=== PATIENT | female | born 1935 | race Caucasian/White ===

== ENCOUNTER → 2018-08-01 15:24 | Outpatient (CLI) | payer MEDICARE, SELFPAY ==
--- NOTE | 2018-08-01 | DI.US.S_ITS ---
PROCEDURE: US ARTERIAL DUPLEX LE LT INDICATIONS: PAIN,REDNESS,SWELLING TECHNIQUE: Color and pulse Doppler interrogation was performed of the left lower extremity arterial system, with image documentation. COMPARISON: None. FINDINGS: Common femoral artery: 137 cm/sec, with triphasic flow. Deep femoral artery: 84 cm/sec, with triphasic flow. Proximal superficial femoral artery: 95 cm/sec, with triphasic flow. Mid superficial femoral artery: 112 cm/sec, with triphasic flow. Distal superficial femoral artery: 91 cm/sec, with triphasic flow. Popliteal artery: 95 cm/sec, with triphasic flow. Posterior tibial artery: 68 cm/sec, with biphasic flow. Anterior tibial artery/dorsalis pedis: 97 cm/sec, with biphasic flow. Melendez-scale imaging description: Minimal scattered plaque. IMPRESSION: No hemodynamically significant stenosis. Minimal scattered plaque. Dictated by: Nika Davila M.D. on 08/01/2018 at 17:21 Approved by: Nika Davila M.D. on 08/01/2018 at 17:22
== END ==
PROVIDERS: Family Provider Family Medicine; Visit Provider Podiatrist
DX: M25.572 Pain in left ankle and joints of left foot (principal); M25.472 Effusion, left ankle
CPT/HCPCS: 93926

== ENCOUNTER 2018-10-22 17:25 | Inpatient (IN) | payer MEDICARE, SELFPAY ==
--- NOTE | 2018-10-22 | DI.RAD.S_ITS ---
PROCEDURE: XR CHEST 1V INDICATIONS: Cough, wheezing, coarseness TECHNIQUE: One view of the chest was acquired. COMPARISON: None. FINDINGS: Surgical changes and devices: None. Lungs and pleura: No pleural effusions or pneumothorax. Increased bronchovascular markings in bilateral hilar region are seen with bronchial wall thickening. Prominent interstitial lung markings are noted bilaterally. No definite focal infiltrate. Mediastinum: Mediastinal contours appear normal. Heart size is normal. Bones and chest wall: No suspicious bony lesions. Overlying soft tissues appear unremarkable. IMPRESSION: Suggestion of reactive airway disease and possible underlying interstitial lung parenchymal disease. No definite focal infiltrate. No pleural effusion or pneumothorax. Dictated by: Dk Oliver M.D. on 10/22/2018 at 21:54 Approved by: Dk Oliver M.D. on 10/22/2018 at 21:56
[2018-10-22 17:26] VITALS: BP 149/81; PULSE 58; RESP 16; TEMP 36.9; O2SAT 92; BMI 21.9
--- NOTE | 2018-10-22 17:39 | PC.NURSE ---
required 3 er staff assist from wheelchair unto stretcher.
--- NOTE | 2018-10-22 17:42 | DI.RAD.S_ITS ---
PROCEDURE: XR HIP W PEL IF DONE LT 2V INDICATIONS: fell unto left hip last night, now non wt bearing TECHNIQUE: AP pelvis with lateral view(s) of the left hip(s). COMPARISON: None. FINDINGS: Bones: Patient is status post prior bilateral total hip arthroplasty. There is cortical irregularity involving lateral cortex of proximal left femoral shaft just below the level of greater trochanter concerning for a periprosthetic fracture. No gross hardware loosening or failure is noted in right hip. Pelvic ring appears intact. No suspicious bony lesions. Soft tissues: The visualized bowel gas pattern is normal. No suspicious soft tissue calcifications. IMPRESSION: Prior bilateral total hip arthroplasty with suggestion of nondisplaced periprosthetic fracture involving left proximal femur. Dictated by: Dk Oliver M.D. on 10/22/2018 at 18:18 Approved by: Dk Oliver M.D. on 10/22/2018 at 18:19
--- NOTE | 2018-10-22 17:45 | ED.FALL ---
HPI - Fall <ASHUTOSH Yuan - Last Filed: 10/22/18 22:04> General Chief Complaint: Fall Stated Complaint: Fall- hurt L hip Time Seen by Provider: 10/22/18 17:44 Source: patient Mode of arrival: wheelchair Limitations: no limitations History of Present Illness HPI Narrative: 83-year-old female with history of hypertension is a nonsmoker here for complaint of pain to her left hip. 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 She states that she was walking across a carpeted floor yesterday when she accidentally tripped on the carpet causing her to land on the left hip area. She has pain to the lateral aspect of the left hip. She reports increased pain with motion of the left hip and palpation to that area. She states she is has decreased ability to ambulate due to the pain. She denies any head injury. She denies any acute pain to her neck. No loss of consciousness. She denies any other concerns or complaints at this timeframe. Related Data Home Medications Medication Instructions Recorded Confirmed cabergoline 0.5 mg PO SEE INSTRUCTIONS #8 tab 11/01/16 10/22/18 [id number] [Creon] 1,200 units PO TID 10/22/18 10/22/18 olmesartan [Benicar] 20 mg PO Q DAY 10/22/18 10/22/18 pramipexole 0.125 mg PO BEDTIME 10/22/18 10/22/18 risperidone [Risperdal] 1.5 mg PO HS 10/22/18 10/22/18 Previous Rx's Medication Instructions Recorded famciclovir 125 mg PO QDAY #90 tab 11/03/16 donepezil [Aricept] 5 mg PO HS #90 tab 05/26/17 Allergies Allergy/AdvReac Type Severity Reaction Status Date / Time codeine [CODEINE] Allergy Unknown NAUSEA Verified 10/22/18 17:37 Penicillins [PENICILLINS] Allergy Unknown SWELLING Verified 10/22/18 17:37 TO SITE OF INJECTION Review of Systems <ASHUTOSH Yuan - Last Filed: 10/22/18 22:04> Constitutional Denies chills, Denies fever(s), Denies lethargy and Denies weakness Eyes Denies change in vision, Denies eye discharge, Denies irritation and Denies loss of vision ENT Ears, Nose, Mouth, and Throat: Denies change in voice, Denies neck pain and Denies sore throat Cardiovascular Denies chest pain, Denies irregular heart rhythm, Denies lightheadedness, Denies palpitations, Denies dyspnea, Denies dyspnea on exertion and Denies orthopnea Respiratory Denies cough, Denies dyspnea, Denies dyspnea on exertion and Denies wheezing Gastrointestinal Gastrointestinal: Denies abdominal pain, Denies change in bowel habits, Denies diarrhea, Denies nausea and Denies vomiting Genitourinary Denies hematuria, Denies flank pain, Denies urinary incontinence and Denies urinary urgency Musculoskeletal Denies neck pain Comments: Left hip pain status post ground level fall Integumentary/Breasts Denies pruritus, Denies erythema, Denies rash and Denies wounds Neurologic Denies confusion, Denies loss of vision and Denies weakness Psychiatric Denies anxiety, Denies confusion, Denies depression, Denies homicidal ideation and Denies suicidal ideation Endocrine Denies palpitations Hematologic/Lymphatic Denies easy bruising Allergic/Immunologic Denies wheezing Exam <ASHUTOSH uYan - Last Filed: 10/22/18 22:04> Initial Vital Signs Initial Vital Signs: Vital Signs Temperature 98.4 F 10/22/18 17:26 Pulse Rate 58 L 10/22/18 17:26 Respiratory Rate 16 10/22/18 17:26 Blood Pressure 149/81 H 10/22/18 17:26 Pulse Oximetry 92 10/22/18 17:26 Const General: cooperative and well developed Nutritional Appearance: well nourished Orientation: alert, awake, oriented x3 and not confused [facility] Mouth: oral mucosae normal and moist mucous membranes Eyes Conjunctivae: conjunctivae normal Sclera: sclerae normal Pupils: PERRL EOM: EOM intact bilaterally Resp Effort & Inspection: normal respiratory effort, able to speak in complete sentences, no respiratory distress and no use of accessory muscles Auscultation: clear to auscultation bilaterally, no rales, no rhonchi and no wheezes Cardio Rate: regular rate Rhythm: regular rhythm Heart Sounds: no click, no gallops, no murmurs and no rubs Pulses: normal peripheral pulses Skin General: no rashes or lesions noted, No jaundice and No petechiae Neuro General: alert, oriented x3, gait normal and no focal motor deficits Speech: speech normal Extrem Other: Left hip with no signs of trauma. No ecchymosis no swelling. No open lesions. Distal sensation is intact. Distal range of motion is intact. Distal pulses are intact. <Rafi Moore DO - Last Filed: 10/22/18 22:06> Initial Vital Signs Initial Vital Signs: Vital Signs Temperature 98.4 F 10/22/18 17:26 Pulse Rate 58 L 10/22/18 17:26 Respiratory Rate 16 10/22/18 17:26 Blood Pressure 149/81 H 10/22/18 17:26 Pulse Oximetry 92 10/22/18 17:26 Course <ASHUTOSH Yuan - Last Filed: 10/22/18 22:04> Orders Ordered: ED Orders 10/22/18 17:42 XR hip w pel if done LT 2V Stat 10/22/18 19:05 XR femur LT min 2V Stat 10/22/18 19:52 Consult to Physical Therapy Evaluate & Treat 10/22/18 19:58 Education, smoking cessation ONGOING 10/22/18 20:05 Consult to Occupational Therapy Evaluate & Treat Consult to Physical Therapy Evaluate & Treat 10/22/18 20:06 Consult to Physician Routine 10/22/18 20:07 Consult to Telephone Operator Chief Routine 10/22/18 20:08 Consult to Discharge Planning Routine 10/22/18 20:40 Consult to Dietitian, Adult Routine 10/22/18 21:01 Consult to Respiratory Therapy Evaluate & Treat 10/22/18 21:34 Complete Blood Count AUTO DIFF Urgent Comprehensive Metabolic Panel Urgent Magnesium Urgent Partial Thromboplastin Time Urgent Phosphorous Urgent Prothrombin Time INR Urgent 10/22/18 22:04 Urinalysis and Microscopic Routine Acetaminophen (Tylenol) 650 mg PO Q6HR PRN PRN Reason: As Needed for Fever/Mild Pain Al Hydrox/Mg Hydrox/Simethicone (Maalox Plus) 30 ml PO Q6HR PRN PRN Reason: Dyspepsia Albuterol (Ventolin) 2.5 mg INH Q4H PRN PRN Reason: Shortness Of Breath Or Wheezing Albuterol (Ventolin) 2.5 mg INH RTBID [facility] Bisacodyl (Dulcolax) 10 mg OR DAILY PRN PRN Reason: Constipation Calcium Carbonate (Tums) 1,000 mg PO Q4HR PRN PRN Reason: Dyspepsia Docusate Sodium (Colace) 100 mg PO BID PRN PRN Reason: Constipation Donepezil HCl (Aricept) 5 mg PO BEDTIME [facility] Naproxen (Naprosyn) 250 mg PO Q12H PRN PRN Reason: Pain, Mild (1-3) Naproxen (Naprosyn) 500 mg PO Q12H PRN PRN Reason: Pain, Moderate (4-6) Non-Formulary Medication (Fppkno-Yqkahdrh-Zgpcoxk [Kmpgrf-Ssfdhzno-Dgbmqxv]) 1,200 units PO TID [facility] Non-Formulary Medication (Cabergoline [Cabergoline]) 0.5 mg PO SEE INSTRUCTIONS [facility] Olmesartan (Benicar) 20 mg PO DAILY [facility] Pantoprazole Sodium (Protonix) 20 mg PO 0600 [facility] Pramipexole Dihydrochloride (Mirapex) 0.125 mg PO BEDTIME [facility] Promethazine HCl (Phenadoz) 12.5 mg OR Q6HR PRN PRN Reason: Nausea And Vomiting Risperidone (Risperdal) 1.5 mg PO BEDTIME [facility] Discontinued Medications Docusate Sodium (Colace) 100 mg PO BID [facility] Vital Signs - 8 hr 10/22/18 17:26 10/22/18 18:50 10/22/18 20:48 Temperature 98.4 F 97.4 F L Pulse Rate 58 L 56 L 53 L Respiratory Rate 16 15 20 Blood Pressure 149/81 H 162/74 H Blood Pressure [Right Arm] 165/86 H Pulse Oximetry 92 95 97 <Rafi Moore, DO - Last Filed: 10/22/18 22:06> Orders Ordered: ED Orders 10/22/18 17:42 XR hip w pel if done LT 2V Stat 10/22/18 19:05 XR femur LT min 2V Stat 10/22/18 19:52 Consult to Physical Therapy Evaluate & Treat 10/22/18 19:58 Education, smoking cessation ONGOING 10/22/18 20:05 Consult to Occupational Therapy Evaluate & Treat Consult to Physical Therapy Evaluate & Treat 10/22/18 20:06 Consult to Physician Routine 10/22/18 20:07 Consult to Telephone Operator Chief Routine 10/22/18 20:08 Consult to Discharge Planning Routine 10/22/18 20:40 Consult to Dietitian, Adult Routine 10/22/18 21:01 Consult to Respiratory Therapy Evaluate & Treat 10/22/18 21:34 Complete Blood Count AUTO DIFF Urgent Comprehensive Metabolic Panel Urgent Magnesium Urgent Partial Thromboplastin Time Urgent Phosphorous Urgent Prothrombin Time INR Urgent 10/22/18 22:04 Urinalysis and Microscopic Routine Acetaminophen (Tylenol) 650 mg PO Q6HR PRN PRN Reason: As Needed for Fever/Mild Pain Al Hydrox/Mg Hydrox/Simethicone (Maalox Plus) 30 ml PO Q6HR PRN PRN Reason: Dyspepsia Albuterol (Ventolin) 2.5 mg INH Q4H PRN PRN Reason: Shortness Of Breath Or Wheezing Albuterol (Ventolin) 2.5 mg INH RTBID [facility] Bisacodyl (Dulcolax) 10 mg OR DAILY PRN PRN Reason: Constipation Calcium Carbonate (Tums) 1,000 mg PO Q4HR PRN PRN Reason: Dyspepsia Docusate Sodium (Colace) 100 mg PO BID PRN PRN Reason: Constipation Donepezil HCl (Aricept) 5 mg PO BEDTIME [facility] Naproxen (Naprosyn) 250 mg PO Q12H PRN PRN Reason: Pain, Mild (1-3) Naproxen (Naprosyn) 500 mg PO Q12H PRN PRN Reason: Pain, Moderate (4-6) Non-Formulary Medication (Ymdcgx-Gnsirmny-Ibdbmwc [Ntwqmx-Xlwsfpfc-Eawiefr]) 1,200 units PO TID [facility] Non-Formulary Medication (Cabergoline [Cabergoline]) 0.5 mg PO SEE INSTRUCTIONS [facility] Olmesartan (Benicar) 20 mg PO DAILY [facility] Pantoprazole Sodium (Protonix) 20 mg PO 0600 [facility] Pramipexole Dihydrochloride (Mirapex) 0.125 mg PO BEDTIME [facility] Promethazine HCl (Phenadoz) 12.5 mg OR Q6HR PRN PRN Reason: Nausea And Vomiting Risperidone (Risperdal) 1.5 mg PO BEDTIME [facility] Discontinued Medications Docusate Sodium (Colace) 100 mg PO BID [facility] Vital Signs - 8 hr 10/22/18 17:26 10/22/18 18:50 10/22/18 20:48 Temperature 98.4 F 97.4 F L Pulse Rate 58 L 56 L 53 L Respiratory Rate 16 15 20 Blood Pressure 149/81 H 162/74 H Blood Pressure [Right Arm] 165/86 H Pulse Oximetry 92 95 97 MDM - Fall <Derek ASHUTOSH Stanley - Last Filed: 10/22/18 22:04> Lab Data Result diagrams: 10/22/18 21:34 10/22/18 21:34 Lab Results 10/22/18 10/22/18 10/22/18 Range/Units 21:34 21:34 21:34 WBC 7.3 (4.5-11.0) X10^3/uL RBC 3.55 L (4.0-5.2) X10^6/uL Hgb 11.2 L (12.0-16.0) g/dL Hct 33.0 L (36-46) % MCV 92.9 (80-100) fL MCH 31.4 (26-34) PG MCHC 33.8 (30-36) % RDW 13.6 (11.6-14.8) % Plt Count 168 (150-400) X10^3/uL Neut % (Auto) 72.8 (50-75) % Lymph % (Auto) 12.5 L (25-40) % [place] % (Auto) 12.4 (3-14) % Eos % (Auto) 2.0 (2-4) % Baso % (Auto) 0.3 (0-2) % Neut # (Auto) 5300 (2013-4668) /uL Lymph # (Auto) 900 L (2979-4904) /uL [place] # (Auto) 900 (0-900) /uL Eos # (Auto) 100 (0-450) /uL Baso # (Auto) 0 (0-100) /uL PT 14.1 H (10.1-12.7) SECONDS INR 1.2 (0.9-1.3) APTT 28 (26.4-36.2) SECONDS Sodium 124 L (137-145) mmol/L Potassium 4.5 (3.4-5.1) mmol/L Chloride 87 L (98-107) mmol/L Carbon Dioxide 31 (22-32) mmol/L BUN 24 H (7-17) mg/dL Creatinine 1.00 (0.52-1.04) mg/dL Estimated GFR 53.0 L (>60) mL/min BUN/Creatinine Ratio 24.0 H (6-22) Glucose 142 H (80-110) mg/dL Calcium 8.7 (8.4-10.2) mg/dL Phosphorus 2.9 (2.8-4.1) mg/dL Magnesium 2.1 (1.6-2.3) mg/dL Total Bilirubin 1.2 (0.2-1.3) mg/dL AST 32 (14-36) IU/L ALT 23 (9-52) IU/L Alkaline Phosphatase 86 (38-126) U/L Total Protein 6.1 L (6.3-8.2) g/dL Albumin 3.2 L (3.5-5.0) g/dL Globulin 2.9 (1.7-4.1) g/dL Albumin/Globulin Ratio 1.1 (1.0-2.8) Imaging Data L hip: Radiologist's impression: [address] [address] XRay Report Signed Patient: Artemio Rico MR#: [id number] : 1935 Acct:[id number] Age/Sex: 83 / F Date of Service: 10/22/18 Loc: ED Accession Number: [id number] Procedure: XR hip w pel if done LT 2V Ordering Provider: Rafi Moore D.O. PROCEDURE: XR HIP W PEL IF DONE LT 2V INDICATIONS: fell unto left hip last night, now non wt bearing TECHNIQUE: AP pelvis with lateral view(s) of the left hip(s). COMPARISON: None. FINDINGS: Bones: Patient is status post prior bilateral total hip arthroplasty. There is cortical irregularity involving lateral cortex of proximal left femoral shaft just below the level of greater trochanter concerning for a periprosthetic fracture. No gross hardware loosening or failure is noted in right hip. Pelvic ring appears intact. No suspicious bony lesions. Soft tissues: The visualized bowel gas pattern is normal. No suspicious soft tissue calcifications. IMPRESSION: Prior bilateral total hip arthroplasty with suggestion of nondisplaced periprosthetic fracture involving left proximal femur. Dictated by: Dk Oliver M.D. on 10/22/2018 at 18:18 Approved by: Dk Oliver M.D. on 10/22/2018 at 18:19 L femur : Radiologist's impression: [address] [address] XRay Report Signed Patient: Artemio Rico MR#: [id number] : 1935 Acct:[id number] Age/Sex: 83 / F Date of Service: 10/22/18 Loc: ED Accession Number: [id number] Procedure: XR femur LT min 2V Ordering Provider: Derek Stanley PROCEDURE: XR FEMUR LT MIN 2V INDICATIONS: Trochanter fracture seen on hip x-ray TECHNIQUE: 3 views of the femur were acquired. COMPARISON: None. FINDINGS: Bones: Left hip arthroplasty prosthesis is noted with no gross hardware loosening or failure. Nondisplaced fracture involving lateral cortex of proximal femoral shaft inferior to the level of greater trochanter is again seen. No fracture is seen in more distal portion of left femoral shaft. Soft tissues: No suspicious soft tissue calcifications or masses. IMPRESSION: Nondisplaced periprosthetic fracture of left proximal femoral shaft. No fracture or dislocation is seen in more distal portion of left femur. 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 Dictated by: Dk Oliver M.D. on 10/22/2018 at 19:37 Approved by: Dk Oliver M.D. on 10/22/2018 at 19:38 MDM Narrative Medical decision making narrative: X-ray of the left hip was obtained and shows fracture to the trochanter area. Discussed case with Dr. [facility] who feels that this can be handled nonsurgically. She states patient can go home if she is able to get around with a walker. Patient refused pain medications in the emergency room. Discussing with and her ability to ambulate is in question. Patient is admitted to inpatient services for monitoring and physical therapy to help with pain and to help with ambulation. Discussed case with Dr. Swartz hospitalist who accepted patient. <Rafi Moore, DO - Last Filed: 10/22/18 22:06> Lab Data Lab Results 10/22/18 10/22/18 10/22/18 Range/Units 21:34 21:34 21:34 WBC 7.3 (4.5-11.0) X10^3/uL RBC 3.55 L (4.0-5.2) X10^6/uL Hgb 11.2 L (12.0-16.0) g/dL Hct 33.0 L (36-46) % MCV 92.9 (80-100) fL MCH 31.4 (26-34) PG MCHC 33.8 (30-36) % RDW 13.6 (11.6-14.8) % Plt Count 168 (150-400) X10^3/uL Neut % (Auto) 72.8 (50-75) % Lymph % (Auto) 12.5 L (25-40) % [place] % (Auto) 12.4 (3-14) % Eos % (Auto) 2.0 (2-4) % Baso % (Auto) 0.3 (0-2) % Neut # (Auto) 5300 (4880-1457) /uL Lymph # (Auto) 900 L (1610-3525) /uL [place] # (Auto) 900 (0-900) /uL Eos # (Auto) 100 (0-450) /uL Baso # (Auto) 0 (0-100) /uL PT 14.1 H (10.1-12.7) SECONDS INR 1.2 (0.9-1.3) APTT 28 (26.4-36.2) SECONDS Sodium 124 L (137-145) mmol/L Potassium 4.5 (3.4-5.1) mmol/L Chloride 87 L (98-107) mmol/L Carbon Dioxide 31 (22-32) mmol/L BUN 24 H (7-17) mg/dL Creatinine 1.00 (0.52-1.04) mg/dL Estimated GFR 53.0 L (>60) mL/min BUN/Creatinine Ratio 24.0 H (6-22) Glucose 142 H (80-110) mg/dL Calcium 8.7 (8.4-10.2) mg/dL Phosphorus 2.9 (2.8-4.1) mg/dL Magnesium 2.1 (1.6-2.3) mg/dL Total Bilirubin 1.2 (0.2-1.3) mg/dL AST 32 (14-36) IU/L ALT 23 (9-52) IU/L Alkaline Phosphatase 86 (38-126) U/L Total Protein 6.1 L (6.3-8.2) g/dL Albumin 3.2 L (3.5-5.0) g/dL Globulin 2.9 (1.7-4.1) g/dL Albumin/Globulin Ratio 1.1 (1.0-2.8) Discharge Plan Departure Patient Disposition: Admitted As Inpatient Clinical Impression: Trochanteric fracture of left femur Discharge Date/Time: 10/22/18 20:12 Interventions: ED Discharge Assessment Last Done: 10/22/18 20:10 Admit Date/Time: 10/22/18 19:45 Admit Provider: Franco Swartz <Rafi Moore DO - Last Filed: 10/22/18 22:06> [facility] Attending Tarun Attestation: I was available for consultation during this patient's emergency department encounter
[2018-10-22 18:50] VITALS: BP 165/86; PULSE 56; RESP 15; O2SAT 95
--- NOTE | 2018-10-22 19:05 | DI.RAD.S_ITS ---
PROCEDURE: XR FEMUR LT MIN 2V INDICATIONS: Trochanter fracture seen on hip x-ray TECHNIQUE: 3 views of the femur were acquired. COMPARISON: None. FINDINGS: Bones: Left hip arthroplasty prosthesis is noted with no gross hardware loosening or failure. Nondisplaced fracture involving lateral cortex of proximal femoral shaft inferior to the level of greater trochanter is again seen. No fracture is seen in more distal portion of left femoral shaft. Soft tissues: No suspicious soft tissue calcifications or masses. IMPRESSION: Nondisplaced periprosthetic fracture of left proximal femoral shaft. No fracture or dislocation is seen in more distal portion of left femur. 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 Dictated by: Dk Oliver M.D. on 10/22/2018 at 19:37 Approved by: Dk Oliver M.D. on 10/22/2018 at 19:38
--- NOTE | 2018-10-22 19:12 | PC.NURSE ---
pt adamantly refused a boothe catheter so I assisted her on the bedpan. gave her the call light to let me know when she is finished. let her nurse Dinora know that I put her on the bedpan.
--- NOTE | 2018-10-22 19:43 | ED_ITS ---
HPI - Fall <ASHUTOSH Yuan - Last Filed: 10/22/18 22:04> General Chief Complaint: Fall Stated Complaint: Fall- hurt L hip Time Seen by Provider: 10/22/18 17:44 Source: patient Mode of arrival: wheelchair Limitations: no limitations History of Present Illness HPI Narrative: 83-year-old female with history of hypertension is a nonsmoker here for complaint of pain to her left hip. 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 She states that she was walking across a carpeted floor yesterday when she accidentally tripped on the carpet causing her to land on the left hip area. She has pain to the lateral aspect of the left hip. She reports increased pain with motion of the left hip and palpation to that area. She states she is has decreased ability to ambulate due to the pain. She denies any head injury. She denies any acute pain to her neck. No loss of consciousness. She denies any other concerns or complaints at this timeframe. Related Data Home Medications Medication Instructions Recorded Confirmed cabergoline 0.5 mg PO SEE INSTRUCTIONS #8 tab 11/01/16 10/22/18 aeqzuz-hdfapcrj-vzcewwr [Creon] 1,200 units PO TID 10/22/18 10/22/18 olmesartan [Benicar] 20 mg PO Q DAY 10/22/18 10/22/18 pramipexole 0.125 mg PO BEDTIME 10/22/18 10/22/18 risperidone [Risperdal] 1.5 mg PO HS 10/22/18 10/22/18 Previous Rx's Medication Instructions Recorded famciclovir 125 mg PO QDAY #90 tab 11/03/16 donepezil [Aricept] 5 mg PO HS #90 tab 05/26/17 Allergies Allergy/AdvReac Type Severity Reaction Status Date / Time codeine [CODEINE] Allergy Unknown NAUSEA Verified 10/22/18 17:37 Penicillins [PENICILLINS] Allergy Unknown SWELLING Verified 10/22/18 17:37 TO SITE OF INJECTION Review of Systems <ASHUTOSH Yuan - Last Filed: 10/22/18 22:04> Constitutional Denies chills, Denies fever(s), Denies lethargy and Denies weakness Eyes Denies change in vision, Denies eye discharge, Denies irritation and Denies loss of vision ENT Ears, Nose, Mouth, and Throat: Denies change in voice, Denies neck pain and Denies sore throat Cardiovascular Denies chest pain, Denies irregular heart rhythm, Denies lightheadedness, Denies palpitations, Denies dyspnea, Denies dyspnea on exertion and Denies orthopnea Respiratory Denies cough, Denies dyspnea, Denies dyspnea on exertion and Denies wheezing Gastrointestinal Gastrointestinal: Denies abdominal pain, Denies change in bowel habits, Denies diarrhea, Denies nausea and Denies vomiting Genitourinary Denies hematuria, Denies flank pain, Denies urinary incontinence and Denies urinary urgency Musculoskeletal Denies neck pain Comments: Left hip pain status post ground level fall Integumentary/Breasts Denies pruritus, Denies erythema, Denies rash and Denies wounds Neurologic Denies confusion, Denies loss of vision and Denies weakness Psychiatric Denies anxiety, Denies confusion, Denies depression, Denies homicidal ideation and Denies suicidal ideation Endocrine Denies palpitations Hematologic/Lymphatic Denies easy bruising Allergic/Immunologic Denies wheezing Exam <ASHUTOSH Yuan - Last Filed: 10/22/18 22:04> Initial Vital Signs Initial Vital Signs: Vital Signs Temperature 98.4 F 10/22/18 17:26 Pulse Rate 58 L 10/22/18 17:26 Respiratory Rate 16 10/22/18 17:26 Blood Pressure 149/81 H 10/22/18 17:26 Pulse Oximetry 92 10/22/18 17:26 Const General: cooperative and well developed Nutritional Appearance: well nourished Orientation: alert, awake, oriented x3 and not confused [facility] Mouth: oral mucosae normal and moist mucous membranes Eyes Conjunctivae: conjunctivae normal Sclera: sclerae normal Pupils: PERRL EOM: EOM intact bilaterally Resp Effort & Inspection: normal respiratory effort, able to speak in complete sentences, no respiratory distress and no use of accessory muscles Auscultation: clear to auscultation bilaterally, no rales, no rhonchi and no wheezes Cardio Rate: regular rate Rhythm: regular rhythm Heart Sounds: no click, no gallops, no murmurs and no rubs Pulses: normal peripheral pulses Skin General: no rashes or lesions noted, No jaundice and No petechiae Neuro General: alert, oriented x3, gait normal and no focal motor deficits Speech: speech normal Extrem Other: Left hip with no signs of trauma. No ecchymosis no swelling. No open lesions. Distal sensation is intact. Distal range of motion is intact. Distal pulses are intact. <Rafi Moore DO - Last Filed: 10/22/18 22:06> Initial Vital Signs Initial Vital Signs: Vital Signs Temperature 98.4 F 10/22/18 17:26 Pulse Rate 58 L 10/22/18 17:26 Respiratory Rate 16 10/22/18 17:26 Blood Pressure 149/81 H 10/22/18 17:26 Pulse Oximetry 92 10/22/18 17:26 Course <ASHUTOSH Yuan - Last Filed: 10/22/18 22:04> Orders Ordered: ED Orders 10/22/18 17:42 XR hip w pel if done LT 2V Stat 10/22/18 19:05 XR femur LT min 2V Stat 10/22/18 19:52 Consult to Physical Therapy Evaluate & Treat 10/22/18 19:58 Education, smoking cessation ONGOING 10/22/18 20:05 Consult to Occupational Therapy Evaluate & Treat Consult to Physical Therapy Evaluate & Treat 10/22/18 20:06 Consult to Physician Routine 10/22/18 20:07 Consult to Insulation And Flooring Assembler Routine 10/22/18 20:08 Consult to Discharge Planning Routine 10/22/18 20:40 Consult to Dietitian, Adult Routine 10/22/18 21:01 Consult to Respiratory Therapy Evaluate & Treat 10/22/18 21:34 Complete Blood Count AUTO DIFF Urgent Comprehensive Metabolic Panel Urgent Magnesium Urgent Partial Thromboplastin Time Urgent Phosphorous Urgent Prothrombin Time INR Urgent 10/22/18 22:04 Urinalysis and Microscopic Routine Acetaminophen (Tylenol) 650 mg PO Q6HR PRN PRN Reason: As Needed for Fever/Mild Pain Al Hydrox/Mg Hydrox/Simethicone (Maalox Plus) 30 ml PO Q6HR PRN PRN Reason: Dyspepsia Albuterol (Ventolin) 2.5 mg INH Q4H PRN PRN Reason: Shortness Of Breath Or Wheezing Albuterol (Ventolin) 2.5 mg INH RTBID [facility] Bisacodyl (Dulcolax) 10 mg DE DAILY PRN PRN Reason: Constipation Calcium Carbonate (Tums) 1,000 mg PO Q4HR PRN PRN Reason: Dyspepsia Docusate Sodium (Colace) 100 mg PO BID PRN PRN Reason: Constipation Donepezil HCl (Aricept) 5 mg PO BEDTIME [facility] Naproxen (Naprosyn) 250 mg PO Q12H PRN PRN Reason: Pain, Mild (1-3) Naproxen (Naprosyn) 500 mg PO Q12H PRN PRN Reason: Pain, Moderate (4-6) Non-Formulary Medication (Nacaus-Xrssvmmq-Dxhknst [Hanfwh-Lhuthgme-Neuzytk]) 1, 200 units PO TID [facility] Non-Formulary Medication (Cabergoline [Cabergoline]) 0.5 mg PO SEE INSTRUCTIONS [facility] Olmesartan (Benicar) 20 mg PO DAILY [facility] Pantoprazole Sodium (Protonix) 20 mg PO 0600 [facility] Pramipexole Dihydrochloride (Mirapex) 0.125 mg PO BEDTIME [facility] Promethazine HCl (Phenadoz) 12.5 mg DE Q6HR PRN PRN Reason: Nausea And Vomiting Risperidone (Risperdal) 1.5 mg PO BEDTIME [facility] Discontinued Medications Docusate Sodium (Colace) 100 mg PO BID [facility] Vital Signs - 8 hr 10/22/18 17:26 10/22/18 18:50 10/22/18 20:48 Temperature 98.4 F 97.4 F L Pulse Rate 58 L 56 L 53 L Respiratory Rate 16 15 20 Blood Pressure 149/81 H 162/74 H Blood Pressure [Right Arm] 165/86 H Pulse Oximetry 92 95 97 <Rafi Moore, DO - Last Filed: 10/22/18 22:06> Orders Ordered: ED Orders 10/22/18 17:42 XR hip w pel if done LT 2V Stat 10/22/18 19:05 XR femur LT min 2V Stat 10/22/18 19:52 Consult to Physical Therapy Evaluate & Treat 10/22/18 19:58 Education, smoking cessation ONGOING 10/22/18 20:05 Consult to Occupational Therapy Evaluate & Treat Consult to Physical Therapy Evaluate & Treat 10/22/18 20:06 Consult to Physician Routine 10/22/18 20:07 Consult to Insulation And Flooring Assembler Routine 10/22/18 20:08 Consult to Discharge Planning Routine 10/22/18 20:40 Consult to Dietitian, Adult Routine 10/22/18 21:01 Consult to Respiratory Therapy Evaluate & Treat 10/22/18 21:34 Complete Blood Count AUTO DIFF Urgent Comprehensive Metabolic Panel Urgent Magnesium Urgent Partial Thromboplastin Time Urgent Phosphorous Urgent Prothrombin Time INR Urgent 10/22/18 22:04 Urinalysis and Microscopic Routine Acetaminophen (Tylenol) 650 mg PO Q6HR PRN PRN Reason: As Needed for Fever/Mild Pain Al Hydrox/Mg Hydrox/Simethicone (Maalox Plus) 30 ml PO Q6HR PRN PRN Reason: Dyspepsia Albuterol (Ventolin) 2.5 mg INH Q4H PRN PRN Reason: Shortness Of Breath Or Wheezing Albuterol (Ventolin) 2.5 mg INH RTBID [facility] Bisacodyl (Dulcolax) 10 mg DE DAILY PRN PRN Reason: Constipation Calcium Carbonate (Tums) 1,000 mg PO Q4HR PRN PRN Reason: Dyspepsia Docusate Sodium (Colace) 100 mg PO BID PRN PRN Reason: Constipation Donepezil HCl (Aricept) 5 mg PO BEDTIME [facility] Naproxen (Naprosyn) 250 mg PO Q12H PRN PRN Reason: Pain, Mild (1-3) Naproxen (Naprosyn) 500 mg PO Q12H PRN PRN Reason: Pain, Moderate (4-6) Non-Formulary Medication (Nvbvzm-Hcqlwqhw-Hbokvyk [Ompmwf-Ymrsstpk-Eoztmex]) 1, 200 units PO TID [facility] Non-Formulary Medication (Cabergoline [Cabergoline]) 0.5 mg PO SEE INSTRUCTIONS [facility] Olmesartan (Benicar) 20 mg PO DAILY [facility] Pantoprazole Sodium (Protonix) 20 mg PO 0600 [facility] Pramipexole Dihydrochloride (Mirapex) 0.125 mg PO BEDTIME [facility] Promethazine HCl (Phenadoz) 12.5 mg DE Q6HR PRN PRN Reason: Nausea And Vomiting Risperidone (Risperdal) 1.5 mg PO BEDTIME [facility] Discontinued Medications Docusate Sodium (Colace) 100 mg PO BID [facility] Vital Signs - 8 hr 10/22/18 17:26 10/22/18 18:50 10/22/18 20:48 Temperature 98.4 F 97.4 F L Pulse Rate 58 L 56 L 53 L Respiratory Rate 16 15 20 Blood Pressure 149/81 H 162/74 H Blood Pressure [Right Arm] 165/86 H Pulse Oximetry 92 95 97 MDM - Fall <Derek ASHUTOSH Stanley - Last Filed: 10/22/18 22:04> Lab Data Result diagrams: 10/22/18 21:34 10/22/18 21:34 Lab Results 10/22/18 10/22/18 10/22/18 Range/Units 21:34 21:34 21:34 WBC 7.3 (4.5-11.0) X10^3/uL RBC 3.55 L (4.0-5.2) X10^6/uL Hgb 11.2 L (12.0-16.0) g/dL Hct 33.0 L (36-46) % MCV 92.9 (80-100) fL MCH 31.4 (26-34) PG MCHC 33.8 (30-36) % RDW 13.6 (11.6-14.8) % Plt Count 168 (150-400) X10^3/uL Neut % (Auto) 72.8 (50-75) % Lymph % (Auto) 12.5 L (25-40) % Stephenson % (Auto) 12.4 (3-14) % Eos % (Auto) 2.0 (2-4) % Baso % (Auto) 0.3 (0-2) % Neut # (Auto) 5300 (6352-5922) /uL Lymph # (Auto) 900 L (0170-4221) /uL Stephenson # (Auto) 900 (0-900) /uL Eos # (Auto) 100 (0-450) /uL Baso # (Auto) 0 (0-100) /uL PT 14.1 H (10.1-12.7) SECONDS INR 1.2 (0.9-1.3) APTT 28 (26.4-36.2) SECONDS Sodium 124 L (137-145) mmol/L Potassium 4.5 (3.4-5.1) mmol/L Chloride 87 L (98-107) mmol/L Carbon Dioxide 31 (22-32) mmol/L BUN 24 H (7-17) mg/dL Creatinine 1.00 (0.52-1.04) mg/dL Estimated GFR 53.0 L (>60) mL/min BUN/Creatinine Ratio 24.0 H (6-22) Glucose 142 H (80-110) mg/dL Calcium 8.7 (8.4-10.2) mg/dL Phosphorus 2.9 (2.8-4.1) mg/dL Magnesium 2.1 (1.6-2.3) mg/dL Total Bilirubin 1.2 (0.2-1.3) mg/dL AST 32 (14-36) IU/L ALT 23 (9-52) IU/L Alkaline Phosphatase 86 (38-126) U/L Total Protein 6.1 L (6.3-8.2) g/dL Albumin 3.2 L (3.5-5.0) g/dL Globulin 2.9 (1.7-4.1) g/dL Albumin/Globulin Ratio 1.1 (1.0-2.8) Imaging Data L hip: Radiologist's impression: [address] [address] XRay Report Signed Patient: Artemio Rico MR#: [id number] : 1935 Acct:[id number] Age/Sex: 83 / F Date of Service: 10/22/18 Loc: ED Accession Number: [id number] Procedure: XR hip w pel if done LT 2V Ordering Provider: Rafi Moore D.O. PROCEDURE: XR HIP W PEL IF DONE LT 2V INDICATIONS: fell unto left hip last night, now non wt bearing TECHNIQUE: AP pelvis with lateral view(s) of the left hip(s). COMPARISON: None. FINDINGS: Bones: Patient is status post prior bilateral total hip arthroplasty. There is cortical irregularity involving lateral cortex of proximal left femoral shaft just below the level of greater trochanter concerning for a periprosthetic fracture. No gross hardware loosening or failure is noted in right hip. Pelvic ring appears intact. No suspicious bony lesions. Soft tissues: The visualized bowel gas pattern is normal. No suspicious soft tissue calcifications. IMPRESSION: Prior bilateral total hip arthroplasty with suggestion of nondisplaced periprosthetic fracture involving left proximal femur. Dictated by: Dk Oliver M.D. on 10/22/2018 at 18:18 Approved by: Dk Oliver M.D. on 10/22/2018 at 18:19 L femur : Radiologist's impression: [address] [address] XRay Report Signed Patient: Artemio Rico MR#: [id number] : 1935 Acct:[id number] Age/Sex: 83 / F Date of Service: 10/22/18 Loc: ED Accession Number: [id number] Procedure: XR femur LT min 2V Ordering Provider: Derek Stanley PROCEDURE: XR FEMUR LT MIN 2V INDICATIONS: Trochanter fracture seen on hip x-ray TECHNIQUE: 3 views of the femur were acquired. COMPARISON: None. FINDINGS: Bones: Left hip arthroplasty prosthesis is noted with no gross hardware loosening or failure. Nondisplaced fracture involving lateral cortex of proximal femoral shaft inferior to the level of greater trochanter is again seen. No fracture is seen in more distal portion of left femoral shaft. Soft tissues: No suspicious soft tissue calcifications or masses. IMPRESSION: Nondisplaced periprosthetic fracture of left proximal femoral shaft. No fracture or dislocation is seen in more distal portion of left femur. 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 Dictated by: Dk Oliver M.D. on 10/22/2018 at 19:37 Approved by: Dk Oliver M.D. on 10/22/2018 at 19:38 MDM Narrative Medical decision making narrative: X-ray of the left hip was obtained and shows fracture to the trochanter area. Discussed case with Dr. [facility] who feels that this can be handled nonsurgically. She states patient can go home if she is able to get around with a walker. Patient refused pain medications in the emergency room. Discussing with and her ability to ambulate is in question. Patient is admitted to inpatient services for monitoring and physical therapy to help with pain and to help with ambulation. Discussed case with Dr. Swartz hospitalist who accepted patient. <Rafi Moore, DO - Last Filed: 10/22/18 22:06> Lab Data Lab Results 10/22/18 10/22/18 10/22/18 Range/Units 21:34 21:34 21:34 WBC 7.3 (4.5-11.0) X10^3/uL RBC 3.55 L (4.0-5.2) X10^6/uL Hgb 11.2 L (12.0-16.0) g/dL Hct 33.0 L (36-46) % MCV 92.9 (80-100) fL MCH 31.4 (26-34) PG MCHC 33.8 (30-36) % RDW 13.6 (11.6-14.8) % Plt Count 168 (150-400) X10^3/uL Neut % (Auto) 72.8 (50-75) % Lymph % (Auto) 12.5 L (25-40) % Stephenson % (Auto) 12.4 (3-14) % Eos % (Auto) 2.0 (2-4) % Baso % (Auto) 0.3 (0-2) % Neut # (Auto) 5300 (0445-0257) /uL Lymph # (Auto) 900 L (4862-8007) /uL Stephenson # (Auto) 900 (0-900) /uL Eos # (Auto) 100 (0-450) /uL Baso # (Auto) 0 (0-100) /uL PT 14.1 H (10.1-12.7) SECONDS INR 1.2 (0.9-1.3) APTT 28 (26.4-36.2) SECONDS Sodium 124 L (137-145) mmol/L Potassium 4.5 (3.4-5.1) mmol/L Chloride 87 L (98-107) mmol/L Carbon Dioxide 31 (22-32) mmol/L BUN 24 H (7-17) mg/dL Creatinine 1.00 (0.52-1.04) mg/dL Estimated GFR 53.0 L (>60) mL/min BUN/Creatinine Ratio 24.0 H (6-22) Glucose 142 H (80-110) mg/dL Calcium 8.7 (8.4-10.2) mg/dL Phosphorus 2.9 (2.8-4.1) mg/dL Magnesium 2.1 (1.6-2.3) mg/dL Total Bilirubin 1.2 (0.2-1.3) mg/dL AST 32 (14-36) IU/L ALT 23 (9-52) IU/L Alkaline Phosphatase 86 (38-126) U/L Total Protein 6.1 L (6.3-8.2) g/dL Albumin 3.2 L (3.5-5.0) g/dL Globulin 2.9 (1.7-4.1) g/dL Albumin/Globulin Ratio 1.1 (1.0-2.8) Discharge Plan Departure Patient Disposition: Admitted As Inpatient Clinical Impression: Trochanteric fracture of left femur Discharge Date/Time: 10/22/18 20:12 Interventions: ED Discharge Assessment Last Done: 10/22/18 20:10 Admit Date/Time: 10/22/18 19:45 Admit Provider: Franco Swartz <Rafi Moore DO - Last Filed: 10/22/18 22:06> [facility] ED Attending aTrun Attestation: I was available for consultation during this patient's emergency department encounter
--- NOTE | 2018-10-22 19:45 | PM.HP.1 ---
History of Present Illness Date Patient Seen: 10/22/18 Time Patient Seen: 19:45 Chief complaint: Fall- hurt L hip Narrative: This is an 83-year-old female who lives with her supportive who has a history of bilateral total hip arthroplasties which were done about 25 years ago in [place] at [facility]. She had a fall at home yesterday and noted the acute onset of left hip pain. She has had difficulty weight-bearing on the left leg since then. Her was attempting to assist her but he has a history of a stroke and he was having difficulty getting her on and off of the toilet and she has basically been bed ridden and unable to care for self. She is brought the emergency room for evaluation. Patient History Surgical History History of hip replacement History of hip replacement Family & Social History Family History: Reviewed 10/22/18 by Yanet Robles MD Meds Home Medications Medication Instructions Recorded Confirmed Type olmesartan [Benicar] 20 mg OR Q DAY #90 tab 07/26/16 Rx risperidone [Risperdal] 0 PO HS #135 tab 09/21/16 Rx cabergoline 0 OR SEE INSTRUCTIONS #8 tab 11/01/16 History famciclovir 125 mg PO QDAY #90 tab 11/03/16 Rx awhxkj-vdkwcnog-hqeipdx [Creon] 1 cap PO SEE INSTRUCTIONS #360 cap 01/21/17 Rx donepezil [Aricept] 5 mg PO HS #90 tab 05/26/17 Rx Allergies Allergy/AdvReac Type Severity Reaction Status Date / Time codeine [CODEINE] Allergy Unknown NAUSEA Verified 10/22/18 17:37 Penicillins [PENICILLINS] Allergy Unknown SWELLING Verified 10/22/18 17:37 TO SITE OF INJECTION Review of Systems Review of Systems The fall was caused by a trip, she denies a history of dizziness chest pain lightheadedness or other problems prior to the fall, she has not had recent problems with nausea urination or her bowels. Exam Vital Signs (past 8 hours): - 10/22/18 17:26 10/22/18 18:50 Temperature 98.4 F Pulse Rate 58 L 56 L Respiratory Rate 16 15 Blood Pressure 149/81 H Blood Pressure [Right Arm] 165/86 H Pulse Oximetry 92 95 Oxygen Delivery Method Room Air Narrative Exam Narrative: HEENT is benign, her pupils are fairly small, she is appropriate but does have a few questions regarding her history and uses her for support, her heart shows a regular rate and rhythm, her lungs are clear except for an occasional rhonchi and upper respiratory sounds, abdomen is soft and benign with some mild tenderness with deep palpation, her left leg shows a well-healed lateral hip scar she is tender to palpation over the left greater trochanter, there is minimal pain with gentle range of motion into the left hip, her pelvis is stable, right lower extremity is benign with no pain, she is able to fire toe flexors and extensors on the left leg has some mild lower extremity edema bilaterally Objective Labs Labs: Her x-rays show a left greater trochanteric fracture with a left total hip arthroplasty without evidence of obvious loosening or displacement acetabulum and femoral a pole component appeared to be stable she has severe left knee osteoarthritis, she also has the right total hip arthroplasty with no evidence of loosening Assessment & Plan Plan: Assessment/Plan Narrative: Impression is a left greater trochanter hip fracture with some extension into the subtrochanteric region with a history of bilateral total hip arthroplasty without evidence of obvious loosening. I have recommended conservative treatment. We are going to get her up with physical therapy she can be weight-bearing as tolerated on the left lower extremity although anticipate she will need a walker and will need about 2 on hospital night stay in order to stabilize her orthopedic condition as well as her medical conditions. I anticipate she will need to be an inpatient. At this point I am not planning operative intervention unless there is additional displacement of the fracture. She is probably a candidate for discharge to home when we have her adequately stabilized.
--- NOTE | 2018-10-22 19:52 | P.HP_ITS ---
History of Present Illness Date Patient Seen: 10/22/18 Time Patient Seen: 19:45 Chief complaint: Fall- hurt L hip Narrative: This is an 83-year-old female who lives with her supportive who has a history of bilateral total hip arthroplasties which were done about 25 years ago in [place] at [facility]. She had a fall at home yesterday and noted the acute onset of left hip pain. She has had difficulty weight- bearing on the left leg since then. Her was attempting to assist her but he has a history of a stroke and he was having difficulty getting her on and off of the toilet and she has basically been bed ridden and unable to care for self. She is brought the emergency room for evaluation. Patient History Surgical History History of hip replacement History of hip replacement Family & Social History Family History: Reviewed 10/22/18 by Yanet Robles MD Meds Home Medications Medication Instructions Recorded Confirmed Type olmesartan [Benicar] 20 mg OR Q DAY #90 tab 07/26/16 Rx risperidone [Risperdal] 0 PO HS #135 tab 09/21/16 Rx cabergoline 0 OR SEE INSTRUCTIONS #8 tab 11/01/16 History famciclovir 125 mg PO QDAY #90 tab 11/03/16 Rx nakccm-xxvurthj-flpdrcy [Creon] 1 cap PO SEE INSTRUCTIONS #360 cap 01/21/17 Rx donepezil [Aricept] 5 mg PO HS #90 tab 05/26/17 Rx Allergies Allergy/AdvReac Type Severity Reaction Status Date / Time codeine [CODEINE] Allergy Unknown NAUSEA Verified 10/22/18 17:37 Penicillins [PENICILLINS] Allergy Unknown SWELLING Verified 10/22/18 17:37 TO SITE OF INJECTION Review of Systems Review of Systems The fall was caused by a trip, she denies a history of dizziness chest pain lightheadedness or other problems prior to the fall, she has not had recent problems with nausea urination or her bowels. Exam Vital Signs (past 8 hours): - 10/22/18 17:26 10/22/18 18:50 Temperature 98.4 F Pulse Rate 58 L 56 L Respiratory Rate 16 15 Blood Pressure 149/81 H Blood Pressure [Right Arm] 165/86 H Pulse Oximetry 92 95 Oxygen Delivery Method Room Air Narrative Exam Narrative: HEENT is benign, her pupils are fairly small, she is appropriate but does have a few questions regarding her history and uses her for support, her heart shows a regular rate and rhythm, her lungs are clear except for an occasional rhonchi and upper respiratory sounds, abdomen is soft and benign with some mild tenderness with deep palpation, her left leg shows a well-healed lateral hip scar she is tender to palpation over the left greater trochanter, there is minimal pain with gentle range of motion into the left hip, her pelvis is stable, right lower extremity is benign with no pain, she is able to fire toe flexors and extensors on the left leg has some mild lower extremity edema bilaterally Objective Labs Labs: Her x-rays show a left greater trochanteric fracture with a left total hip arthroplasty without evidence of obvious loosening or displacement acetabulum and femoral a pole component appeared to be stable she has severe left knee osteoarthritis, she also has the right total hip arthroplasty with no evidence of loosening Assessment & Plan Plan: Assessment/Plan Narrative: Impression is a left greater trochanter hip fracture with some extension into the subtrochanteric region with a history of bilateral total hip arthroplasty without evidence of obvious loosening. I have recommended conservative treatment. We are going to get her up with physical therapy she can be weight- bearing as tolerated on the left lower extremity although anticipate she will need a walker and will need about 2 on hospital night stay in order to stabilize her orthopedic condition as well as her medical conditions. I anticipate she will need to be an inpatient. At this point I am not planning operative intervention unless there is additional displacement of the fracture. She is probably a candidate for discharge to home when we have her adequately stabilized.
[2018-10-22 20:19] VITALS: BMI 21.7
[2018-10-22 20:48] VITALS: BP 162/74; PULSE 53; RESP 20; TEMP 36.3; O2SAT 97
--- NOTE | 2018-10-22 21:16 | P.HP_ITS ---
History of Present Illness Date Patient Seen: 10/22/18 Time Patient Seen: 19:55 Chief complaint: Fall- hurt L hip Narrative: This is an 83-year-old female with a history dementia, hypertension, osteoarthritis status post bilateral total hip arthroplasty who is experienced multiple falls the last several days. The patient fell last night was brought into the ER today for inability to bear on her leg. Patient states she tripped on her slipper getting ready for bed last night and sustained a ground level fall onto a carpeted floor landing on left. She has neck pain that is chronic related to cervical fusion denies new pain and did not strike or sustain loss consciousness. She denies feeling dizzy or lightheaded prior to the fall. Her who is at bedside states he came out of the bathroom to find her floor and helped her to bed. The patient had increased debility today with increased pain on movement and was not able to bear weight. She is taking Aleve at home for discomfort with adequate control, she took 2 prior to presenting to presenting for care. Her baseline functional status is ambulating with a walker. Additionally, she had a cortisone injection of the right knee 1 week ago or according to her . She did not use been treated for cellulitis of the right lower leg with antibiotic. The patient appears to be a valid historian however reports that she is unable to provide a valid history due to her dementia. The additionally reports a chronic intermittently productive cough that has been present for 3-4 weeks without complaints upper respiratory symptoms, chest pain or fevers. The patient has remote history of a Whipple procedure which the states was for a lesion that was not cancer. The patient denies other complaints headache or visual changes, nasal congestion or sore throat. She has no chest and denies shortness of breath though she is not aerobically challenged. She has no complaints of abdominal pain or nausea, heartburn or reflux and has regular bowel movements with her last being yesterday that was normal in consistency. Patient History Medical History Bipolar 1 disorder (Acute) Cellulitis of leg without foot, right (Acute) Hypertension (Acute) Knee pain, right (Acute) Pituitary adenoma (Acute) Surgical History History of pancreatic surgery (Acute) History of hip replacement History of hip replacement Family & Social History Family History: Reviewed 10/22/18 by ASHUTOSH Salinas Social History: household members spouse Prior Living Arrangements House Safety & Behavioral: Feels Safe in Current Yes Environment Suicidal Ideation Description None Tobacco & Substance use: Smoking Status Former smoker alcohol intake current alcohol intake frequency a few times a month Comment: The patient is and lives with her in a single family dwelling on [address]. Her primary care physician is Charli will send at the [facility]. Her parents are both and she has 2 younger siblings who live in [facility], both are described as in good health. Advanced directives: The patient's Charli holes durable power of attorney at law and his surrogate decision maker. He indicates the patient is do not intubate and do not resuscitate. Meds Home Medications Medication Instructions Recorded Confirmed Type cabergoline 0.5 mg PO SEE INSTRUCTIONS #8 tab 11/01/16 10/22/18 History famciclovir 125 mg PO QDAY #90 tab 11/03/16 10/22/18 Rx donepezil [Aricept] 5 mg PO HS #90 tab 05/26/17 10/22/18 Rx fbxdfy-fdfemivn-goyonxw [Creon] 1,200 units PO TID 10/22/18 10/22/18 History olmesartan [Benicar] 20 mg PO Q DAY 10/22/18 10/22/18 History pramipexole 0.125 mg PO BEDTIME 10/22/18 10/22/18 History risperidone [Risperdal] 1.5 mg PO HS 10/22/18 10/22/18 History Allergies Allergy/AdvReac Type Severity Reaction Status Date / Time codeine [CODEINE] Allergy Unknown NAUSEA Verified 10/22/18 17:37 Penicillins [PENICILLINS] Allergy Unknown SWELLING Verified 10/22/18 17:37 TO SITE OF INJECTION Review of Systems Review of Systems Constitutional: Denies fevers, chills, sweats, fatigue, good appetite with stable weight Eyes: Denies visual changes, denies floaters, diplopia ENT: Positive for chronic neck pain, cervical fusion at C2-3, Denies headaches , hearing changes, ear pain, no nasal congestion, rhinorrhea, no dysphagia, no coughing on thick liquids, no sore throat or dentalgia Respiratory: Positive for cough for 3-4 weeks, reports intermittent wheezing, Denies SOB, exertional dyspnea Cardiovascular: Positive for hypertension, bilateral ankle swelling by the end of the day, Denies chest pain, palpitations, orthostatic dizziness, syncope Gastrointestinal: Positive for history of Whipple procedure, pancreatic insufficiency, taking Creon, Denies abdominal pain, nausea or vomiting, no reflux or bloating, constipation or diarrhea, denies blood in stool. Genitourinary: denies vaginal discharge, urinary incontinence, no complains of frequency, burning or urgency, hematuria on voiding Musculoskeletal: Positive for history of recurrent falls, 4 falls in last week , left leg weakness post fall last night with limited movement, denies cramps, edema, myalgia or joint swelling. Integumentary: denies skin lesions, masses, rashes, hives, itching or hair loss Neurological: Positive for history of dementia, denies dizziness, numbness or tingling, speech difficulties or seizures Psychiatric: Positive for history of bipolar, denies disturbances in thought, attentions or mood, denies substance abuse Endocrine: Positive for pituitary tumor, denies excessive thirst or frequent urination, goiter, lethargy, abnormal sweating, and heat/cold intolerance. Heme/lymph: Denies lymphadenopathy, abnormal bleeding or bruising Exam Vital Signs (past 8 hours): - 10/22/18 17:26 10/22/18 18:50 10/22/18 20:48 Temperature 98.4 F 97.4 F L Pulse Rate 58 L 56 L 53 L Respiratory Rate 16 15 20 Blood Pressure 149/81 H 162/74 H Blood Pressure [Right Arm] 165/86 H Pulse Oximetry 92 95 97 Oxygen Delivery Method Room Air Oxygen Flow Rate 0 Narrative Exam Narrative: General: Well developed, well nourished, BMI of 21.8, in no acute distress lying supine in bed Skin: Warm, dry, pink, no wounds, rashes, no visible lesions HEENT: Normocephalic, atraumatic, PERRLA, EOMs intact without nystagmus, conjunctiva moist, sclera is anicteric, no ear pain, hearing grossly normal, no sinus tenderness to percussion, no rhinorrhea, oropharynx is moist and pink without lesions or exudate, uvula midline, posterior pharynx without inflammation, no cervical lymphadenopathy Neck: Supple, midline cervical pain on palpation C2-3-4, no step-offs, no muscle spasms, no masses, thyroid non tender without thyromegaly or nodules, trachea midline, no carotid bruits, no supraclavicular lymphadenopathy Cardiac: Bradycardic rate with regular rhythm, S1-S2, no murmur, no gallops or rubs, 2+ radial pulse, 1+ dorsalis pedis pulse, capillary refill is brisk, trace bilateral pedal edema Chest: Symmetrical movement, breathing non labored, note pain on AP and lateral compression, dry nonproductive cough present, BS with scattered wheezing and bilateral coarseness Abdomen: Soft, no epigastric or abdominal tenderness or guarding, no masses or organomegaly, prominent aortic pulsation palpable but not appreciated as enlarged, no flank or suprapubic pain, BS normal. Back: no tenderness to palpation, no CVA tenderness on percussion Extremities: Pain on palpation lateral left hip, no ecchymosis, no synovial effusions or deformities, Sulma palpation medial right calf without swelling, redness or ecchymosis, strength 5/5 on right and 3+/5 on left, gait not assessed , reflexes 1+ Neuro: AAOx4, cranial nerves II-XII grossly intact, distal sensation intact to light touch, no paresthesias Psych: Patient is cooperative and pleasant, thought coherent, stable mood and congruent affect Objective Labs Result Diagrams: 10/22/18 21:34 10/22/18 21:34 Labs: PATIENT NAME: SAM KITCHEN : 1935 EXAM DATE: 10/22/2018 17:[address] ALVAREZ SINGLETON M.D. CC: RONALDO BOYKIN MODALITY: CR PATIENT TYPE: ER CONTRAST MEDIA: STATION ID: [id number] FLUORO TIME: PROCEDURE: XR HIP W PEL IF DONE LT 2V INDICATIONS: fell unto left hip last night, now non wt bearing TECHNIQUE: AP pelvis with lateral view(s) of the left hip(s). COMPARISON: None. FINDINGS: Bones: Patient is status post prior bilateral total hip arthroplasty. There is cortical irregularity involving lateral cortex of proximal left femoral shaft just below the level of greater trochanter concerning for a periprosthetic fracture. No gross hardware loosening or failure is noted in right hip. Pelvic ring appears intact. No suspicious bony lesions. Soft tissues: The visualized bowel gas pattern is normal. No suspicious soft tissue calcifications. IMPRESSION: Prior bilateral total hip arthroplasty with suggestion of nondisplaced periprosthetic fracture involving left proximal femur. Dictated by: Dk Oliver M.D. on 10/22/2018 at 18:18 Approved by: Dk Oliver M.D. on 10/22/2018 at 18:19 PATIENT NAME: SAM KITCHEN : 1935 EXAM DATE: 10/22/2018 19:20 ORD. .: RONALDO BOYKIN CC: MODALITY: CR PATIENT TYPE: ER CONTRAST MEDIA: STATION ID: [id number] FLUORO TIME: PROCEDURE: XR FEMUR LT MIN 2V INDICATIONS: Trochanter fracture seen on hip x-ray TECHNIQUE: 3 views of the femur were acquired. COMPARISON: None. FINDINGS: Bones: Left hip arthroplasty prosthesis is noted with no gross hardware loosening or failure. Nondisplaced fracture involving lateral cortex of proximal femoral shaft inferior to the level of greater trochanter is again seen. No fracture is seen in more distal portion of left femoral shaft. Soft tissues: No suspicious soft tissue calcifications or masses. IMPRESSION: Nondisplaced periprosthetic fracture of left proximal femoral shaft. No fracture or dislocation is seen in more distal portion of left femur. 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 Dictated by: Dk Oliver M.D. on 10/22/2018 at 19:37 Approved by: Dk Oliver M.D. on 10/22/2018 at 19:38 Assessment & Plan Plan: Assessment/Plan Narrative: 1. Left hip fracture, acute -patient with unwitnessed ground level fall landing on left hip without concomitant injury -imaging demonstrates periprosthetic trochanteric fracture that is nondisplaced -patient with inability to weightbear and cannot be cared for by the patient's at home -baseline level functioning is been ambulatory with walker -Dr. [facility] will consult -PT and OT to evaluate treat 2. Falls, acute increase -escalation in frequency of falls, multiple falls in the last week -unclear etiology for falls -patient denies dizziness, palpitations, orthostasis however for lid ED of the patient to provide adequate history is brought in to question by her and history of dementia -patient denies chest pain or palpitation but will be monitored for arrhythmia -patient denies weakness or orthostasis, will obtain screening labs including CBC, CMP, magnesium and phosphorus, PT and PTT 3. Cough, acute, present on admission, active -oxygen saturation 93-94% on room, remote smoking history -nonproductive cough, coarseness not clearing with cough, wheezing on auscultation, afebrile -will obtain chest x-ray, review labs -respiratory therapy to evaluate and treat -albuterol nebulizer twice daily and every 4 hr as needed -oxygen is needed keep saturation greater than 92% 4. Hypertension, present on admission, active -elevated blood pressure in the 140s to 160s over 80s since admission -patient's reports well-controlled blood pressures at home in the 130s over 60s -will continue patient's Benicar 20 mg daily and monitor pressures 5. Dementia, present on admission, chronic -patient is pleasant and cooperative -no reports of behavioral disturbances -will continue Risperdal 1.5 mg daily at bedtime as well as Aricept 5 mg -will continue pramipexole 0.125 mg at bedtime 6. Pituitary tumor, present on admission, active -history of pituitary cancer with elevated prolactin levels -currently being treated with Cabergoline. 0.5 mg. -we will check calcium and phosphate levels 7. Herpetic infection, not present on admission -patient has been on famciclovir 125 mg routinely -patient has no active lesions at this time will hold medication Quality VTE Deep Vein Thrombosis/Pulmonary Embolism Present on Admission: No
[2018-10-22 21:51] LABS: Add Manual Diff / Slide Review NO; Basophils Absolute Auto 0 /uL (0-100); Basophils Percent Auto 0.3 % (0-2); Eosinophils Absolute Auto 100 /uL (0-450); Hemoglobin 11.2 g/dL (12.0-16.0); Lymphocytes Absolute Auto 900 /uL (1100-4500); Lymphocytes Percent Auto 12.5 % (25-40); Mean Corpuscular HGB Conc 33.8 % (30-36); Mean Corpuscular Hemoglobin 31.4 PG (26-34); Mean Corpuscular Volume 92.9 fL (80-100); Monocytes Absolute Auto 900 /uL (0-900); Monocytes Percent Auto 12.4 % (3-14); Neutrophils Absolute Auto 5300 /uL (1500-7000); Neutrophils Percent Auto 72.8 % (50-75); Platelet Count 168 X10^3/uL (150-400); Red Blood Cell Count 3.55 X10^6/uL (4.0-5.2); Red Cell Distribution Width 13.6 % (11.6-14.8); White Blood Cell Count 7.3 X10^3/uL (4.5-11.0)
[2018-10-22 21:52] LABS: INR 1.2 (0.9-1.3); Prothrombin Time 14.1 SECONDS (10.1-12.7)
[2018-10-22 21:55] LABS: PTT Partial Thromboplastin Tim 28 SECONDS (26.4-36.2)
[2018-10-22 21:57] LABS: Alanine Aminotransferase 23 IU/L (9-52); Albumin 3.2 g/dL (3.5-5.0); Albumin Globulin Ratio 1.1 (1.0-2.8); Alkaline Phosphatase 86 U/L (38-126); Aspartate Aminotransferase 32 IU/L (14-36); Bilirubin Total 1.2 mg/dL (0.2-1.3); Blood Urea Nitrogen 24 mg/dL (7-17); Calcium 8.7 mg/dL (8.4-10.2); Carbon Dioxide 31 mmol/L (22-32); Chloride 87 mmol/L (98-107); Globulin 2.9 g/dL (1.7-4.1); Glucose 142 mg/dL (80-110); HEMOLYSIS < 15 (0-50); Magnesium 2.1 mg/dL (1.6-2.3); Phosphorous 2.9 mg/dL (2.8-4.1); Potassium 4.5 mmol/L (3.4-5.1); Sodium 124 mmol/L (137-145); Total Protein 6.1 g/dL (6.3-8.2)
[2018-10-22] MEDS: PRAMIPEXOLE 0.125 MG TABLET PO (22:10)
[2018-10-22] MEDS: risperiDONE 1 MG TABLET 1.5 MG PO (22:11)
[2018-10-22 22:14] LABS: Bacteria Urine None Seen; RBC Urine None Seen (0-5/HPF)
[2018-10-22 22:18] LABS: Appearance Urine UA CLEAR; Bilirubin Urine UA NEGATIVE (NEGATIVE); Color Urine UA YELLOW; Glucose Urine UA NEGATIVE (Negative); Ketones Urine UA NEGATIVE (NEGATIVE); Leukocyte Esterase Urine UA NEGATIVE (NEGATIVE); Nitrite Urine UA NEGATIVE (Negative); Occult Blood Urine UA TRACE-INTACT (Negative); Protein Urine UA NEGATIVE (Negative); Specific Gravity Urine UA <=1.005 (1.000-1.035); Urobilinogen Urine UA 0.2 E.U./dL (0.2); pH Urine UA 6.5 (4.5-8.0)
[2018-10-22 22:44] LABS: Culture Indicated Urine Cult Not Indicated; Renal Epithelial Cells Urine 1-5/HPF; Transitional Epi Cells Urine 0-1/HPF (0-5/HPF); WBC Urine 0-1/HPF (0-5/HPF)
--- NOTE | 2018-10-22 22:44 | PC.NURSE ---
2005 - Pt to room from ER. Transferred via slider board. Pt c/o pain 2 of 10. HTN and bradycardic. AGNP, at bedside. Pt S.O. present. calvin Augustin, Pt with hx of dementia. Poor historian. Oriented to room and routine, safety and call light use. Bed alarm on. IV start and labs drawn, U.A. obtained. Room air sats 93% with intermittent cough. Chest x-ray ordered.
[2018-10-22 23:10] LABS: Prolactin 327.9 ng/mL (3.0-18.6)
[2018-10-23] VITALS (10 sets, daily range): BP systolic 139–166; BP diastolic 56–78; PULSE 52–87; RESP 11–22; TEMP 36.6–37.1; O2SAT 92–97; BMI 22.1
[2018-10-23 07:34] LABS: Add Manual Diff / Slide Review NO; Basophils Absolute Auto 0 /uL (0-100); Basophils Percent Auto 0.3 % (0-2); Eosinophils Absolute Auto 200 /uL (0-450); Eosinophils Percent Auto 2.5 % (2-4); Hematocrit 32.9 % (36-46); Hemoglobin 11.3 g/dL (12.0-16.0); Lymphocytes Absolute Auto 600 /uL (1100-4500); Lymphocytes Percent Auto 9.1 % (25-40); Mean Corpuscular HGB Conc 34.3 % (30-36); Mean Corpuscular Hemoglobin 31.6 PG (26-34); Mean Corpuscular Volume 92.1 fL (80-100); Monocytes Absolute Auto 800 /uL (0-900); Monocytes Percent Auto 12.2 % (3-14); Neutrophils Absolute Auto 5000 /uL (1500-7000); Neutrophils Percent Auto 75.9 % (50-75); Platelet Count 171 X10^3/uL (150-400); Red Blood Cell Count 3.57 X10^6/uL (4.0-5.2); Red Cell Distribution Width 13.5 % (11.6-14.8); White Blood Cell Count 6.6 X10^3/uL (4.5-11.0)
[2018-10-23 08:00] LABS: BUN Creatinine Ratio 23.3 (6-22); Blood Urea Nitrogen 21 mg/dL (7-17); Calcium 8.4 mg/dL (8.4-10.2); Carbon Dioxide 31 mmol/L (22-32); Chloride 87 mmol/L (98-107); Estimated Glomerular Filt Rate 59.8 mL/min (>60); Glucose 90 mg/dL (80-110); HEMOLYSIS < 15 (0-50); Potassium 3.9 mmol/L (3.4-5.1); Sodium 125 mmol/L (137-145)
[2018-10-23] MEDS: OLMESARTAN 20 MG TABLET PO (08:21)
[2018-10-23] MEDS: CREON 12000 UNIT PO ×3 (08:21→17:25)
[2018-10-23] MEDS: CABERGOLINE PO (08:21)
[2018-10-23] MEDS: NAPROXEN 250 MG TABLET 500 MG PO (08:22)
[2018-10-23] MEDS: SODIUM CHLORIDE 0.9% FLUSH 10 ML IV ×2 (08:24→20:50)
[2018-10-23] MEDS: PANTOPRAZOLE 20 MG TABLET PO (08:25)
[2018-10-23] MEDS: ACETAMINOPHEN 325 MG TABLET 650 MG PO (08:27)
--- NOTE | 2018-10-23 10:09 | P.PN_ITS ---
Subjective Date Patient Seen: 10/23/18 Interval history: Patient seen bedside for left meir-prosthetic hip fracture. She is currently being treated non-operatively, and is DNR/DNI. She states that the pain is a dull ache and that she would like to go home. She lives on [address] with her . She is currently working with PT. She denies CP , SOB, calf pain. Exam Vital Signs (past 8 hours): - 10/23/18 04:00 10/23/18 07:45 10/23/18 08:30 Temperature 97.9 F Pulse Rate 56 L 52 L Respiratory Rate 14 15 Blood Pressure 166/77 H 144/56 H Pulse Oximetry 92 92 93 Oxygen Delivery Method Room Air Oxygen Flow Rate 0 Narrative Exam Narrative: WDWN NAD A&Ox3. NVI in BL extremities. Calves are soft and compressible. ROM of ankles intact. Objective Labs Result Diagrams: 10/23/18 07:20 10/23/18 07:20 Labs: Laboratory Results - last 24 hr 10/22/18 10/22/18 10/22/18 20:30 21:34 21:34 WBC 7.3 RBC 3.55 L Hgb 11.2 L Hct 33.0 L MCV 92.9 MCH 31.4 MCHC 33.8 RDW 13.6 Plt Count 168 Neut % (Auto) 72.8 Lymph % (Auto) 12.5 L Jones % (Auto) 12.4 Eos % (Auto) 2.0 Baso % (Auto) 0.3 Neut # (Auto) 5300 Lymph # (Auto) 900 L Jones # (Auto) 900 Eos # (Auto) 100 Baso # (Auto) 0 PT 14.1 H INR 1.2 APTT 28 Sodium Potassium Chloride Carbon Dioxide BUN Creatinine Estimated GFR BUN/Creatinine Ratio Glucose Calcium Phosphorus Magnesium Total Bilirubin AST ALT Alkaline Phosphatase Total Protein Albumin Globulin Albumin/Globulin Ratio Prolactin Urine Color Urine Appearance Urine pH Ur Specific [place] Urine Protein Urine Glucose (UA) Urine Ketones Urine Occult Blood Urine Nitrate Urine Bilirubin Urine Urobilinogen Ur Leukocyte Esterase Urine RBC Urine WBC Ur Transition Epith Cell Ur Renal Epithelial Cell Urine Bacteria Ur Culture Indicated? Nasal Screen MRSA (PCR) Negative for mrsa 10/22/18 10/22/18 10/22/18 21:34 21:39 22:00 WBC RBC Hgb Hct MCV MCH MCHC RDW Plt Count Neut % (Auto) Lymph % (Auto) Jones % (Auto) Eos % (Auto) Baso % (Auto) Neut # (Auto) Lymph # (Auto) Jones # (Auto) Eos # (Auto) Baso # (Auto) PT INR APTT Sodium 124 L Potassium 4.5 Chloride 87 L Carbon Dioxide 31 BUN 24 H Creatinine 1.00 Estimated GFR 53.0 L BUN/Creatinine Ratio 24.0 H Glucose 142 H Calcium 8.7 Phosphorus 2.9 Magnesium 2.1 Total Bilirubin 1.2 AST 32 ALT 23 Alkaline Phosphatase 86 Total Protein 6.1 L Albumin 3.2 L Globulin 2.9 Albumin/Globulin Ratio 1.1 Prolactin 327.9 H Urine Color Yellow Urine Appearance Clear Urine pH 6.5 Ur Specific [place] <=1.005 Urine Protein Negative Urine Glucose (UA) Negative Urine Ketones Negative Urine Occult Blood Trace-intact Urine Nitrate Negative Urine Bilirubin Negative Urine Urobilinogen 0.2 Ur Leukocyte Esterase Negative Urine RBC None seen Urine WBC 0-1/hpf Ur Transition Epith Cell 0-1/hpf Ur Renal Epithelial Cell 1-5/hpf Urine Bacteria None seen Ur Culture Indicated? Cult not indicated Nasal Screen MRSA (PCR) 10/23/18 10/23/18 07:20 07:20 WBC 6.6 RBC 3.57 L Hgb 11.3 L Hct 32.9 L MCV 92.1 MCH 31.6 MCHC 34.3 RDW 13.5 Plt Count 171 Neut % (Auto) 75.9 H Lymph % (Auto) 9.1 L Jones % (Auto) 12.2 Eos % (Auto) 2.5 Baso % (Auto) 0.3 Neut # (Auto) 5000 Lymph # (Auto) 600 L Jones # (Auto) 800 Eos # (Auto) 200 Baso # (Auto) 0 PT INR APTT Sodium 125 L Potassium 3.9 Chloride 87 L Carbon Dioxide 31 BUN 21 H Creatinine 0.90 Estimated GFR 59.8 L BUN/Creatinine Ratio 23.3 H Glucose 90 Calcium 8.4 Phosphorus Magnesium Total Bilirubin AST ALT Alkaline Phosphatase Total Protein Albumin Globulin Albumin/Globulin Ratio Prolactin Urine Color Urine Appearance Urine pH Ur Specific [place] Urine Protein Urine Glucose (UA) Urine Ketones Urine Occult Blood Urine Nitrate Urine Bilirubin Urine Urobilinogen Ur Leukocyte Esterase Urine RBC Urine WBC Ur Transition Epith Cell Ur Renal Epithelial Cell Urine Bacteria Ur Culture Indicated? Nasal Screen MRSA (PCR) Assessment & Plan Plan: Assessment/Plan Narrative: 1. Left meir-prosthetic hip fracture-up with PT, WBAT with no active abduction. Follow up with ortho in the office in 4 weeks. Patient is determined to go home, so dispo is pending medical clearance as well as clearance from PT. Quality VTE Deep Vein Thrombosis/Pulmonary Embolism Present on Admission: No
--- NOTE | 2018-10-23 10:14 | CM.DANOTE ---
DCP: Case received, EMR reviewed and met with patient. Introduced self and role. DCP template completed with information currently available. Patient is an 83 year old female who admitted yesterday evening to the care of the hospitalist team. PCP: Dr. Dale. Payer: confirmed: [facility]. Patient came to hospital due to ground level fall. Patient had tripped over her carpet. Patient had diagnosis of trochanteric fracture, but is not having surgery. She lives on [address] with her , who she stated is supportive. Patient is wanting to go home. She stated that she is independent at home, and does have a walker. She also drives. Discussed home health option at team rounds, but they may not take her insurance. The only agency at this time is [employer]. P: DCP to continue to follow. May be able to return home, but will be working with physical therapy, as she has not been up yet. If unable to obtain home health, other option may be outpatient physical therapy if she is able. Mikaela Cooper RN/Pension Consultant
--- NOTE | 2018-10-23 11:03 | PT.IIE ---
Current Diagnoses Nondisplaced fracture of greater trochanter of left femur, initial encounter for closed fracture (10/22/18) Surgical History (Last Reviewed 10/22/18 @ 21:35 by ASHUTOSH Salinas) History of pancreatic surgery (Acute) History of hip replacement History of hip replacement Medical History (Last Reviewed 10/22/18 @ 21:35 by ASHUTOSH Salinas) Bipolar 1 disorder (Acute) Cellulitis of leg without foot, right (Acute) Hypertension (Acute) Knee pain, right (Acute) Pituitary adenoma (Acute) Physical Therapy Inpatient Evaluation/Re-Eval M1 PT/OT-IP Prior Functional Status Start: 10/23/18 08:19 Freq: NEEDED Status: Active Protocol: Document 10/23/18 11:03 RS (Rec: 10/23/18 11:52 RS [id number]) Medical Review Prior Functional Status Medical History Reviewed Yes Communication no known deficits Mobility and Gait amb w/ FWW in and around the home but doesn't use any AD when walking in the community, pt admits she shuffles when not using the FWW Activities of Daily Living and IADL's ind, denies needing help with anything Prior Functional Level (Other details) drives. has had 4 falls in the past month, 3 of them were falling into furniture/llanes but did not result in getting all the way to the floor. The most recent fall was a true GLF. Pt feels she has tripped with her house slippers each time she has fallen. Social History Household Members spouse Living Arrangements House Number of Floors (Floors) One Floor Number of Stairs To Enter/Railing? 0 Home Environment High Toilet Walk in Shower Built-In Shower Seat Home Equipment Front Wheel Walker Additional Social History Comment have a [facility] but don't have it installed. Pt/SO live in an independent snf community on [address]. M2 PT-IP Current Condition Start: 10/23/18 08:19 Freq: NEEDED Status: Active Protocol: Document 10/23/18 11:03 RS (Rec: 10/23/18 11:52 RS [id number]) Physical Therapy Current Condition Current Condition Evaluation Date 10/23/18 Treatment Diagnosis L trochanteric fracture - impaired mobility Onset Date 10/21/18 Precautions Other Precautions No L hip active abduction Weight Bearing Status Weight Bearing Status Weight Bear as Tolerated M3 PT-IP Subjective Start: 10/23/18 08:19 Freq: NEEDED Status: Active Protocol: Document 10/23/18 11:03 RS (Rec: 10/23/18 11:52 RS [id number]) Subjective Physical Therapy Visit Type Type Initial Evaluation Visit Start Time 10:00 Visit Stop Time 11:03 Total Visit Minutes 63 Notes Pt's spouse, Charli, present the entire session Physical Therapy Visit Comments Patient Comments Pt looking forward to trying to get up and move, is more concerned about her cough/cold , requesting a mask so she doesn't get anyone sick. Patient Goals go home Therapy Pain Assessment Pain When Pain Assessed At Rest Pain Present Pain Present Pain Reported Location Left Hip Intensity 2 Scale Used Numeric (1 - 10) Description Aching Cramping Pain Management Techniques Modification of Treatment Timing of Activity with Medications M4 PT-IP Mobility and Gait Start: 10/23/18 08:19 Freq: NEEDED Status: Active Protocol: Document 10/23/18 11:03 RS (Rec: 10/23/18 11:52 RS [id number]) PT-Bed Mobility Assessment Supine to Sit Supine to Sit Minimal Assistance 1 Person Assistance Head of Bed Elevated Bedrails Sit to Supine Sit to Supine Moderate Assistance 2 Person Assistance Scooting Scooting to Edge of Bed Standby Assistance Scooting Up and Down in Bed Dependent PT-Transfer Assessment Sit to and From Stand Sit to and from Stand Minimal Assistance Equipment Transfer Assistive Device Gait Belt Front Wheeled Walker Transfers Transfer Destination Bed Transfer Technique Stand Step Pivot Transfer Ability Level of Assist Contact Guard Assistance Comments Mobility Comments Pt able to move legs off edge of bed to the right without physical assist but needed a little boost to sit up. She was then able to slowly scoot to edge of bed without physical assist. Pt able to stand (from slightly elevated EOB height to match bed height at home) w/ FWW and min A. Pt very shaky with initial standing and could only tolerate for about 5 seconds. After sitting back down (with min A to facilitate safe descent velocity) for several minutes pt was able to stand again with CGA (still shaky during transition), but once fully upright pt was able to stand statically much more steadily. Gait Assessment Gait Gait Assistance Required: Contact Guard Assist Distance (Feet) 15 Assistive Devices Assistive Device Gait Belt Front Wheeled Walker Gait Deviations General Gait Pattern Antalgic Decreased Stride Length Decreased Feet Clearance Flexed Trunk Step-to Gait Factors Limiting Gait Function Factors Limiting Gait Function Decreased Activity Tolerance Decreased Strength Comments Gait Comments Pt able to slowly (~5minutes) walk a total of 15ft. Pt initially sliding both feet but with cues able to get a little foot clearance. As pt progressed pt able to better but short step with the left foot when walking forward, and then taking a quick half step with R foot, sometimes still dragging the R foot instead. For side stepping x 2 feet to the R, pt able to move the right foot just fine but dragging the left foot instead . Pt fairly steady throughout gait activities but definitely needing CGA. Stair Climbing Assessment Comments Stair Climbing Comments not tested, pt doesn't have stairs PT-Balance Assessment Sitting Balance and Reactions Static Sitting Balance Ability Normal Dynamic Sitting Balance Ability Good Standing Balance and Reactions Static Standing Balance Ability Fair Dynamic Standing Balance Ability Fair Device Used FWW M5 PT-IP Objective Assessments Start: 10/23/18 08:19 Freq: NEEDED Status: Active Protocol: Document 10/23/18 11:03 (Rec: 10/23/18 11:52 [id number]) Orientation Orientation/Cognition Level of Alertness Alert Orientation Name Age Birthday Month Date Year Day of Week Place Situation Language Function Ability No Deficits Noted Safety Awareness Understands Safety Issues Comments did need to defer to to answer a few background questions Gross Range of Motion Upper Extremity ROM Assessment Within Functional Limits Lower Extremity ROM Assessment Within Functional Limits Strength Upper Extremity Strength Assessment Within Functional Limits Lower Extremity Strength Assessment Left Impaired Comments Strength Comments L hip abduction unable to be tested at all, the rest of the leg wasn't formally tested, but from functional mobility pt's LLE has grossly 3+/5 strength M6 PT-IP Treatment Start: 10/23/18 08:19 Freq: NEEDED Status: Active Protocol: Document 10/23/18 11:03 RS (Rec: 10/23/18 11:52 RS [id number]) Physical Therapy Treatment Education Education Provided Precautions Weight Bearing Status Safety M7 PT-IP Assessment and Plan Start: 10/23/18 08:19 Freq: NEEDED Status: Active Protocol: Document 10/23/18 11:03 RS (Rec: 10/23/18 11:52 RS [id number]) PT Summary Assessment and Plan Potential Rehabilitation Potential Excellent Status of Condition at Evaluation Stable Summary Impairments Pain Strength Bed Mobility Transfers Gait Activity Tolerance Assessment Summary Pt is 2 days s/p GLF at home resulting in L greater trochanteric fracture. Pt currently has increased pain with all LLE movement and consequential weakness resulting in the need of up to max A fro mobility. Pt's cannot provide this level of assist at home. Pt does have potential for functional improvement and will greatly benefit from ongoing acute and the subacute daily therapies at [facility] rehab. Pt and in agreement with this plan at this time. If for any reason pt goes directly home instead, pt would need 24/7 assist and possibly a manual wheelchair in addition to HHPT. Goals Bed Mobility Goal Standby Assistance Transfer Goal Standby Assistance Front Wheeled Walker Gait Goal Standby Assistance Front Wheel Walker Gait Distance 50 Other Goals Pt's will participate in caregiver training and be able to safely assist the patient as needed. Days to Meet Goals 3 Frequency of Treatment Frequency Of Treatment Twice a Day Treatment Plan Physical Therapy Treatment Plan Bed Mobility Training Transfer Training Gait Training Therapeutic Exercise Discharge Planning Other Recommendations and Next Treatment in/out of flat bed on the left Focus ? sit<>stand from chair/lower surfaces Recommendations To Nursing Amount of Assist Needed 1 Person Assist 2 Person Assist Discharge Recommendations PT Discharge Recommendations [facility] Rehab
[2018-10-23] MEDS: BENZONATATE 100 MG CAPSULE PO ×2 (12:17→22:24)
--- NOTE | 2018-10-23 12:40 | CM.DPC ---
DCP Cont: Spoke with Jessica, physical therapist. She worked with patient today. She stated that she felt that patient would benefit from long-term. Patient at this time is still under observation status, this will depend upon status change. Attempted to meet with patient's , Charli, but he had already left. Left a Medicare choice list with , but notes some confusion. Will see if patient's status can be changed to inpatient. Patient has [employer], so facility of choice would have to contact them. Called Cinthya at [facility], she stated that they are contracted with [employer]. Went ahead and faxed face sheet. Confirmed that patient would not need 3 day stay. Contacted [facility] as well, spoke to Luz. Confirmed with her that they also do take [employer], [facility], should patient want to return home. P: DCP to continue to assess. Patient may be able to go to long-term for rehab. This would depend upon her insurance. Other option would be home health. Mikaela Cooper RN/Rf Microwave [employer]
--- NOTE | 2018-10-23 12:40 | PC.NURSE ---
Day Shift Note Alert and oriented with some periods of forgetfulness. Up to chair 1 person assist with FWW. Taking Tylenol (1 tab) and naproxen for pain control. CMS intact to BLEs. Pt has frequent dry cough from a cold a couple weeks ago. Placed on precautionary droplet isolation per Dr. Chavez while results of respiratory panel are pending. Call light within reach.
[2018-10-23 12:50] LABS: Adenovirus Not Detected (Not Detect); Bordetella pertussis Not Detected (Not Detect); Chlamydophila pneumoniae Not Detected (Not Detect); Coronavirus 229E Not Detected (Not Detect); Coronavirus HKU1 Not Detected (Not Detect); Coronavirus NL 63 Not Detected (Not Detect); Coronavirus OC43 Not Detected (Not Detect); Human Metapneumovirus Not Detected (Not Detect); Human Rhinovirus/Enterovirus Not Detected (Not Detect); Influenza A Not Detected (Not Detect); Influenza B Not Detected (Not Detect); Mycoplasma pneumoniae Not Detected (Not Detect); Parainfluenza Virus 1 Not Detected (Not Detect); Parainfluenza Virus 2 Not Detected (Not Detect); Parainfluenza Virus 3 Not Detected (Not Detect); Parainfluenza Virus 4 Not Detected (Not Detect); Respiratory Syncytial Virus Not Detected (Not Detect)
--- NOTE | 2018-10-23 16:00 | PT.IPTN ---
Current Diagnoses Nondisplaced fracture of greater trochanter of left femur, initial encounter for closed fracture (10/22/18) Physical Therapy Treatment Note Notes Pt reports being too tired after working with OT to participate in PT session. Will attempt again tomorrow.
--- NOTE | 2018-10-23 16:58 | OT.IP.EVAL ---
Current Diagnoses Nondisplaced fracture of greater trochanter of left femur, initial encounter for closed fracture (10/22/18) Past Medical History (Last Reviewed 10/22/18 @ 21:35 by ASHUTOSH Salinas) Bipolar 1 disorder (Acute) Cellulitis of leg without foot, right (Acute) Hypertension (Acute) Knee pain, right (Acute) Pituitary adenoma (Acute) Surgical History (Last Reviewed 10/22/18 @ 21:35 by ASHUTOSH Salinas) History of pancreatic surgery (Acute) History of hip replacement History of hip replacement Occupational Therapy Inpatient Evaluation/Re-Eval M1 PT/OT-IP Prior Functional Status Start: 10/23/18 08:19 Freq: NEEDED Status: Active Protocol: Document 10/23/18 11:03 RS (Rec: 10/23/18 11:52 RS [id number]) Medical Review Prior Functional Status Medical History Reviewed Yes Communication no known deficits Mobility and Gait amb w/ FWW in and around the home but doesn't use any AD when walking in the community, pt admits she shuffles when not using the FWW Activities of Daily Living and IADL's ind, denies needing help with anything Prior Functional Level (Other details) drives. has had 4 falls in the past month, 3 of them were falling into furniture/llanes but did not result in getting all the way to the floor. The most recent fall was a true GLF. Pt feels she has tripped with her house slippers each time she has fallen. Social History Household Members spouse Living Arrangements House Number of Floors (Floors) One Floor Number of Stairs To Enter/Railing? 0 Home Environment High Toilet Walk in Shower Built-In Shower Seat Home Equipment Front Wheel Walker Additional Social History Comment have a [facility] but don't have it installed. Pt/SO live in an independent [facility] community on [place]. M1 PT/OT-IP Prior Functional Status Start: 10/23/18 16:35 Freq: NEEDED Status: Active Protocol: Document 10/23/18 16:36 [facility] (Rec: 10/23/18 16:58 [facility] [id number]) Medical Review Prior Functional Status Medical History Reviewed Yes Communication no known deficits Mobility and Gait amb w/ FWW in and around the home but doesn't use any AD when walking in the community, pt admits she shuffles when not using the FWW Activities of Daily Living and IADL's ind, denies needing help with anything Prior Functional Level (Other details) drives. has had 4 falls in the past month, 3 of them were falling into furniture/llanes but did not result in getting all the way to the floor. The most recent fall was a true GLF. Pt feels she has tripped with her house slippers each time she has fallen. Social History Household Members spouse Living Arrangements House Number of Floors (Floors) One Floor Number of Stairs To Enter/Railing? 0 Home Environment High Toilet Walk in Shower Built-In Shower Seat Home Equipment Front Wheel Walker Additional Social History Comment have a [facility] but don't have it installed. Pt/SO live in an independent [facility] community on [place]. M2 OT-IP Current Condition Start: 10/23/18 16:35 Freq: Status: Active Protocol: Document 10/23/18 16:36 [facility] (Rec: 10/23/18 16:58 [facility] [id number]) Occupational Therapy Current Condition Current Condition Evaluation Date 10/23/18 Treatment Diagnosis Non-displaced periprothetic fracture involving L proximal femur Diagnosis Onset Date 10/22/18 Post Operative Precautions Other Precautions NO ACTIVE ABDUCTION to Left Hip Weight Bearing Status Weight Bearing Status Weight Bear as Tolerated M3 OT- IP Subjective and Pain Start: 10/23/18 16:35 Freq: Status: Active Protocol: Document 10/23/18 16:36 [facility] (Rec: 10/23/18 16:58 [facility] [id number]) OT- Subjective Occupational Therapy Visit Type Type Initial Evaluation Visit Start Time 14:54 Visit Stop Time 15:24 Total Visit Minutes 30 Occupational Therapy Visit Comments Patient Comments Pt wanting to use the bathroom and then get back to bed. OT Pain Assessment Pain When Pain Assessed During Mobility Pain Present Pain Present Pain Reported Location Left Hip Intensity 3 Scale Used Numeric (1 - 10) M4 OT- IP ADL's Start: 10/23/18 16:35 Freq: Status: Active Protocol: Document 10/23/18 16:36 [facility] (Rec: 10/23/18 16:58 [facility] [id number]) OT ADL-Dressing General Eval Lower Body Dressing Ability Maximum Assistance Comments OT Dressing Comments Pt MAX A for LB dressing needs due to inability to raise LLE up. OT ADL-Toileting General Evaluation Toileting Ability Standby Assistance Comments OT Toileting Comments Assist for set-up of BSC over toilet. Pt will need more assist for hygiene needs after bowel movement. M5 OT- IP IADL's Start: 10/23/18 16:35 Freq: Status: Active Protocol: Document 10/23/18 16:36 [facility] (Rec: 10/23/18 16:58 [facility] [id number]) OT-Instrumental Activities of Daily Living Home Safety Awareness Home Safety Comments Prior pt able to do all IADl needs. M6 OT- IP Functional Cognition Start: 10/23/18 16:35 Freq: Status: Active Protocol: Document 10/23/18 16:36 [facility] (Rec: 10/23/18 16:58 [facility] [id number]) Cognitive Factors Limiting Selfcare Function Cognitive Ability Level of Alertness Alert Patient Orientation Name Place Situation Attention Span Ability Capable of Focused Attention Capable of Sustained Attention Ability to Follow Commands Able to Follow One Step Commands Memory Description Short Term Impaired Safety Awareness Decreased Ability to Apply Precautions Underestimates Need for Assistance Cognitive Comments Cognitive Assessment Comments Pt able to follow commands but needing encouragement for reassurance and reminders to be sure to not abduct left leg . OT- Vision and Hearing OT- Hearing Assessment OT- Hearing Assessment WFL M7 OT- IP Mobility and Balance Start: 10/23/18 16:35 Freq: Status: Active Protocol: Document 10/23/18 16:36 [facility] (Rec: 10/23/18 16:58 [facility] [id number]) OT- Bed Mobility Assessment Sit to Supine Sit to Supine Assist Moderate Assistance 1 Person Assistance OT-Transfer Assessment Sit to and From Stand Sit to and from Stand Minimal Assistance Moderate Assistance Transfers Transfer Ability Contact Guard Assistance Minimal Assistance Technique Transfer Destination Bed Bedside Commode Chair Transfer Technique Stand Step Pivot Devices Transfer Assistive Devices Gait Belt Front Wheeled Walker Comments Mobility Comments Pt needing increased assist MODA from lower surfaces to stand and vc to keep right leg underneath her more than left to stand. Pt tends to have her legs too far forwards and therefore having difficulty to get her weight over her legs. Beginning to educate pt's how to assist pt for bed mobility. Pt states only option at home is to get in and out on the right side of the bed. Therefore will have to assist her LLE into abduction/into the bed, as pt not able to use RLE to assist. Spoke of use of cane, leg railroad watchman or belt to assist. To continue to try best option for pt and her to help get her LLE into the bed without active abduction from the pt. OT- Balance Assessment Sitting Balance and Reactions Static Sitting Balance Ability Normal Dynamic Sitting Balance Ability Good Standing Balance and Reactions Static Standing Balance Ability Fair Dynamic Standing Balance Ability Poor M8 OT- IP Objective Assessments Start: 10/23/18 16:35 Freq: Status: Active Protocol: Document 10/23/18 16:36 [facility] (Rec: 10/23/18 16:58 [facility] [id number]) OT Gross Range of Motion Upper Extremity Range of Motion Assessment Within Functional Limits OT Strength Comments Strength Comments BUE 4/5 M9 OT- IP Assessment and Plan Start: 10/23/18 16:35 Freq: Status: Active Protocol: Document 10/23/18 16:36 [facility] (Rec: 10/23/18 16:58 [facility] [id number]) OT Summary Assessment and Plan Potential Rehabilitation Potential Good Analytic Complexity at Evaluation Low Summary OT Impairments Pain Strength Balance Functional Cognition Functional Mobility Grooming Dressing Toileting Bathing Toilet Transfers Shower Transfers Progress Towards Goals Slow Progress due to Pain Slow Progress due to Activity Tolerance Assessment Summary Pt low complexity and main barrier is decreased balance, and precaution of NO active abduction to LLE , therefore having to rethink how to get into and out of bed, get on and off the toilet and what to do for dressing and toileting needs. Pt would highly benefit from skilled rehab to help pt incorporate precautions and continue to educate pt's . Pt's has had history of CVA therefore, pt needs to be mostly independent with needs. In addition pt has had multiple falls recently and skilled rehab to help improve overall balance, safety awareness, and activity tolerance. Goals Grooming Goal Standby Assistance Dressing Goal Minimal Assistance Toileting Goal Standby Assistance Bathing Goal Moderate Assistance Toilet Transfer Goal Minimal Assistance Shower Transfer Goal Minimal Assistance Patient/Caregiver Education Goal Caregiver Independent Assisting Patient Days to Meet Goals 7 Frequency of Treatment Frequency Of Treatment Once a Day Treatment Plan OT Treatment Plan ADL Training Functional Cognition Training Functional Mobility Patient/Family Education Discharge Planning Other Treatment Recommendations and Next Standing at sink for grooming Treatment Focus needs, use of AED for dressing , and caregiver training. Discharge Recommendations OT Discharge Recommendations SNF Rehab Other Discharge Recommendations Pending progress home with and home health. Home Equipment Needs BSC, WC
[2018-10-23] MEDS: POLYETHYLENE GLYCOL 3350 17 GM POWD.PACK PO (17:20)
[2018-10-23] MEDS: ALBUTEROL 2.5 MG/3 ML NEB (ADULT) INH (18:15)
--- NOTE | 2018-10-23 20:19 | PM.PN.1 ---
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 Overnight: The patient was stable and there were no acute events. Patient is lying in bed comfortably and in no acute distress. She denies headache, chest pain, shortness of breath, abdominal pain, nausea, vomiting, fever, chills, dysuria, diarrhea constipation. She does and endorse mild pain/discomfort at left hip. She is voiding and eliminating without difficulty. Plan to work with PT and OT today to increase mobilization. Exam Vital Signs (past 8 hours): - 10/23/18 15:00 10/23/18 15:49 10/23/18 18:19 Temperature 98.2 F Pulse Rate 53 L 87 Respiratory Rate 22 14 Blood Pressure 139/74 Pulse Oximetry 93 97 10/23/18 20:11 Temperature 97.9 F Pulse Rate 70 Respiratory Rate 16 Blood Pressure 139/57 L Pulse Oximetry Oxygen Delivery Method Room Air Oxygen Flow Rate 94 Narrative Exam Narrative: General: Elderly female lying in bed and in no acute distress, well-developed, well-nourished, appropriately interactive. HEENT: Normocephalic, atraumatic. External ears without defect. Pupils equal, round, and reactive to light and accommodation. Anicteric sclerae, moist conjunctivae, and no lid lag. Neck: Supple with full range of motion. No jugular venous distension. No bruits. No lymphadenopathy or thyromegaly. Cardiovascular: Regular rate and rhythm without murmurs, rubs, or gallops appreciated Pulmonary: Clear to auscultation bilaterally without crackles, wheezes, or rhonchi. Normal respiratory effort with no use of accessory muscles. Abdomen: Soft, bowel sounds present, nontender, nondistended. No hepatosplenomegaly or masses appreciated. Extremities: No clubbing, cyanosis, or edema. Mild pain with palpation at left hip. Skin: Normal temperature, turgor, and texture; no rash, ulcers, or subcutaneous nodules appreciated. Neurological: Cranial nerves grossly intact. Psychiatric: Normal mood and affect. Alert and oriented to person, place, and time. Objective Labs Result Diagrams: 10/25/18 04:31 10/25/18 04:31 Labs: Laboratory Results - last 24 hr 10/22/18 10/22/18 10/22/18 20:30 21:34 21:34 WBC 7.3 RBC 3.55 L Hgb 11.2 L Hct 33.0 L MCV 92.9 MCH 31.4 MCHC 33.8 RDW 13.6 Plt Count 168 Neut % (Auto) 72.8 Lymph % (Auto) 12.5 L [place] % (Auto) 12.4 Eos % (Auto) 2.0 Baso % (Auto) 0.3 Neut # (Auto) 5300 Lymph # (Auto) 900 L [place] # (Auto) 900 Eos # (Auto) 100 Baso # (Auto) 0 PT 14.1 H INR 1.2 APTT 28 Sodium Potassium Chloride Carbon Dioxide BUN Creatinine Estimated GFR BUN/Creatinine Ratio Glucose Calcium Phosphorus Magnesium Total Bilirubin AST ALT Alkaline Phosphatase Total Protein Albumin Globulin Albumin/Globulin Ratio Prolactin Urine Color Urine Appearance Urine pH Ur Specific [place] Urine Protein Urine Glucose (UA) Urine Ketones Urine Occult Blood Urine Nitrate Urine Bilirubin Urine Urobilinogen Ur Leukocyte Esterase Urine RBC Urine WBC Ur Transition Epith Cell Ur Renal Epithelial Cell Urine Bacteria Ur Culture Indicated? Nasal Screen MRSA (PCR) Negative for mrsa Chlamy pneumoniae PCR Adenovirus (PCR) B.parapertussis DNA PCR Coronavirus OC43 (PCR) Coronavirus HKU1 (PCR) Coronavirus 229E (PCR) Coronavirus NL63 (PCR) Human Metapneumovir PCR Influenza Type A (PCR) Influenza Type B (PCR) M. pneumoniae (PCR) Parainfluenza 1 (PCR) Parainfluenza 2 (PCR) Parainfluenza 3 (PCR) Parainfluenza 4 (PCR) RSV (PCR) Entero/Rhino (PCR) 10/22/18 10/22/18 10/22/18 21:34 21:39 22:00 WBC RBC Hgb Hct MCV MCH MCHC RDW Plt Count Neut % (Auto) Lymph % (Auto) [place] % (Auto) Eos % (Auto) Baso % (Auto) Neut # (Auto) Lymph # (Auto) [place] # (Auto) Eos # (Auto) Baso # (Auto) PT INR APTT Sodium 124 L Potassium 4.5 Chloride 87 L Carbon Dioxide 31 BUN 24 H Creatinine 1.00 Estimated GFR 53.0 L BUN/Creatinine Ratio 24.0 H Glucose 142 H Calcium 8.7 Phosphorus 2.9 Magnesium 2.1 Total Bilirubin 1.2 AST 32 ALT 23 Alkaline Phosphatase 86 Total Protein 6.1 L Albumin 3.2 L Globulin 2.9 Albumin/Globulin Ratio 1.1 Prolactin 327.9 H Urine Color Yellow Urine Appearance Clear Urine pH 6.5 Ur Specific [place] <=1.005 Urine Protein Negative Urine Glucose (UA) Negative Urine Ketones Negative Urine Occult Blood Trace-intact Urine Nitrate Negative Urine Bilirubin Negative Urine Urobilinogen 0.2 Ur Leukocyte Esterase Negative Urine RBC None seen Urine WBC 0-1/hpf Ur Transition Epith Cell 0-1/hpf Ur Renal Epithelial Cell 1-5/hpf Urine Bacteria None seen Ur Culture Indicated? Cult not indicated Nasal Screen MRSA (PCR) Chlamy pneumoniae PCR Adenovirus (PCR) B.parapertussis DNA PCR Coronavirus OC43 (PCR) Coronavirus HKU1 (PCR) Coronavirus 229E (PCR) Coronavirus NL63 (PCR) Human Metapneumovir PCR Influenza Type A (PCR) Influenza Type B (PCR) M. pneumoniae (PCR) Parainfluenza 1 (PCR) Parainfluenza 2 (PCR) Parainfluenza 3 (PCR) Parainfluenza 4 (PCR) RSV (PCR) Entero/Rhino (PCR) 10/23/18 10/23/18 10/23/18 07:20 07:20 09:40 WBC 6.6 RBC 3.57 L Hgb 11.3 L Hct 32.9 L MCV 92.1 MCH 31.6 MCHC 34.3 RDW 13.5 Plt Count 171 Neut % (Auto) 75.9 H Lymph % (Auto) 9.1 L [place] % (Auto) 12.2 Eos % (Auto) 2.5 Baso % (Auto) 0.3 Neut # (Auto) 5000 Lymph # (Auto) 600 L [place] # (Auto) 800 Eos # (Auto) 200 Baso # (Auto) 0 PT INR APTT Sodium 125 L Potassium 3.9 Chloride 87 L Carbon Dioxide 31 BUN 21 H Creatinine 0.90 Estimated GFR 59.8 L BUN/Creatinine Ratio 23.3 H Glucose 90 Calcium 8.4 Phosphorus Magnesium Total Bilirubin AST ALT Alkaline Phosphatase Total Protein Albumin Globulin Albumin/Globulin Ratio Prolactin Urine Color Urine Appearance Urine pH Ur Specific [place] Urine Protein Urine Glucose (UA) Urine Ketones Urine Occult Blood Urine Nitrate Urine Bilirubin Urine Urobilinogen Ur Leukocyte Esterase Urine RBC Urine WBC Ur Transition Epith Cell Ur Renal Epithelial Cell Urine Bacteria Ur Culture Indicated? Nasal Screen MRSA (PCR) Chlamy pneumoniae PCR Not detected Adenovirus (PCR) Not detected B.parapertussis DNA PCR Not detected Coronavirus OC43 (PCR) Not detected Coronavirus HKU1 (PCR) Not detected Coronavirus 229E (PCR) Not detected Coronavirus NL63 (PCR) Not detected Human Metapneumovir PCR Not detected Influenza Type A (PCR) Not detected Influenza Type B (PCR) Not detected M. 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 1. Acute periprosthetic left hip fracture, present on admission. Stable. -Secondary to trauma from ground level fall. -Left hip and femur x-ray demonstrated stable nondisplaced left periprosthetic hip fracture. -Orthopedic surgery has evaluated patient and recommends mobilization with PT with weight-bearing as tolerated as periprosthetic hip fracture is stable. Follow up with Orthopedics in 4 weeks. -Continue physical therapy and occupational therapy. 2. Acute on chronic hyponatremia, present on admission. Active. -Etiology unclear and acute worsening may be secondary to psychogenic polydipsia vs. URI vs. central diabetes insipidus. Will order urine sodium and osmolality. -Baseline sodium level 134. Initial sodium level on admission 124. -Ordered 1.5 L fluid restriction. Patient readily admits to significant water intake daily as she is afraid of constipation. 3. Acute URI, present on admission. Active. -Patient presented with nonproductive dry cough and ?a bug for a few weeks.? -Chest x-ray demonstrated evidence of possible reactive airway disease otherwise no focal infiltrate. -Respiratory viral PCR negative. -Ordered albuterol nebulizer every 4 hr as needed. -May use supplemental oxygen as needed keep saturation greater than 92% 4. Hypertension, chronic, present on admission. Stable. -Continue Benicar 20 mg daily and monitor pressures. 5. Dementia, chronic, present on admission. Stable. -Patient is pleasant and cooperative with no reports of behavioral disturbances. -Continue Risperdal 1.5 mg and Aricept 5 mg daily at bedtime. 6. Restless leg syndrome, chronic, present on admission. Stable. -Continue pramipexole 0.125 mg at bedtime. 7. Pituitary adenoma, present on admission. Active. -History of pituitary adenoma with elevated prolactin levels. -Currently being treated with Cabergoline 0.5 mg. 8. Secondary to pancreatic insufficiency, chronic, present on admission. Stable. -Continue home dose of Creon 3 times daily with meals. 9. Recent herpetic infection, not present on admission. Resolved. Disposition: Likely to discharge once hypernatremia has improved either home with home health versus [facility] facility depending on improvement in mobility. Quality VTE Deep Vein Thrombosis/Pulmonary Embolism Present on Admission: No
[2018-10-23] MEDS: risperiDONE 1 MG TABLET 1.5 MG PO (20:52)
[2018-10-23] MEDS: DONEPEZIL 5 MG TABLET PO (20:55)
[2018-10-23] MEDS: PRAMIPEXOLE 0.125 MG TABLET PO (20:55)
[2018-10-24] VITALS (10 sets, daily range): BP systolic 118–164; BP diastolic 49–79; PULSE 55–76; RESP 16–22; TEMP 36.3–37.4; O2SAT 90–97
--- NOTE | 2018-10-24 | DI.RAD.S_ITS ---
PROCEDURE: XR CHEST 1V INDICATIONS: Cough, Pneumonia TECHNIQUE: One view of the chest was acquired. COMPARISON: [facility], CR, XR CHEST 1V, 10/22/2018, 22:05. FINDINGS: Surgical changes and devices: None. Lungs and pleura: No pleural effusions or pneumothorax. Lungs are abnormal with a mild chronic interstitial prominence stable over time. Mediastinum: Mediastinal contours appear normal. Heart size is normal. Bones and chest wall: No suspicious bony lesions. Overlying soft tissues appear unremarkable. IMPRESSION: Mild interstitial prominence, no pneumonia found. The Dictated by: Maxime Watt M.D. on 10/24/2018 at 8:28 Approved by: Maxime Watt M.D. on 10/24/2018 at 8:29
--- NOTE | 2018-10-24 | DI.ECHO.S_ITS ---
[facility]---------+ [facility] +---------+ : : [address] : : : : [id number] : : : : Phone: [phone]+ Echocardiogram Report + + :Name: SAM KITCHEN Study Date: 10/24/2018 Height: 66 in : :[facility] Exam Location: [facility] Weight: 138 lb : : Gender: Female BSA: 1.7 m2 : :: 1935 Age: 83 yrs BP: 123/55 mmHg: :Reason For Study: COUGH, PULM EDEMA : :Ordering Physician: Whitley : :Hospitalist Performed By: Amrita Marlow : :Referring: [facility] : + + Interpretation Summary Technically difficult study due to limited endocardial visualization (particularly of apical views). Normal sinus rhythm. Normal LV size, wall thickness, wall motion and LV systolic function. EF is 55-60%. Stage I diastolic diastolic dysfunction. Mild LA enlargement; otherwise normal chamber sizes. No significant valvular abnormalities. There is small loculated anterior pericardial effusion without tamponade. It measures 0.5 cm in end-diastole. No prior study available for comparison. Procedure: A two-dimensional transthoracic echocardiogram with color flow and Doppler was performed. The study quality was technically difficult. There is no prior echocardiogram noted for this patient. The patient was in normal sinus rhythm during the exam. The patient had frequent PVCs during the exam. Left Ventricle: The left ventricle is normal in size, wall thickness, and systolic function without any focal wall motion abnormalities. The ejection fraction is estimated to be 55-60%. Diastolic parameters suggest a relaxation abnormality of the left ventricle, consistent with probable normal filling pressures. Right Ventricle: The right ventricle grossly appears normal in size with probable normal systolic function. Atria: The left atrium is mildly dilated. The right atrium grossly appears normal in size. There is no Doppler evidence for an interatrial shunt. Mitral Valve: The mitral valve is grossly normal. There is mild mitral regurgitation. Aortic Valve: The aortic valve is trileaflet. There is mild aortic valve sclerosis. The aortic valve opens well. No aortic regurgitation is present. Tricuspid Valve: The tricuspid valve is not well visualized, but is grossly normal. There is a trace or physiologic amount of tricuspid regurgitation. Pulmonary artery pressures cannot be estimated because of the lack of a measurable TR jet velocity. Pulmonic Valve: The pulmonic valve is not well visualized. Great Vessels: The aortic root is normal size. The ascending aorta is normal in size. The aortic arch is normal in size. The pulmonary is not well visualized. The IVC is dilated (diameter is greater than 2.1 cm) and it collapses less than 50% with a sniff. This suggests a high right atrial pressure of 15 mm Hg. Pericardium/ Pleura There is a small loculated pericardial effusion. Mainly located anterior. There are no echocardiographic or Doppler indications for cardiac tamponade. There is no pleural effusion. MMode/2D Measurements & Calculations LVIDd: 4.3 cm LVOT diam: 2.1 cm LVIDs: 2.4 cm Ao root diam: 3.3 cm FS: 43.7 % asc Aorta Diam: 3.3 cm EPSS: 0.23 cm Ao Arch Diam (Prox Trans): 2.7 cm IVSd: 0.73 cm LVPWd: 0.84 cm LV mendoza. diameter/BSA (cm/m^2): 2.5 LV sys. diameter/BSA (cm/m^2): 1.4 LA A2 area: 20.2 cm2 RA long axis: 5.4 cm LA A4 area: 21.5 cm2 RA area: 16.5 cm2 LA length (vol): 5.4 cm RA vol: 43.1 ml LA vol: 68.3 ml RA : 25.2 ml/m2 LA vol index: 40.0 ml/m2 IVC diam: 2.4 cm TAPSE: 2.0 cm Doppler Measurements & Calculations Ao V2 max: 96.9 cm/sec LVOT Max Richar: 89.1 cm/sec Ao V2 mean: 71.8 cm/sec LV V1 max P.2 mmHg Ao max P.8 mmHg LV V1 VTI: 16.4 cm Ao mean P.3 mmHg ASHLEY(I,D): 2.8 cm2 Ao V2 VTI: 19.5 cm ASHLEY(V,D): 3.1 cm2 sev ratio: 0.84 ASHLEY indexed to BSA (cm^2/m^2): 1.7 MV E max richar: 76.3 cm/sec PA V2 max: 70.5 cm/sec MV A max richar: 91.7 cm/sec PA V2 mean: 46.8 cm/sec MV E/A: 0.83 PA mean P.99 mmHg Med Peak E' Richar: 4.7 cm/sec PA pr(Accel): 36.6 mmHg E/E' med: 16.1 Lat Peak E' Richar: 8.8 cm/sec E/E' lat: 8.6 E/e' average: 12.4 MV dec time: 0.33 sec SVLVOT): 55.3 ml Reading Physician:06:43 PM
[2018-10-24] MEDS: NAPROXEN 250 MG TABLET PO ×2 (00:22→23:43)
[2018-10-24 03:10] LABS: Sodium Urine Random 14 mmol/L (30-90)
[2018-10-24 05:24] LABS: Add Manual Diff / Slide Review NO; Basophils Absolute Auto 0 /uL (0-100); Basophils Percent Auto 0.3 % (0-2); Eosinophils Absolute Auto 200 /uL (0-450); Eosinophils Percent Auto 3.2 % (2-4); Hematocrit 31.9 % (36-46); Hemoglobin 10.8 g/dL (12.0-16.0); Lymphocytes Absolute Auto 1000 /uL (1100-4500); Lymphocytes Percent Auto 14.4 % (25-40); Mean Corpuscular HGB Conc 33.8 % (30-36); Mean Corpuscular Hemoglobin 31.3 PG (26-34); Mean Corpuscular Volume 92.8 fL (80-100); Monocytes Absolute Auto 1100 /uL (0-900); Monocytes Percent Auto 14.9 % (3-14); Neutrophils Absolute Auto 4800 /uL (1500-7000); Neutrophils Percent Auto 67.2 % (50-75); Platelet Count 161 X10^3/uL (150-400); Red Blood Cell Count 3.44 X10^6/uL (4.0-5.2); Red Cell Distribution Width 13.3 % (11.6-14.8); White Blood Cell Count 7.2 X10^3/uL (4.5-11.0)
[2018-10-24 05:27] LABS: BUN Creatinine Ratio 27.5 (6-22); Blood Urea Nitrogen 22 mg/dL (7-17); Calcium 8.2 mg/dL (8.4-10.2); Carbon Dioxide 28 mmol/L (22-32); Chloride 88 mmol/L (98-107); Estimated Glomerular Filt Rate > 60.0 mL/min (>60); Glucose 91 mg/dL (80-110); HEMOLYSIS < 15 (0-50); Potassium 4.7 mmol/L (3.4-5.1); Sodium 124 mmol/L (137-145)
[2018-10-24] MEDS: ALBUTEROL 2.5 MG/3 ML NEB (ADULT) INH ×2 (05:28→19:57)
[2018-10-24] MEDS: PANTOPRAZOLE 20 MG TABLET PO (06:04)
--- NOTE | 2018-10-24 06:55 | PM.PN.1 ---
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 Overnight: The patient was stable and there were no acute events. Patient is lying in bed comfortably and in no acute distress. She denies headache, chest pain, shortness of breath, abdominal pain, nausea, vomiting, fever, chills, dysuria, diarrhea constipation. She does endorse mild pain/discomfort at left hip and more productive cough from a cold she has had for several weeks. She is voiding and eliminating without difficulty. Continuing to work with PT and OT to increase mobilization. Exam Vital Signs (past 8 hours): - 10/24/18 00:05 10/24/18 04:43 10/24/18 05:28 Temperature 98.7 F 98.7 F Pulse Rate 61 72 55 L Respiratory Rate 22 16 20 Blood Pressure 162/79 H 164/74 H Pulse Oximetry 97 92 96 Oxygen Delivery Method Nasal Cannula Oxygen Flow Rate 2 Narrative Exam Narrative: General: Elderly female lying in bed and in no acute distress, well-developed, well-nourished, appropriately interactive. HEENT: Normocephalic, atraumatic. External ears without defect. Pupils equal, round, and reactive to light and accommodation. Anicteric sclerae, moist conjunctivae, and no lid lag. Neck: Supple with full range of motion. No jugular venous distension. No bruits. No lymphadenopathy or thyromegaly. Cardiovascular: Regular rate and rhythm without murmurs, rubs, or gallops appreciated Pulmonary: Scattered rhonchi throughout all lung hall. Normal respiratory effort with no use of accessory muscles. Abdomen: Soft, bowel sounds present, nontender, nondistended. No hepatosplenomegaly or masses appreciated. Extremities: No clubbing, cyanosis, or edema. Mild pain with palpation at left hip. Skin: Normal temperature, turgor, and texture; no rash, ulcers, or subcutaneous nodules appreciated. Neurological: Cranial nerves grossly intact. Psychiatric: Normal mood and affect. Alert and oriented to person, place, and time. Objective Labs Result Diagrams: 10/25/18 04:31 10/25/18 04:31 Labs: Laboratory Results - last 24 hr 10/23/18 10/23/18 10/23/18 07:20 07:20 09:40 WBC 6.6 RBC 3.57 L Hgb 11.3 L Hct 32.9 L MCV 92.1 MCH 31.6 MCHC 34.3 RDW 13.5 Plt Count 171 Neut % (Auto) 75.9 H Lymph % (Auto) 9.1 L [place] % (Auto) 12.2 Eos % (Auto) 2.5 Baso % (Auto) 0.3 Neut # (Auto) 5000 Lymph # (Auto) 600 L [place] # (Auto) 800 Eos # (Auto) 200 Baso # (Auto) 0 Sodium 125 L Potassium 3.9 Chloride 87 L Carbon Dioxide 31 BUN 21 H Creatinine 0.90 Estimated GFR 59.8 L BUN/Creatinine Ratio 23.3 H Glucose 90 Calcium 8.4 Ur Random Sodium Chlamy pneumoniae PCR Not detected Adenovirus (PCR) Not detected B.parapertussis DNA PCR Not detected Coronavirus OC43 (PCR) Not detected Coronavirus HKU1 (PCR) Not detected Coronavirus 229E (PCR) Not detected Coronavirus NL63 (PCR) Not detected Human Metapneumovir PCR Not detected Influenza Type A (PCR) Not detected Influenza Type B (PCR) Not detected M. pneumoniae (PCR) Not detected Parainfluenza 1 (PCR) Not detected Parainfluenza 2 (PCR) Not detected Parainfluenza 3 (PCR) Not detected Parainfluenza 4 (PCR) Not detected RSV (PCR) Not detected Entero/Rhino (PCR) Not detected 10/24/18 10/24/18 10/24/18 01:20 04:38 04:38 WBC 7.2 RBC 3.44 L Hgb 10.8 L Hct 31.9 L MCV 92.8 MCH 31.3 MCHC 33.8 RDW 13.3 Plt Count 161 Neut % (Auto) 67.2 Lymph % (Auto) 14.4 L [place] % (Auto) 14.9 H Eos % (Auto) 3.2 Baso % (Auto) 0.3 Neut # (Auto) 4800 Lymph # (Auto) 1000 L [place] # (Auto) 1100 H Eos # (Auto) 200 Baso # (Auto) 0 Sodium 124 L Potassium 4.7 Chloride 88 L Carbon Dioxide 28 BUN 22 H Creatinine 0.80 Estimated GFR > 60.0 BUN/Creatinine Ratio 27.5 H Glucose 91 Calcium 8.2 L Ur Random Sodium 14 L Chlamy pneumoniae PCR Adenovirus (PCR) B.parapertussis DNA PCR Coronavirus OC43 (PCR) Coronavirus HKU1 (PCR) Coronavirus 229E (PCR) Coronavirus NL63 (PCR) Human Metapneumovir PCR Influenza Type A (PCR) Influenza Type B (PCR) M. 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 1. Acute periprosthetic left hip fracture, present on admission. Stable. -Secondary to trauma from ground level fall. -Left hip and femur x-ray demonstrated stable nondisplaced left periprosthetic hip fracture. -Orthopedic surgery has evaluated patient and recommends mobilization with PT with weight-bearing as tolerated as periprosthetic hip fracture is stable. Follow up with Orthopedics in 4 weeks. -Continue physical therapy and occupational therapy. 2. Acute on chronic hyponatremia, present on admission. Active. -Etiology unclear but likely multifactorial and related to: psychogenic polydipsia, probable pneumonia, hypopituitarism, medications (Aricept, risperidone, and pramipexole), and possible CHF. Ordered urine sodium which is low at 14 and urine osmolality pending. -Baseline sodium level 134. Initial sodium level on admission 124. -Continue 1.5 L fluid restriction. Patient readily admits to significant water intake daily as she is afraid of constipation. -Ordered echocardiogram to assure there is not low effective arterial blood volume contributing to hyponatremia. 3. Acute URI, present on admission. Active. -Patient presented with nonproductive dry cough and ?a bug for a few weeks.? Cough has now become productive possibly PNA vs bronchitis. -Chest x-ray demonstrated evidence of possible reactive airway disease otherwise no focal infiltrate. Ordered repeat chest xray today. -Ordered complete pneumonia workup including: Respiratory viral PCR negative. Strep pneumonia and Legionella urine antigens, pending. Sputum culture, pending. -Ordered albuterol nebulizer every 4 hr as needed. -Ordered guaifenesin 1200 mg twice daily. -May use supplemental oxygen as needed keep saturation greater than 92%. 4. Hypertension, chronic, present on admission. Stable. -Continue Benicar 20 mg daily and monitor pressures. 5. Dementia, chronic, present on admission. Stable. -Patient is pleasant and cooperative with no reports of behavioral disturbances. -Holding Risperdal 1.5 mg and Aricept 5 mg daily at bedtime due to hyponatremia. 6. Restless leg syndrome, chronic, present on admission. Stable. -Continue pramipexole 0.125 mg at bedtime. 7. Pituitary adenoma, present on admission. Active. -History of pituitary adenoma with elevated prolactin levels. -Currently being treated with Cabergoline 0.5 mg. 8. Secondary pancreatic insufficiency, chronic, present on admission. Stable. -Status post Whipple procedure. -Continue home dose of Creon 3 times daily with meals. 9. Recent herpetic infection, not present on admission. Resolved. Disposition: Likely to discharge once hypernatremia has improved either home with home health versus [facility] facility depending on improvement in mobility. Quality VTE Deep Vein Thrombosis/Pulmonary Embolism Present on Admission: No
[2018-10-24] MEDS: CABERGOLINE PO (08:35)
[2018-10-24] MEDS: CREON 12000 UNIT PO ×3 (08:36→17:11)
[2018-10-24] MEDS: OLMESARTAN 20 MG TABLET PO (08:37)
[2018-10-24] MEDS: DOCUSATE 100 MG CAPSULE PO (08:37)
[2018-10-24] MEDS: NAPROXEN 250 MG TABLET 500 MG PO (08:37)
[2018-10-24] MEDS: guaiFENesin ER 600 MG TAB 1200 MG PO ×2 (08:37→20:29)
[2018-10-24] MEDS: ACETAMINOPHEN 325 MG TABLET 650 MG PO ×2 (08:37→23:46)
[2018-10-24] MEDS: SODIUM CHLORIDE 0.9% FLUSH 10 ML IV ×2 (08:38→20:29)
--- NOTE | 2018-10-24 08:45 | P.PN_ITS ---
Subjective Date Patient Seen: 10/24/18 Time Patient Seen: 08:43 Interval history: Hospital day 3 following ground level fall with left hip greater trochanteric fractures or rounding total hip arthroplasty. She did have orthopedic consult done by Dr. Robles on 10/22/18. She did not think patient needed surgery and will be treating her fracture with conservative treatment with PT and weight-bearing as tolerated. I am patient states her pain is noticeably improved today. Exam Vital Signs (past 8 hours): - 10/24/18 04:43 10/24/18 05:28 Temperature 98.7 F Pulse Rate 72 55 L Respiratory Rate 16 20 Blood Pressure 164/74 H Pulse Oximetry 92 96 Oxygen Delivery Method Nasal Cannula Oxygen Flow Rate 2 Narrative Exam Narrative: Alert, oriented no acute distress sitting in chair having breakfast. Left leg. Decreased tenderness on palpation of left hip. Patient able to do full leg extension from sitting position. No calf pain or swelling. Pulses symmetrical. Objective Labs Result Diagrams: 10/24/18 04:38 10/24/18 04:38 Labs: Laboratory Results - last 24 hr 10/23/18 10/24/18 10/24/18 09:40 01:20 04:38 WBC 7.2 RBC 3.44 L Hgb 10.8 L Hct 31.9 L MCV 92.8 MCH 31.3 MCHC 33.8 RDW 13.3 Plt Count 161 Neut % (Auto) 67.2 Lymph % (Auto) 14.4 L [place] % (Auto) 14.9 H Eos % (Auto) 3.2 Baso % (Auto) 0.3 Neut # (Auto) 4800 Lymph # (Auto) 1000 L [place] # (Auto) 1100 H Eos # (Auto) 200 Baso # (Auto) 0 Sodium Potassium Chloride Carbon Dioxide BUN Creatinine Estimated GFR BUN/Creatinine Ratio Glucose Calcium Ur Random Sodium 14 L Chlamy pneumoniae PCR Not detected Adenovirus (PCR) Not detected B.parapertussis DNA PCR Not detected Coronavirus OC43 (PCR) Not detected Coronavirus HKU1 (PCR) Not detected Coronavirus 229E (PCR) Not detected Coronavirus NL63 (PCR) Not detected Human Metapneumovir PCR Not detected Influenza Type A (PCR) Not detected Influenza Type B (PCR) Not detected M. pneumoniae (PCR) Not detected Parainfluenza 1 (PCR) Not detected Parainfluenza 2 (PCR) Not detected Parainfluenza 3 (PCR) Not detected Parainfluenza 4 (PCR) Not detected RSV (PCR) Not detected Entero/Rhino (PCR) Not detected 10/24/18 04:38 WBC RBC Hgb Hct MCV MCH MCHC RDW Plt Count Neut % (Auto) Lymph % (Auto) [place] % (Auto) Eos % (Auto) Baso % (Auto) Neut # (Auto) Lymph # (Auto) [place] # (Auto) Eos # (Auto) Baso # (Auto) Sodium 124 L Potassium 4.7 Chloride 88 L Carbon Dioxide 28 BUN 22 H Creatinine 0.80 Estimated GFR > 60.0 BUN/Creatinine Ratio 27.5 H Glucose 91 Calcium 8.2 L Ur Random Sodium Chlamy pneumoniae PCR Adenovirus (PCR) B.parapertussis DNA PCR Coronavirus OC43 (PCR) Coronavirus HKU1 (PCR) Coronavirus 229E (PCR) Coronavirus NL63 (PCR) Human Metapneumovir PCR Influenza Type A (PCR) Influenza Type B (PCR) M. pneumoniae (PCR) Parainfluenza 1 (PCR) Parainfluenza 2 (PCR) Parainfluenza 3 (PCR) Parainfluenza 4 (PCR) RSV (PCR) Entero/Rhino (PCR) Assessment & Plan Plan: Assessment/Plan Narrative: Plan: Patient will continue working with PT. Anticipate discharge either to SNF or home with home health depending on how the patient progresses and hospitalists recommendation. Patient will need follow-up at [facility] office in [place] in 2 weeks to recheck fracture. Quality VTE Deep Vein Thrombosis/Pulmonary Embolism Present on Admission: No
--- NOTE | 2018-10-24 11:50 | PT.IPTN ---
Current Diagnoses Nondisplaced fracture of greater trochanter of left femur, initial encounter for closed fracture (10/22/18) Physical Therapy Treatment Note M2 PT-IP Current Condition Start: 10/23/18 08:19 Freq: NEEDED Status: Active Protocol: Document 10/23/18 11:03 RS (Rec: 10/23/18 11:52 RS [id number]) Physical Therapy Current Condition Current Condition Evaluation Date 10/23/18 Treatment Diagnosis L trochanteric fracture - impaired mobility Onset Date 10/21/18 Precautions Other Precautions No L hip active abduction Weight Bearing Status Weight Bearing Status Weight Bear as Tolerated M3 PT-IP Subjective Start: 10/23/18 08:19 Freq: NEEDED Status: Active Protocol: Document 10/24/18 11:50 AB (Rec: 10/24/18 12:26 AB [id number]) Subjective Physical Therapy Visit Type Type Treatment Note Visit Start Time 11:50 Visit Stop Time 12:06 Total Visit Minutes 16 Number of [employer]ER[employer] SPECIALIST Visits 0 Physical Therapy Visit Comments Patient Comments pt agreed to ambulate to her room after her shower Therapy Pain Assessment Pain When Pain Assessed At Rest Pain Present Pain Present Pain Reported Location Left Hip Intensity 2 Scale Used Numeric (1 - 10) Description Dull M4 PT-IP Mobility and Gait Start: 10/23/18 08:19 Freq: NEEDED Status: Active Protocol: Document 10/24/18 11:50 AB (Rec: 10/24/18 12:26 AB [id number]) PT-Transfer Assessment Sit to and From Stand Sit to and from Stand Contact Guard Assistance Use of Upper Extremities Equipment Transfer Assistive Device Gait Belt Front Wheeled Walker Orthotic/Prosthetic Devices or Brace: No Gait Assessment Gait Gait Assistance Required: Contact Guard Assist Distance (Feet) 20 Able to Maintain Weight Bearing Status Yes During Gait Assistive Devices Assistive Device Gait Belt Front Wheeled Walker Orthotic/Prosthetic Devices or Brace: No Gait Deviations General Gait Pattern Antalgic Decreased Stride Length Decreased Feet Clearance Factors Limiting Gait Function Factors Limiting Gait Function Decreased Activity Tolerance Decreased Strength Limited Range of Motion Pain Poor Balance Poor Safety Awareness Comments Gait Comments pt completed 20 ft ambulation using FWW CGA. requires cues for hip precaution of no active hip abduction. M5 PT-IP Objective Assessments Start: 10/23/18 08:19 Freq: NEEDED Status: Active Protocol: Document 10/23/18 11:03 RS (Rec: 10/23/18 11:52 RS [id number]) Orientation Orientation/Cognition Level of Alertness Alert Orientation Name Age Birthday Month Date Year Day of Week Place Situation Language Function Ability No Deficits Noted Safety Awareness Understands Safety Issues Comments did need to defer to to answer a few background questions Gross Range of Motion Upper Extremity ROM Assessment Within Functional Limits Lower Extremity ROM Assessment Within Functional Limits Strength Upper Extremity Strength Assessment Within Functional Limits Lower Extremity Strength Assessment Left Impaired Comments Strength Comments L hip abduction unable to be tested at all, the rest of the leg wasn't formally tested, but from functional mobility pt's LLE has grossly 3+/5 strength M6 PT-IP Treatment Start: 10/23/18 08:19 Freq: NEEDED Status: Active Protocol: Document 10/24/18 11:50 AB (Rec: 10/24/18 12:26 AB [id number]) Physical Therapy Treatment Education Education Provided Precautions Safety M7 PT-IP Assessment and Plan Start: 10/23/18 08:19 Freq: NEEDED Status: Active Protocol: Document 10/24/18 11:50 AB (Rec: 10/24/18 12:26 AB [id number]) PT Summary Assessment and Plan Potential Rehabilitation Potential Good Summary Impairments Pain ROM Strength Balance Coordination Sensation Tone Cognition Bed Mobility Transfers Gait Activity Tolerance Progress Towards Goals Slow Progress due to Pain Slow Progress due to Activity Tolerance Assessment Summary pt requiring one person assist with mobility and unable to tolerate much ambulation. pt has limited assistance at home and will need to be more independent than current level to be able to safely d/c home . pt will need SNF rehab to improve strength and mobility prio to d/c home. Goals Bed Mobility Goal Standby Assistance Transfer Goal Standby Assistance Front Wheeled Walker Gait Goal Standby Assistance Front Wheel Walker Gait Distance 50 Days to Meet Goals 5 Frequency of Treatment Frequency Of Treatment Twice a Day Treatment Plan Physical Therapy Treatment Plan Bed Mobility Training Transfer Training Gait Training Therapeutic Exercise Discharge Planning Other Recommendations and Next Treatment bed mobility with focus on no Focus active L hip abduction sit<>stand from chair/lower surfaces Recommendations To Nursing Amount of Assist Needed 1 Person Assist Discharge Recommendations PT Discharge Recommendations SNF Rehab
--- NOTE | 2018-10-24 12:28 | OT.IP.TRT ---
Current Diagnoses Nondisplaced fracture of greater trochanter of left femur, initial encounter for closed fracture (10/22/18) Occupational Therapy Treatment Note M2 OT-IP Current Condition Start: 10/23/18 16:35 Freq: Status: Active Protocol: Document 10/23/18 16:36 [facility] (Rec: 10/23/18 16:58 [facility] [id number]) Occupational Therapy Current Condition Current Condition Evaluation Date 10/23/18 Treatment Diagnosis Non-displaced periprothetic fracture involving L proximal femur Diagnosis Onset Date 10/22/18 Post Operative Precautions Other Precautions NO ACTIVE ABDUCTION to Left Hip Weight Bearing Status Weight Bearing Status Weight Bear as Tolerated M3 OT- IP Subjective and Pain Start: 10/23/18 16:35 Freq: Status: Active Protocol: Document 10/24/18 12:17 [facility] (Rec: 10/24/18 12:28 [facility] [id number]) OT- Subjective Occupational Therapy Visit Type Type Treatment Note Visit Start Time 11:20 Visit Stop Time 12:00 Total Visit Minutes 40 Occupational Therapy Visit Comments Patient Comments Pt wanting to shower. OT Pain Assessment Pain When Pain Assessed At Rest Pain Present Pain Present Pain Reported Location Left Hip Intensity 2 Scale Used Numeric (1 - 10) M4 OT- IP ADL's Start: 10/23/18 16:35 Freq: Status: Active Protocol: Document 10/24/18 12:17 [facility] (Rec: 10/24/18 12:28 [facility] [id number]) OT ADL-Dressing General Eval Upper Body Dressing Ability Standby Assistance Lower Body Dressing Ability Maximum Assistance Areas Needing Assistance Socks Comments OT Dressing Comments Pt able to don/doff right foot for socks however dependent for left foot due to unable to lift up left foot. OT ADL-Bathing Bathing Type Bathing Type Shower General Evaluation Bathing Ability Maximal Assistance Areas Needing Assistance Retrieving/Setting Up Items Wash/Dry Back Wash/Dry Perineal Area Wash/Dry Lower Extremities Devices Bathing Equipment Hand Held Shower Sprayer Shower Chair without Arms Grab Bars Comments OT Bathing Comments Pt needing assist to wash/dry back, perineal area, and legs. Pt having trouble to come to stand form the shower chair. M5 OT- IP IADL's Start: 10/23/18 16:35 Freq: Status: Active Protocol: Document 10/23/18 16:36 [facility] (Rec: 10/23/18 16:58 [facility] [id number]) OT-Instrumental Activities of Daily Living Home Safety Awareness Home Safety Comments Prior pt able to do all IADl needs. M6 OT- IP Functional Cognition Start: 10/23/18 16:35 Freq: Status: Active Protocol: Document 10/24/18 12:17 [facility] (Rec: 10/24/18 12:28 [facility] [id number]) Cognitive Factors Limiting Selfcare Function Cognitive Ability Level of Alertness Alert Patient Orientation Name Place Situation Attention Span Ability Capable of Focused Attention Capable of Sustained Attention Ability to Follow Commands Able to Follow One Step Commands Memory Description Short Term Impaired Safety Awareness Decreased Ability to Apply Precautions Underestimates Need for Assistance Cognitive Comments Cognitive Assessment Comments Pt needing reminders for LLE precautions. M7 OT- IP Mobility and Balance Start: 10/23/18 16:35 Freq: Status: Active Protocol: Document 10/24/18 12:17 [facility] (Rec: 10/24/18 12:28 [facility] [id number]) OT- Bed Mobility Assessment Sit to Supine Sit to Supine Assist Moderate Assistance 1 Person Assistance OT-Transfer Assessment Sit to and From Stand Sit to and from Stand Minimal Assistance Moderate Assistance Maximum Assistance Transfers Transfer Ability Contact Guard Assistance 1 Person Assistance Technique Transfer Destination Bed Chair Shower Stall Transfer Technique Stand Step Pivot Devices Transfer Assistive Devices Gait Belt Front Wheeled Walker Comments Mobility Comments Pt needing assist to LLE to help get out of bed. Pt still needing MODA to MAX A to stand from lower surfaces. Once on her feet for level surfaces CGA with FWW. OT- Balance Assessment Sitting Balance and Reactions Static Sitting Balance Ability Normal Dynamic Sitting Balance Ability Good Standing Balance and Reactions Static Standing Balance Ability Fair Dynamic Standing Balance Ability Poor M8 OT- IP Objective Assessments Start: 10/23/18 16:35 Freq: Status: Active Protocol: Document 10/23/18 16:36 [facility] (Rec: 10/23/18 16:58 [facility] [id number]) OT Gross Range of Motion Upper Extremity Range of Motion Assessment Within Functional Limits OT Strength Comments Strength Comments BUE 4/5 M9 OT- IP Assessment and Plan Start: 10/23/18 16:35 Freq: Status: Active Protocol: Document 10/24/18 12:17 [facility] (Rec: 10/24/18 12:28 [facility] [id number]) OT Summary Assessment and Plan Potential Rehabilitation Potential Good Analytic Complexity at Evaluation Low Summary OT Impairments Pain Strength Balance Functional Cognition Functional Mobility Grooming Dressing Toileting Bathing Toilet Transfers Shower Transfers Progress Towards Goals Slow Progress due to Pain Slow Progress due to Activity Tolerance Assessment Summary Pt able to tolerance shower today, however still needing assist to move LLE for bed mobility needs, needing MAXA assist for showering and dressing needs, which at this time to great of care for to be able to assist at this time. Therefore recommend skilled rehab. Goals Grooming Goal Standby Assistance Dressing Goal Minimal Assistance Toileting Goal Standby Assistance Bathing Goal Moderate Assistance Toilet Transfer Goal Minimal Assistance Shower Transfer Goal Minimal Assistance Patient/Caregiver Education Goal Caregiver Independent Assisting Patient Days to Meet Goals 7 Frequency of Treatment Frequency Of Treatment Once a Day Treatment Plan OT Treatment Plan ADL Training Functional Cognition Training Functional Mobility Patient/Family Education Discharge Planning Other Treatment Recommendations and Next Standing at sink for grooming Treatment Focus needs, use of AED for dressing , and caregiver training. Discharge Recommendations OT Discharge Recommendations SNF Rehab Home Equipment Needs [facility], WC
--- NOTE | 2018-10-24 13:30 | PT.IPTN ---
Current Diagnoses Nondisplaced fracture of greater trochanter of left femur, initial encounter for closed fracture (10/22/18) Physical Therapy Treatment Note M2 PT-IP Current Condition Start: 10/23/18 08:19 Freq: NEEDED Status: Active Protocol: Document 10/23/18 11:03 RS (Rec: 10/23/18 11:52 RS [id number]) Physical Therapy Current Condition Current Condition Evaluation Date 10/23/18 Treatment Diagnosis L trochanteric fracture - impaired mobility Onset Date 10/21/18 Precautions Other Precautions No L hip active abduction Weight Bearing Status Weight Bearing Status Weight Bear as Tolerated M3 PT-IP Subjective Start: 10/23/18 08:19 Freq: NEEDED Status: Active Protocol: Document 10/24/18 13:30 AB (Rec: 10/24/18 14:55 AB [id number]) Subjective Physical Therapy Visit Type Type Treatment Note Visit Start Time 13:30 Visit Stop Time 13:54 Total Visit Minutes 34 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 of 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 Physical Therapy Visit Comments Patient Comments pt requesting to use the toilet M4 PT-IP Mobility and Gait Start: 10/23/18 08:19 Freq: NEEDED Status: Active Protocol: Document 10/24/18 13:30 AB (Rec: 10/24/18 14:55 AB [id number]) PT-Bed Mobility Assessment Sit to Supine Sit to Supine Maximum Assistance 1 Person Assistance PT-Transfer Assessment Sit to and From Stand Sit to and from Stand Minimal Assistance Equipment Transfer Assistive Device Gait Belt Front Wheeled Walker Transfers Transfer Destination Bed Bedside Commode Transfer Technique pt ambulated to the bedside commode using FWW Transfer Ability Level of Assist Contact Guard Assistance 1 Person Assistance Use of Upper Extremities Comments Mobility Comments pt completed sit to stand from low chair min A and cues. ambulated using FWW ~ 3 ft towards the toilet but stated that she better use bedside commode because she does not think she will be able to make it to the toilet. positioned bedside commode close to pt. pt completed sit to stand from bedside commode CGA to min A and cues and was able to maintain standing balance using FWW for support CGA while assisted with hygiene care. pt refused further ambulation afterwards and wants to go back to bed. pt ambulated from bedside commode to the bed ~ 3 ft using FWW CGA. pt attempted to use of UE and safety belt to assist with moving LLE due to no active hip abduction precaution but pt unable to complete and required max A for PT to elevated LE up in bed and for positioning. Call light and table placed within reach. M5 PT-IP Objective Assessments Start: 10/23/18 08:19 Freq: NEEDED Status: Active Protocol: Document 10/23/18 11:03 RS (Rec: 10/23/18 11:52 RS [id number]) Orientation Orientation/Cognition Level of Alertness Alert Orientation Name Age Birthday Month Date Year Day of Week Place Situation Language Function Ability No Deficits Noted Safety Awareness Understands Safety Issues Comments did need to defer to to answer a few background questions Gross Range of Motion Upper Extremity ROM Assessment Within Functional Limits Lower Extremity ROM Assessment Within Functional Limits Strength Upper Extremity Strength Assessment Within Functional Limits Lower Extremity Strength Assessment Left Impaired Comments Strength Comments L hip abduction unable to be tested at all, the rest of the leg wasn't formally tested, but from functional mobility pt's LLE has grossly 3+/5 strength M6 PT-IP Treatment Start: 10/23/18 08:19 Freq: NEEDED Status: Active Protocol: Document 10/24/18 13:30 AB (Rec: 10/24/18 14:55 AB [id number]) Physical Therapy Treatment Education Education Provided Precautions Safety M7 PT-IP Assessment and Plan Start: 10/23/18 08:19 Freq: NEEDED Status: Active Protocol: Document 10/24/18 13:30 AB (Rec: 10/24/18 14:55 AB [id number]) PT Summary Assessment and Plan Potential Rehabilitation Potential Good Summary Progress Towards Goals Slow Progress due to Activity Tolerance Assessment Summary pt requires one person assist with mobility and have more difficulty with sit to stand from a low surface, requires max A for bed mobility. pt will need SNF rehab to improve strength and mobilities pior to d/c home. Goals Bed Mobility Goal Standby Assistance Transfer Goal Standby Assistance Front Wheeled Walker Gait Goal Standby Assistance Front Wheel Walker Gait Distance 50 Days to Meet Goals 5 Frequency of Treatment Frequency Of Treatment Twice a Day Treatment Plan Physical Therapy Treatment Plan Bed Mobility Training Transfer Training Gait Training Therapeutic Exercise Discharge Planning Other Recommendations and Next Treatment bed mobility with focus on no Focus active L hip abduction sit<>stand from chair/lower surfaces Recommendations To Nursing Amount of Assist Needed 1 Person Assist Discharge Recommendations PT Discharge Recommendations SNF Rehab
--- NOTE | 2018-10-24 18:10 | PC.NURSE ---
nemesio note pt using excellent technique with FWW. Pt c/o pain at IV site to Left forearm. Site leaking when flushed. IV removed.
[2018-10-24] MEDS: DONEPEZIL 5 MG TABLET PO (20:29)
[2018-10-24] MEDS: PRAMIPEXOLE 0.125 MG TABLET PO (20:29)
[2018-10-25] VITALS (9 sets, daily range): BP systolic 122–171; BP diastolic 58–87; PULSE 59–70; RESP 16–20; TEMP 36.4–37.1; O2SAT 90–97
[2018-10-25 05:09] LABS: Add Manual Diff / Slide Review NO; Basophils Absolute Auto 0 /uL (0-100); Basophils Percent Auto 0.4 % (0-2); Eosinophils Absolute Auto 200 /uL (0-450); Eosinophils Percent Auto 2.5 % (2-4); Hemoglobin 10.1 g/dL (12.0-16.0); Lymphocytes Absolute Auto 1000 /uL (1100-4500); Lymphocytes Percent Auto 14.4 % (25-40); Mean Corpuscular HGB Conc 33.7 % (30-36); Mean Corpuscular Hemoglobin 31.2 PG (26-34); Mean Corpuscular Volume 92.5 fL (80-100); Monocytes Absolute Auto 1000 /uL (0-900); Monocytes Percent Auto 15.6 % (3-14); Neutrophils Absolute Auto 4500 /uL (1500-7000); Neutrophils Percent Auto 67.1 % (50-75); Platelet Count 163 X10^3/uL (150-400); Red Blood Cell Count 3.24 X10^6/uL (4.0-5.2); Red Cell Distribution Width 13.6 % (11.6-14.8); White Blood Cell Count 6.7 X10^3/uL (4.5-11.0)
[2018-10-25 05:16] LABS: BUN Creatinine Ratio 28.8 (6-22); Blood Urea Nitrogen 23 mg/dL (7-17); Carbon Dioxide 27 mmol/L (22-32); Chloride 91 mmol/L (98-107); Estimated Glomerular Filt Rate > 60.0 mL/min (>60); Glucose 95 mg/dL (80-110); HEMOLYSIS < 15 (0-50); Magnesium 2.1 mg/dL (1.6-2.3); Potassium 4.6 mmol/L (3.4-5.1); Sodium 125 mmol/L (137-145)
[2018-10-25] MEDS: PANTOPRAZOLE 20 MG TABLET PO (05:20)
[2018-10-25 05:37] LABS: Procalcitonin < 0.05 ng/mL (<0.5)
--- NOTE | 2018-10-25 05:55 | PC.NURSE ---
Patient is up frequently to BSC with walker and 1 person assist, transfers fairly well, gaining strength and denies pain to Lt hip. C/O cough, agitated about not being able to take her own OTC syrup. Tessalon Pearls and guaifenesin ordered, also using honey to sooth throat. Breath sounds rhonchi/wheeze throughout except clear Lt upper anterior. Continue with fluid restriction, am Na+ 125.
--- NOTE | 2018-10-25 08:29 | P.PN_ITS ---
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 Overnight: The patient was stable and there were no acute events. The patient is resting in bedside chair comfortably. She is somewhat emotionally labile and teary-eyed as she is not going home today. She reports she feels fine. She is up ambulating with PT and weight-bearing as tolerated on left side slowly gaining strength. She denies headache, chest pain, shortness of breath, nausea, vomiting, fever, chills, dysuria, diarrhea constipation. Her cough has improved. She is voiding and eliminating without difficulty. Exam Vital Signs (past 8 hours): - 10/25/18 04:00 10/25/18 07:36 Temperature 98.7 F 98.7 F Pulse Rate 67 61 Respiratory Rate 16 20 Blood Pressure 153/82 H 143/87 H Pulse Oximetry 90 L 97 Oxygen Delivery Method Room Air Oxygen Flow Rate 0 Narrative Exam Narrative: General: Elderly female lying in bed and in no acute distress, well-developed, well-nourished, appropriately interactive. HEENT: Normocephalic, atraumatic. External ears without defect. Pupils equal, round, and reactive to light and accommodation. Anicteric sclerae, moist conjunctivae, and no lid lag. Neck: Supple with full range of motion. No lymphadenopathy or thyromegaly. Cardiovascular: Regular rate and rhythm without murmurs, rubs, or gallops appreciated. Pulmonary: Scattered rhonchi throughout all lung hall improved today. Normal respiratory effort with no use of accessory muscles. Abdomen: Soft, bowel sounds present, nontender, nondistended. No hepatosplenomegaly or masses appreciated. Extremities: No clubbing, cyanosis, or edema. No pain with palpitation of left hip. Skin: Normal temperature, turgor, and texture; no rash, ulcers, or subcutaneous nodules appreciated. Neurological: Cranial nerves grossly intact. Psychiatric: Depressed mood and emotionally labile. Alert and oriented to person, place, and time. Objective Labs Result Diagrams: 10/25/18 04:31 10/25/18 04:31 Labs: Laboratory Results - last 24 hr 10/25/18 10/25/18 10/25/18 04:31 04:31 04:31 WBC 6.7 RBC 3.24 L Hgb 10.1 L Hct 30.0 L MCV 92.5 MCH 31.2 MCHC 33.7 RDW 13.6 Plt Count 163 Neut % (Auto) 67.1 Lymph % (Auto) 14.4 L [place] % (Auto) 15.6 H Eos % (Auto) 2.5 Baso % (Auto) 0.4 Neut # (Auto) 4500 Lymph # (Auto) 1000 L [place] # (Auto) 1000 H Eos # (Auto) 200 Baso # (Auto) 0 Sodium 125 L Potassium 4.6 Chloride 91 L Carbon Dioxide 27 BUN 23 H Creatinine 0.80 Estimated GFR > 60.0 BUN/Creatinine Ratio 28.8 H Glucose 95 Calcium 8.0 L Magnesium 2.1 Procalcitonin < 0.05 Assessment & Plan Plan: Assessment/Plan Narrative: Artemio Rico is an 83-year-old female with a past medical history significant for hypertension, pituitary adenoma on cabergoline, 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 1. Acute periprosthetic left hip fracture, present on admission. Active. -Secondary to trauma from ground level fall. -Left hip and femur x-ray demonstrated stable nondisplaced left periprosthetic hip fracture. -Orthopedic surgery has evaluated patient and recommends mobilization with PT with weight-bearing as tolerated as periprosthetic hip fracture is stable. Follow up with Orthopedics in 2 weeks. -Continue physical therapy and occupational therapy. 2. Acute on chronic hyponatremia, present on admission. Active. -Etiology unclear but likely multifactorial and related to: psychogenic polydipsia, recent URI with bronchitis, diastolic CHF, hypopituitarism, and possibly medications (risperidone has increased incidence whereas aricept and pramipexole are very low/rare). Ordered urine sodium which is low at 14 and urine osmolality pending. -Baseline sodium level 134. Initial sodium level on admission 124. -Continue 1.5 L fluid restriction. Patient readily admits to significant water intake daily as she is afraid of constipation. -Echocardiogram demonstrated diastolic heart failure stage I which may be contributing to hyponatremia with low effective arterial blood volume. Order Lasix 20 mg IV x1. -Started sodium chloride tabs 1 g twice daily. 3. Acute bronchitis, present on admission. Improving. -Patient presented with nonproductive dry cough and ?a bug for a few weeks.? Cough has now become productive. -Chest x-ray demonstrated evidence of possible reactive airway disease otherwise no focal infiltrate. Repeat chest x-ray demonstrated stable interstitial prominence. -Ordered complete pneumonia workup including: Respiratory viral PCR negative. Strep pneumonia and Legionella urine antigens, pending. -Ordered albuterol nebulizer every 4 hr as needed. -Continue guaifenesin 1200 mg twice daily for up to 7 days for increased sputum production. -May use supplemental oxygen as needed keep saturation greater than 92%. -Never started antibiotics as the patient has no infectious signs and cough is telesales representative of bronchitis with mild pulmonary edema from diastolic CHF. 4. Newly diagnosed diastolic stage I congestive heart failure, present on admission. Stable. -Echocardiogram demonstrated preserved ejection fraction with stage I diastolic dysfunction which may be contributing slightly to hyponatremia as above. -Ordered furosemide 20 mg IV x1 as mild pulmonary edema demonstrated on chest x- ray interpreted by me. 5. Hypertension, chronic, present on admission. Stable. -Continue Benicar 20 mg daily and monitor pressures. 6. Dementia with history of bipolar disorder, chronic, present on admission. Stable. -Patient is pleasant and cooperative. -Restarted Risperdal 1.5 mg as the patient reports she is bipolar and has been on this medication for years and Aricept 5 mg daily at bedtime as the incidence of hyponatremia related to use is low. 7. Restless leg syndrome, chronic, present on admission. Stable. -Continue pramipexole 0.125 mg at bedtime. 8. Pituitary adenoma, present on admission. Active. -History of pituitary adenoma with elevated prolactin levels. -Currently being treated with Cabergoline 0.5 mg. 9. Secondary pancreatic insufficiency, chronic, present on admission. Stable. -Status post Whipple procedure. -Continue home dose of Creon 3 times daily with meals. 10. Recent herpetic infection, not present on admission. Resolved. Disposition: Likely to discharge once hypernatremia has improved either home with home health versus intermediate facility depending on improvement in mobility. Quality VTE Deep Vein Thrombosis/Pulmonary Embolism Present on Admission: No
[2018-10-25] MEDS: SODIUM CHLORIDE 1,000 MG TABLET 1000 MG PO ×2 (08:55→22:26)
[2018-10-25] MEDS: guaiFENesin ER 600 MG TAB 1200 MG PO ×2 (08:55→21:55)
[2018-10-25] MEDS: FUROSEMIDE 20 MG/2 ML VIAL IV (08:55)
[2018-10-25] MEDS: CREON 12000 UNIT PO ×3 (08:56→17:47)
[2018-10-25] MEDS: OLMESARTAN 20 MG TABLET PO (08:56)
[2018-10-25] MEDS: SODIUM CHLORIDE 0.9% FLUSH 10 ML IV ×2 (08:56→21:55)
[2018-10-25] MEDS: ALBUTEROL 2.5 MG/3 ML NEB (ADULT) INH (09:03)
--- NOTE | 2018-10-25 10:46 | CM.DPC ---
Addendum entered by JENIFER Dye 10/25/18 15:50: SW met bedside with pt and spouse and provided update on insurance SNF auth and FCC acceptance. Spouse and pt are still agreeable to SNF at d/c but now spouse states his preference would be a [facility] so that he can stay at his sons's house in [place] to more easily visit daily with his and not have [place] ferry [place]. SW discussed that [facility] would not provide w/c transport for the pt and spouse is agreeable with transporting pt himself if she is safe for private vehicle. Pt states she has been sitting in bedside chair and ambulating with PT/OT. SW provided spouse with the [facility] SN[facility] list but informed him that likely only a few are contracted with pt's insurance and currently based on location to son's house he chose: 1) [facility]- not contracted with [facility] 2) [facility] ([phone])- left [facility] for admissions and faxed clinicals 3) [facility]- not contracted with [facility]. Plan: SW to follow closely for return call from [facility] to determine if they are contracted with [facility] and if they can accept otherwise spouse was agreeable with any [facility] at this time. SW may need to call [facility], [facility] , [place], or [facility] to determine if any are contracted with pt's insurance. JENIFER Dye Original Note: DCP SNF Planning Per MD and RN, pt still having sodium level issues and therefore not stable for d/c yet today. Per RN, pt still hopeful for d/c home with HH (F2F already completed and signed by ) but current recommendation for SNF still in place. VOLODYMYR received a call from [facility] admissions stating that they just received SNF auth from pt's insurance [facility] M[facility] and pt has 100% coverage for first 20 days and likely may meet her deductible and not have to pay copay after 20 days if more time required in SNF. VOLODYMYR updated [facility] admissions Cinthya that pt not stable for d/c yet today. Plan: SW to follow closely for likely pt d/c to [facility] with already approved SNF auth from insurance and [facility] completed vs possible d/c home with HH if pt improves. JENIFER Dye
--- NOTE | 2018-10-25 12:21 | PT.IPTN ---
Current Diagnoses Nondisplaced fracture of greater trochanter of left femur, initial encounter for closed fracture (10/22/18) Physical Therapy Treatment Note M2 PT-IP Current Condition Start: 10/23/18 08:19 Freq: NEEDED Status: Active Protocol: Document 10/23/18 11:03 RS (Rec: 10/23/18 11:52 RS [id number]) Physical Therapy Current Condition Current Condition Evaluation Date 10/23/18 Treatment Diagnosis L trochanteric fracture - impaired mobility Onset Date 10/21/18 Precautions Other Precautions No L hip active abduction Weight Bearing Status Weight Bearing Status Weight Bear as Tolerated M3 PT-IP Subjective Start: 10/23/18 08:19 Freq: NEEDED Status: Active Protocol: Document 10/25/18 11:40 HH (Rec: 10/25/18 12:21 HH [email or web address]) Subjective Physical Therapy Visit Type Type Treatment Note Visit Start Time 11:40 Visit Stop Time 12:00 Total Visit Minutes 20 Notes Pt reports her pain is around 2/10 and RN states she has been getting OOB with nursing staff CGA 1pa Physical Therapy Visit Comments Patient Comments Pt agreed to mobilize with PT Therapy Pain Assessment Pain When Pain Assessed At Rest Pain Present Pain Present Pain Reported Location Left Hip Intensity 2 Scale Used Numeric (1 - 10) Description Dull M4 PT-IP Mobility and Gait Start: 10/23/18 08:19 Freq: NEEDED Status: Active Protocol: Document 10/25/18 11:40 HH (Rec: 10/25/18 12:21 HH [email or web address]) PT-Transfer Assessment Sit to and From Stand Sit to and from Stand Minimal Assistance Equipment Transfer Assistive Device Gait Belt Front Wheeled Walker Transfers Transfer Destination Bed Transfer Ability Level of Assist Contact Guard Assistance 1 Person Assistance Use of Upper Extremities Comments Mobility Comments pt performed sit to stand from low chair min A and cues. Pt amb from chair to ICU hallway and returned to chair with stand step pivot transfer. Pt demonstrates safe transfer techniques with proper hand placements and turning. Call light and table placed within reach. Gait Assessment Gait Gait Assistance Required: Contact Guard Assist Distance (Feet) 30 Able to Maintain Weight Bearing Status Yes During Gait Assistive Devices Assistive Device Gait Belt Front Wheeled Walker Gait Deviations General Gait Pattern Antalgic Decreased Stride Length Decreased Feet Clearance Factors Limiting Gait Function Factors Limiting Gait Function Decreased Activity Tolerance Decreased Strength Limited Range of Motion Pain Poor Balance Poor Safety Awareness Comments Gait Comments Pt demonstrated step to gait pattern for amb 30 feet CGA 1pa. Pt is able to recall her precaution of active hip abduction restriction M5 PT-IP Objective Assessments Start: 10/23/18 08:19 Freq: NEEDED Status: Active Protocol: Document 10/23/18 11:03 RS (Rec: 10/23/18 11:52 RS [id number]) Orientation Orientation/Cognition Level of Alertness Alert Orientation Name Age Birthday Month Date Year Day of Week Place Situation Language Function Ability No Deficits Noted Safety Awareness Understands Safety Issues Comments did need to defer to to answer a few background questions Gross Range of Motion Upper Extremity ROM Assessment Within Functional Limits Lower Extremity ROM Assessment Within Functional Limits Strength Upper Extremity Strength Assessment Within Functional Limits Lower Extremity Strength Assessment Left Impaired Comments Strength Comments L hip abduction unable to be tested at all, the rest of the leg wasn't formally tested, but from functional mobility pt's LLE has grossly 3+/5 strength M6 PT-IP Treatment Start: 10/23/18 08:19 Freq: NEEDED Status: Active Protocol: Document 10/25/18 11:40 (Rec: 10/25/18 12:21 [email or web address]) Physical Therapy Treatment Education Education Provided Precautions Safety Other Treatments Other Treatment Performed Use of hip hinge momentum pattern for sit to stand M7 PT-IP Assessment and Plan Start: 10/23/18 08:19 Freq: NEEDED Status: Active Protocol: Document 10/25/18 11:40 HH (Rec: 10/25/18 12:21 [email or web address]) PT Summary Assessment and Plan Potential Rehabilitation Potential Good Summary Impairments Pain ROM Strength Balance Coordination Sensation Tone Cognition Bed Mobility Transfers Gait Activity Tolerance Progress Towards Goals Slow Progress due to Pain Slow Progress due to Activity Tolerance Assessment Summary Pt cont requires one person assist for overall mobility especially sit<> stand from a low chair. Pt education on rocking hip hinge pattern to decrease assistance needed for STS. Pt is able to recall her precautions of no active hip abduction. Cont recommend d/c to SNF due to focus on overall strengthening, gait training prior to d/c home. Goals Bed Mobility Goal Standby Assistance Transfer Goal Standby Assistance Front Wheeled Walker Gait Goal Standby Assistance Front Wheel Walker Gait Distance 50 Days to Meet Goals 5 Frequency of Treatment Frequency Of Treatment Twice a Day Treatment Plan Physical Therapy Treatment Plan Bed Mobility Training Transfer Training Gait Training Therapeutic Exercise Discharge Planning Other Recommendations and Next Treatment bed mobility with focus on no Focus active L hip abduction sit<>stand with rocking motion from chair/lower surfaces Recommendations To Nursing Amount of Assist Needed 1 Person Assist Discharge Recommendations PT Discharge Recommendations SNF Rehab
--- NOTE | 2018-10-25 15:15 | PT.IPTN ---
Current Diagnoses Nondisplaced fracture of greater trochanter of left femur, initial encounter for closed fracture (10/22/18) Physical Therapy Treatment Note M2 PT-IP Current Condition Start: 10/23/18 08:19 Freq: NEEDED Status: Active Protocol: Document 10/23/18 11:03 RS (Rec: 10/23/18 11:52 RS [id number]) Physical Therapy Current Condition Current Condition Evaluation Date 10/23/18 Treatment Diagnosis L trochanteric fracture - impaired mobility Onset Date 10/21/18 Precautions Other Precautions No L hip active abduction Weight Bearing Status Weight Bearing Status Weight Bear as Tolerated M3 PT-IP Subjective Start: 10/23/18 08:19 Freq: NEEDED Status: Active Protocol: Document 10/25/18 15:15 GGD (Rec: 10/25/18 15:51 GGD [email or web address]) Subjective Physical Therapy Visit Type Type Treatment Note Visit Start Time 14:45 Visit Stop Time 15:15 Total Visit Minutes 30 Number of FILTER TANK TENDER HELPER HEAD Visits 1 Physical Therapy Visit Comments Patient Comments PT up to EOB with RN. M4 PT-IP Mobility and Gait Start: 10/23/18 08:19 Freq: NEEDED Status: Active Protocol: Document 10/25/18 15:15 GGD (Rec: 10/25/18 15:51 GGD [email or web address]) PT-Bed Mobility Assessment Rolling Type of Rolling Roll to Right Level of Assist Minimal Assistance Supine to Sit Supine to Sit Contact Guard Assistance Sit to Supine Sit to Supine Moderate Assistance 1 Person Assistance Scooting Scooting to Edge of Bed Standby Assistance PT-Transfer Assessment Sit to and From Stand Sit to and from Stand Contact Guard Assistance Use of Upper Extremities Equipment Transfer Assistive Device Gait Belt Front Wheeled Walker Transfers Transfer Destination Bed Transfer Ability Level of Assist Contact Guard Assistance 1 Person Assistance Use of Upper Extremities Comments Mobility Comments Pt need mod cues for all mobility. Gait Assessment Gait Gait Assistance Required: Contact Guard Assist Distance (Feet) 20 Able to Maintain Weight Bearing Status Yes During Gait Assistive Devices Assistive Device Gait Belt Front Wheeled Walker Gait Deviations General Gait Pattern Antalgic Decreased Stride Length Decreased Feet Clearance Factors Limiting Gait Function Factors Limiting Gait Function Decreased Activity Tolerance Decreased Strength Limited Range of Motion Pain Poor Balance Poor Safety Awareness M5 PT-IP Objective Assessments Start: 10/23/18 08:19 Freq: NEEDED Status: Active Protocol: Document 10/23/18 11:03 RS (Rec: 10/23/18 11:52 RS [id number]) Orientation Orientation/Cognition Level of Alertness Alert Orientation Name Age Birthday Month Date Year Day of Week Place Situation Language Function Ability No Deficits Noted Safety Awareness Understands Safety Issues Comments did need to defer to to answer a few background questions Gross Range of Motion Upper Extremity ROM Assessment Within Functional Limits Lower Extremity ROM Assessment Within Functional Limits Strength Upper Extremity Strength Assessment Within Functional Limits Lower Extremity Strength Assessment Left Impaired Comments Strength Comments L hip abduction unable to be tested at all, the rest of the leg wasn't formally tested, but from functional mobility pt's LLE has grossly 3+/5 strength M6 PT-IP Treatment Start: 10/23/18 08:19 Freq: NEEDED Status: Active Protocol: Document 10/25/18 15:15 GGD (Rec: 10/25/18 15:51 GGD [email or web address]) Physical Therapy Treatment Education Education Provided Precautions Safety M7 PT-IP Assessment and Plan Start: 10/23/18 08:19 Freq: NEEDED Status: Active Protocol: Document 10/25/18 15:15 GGD (Rec: 10/25/18 15:51 GGD [email or web address]) PT Summary Assessment and Plan Summary Assessment Summary Pt improving slowly. She needed less assist with bed mobililty with a log roll. She did need cues for all mobility. She would benefit from SNF for improvement in functional mobility. Frequency of Treatment Frequency Of Treatment Twice a Day Treatment Plan Physical Therapy Treatment Plan Bed Mobility Training Transfer Training Gait Training Therapeutic Exercise Discharge Planning Recommendations To Nursing Amount of Assist Needed 1 Person Assist Discharge Recommendations PT Discharge Recommendations SNF Rehab
--- NOTE | 2018-10-25 15:17 | PC.NURSE ---
Transfer Note Patient transferred to rm [id number] via wheelchair. All belongings with patient including mouth guard, clothing, and medications. updated and transferred up with patient. Report given to Melinda OCONNOR.
--- NOTE | 2018-10-25 15:49 | OT.IP.TRT ---
Current Diagnoses Nondisplaced fracture of greater trochanter of left femur, initial encounter for closed fracture (10/22/18) Occupational Therapy Treatment Note M2 OT-IP Current Condition Start: 10/23/18 16:35 Freq: Status: Active Protocol: Document 10/23/18 16:36 [facility] (Rec: 10/23/18 16:58 [facility] [id number]) Occupational Therapy Current Condition Current Condition Evaluation Date 10/23/18 Treatment Diagnosis Non-displaced periprothetic fracture involving L proximal femur Diagnosis Onset Date 10/22/18 Post Operative Precautions Other Precautions NO ACTIVE ABDUCTION to Left Hip Weight Bearing Status Weight Bearing Status Weight Bear as Tolerated M3 OT- IP Subjective and Pain Start: 10/23/18 16:35 Freq: Status: Active Protocol: Document 10/25/18 15:30 [facility] (Rec: 10/25/18 15:49 [facility] [id number]) OT- Subjective Occupational Therapy Visit Type Type Treatment Note Visit Start Time 15:00 Visit Stop Time 15:15 Total Visit Minutes 15 Occupational Therapy Visit Comments Patient Comments Pt agreeable to work with therapy. M4 OT- IP ADL's Start: 10/23/18 16:35 Freq: Status: Active Protocol: Document 10/25/18 15:30 [facility] (Rec: 10/25/18 15:49 [facility] [id number]) OT ADL-Grooming General Evaluation Grooming Ability Standby Assistance Areas Needing Assistance Retrieving/Set-up of Grooming Items Comments OT Grooming Comments Pt able to do all grooming needs with SBA while standing at the sink with SBA. OT ADL-Oral Care General Eval Oral Care Ability Independent M5 OT- IP IADL's Start: 10/23/18 16:35 Freq: Status: Active Protocol: Document 10/23/18 16:36 [facility] (Rec: 10/23/18 16:58 [facility] [id number]) OT-Instrumental Activities of Daily Living Home Safety Awareness Home Safety Comments Prior pt able to do all IADl needs. M6 OT- IP Functional Cognition Start: 10/23/18 16:35 Freq: Status: Active Protocol: Document 10/25/18 15:30 [facility] (Rec: 10/25/18 15:49 [facility] [id number]) Cognitive Factors Limiting Selfcare Function Cognitive Ability Level of Alertness Alert Confusional State Patient Orientation Name Attention Span Ability Capable of Focused Attention Capable of Sustained Attention Ability to Follow Commands Able to Follow One Step Commands with Increased Time Able to Follow One Step Commands with Repetition Memory Description Short Term Impaired Problem Solving Ability Needs Assist to Identify Solutions Executive Function Ability Unable to Remember Details Cognitive Comments Cognitive Assessment Comments Pt continues to need assist for safety awareness, sequencing through safety of FWW use, from sit to stand, and bed mobility needs. M7 OT- IP Mobility and Balance Start: 10/23/18 16:35 Freq: Status: Active Protocol: Document 10/25/18 15:30 [facility] (Rec: 10/25/18 15:49 [facility] [id number]) OT- Bed Mobility Assessment Rolling Type of Rolling Roll to Right Level of Assistance Minimal Assistance 1 Person Assistance Supine to Sit Supine to Sit Assist Moderate Assistance 1 Person Assistance Sit to Supine Sit to Supine Assist Moderate Assistance 1 Person Assistance OT-Transfer Assessment Sit to and From Stand Sit to and from Stand Contact Guard Assistance 1 Person Assistance Transfers Transfer Ability Contact Guard Assistance Minimal Assistance 1 Person Assistance Technique Transfer Destination Bed Transfer Technique Stand Step Pivot Devices Transfer Assistive Devices Gait Belt Front Wheeled Walker Comments Mobility Comments Pt needing MAX A vc for bed mobility, worked with LUMP ROLLER and best for pt to get in on the right side and do log rolling, therefore to go down on right elbow and bring legs up with knees bend, pt needing MODA to help get legs up into the bed. OT- Balance Assessment Sitting Balance and Reactions Static Sitting Balance Ability Normal Dynamic Sitting Balance Ability Good Standing Balance and Reactions Static Standing Balance Ability Fair Dynamic Standing Balance Ability Poor M8 OT- IP Objective Assessments Start: 10/23/18 16:35 Freq: Status: Active Protocol: Document 10/23/18 16:36 [facility] (Rec: 10/23/18 16:58 [facility] [id number]) OT Gross Range of Motion Upper Extremity Range of Motion Assessment Within Functional Limits OT Strength Comments Strength Comments BUE 4/5 M9 OT- IP Assessment and Plan Start: 10/23/18 16:35 Freq: Status: Active Protocol: Document 10/25/18 15:30 [facility] (Rec: 10/25/18 15:49 [facility] [id number]) OT Summary Assessment and Plan Potential Rehabilitation Potential Good Analytic Complexity at Evaluation Low Summary OT Impairments Pain Strength Balance Functional Cognition Functional Mobility Grooming Dressing Toileting Bathing Toilet Transfers Shower Transfers Progress Towards Goals Slow Progress due to Pain Slow Progress due to Activity Tolerance Assessment Summary Pt still needing lots of VC for getting into and out of the bed and to be able to follow no active hip abduction. Pt and agreeable that it would be best for pt to go to skilled rehab prior to going home. Pt is still far from baseline and needing to great of assist for to assist at this time. Goals Grooming Goal Independent Dressing Goal Minimal Assistance Toileting Goal Standby Assistance Bathing Goal Moderate Assistance Toilet Transfer Goal Standby Assistance Shower Transfer Goal Minimal Assistance Patient/Caregiver Education Goal Caregiver Independent Assisting Patient Days to Meet Goals 7 Frequency of Treatment Frequency Of Treatment Once a Day Treatment Plan OT Treatment Plan ADL Training Functional Cognition Training Functional Mobility Patient/Family Education Discharge Planning Other Treatment Recommendations and Next AED and LB dressing. Treatment Focus Discharge Recommendations OT Discharge Recommendations SNF Rehab Home Equipment Needs BSC, WC
[2018-10-25 16:44] LABS: Osmolality Urine 195 mOsm/kg (50-1200)
[2018-10-25] MEDS: BENZONATATE 100 MG CAPSULE PO (17:47)
[2018-10-25] MEDS: SODIUM CHLORIDE 0.9% 1,000 ML 100 ML IV (21:54)
[2018-10-25] MEDS: PRAMIPEXOLE 0.125 MG TABLET PO (21:55)
[2018-10-25] MEDS: risperiDONE 1 MG TABLET 1.5 MG PO (21:55)
[2018-10-25] MEDS: DONEPEZIL 5 MG TABLET PO (21:56)
[2018-10-26] VITALS (12 sets, daily range): BP systolic 125–163; BP diastolic 63–87; PULSE 56–70; RESP 16–20; TEMP 36.1–36.8; O2SAT 93–97
[2018-10-26] MEDS: PANTOPRAZOLE 20 MG TABLET PO (05:42)
[2018-10-26] MEDS: ACETAMINOPHEN 325 MG TABLET 650 MG PO (05:42)
[2018-10-26 06:02] LABS: BUN Creatinine Ratio 26.3 (6-22); Blood Urea Nitrogen 21 mg/dL (7-17); Calcium 8.2 mg/dL (8.4-10.2); Carbon Dioxide 29 mmol/L (22-32); Chloride 95 mmol/L (98-107); Estimated Glomerular Filt Rate > 60.0 mL/min (>60); Glucose 81 mg/dL (80-110); HEMOLYSIS < 15 (0-50); Potassium 4.4 mmol/L (3.4-5.1); Sodium 129 mmol/L (137-145)
[2018-10-26 06:08] LABS: Add Manual Diff / Slide Review NO; Basophils Absolute Auto 100 /uL (0-100); Basophils Percent Auto 0.8 % (0-2); Eosinophils Absolute Auto 200 /uL (0-450); Eosinophils Percent Auto 3.8 % (2-4); Hemoglobin 9.9 g/dL (12.0-16.0); Lymphocytes Absolute Auto 1100 /uL (1100-4500); Lymphocytes Percent Auto 17.6 % (25-40); Mean Corpuscular Hemoglobin 31.3 PG (26-34); Mean Corpuscular Volume 92.1 fL (80-100); Monocytes Absolute Auto 1000 /uL (0-900); Monocytes Percent Auto 16.7 % (3-14); Neutrophils Absolute Auto 3800 /uL (1500-7000); Neutrophils Percent Auto 61.1 % (50-75); Platelet Count 158 X10^3/uL (150-400); Red Blood Cell Count 3.15 X10^6/uL (4.0-5.2); Red Cell Distribution Width 13.3 % (11.6-14.8); White Blood Cell Count 6.2 X10^3/uL (4.5-11.0)
--- NOTE | 2018-10-26 06:58 | PM.PN.1 ---
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 Overnight: The patient was stable and there were no acute events. The patient is resting in bedside chair comfortably. She is up ambulating with PT and weight-bearing as tolerated on left side slowly gaining strength. She denies headache, chest pain, shortness of breath, nausea, vomiting, fever, chills, dysuria, diarrhea constipation. Her cough has improved. She is voiding and eliminating without difficulty. Exam Vital Signs (past 8 hours): - 10/26/18 00:15 10/26/18 00:40 10/26/18 04:00 Temperature 97.4 F L 97.9 F Pulse Rate 60 60 Respiratory Rate 18 18 Blood Pressure 163/77 H 154/87 H Pulse Oximetry 96 96 94 Fraction of Inspired Oxygen 21 Oxygen Delivery Method Room Air Oxygen Flow Rate 0 Narrative Exam Narrative: General: Elderly female lying in bed and in no acute distress, well-developed, well-nourished, appropriately interactive. HEENT: Normocephalic, atraumatic. External ears without defect. Pupils equal, round, and reactive to light and accommodation. Anicteric sclerae, moist conjunctivae, and no lid lag. Neck: Supple with full range of motion. No lymphadenopathy or thyromegaly. Cardiovascular: Regular rate and rhythm without murmurs, rubs, or gallops appreciated. Pulmonary: Clear to auscultation bilaterally with occasional scattered rhonchi. Normal respiratory effort with no use of accessory muscles. Abdomen: Soft, bowel sounds present, nontender, nondistended. No hepatosplenomegaly or masses appreciated. Extremities: No clubbing, cyanosis, or edema. No pain with palpitation of left hip. Skin: Normal temperature, turgor, and texture; no rash, ulcers, or subcutaneous nodules appreciated. Neurological: Cranial nerves grossly intact. Psychiatric: Normal mood and affect. Alert and oriented to person, place, and time. Objective Labs Result Diagrams: 10/26/18 05:32 10/26/18 05:32 Labs: Laboratory Results - last 24 hr 10/24/18 10/26/1810/26/19 01:20 05:32 05:32 WBC 6.2 RBC 3.15 L Hgb 9.9 L Hct 29.0 L MCV 92.1 MCH 31.3 MCHC 34.0 RDW 13.3 Plt Count 158 Neut % (Auto) 61.1 Lymph % (Auto) 17.6 L [place] % (Auto) 16.7 H Eos % (Auto) 3.8 Baso % (Auto) 0.8 Neut # (Auto) 3800 Lymph # (Auto) 1100 [place] # (Auto) 1000 H Eos # (Auto) 200 Baso # (Auto) 100 Sodium 129 L Potassium 4.4 Chloride 95 L Carbon Dioxide 29 BUN 21 H Creatinine 0.80 Estimated GFR > 60.0 BUN/Creatinine Ratio 26.3 H Glucose 81 Calcium 8.2 L Urine Osmolality 195 Assessment & Plan Plan: Assessment/Plan Narrative: Artemio Rico is an 83-year-old female with a past medical history significant for hypertension, pituitary adenoma on cabergoline, 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 1. Acute periprosthetic left hip fracture, present on admission. Active. -Secondary to trauma from ground level fall. -Left hip and femur x-ray demonstrated stable nondisplaced left periprosthetic hip fracture. -Orthopedic surgery has evaluated patient and recommends mobilization with PT with weight-bearing as tolerated as periprosthetic hip fracture is stable. Follow up with Orthopedics in 2 weeks. -Continue physical therapy and occupational therapy. 2. Acute on chronic hyponatremia, present on admission. Resolving. -Etiology unclear but likely multifactorial and related to: Hypovolemia, psychogenic polydipsia, and recent URI with bronchitis. Less likely hypopituitarism and medications (risperidone has increased incidence whereas aricept and pramipexole are very low/rare). Ordered urine sodium which is low at 14 and urine osmolality normal at 195. -Baseline sodium level 134. Initial sodium level on admission 124. -Continue 1.5 L fluid restriction. Patient readily admits to significant water intake daily as she is afraid of constipation. -Echocardiogram demonstrated diastolic heart failure stage I which is less likely contributing to hyponatremia. -Discontinue sodium chloride tabs and started normal saline at 100 mL/hr x 2 bags. 3. Acute bronchitis, present on admission. Resolving. -Patient presented with nonproductive dry cough and ?a bug for a few weeks.? Cough has now become productive. -Chest x-ray demonstrated evidence of possible reactive airway disease otherwise no focal infiltrate. Repeat chest x-ray demonstrated stable interstitial prominence. -Ordered complete pneumonia workup including: Respiratory viral PCR negative. Strep pneumonia and Legionella urine antigens, pending. -Ordered albuterol nebulizer every 4 hr as needed. -Continue guaifenesin 1200 mg twice daily for up to 7 days for increased sputum production. -May use supplemental oxygen as needed keep saturation greater than 92%. -Never started antibiotics as the patient has no infectious signs and cough is customer engagement representative of bronchitis with mild pulmonary edema from diastolic CHF. 4. Newly diagnosed diastolic stage I congestive heart failure, chronic and asymptomatic, present on admission. Stable. -Echocardiogram demonstrated preserved ejection fraction with stage I diastolic dysfunction which may be contributing slightly to hyponatremia as above. -Chest x-ray interpreted by me demonstrates mild pulmonary congestion. -Received furosemide 20 mg IV x. 5. Hypertension, chronic, present on admission. Stable. -Continue Benicar 20 mg daily and monitor pressures. 6. Dementia with history of bipolar disorder, chronic, present on admission. Stable. -Patient is pleasant and cooperative. -Continue Risperdal 1.5 mg and Aricept 5 mg daily at bedtime. Less likely contributing to hyponatremia as patient has been on these medications for several years. 7. Restless leg syndrome, chronic, present on admission. Stable. -Continue pramipexole 0.125 mg at bedtime. 8. Pituitary adenoma, present on admission. Active. -History of pituitary adenoma with elevated prolactin levels. -Currently being treated with Cabergoline 0.5 mg. 9. Secondary pancreatic insufficiency, chronic, present on admission. Stable. -Status post Whipple procedure. -Continue home dose of Creon 3 times daily with meals. 10. Recent herpetic infection, not present on admission. Resolved. Disposition: Likely to discharge tomorrow once hyponatremia is improved with IVF to either home with home health versus [facility] facility. Quality VTE Deep Vein Thrombosis/Pulmonary Embolism Present on Admission: No
[2018-10-26] MEDS: SODIUM CHLORIDE 0.9% FLUSH 10 ML IV (08:46)
[2018-10-26] MEDS: OLMESARTAN 20 MG TABLET PO (08:49)
[2018-10-26] MEDS: CREON 12000 UNIT PO ×3 (08:49→17:34)
[2018-10-26] MEDS: guaiFENesin ER 600 MG TAB 1200 MG PO ×2 (08:49→21:46)
[2018-10-26] MEDS: SODIUM CHLORIDE 1,000 MG TABLET 1000 MG PO (08:50)
--- NOTE | 2018-10-26 08:53 | PM.PN.1 ---
Subjective Date Patient Seen: 10/26/18 Time Patient Seen: 08:53 Interval history: Hospital day 5 following ground level fall with left greater trochanter hip fracture with some extension into the subtrochanteric region with a history of bilateral total hip arthroplasty without evidence of obvious loosening. She did have orthopedic consult done by Dr. Robles on 10/22/18, and determined this will be treated non-operatively with conservative treatment with PT and weight-bearing as tolerated. Patient not having pain today. She is mobilizing well with PT. Exam Vital Signs (past 8 hours): - 10/26/18 04:00 Temperature 97.9 F Pulse Rate 60 Respiratory Rate 18 Blood Pressure 154/87 H Pulse Oximetry 94 Fraction of Inspired Oxygen 21 Oxygen Delivery Method Room Air Oxygen Flow Rate 0 Narrative Exam Narrative: Patient sitting in bedside chair in NAD. She is alert and oriented X3. Objective Labs Result Diagrams: 10/26/18 05:32 10/26/18 05:32 Labs: Laboratory Results - last 24 hr 10/24/18 10/26/18 10/26/18 01:20 05:32 05:32 WBC 6.2 RBC 3.15 L Hgb 9.9 L Hct 29.0 L MCV 92.1 MCH 31.3 MCHC 34.0 RDW 13.3 Plt Count 158 Neut % (Auto) 61.1 Lymph % (Auto) 17.6 L [place] % (Auto) 16.7 H Eos % (Auto) 3.8 Baso % (Auto) 0.8 Neut # (Auto) 3800 Lymph # (Auto) 1100 [place] # (Auto) 1000 H Eos # (Auto) 200 Baso # (Auto) 100 Sodium 129 L Potassium 4.4 Chloride 95 L Carbon Dioxide 29 BUN 21 H Creatinine 0.80 Estimated GFR > 60.0 BUN/Creatinine Ratio 26.3 H Glucose 81 Calcium 8.2 L Urine Osmolality 195 Assessment & Plan (1) Trochanteric fracture of left femur: Qualifiers: Encounter type: initial encounter Fracture healing: Fracture type: closed Open fracture type: Qualified Code(s): S72.102A - Unspecified trochanteric fracture of left femur, initial encounter for closed fracture Current visit: Yes Status: Acute Plan: Assessment/Plan Narrative: Patient will continue to be WBAT and mobilize with PT. She will need to follow up with our office in 10-14 days for repeat x-rays. Discharge per hospitalist once medically stable. Quality VTE Deep Vein Thrombosis/Pulmonary Embolism Present on Admission: No
[2018-10-26 09:26] LABS: Sodium Urine Random 11 mmol/L (30-90)
[2018-10-26] MEDS: NAPROXEN 250 MG TABLET PO (09:42)
--- NOTE | 2018-10-26 11:18 | PC.NURSE ---
Pt A/O x 4, c/o mild pain (1 on pain scale). States feeling much better, ready for shower and to go home.
--- NOTE | 2018-10-26 11:26 | PT.IPTN ---
Current Diagnoses Unspecified trochanteric fracture of left femur, initial encounter for closed fracture (10/22/18) Nondisplaced fracture of greater trochanter of left femur, initial encounter for closed fracture (10/22/18) Physical Therapy Treatment Note M2 PT-IP Current Condition Start: 10/23/18 08:19 Freq: NEEDED Status: Active Protocol: Document 10/23/18 11:03 RS (Rec: 10/23/18 11:52 RS [id number]) Physical Therapy Current Condition Current Condition Evaluation Date 10/23/18 Treatment Diagnosis L trochanteric fracture - impaired mobility Onset Date 10/21/18 Precautions Other Precautions No L hip active abduction Weight Bearing Status Weight Bearing Status Weight Bear as Tolerated M3 PT-IP Subjective Start: 10/23/18 08:19 Freq: NEEDED Status: Active Protocol: Document 10/26/18 11:19 SA (Rec: 10/26/18 11:26 [facility] [id number]) Subjective Physical Therapy Visit Type Type Treatment Note Visit Start Time 10:40 Visit Stop Time 11:12 Total Visit Minutes 32 Number of INFO PRINT PRESS OPERATOR Visits 2 Physical Therapy Visit Comments Patient Comments Pt up in chair having just had a shower, agreeable to PT. Therapy Pain Assessment Pain When Pain Assessed During Mobility Pain Present Pain Present Pain Reported Location Left Hip Intensity 2 Scale Used Numeric (1 - 10) Description Dull M4 PT-IP Mobility and Gait Start: 10/23/18 08:19 Freq: NEEDED Status: Active Protocol: Document 10/26/18 11:19 [facility] (Rec: 10/26/18 11:26 [facility] [id number]) PT-Bed Mobility Assessment Sit to Supine Sit to Supine Minimal Assistance 1 Person Assistance Scooting Scooting to Edge of Bed Standby Assistance Scooting Up and Down in Bed Minimal Assistance PT-Transfer Assessment Sit to and From Stand Sit to and from Stand Contact Guard Assistance Use of Upper Extremities Equipment Transfer Assistive Device Gait Belt Front Wheeled Walker Transfers Transfer Destination Bed Transfer Technique Stand Step Pivot Transfer Ability Level of Assist Contact Guard Assistance 1 Person Assistance Use of Upper Extremities Comments Mobility Comments Pt CGA with transfers and most bed mobility. Cues for upright posture when standing as pt presents with forward flexed posture. Min A for LEs for sit to supine with log roll technique. Gait Assessment Gait Gait Assistance Required: Contact Guard Assist Distance (Feet) 80 Able to Maintain Weight Bearing Status Yes During Gait Assistive Devices Assistive Device Gait Belt Front Wheeled Walker Gait Deviations General Gait Pattern Antalgic Decreased Stride Length Decreased Feet Clearance Factors Limiting Gait Function Factors Limiting Gait Function Decreased Activity Tolerance Decreased Strength Limited Range of Motion Poor Balance Poor Safety Awareness Comments Gait Comments Pt with forward flexed and step to gait pattern, able to correct to even step lengths and upright posture with Mod verbal/tactile cues. Stair Climbing Assessment Comments Stair Climbing Comments No stairs in home PT-Balance Assessment Comments Other Balance Tests/Deviations/Treatment Pt stood at counter x 4 min to : bruch teeth and wash hands with SBA and no LOB. M5 PT-IP Objective Assessments Start: 10/23/18 08:19 Freq: NEEDED Status: Active Protocol: Document 10/23/18 11:03 RS (Rec: 10/23/18 11:52 RS [id number]) Orientation Orientation/Cognition Level of Alertness Alert Orientation Name Age Birthday Month Date Year Day of Week Place Situation Language Function Ability No Deficits Noted Safety Awareness Understands Safety Issues Comments did need to defer to to answer a few background questions Gross Range of Motion Upper Extremity ROM Assessment Within Functional Limits Lower Extremity ROM Assessment Within Functional Limits Strength Upper Extremity Strength Assessment Within Functional Limits Lower Extremity Strength Assessment Left Impaired Comments Strength Comments L hip abduction unable to be tested at all, the rest of the leg wasn't formally tested, but from functional mobility pt's LLE has grossly 3+/5 strength M6 PT-IP Treatment Start: 10/23/18 08:19 Freq: NEEDED Status: Active Protocol: Document 10/26/18 11:19 SA (Rec: 10/26/18 11:26 SA [id number]) Physical Therapy Treatment Exercises Exercises Ankle Pumps Gluteal Sets Education Education Provided Precautions Safety M7 PT-IP Assessment and Plan Start: 10/23/18 08:19 Freq: NEEDED Status: Active Protocol: Document 10/26/18 11:19 SA (Rec: 10/26/18 11:26 SA [id number]) PT Summary Assessment and Plan Potential Rehabilitation Potential Good Summary Assessment Summary Pt with decreased levels of assist during mobility and increased ambulation tolerance and quality of gait. Frequency of Treatment Frequency Of Treatment Twice a Day Treatment Plan Physical Therapy Treatment Plan Bed Mobility Training Transfer Training Gait Training Therapeutic Exercise Discharge Planning Recommendations To Nursing Amount of Assist Needed 1 Person Assist Discharge Recommendations PT Discharge Recommendations Home with 24/ Assist SNF Rehab
--- NOTE | 2018-10-26 12:37 | CM.DPC ---
Addendum entered by JENIFER Hobson 10/26/18 16:29: Spoke with Dr. Chavez: patient may be appropriate for discharge home with . Called [facility] include 234 beds at the [facility] as they are the only HH that serves [place]. They are newly contracted with [facility] but will not be able to see patient until Monday 11/06 should she need services. Called [facility] following up on referral sent earlier and admissions had left for the day. Plan: Home vs SNF. [facility] has accepted patient and received auth. Should patient go home she will have no HH services for roughly 10 days. Original Note: DCP/SNF planning Called [facility] ([phone]) and was told they do have contract with patient's insurance and have a female bed available. NIGHAT Mondragon faxed referral to [phone]. Report from [facility] also shows possible contracted SNFs in [phone] [facility] [phone] [facility] in [place] [phone] [facility] was able to secure auth from [facility] and would need to cancel auth should patient select different facility. Per [facility]: patient is mobilizing well and ready for discharge when determined medically stable per hospitalist. Per Hospitalist/ patient likely to discharge tomorrow once hyponatremia is improved. SW to follow up with [facility] in [place] to determine acceptance and auth process. Plan: Patient to discharge to SNF when medically stable. [facility] has accepted and received auth, but family is now considering [facility] SNFs so would be able to stay at son's house in [place] and visit patient daily.
[2018-10-26 14:12] LABS: Anti-Streptolysin O Antibody 105 IU/mL (< 200)
--- NOTE | 2018-10-26 14:53 | OT.IP.TRT ---
Current Diagnoses Unspecified trochanteric fracture of left femur, initial encounter for closed fracture (10/22/18) Nondisplaced fracture of greater trochanter of left femur, initial encounter for closed fracture (10/22/18) Occupational Therapy Treatment Note M2 OT-IP Current Condition Start: 10/23/18 16:35 Freq: Status: Active Protocol: Document 10/23/18 16:36 [facility] (Rec: 10/23/18 16:58 [facility] [id number]) Occupational Therapy Current Condition Current Condition Evaluation Date 10/23/18 Treatment Diagnosis Non-displaced periprothetic fracture involving L proximal femur Diagnosis Onset Date 10/22/18 Post Operative Precautions Other Precautions NO ACTIVE ABDUCTION to Left Hip Weight Bearing Status Weight Bearing Status Weight Bear as Tolerated M3 OT- IP Subjective and Pain Start: 10/23/18 16:35 Freq: Status: Active Protocol: Document 10/26/18 14:30 [facility] (Rec: 10/26/18 14:53 [facility] [id number]) OT- Subjective Occupational Therapy Visit Type Type Treatment Note Visit Start Time 13:57 Visit Stop Time 14:17 Total Visit Minutes 20 Occupational Therapy Visit Comments Patient Comments Pt thought she was going home, but after discussion realized that she is going to rehab prior to going home. OT Pain Assessment Pain When Pain Assessed At Rest Pain Present Pain Present Denied Pain M4 OT- IP ADL's Start: 10/23/18 16:35 Freq: Status: Active Protocol: Document 10/25/18 15:30 [facility] (Rec: 10/25/18 15:49 [facility] [id number]) OT ADL-Grooming General Evaluation Grooming Ability Standby Assistance Areas Needing Assistance Retrieving/Set-up of Grooming Items Comments OT Grooming Comments Pt able to do all groming needs with SBA while standing at the sink with SBA. OT ADL-Oral Care General Eval Oral Care Ability Independent M5 OT- IP IADL's Start: 10/23/18 16:35 Freq: Status: Active Protocol: Document 10/23/18 16:36 [facility] (Rec: 10/23/18 16:58 [facility] [id number]) OT-Instrumental Activities of Daily Living Home Safety Awareness Home Safety Comments Prior pt able to do all IADl needs. M6 OT- IP Functional Cognition Start: 10/23/18 16:35 Freq: Status: Active Protocol: Document 10/26/18 14:30 [facility] (Rec: 10/26/18 14:53 [facility] [id number]) Cognitive Factors Limiting Selfcare Function Cognitive Ability Level of Alertness Alert Patient Orientation Name Attention Span Ability Capable of Focused Attention Unable to Sustain Attention Ability to Follow Commands Able to Follow One Step Commands with Increased Time Able to Follow One Step Commands with Repetition Memory Description Immediate Impaired Short Term Impaired Safety Awareness Underestimates Need for Assistance Problem Solving Ability Unable to Identify Errors Needs Assist to Identify Solutions Cognitive Comments Cognitive Assessment Comments Pt continues to need MAX vc for safety awareness for sit to stand , FWW use and bed mobility. Pt remembers to scoot forwards in the recliner 100% of the time, only able to recall use of hands on armrests to help to push to stand -50% and only 25% able to recall to place feet back to increase ease to stand. M7 OT- IP Mobility and Balance Start: 10/23/18 16:35 Freq: Status: Active Protocol: Document 10/26/18 14:30 [facility] (Rec: 10/26/18 14:53 [facility] [id number]) OT- Bed Mobility Assessment Sit to Supine Sit to Supine Assist Moderate Assistance 1 Person Assistance OT-Transfer Assessment Sit to and From Stand Sit to and from Stand Standby Assistance Contact Guard Assistance Minimal Assistance Transfers Transfer Ability Contact Guard Assistance 1 Person Assistance Technique Transfer Destination Bed Chair Transfer Technique Stand Step Pivot Devices Transfer Assistive Devices Gait Belt Front Wheeled Walker Comments Mobility Comments Pt still needing MAX vc for safety needs. Pt as gets tired needing more assist to stand. OT- Balance Assessment Sitting Balance and Reactions Static Sitting Balance Ability Normal Dynamic Sitting Balance Ability Good Standing Balance and Reactions Static Standing Balance Ability Fair Dynamic Standing Balance Ability Poor M8 OT- IP Objective Assessments Start: 10/23/18 16:35 Freq: Status: Active Protocol: Document 10/23/18 16:36 [facility] (Rec: 10/23/18 16:58 [facility] [id number]) OT Gross Range of Motion Upper Extremity Range of Motion Assessment Within Functional Limits OT Strength Comments Strength Comments BUE 4/5 M9 OT- IP Assessment and Plan Start: 10/23/18 16:35 Freq: Status: Active Protocol: Document 10/26/18 14:30 [facility] (Rec: 10/26/18 14:53 [facility] [id number]) OT Summary Assessment and Plan Potential Rehabilitation Potential Good Analytic Complexity at Evaluation Low Summary OT Impairments Pain Strength Balance Functional Cognition Functional Mobility Grooming Dressing Toileting Bathing Toilet Transfers Shower Transfers Progress Towards Goals Slow Progress due to Medical Issues Slow Progress due to Activity Tolerance Slow Progress due to Cognition Assessment Summary Pt will still benefit from skilled rehab to work on safety with FWW, functional mobility and help increase independence for ADl needs. Goals Grooming Goal Independent Dressing Goal Minimal Assistance Toileting Goal Standby Assistance Bathing Goal Moderate Assistance Toilet Transfer Goal Standby Assistance Shower Transfer Goal Minimal Assistance Patient/Caregiver Education Goal Caregiver Independent Assisting Patient Days to Meet Goals 7 Frequency of Treatment Frequency Of Treatment Once a Day Treatment Plan OT Treatment Plan ADL Training Functional Cognition Training Functional Mobility Patient/Family Education Discharge Planning Other Treatment Recommendations and Next AED and LB dressing. Treatment Focus Discharge Recommendations OT Discharge Recommendations SNF Rehab Home Equipment Needs BSC, WC
--- NOTE | 2018-10-26 14:55 | PT.IPTN ---
Current Diagnoses Unspecified trochanteric fracture of left femur, initial encounter for closed fracture (10/22/18) Nondisplaced fracture of greater trochanter of left femur, initial encounter for closed fracture (10/22/18) Physical Therapy Treatment Note M2 PT-IP Current Condition Start: 10/23/18 08:19 Freq: NEEDED Status: Active Protocol: Document 10/23/18 11:03 RS (Rec: 10/23/18 11:52 RS [id number]) Physical Therapy Current Condition Current Condition Evaluation Date 10/23/18 Treatment Diagnosis L trochanteric fracture - impaired mobility Onset Date 10/21/18 Precautions Other Precautions No L hip active abduction Weight Bearing Status Weight Bearing Status Weight Bear as Tolerated M3 PT-IP Subjective Start: 10/23/18 08:19 Freq: NEEDED Status: Active Protocol: Document 10/26/18 14:55 [facility] (Rec: 10/26/18 15:16 [facility] [id number]) Subjective Physical Therapy Visit Type Type Treatment Note Visit Start Time 14:30 Visit Stop Time 14:55 Total Visit Minutes 25 Number of INSTRUMENT ASSEMBLY SUPERVISOR Visits 3 Physical Therapy Visit Comments Patient Comments Pt willing to work with therapy. Therapy Pain Assessment Pain When Pain Assessed During Mobility Pain Present Pain Present Pain Reported M4 PT-IP Mobility and Gait Start: 10/23/18 08:19 Freq: NEEDED Status: Active Protocol: Document 10/26/18 14:55 [facility] (Rec: 10/26/18 15:16 [facility] [id number]) PT-Bed Mobility Assessment Rolling Type of Rolling Roll to Right Level of Assist Minimal Assistance Supine to Sit Supine to Sit Contact Guard Assistance Sit to Supine Sit to Supine Minimal Assistance 1 Person Assistance Scooting Scooting to Edge of Bed Standby Assistance PT-Transfer Assessment Sit to and From Stand Sit to and from Stand Contact Guard Assistance Use of Upper Extremities Equipment Transfer Assistive Device Gait Belt Front Wheeled Walker Transfers Transfer Destination Bed Transfer Ability Level of Assist Contact Guard Assistance 1 Person Assistance Use of Upper Extremities Comments Mobility Comments PT need mod cues for log roll and min cues for sit to stand. Gait Assessment Gait Gait Assistance Required: Contact Guard Assist Distance (Feet) 100 Able to Maintain Weight Bearing Status Yes During Gait Assistive Devices Assistive Device Gait Belt Front Wheeled Walker Gait Deviations General Gait Pattern Antalgic Decreased Stride Length Decreased Feet Clearance Factors Limiting Gait Function Factors Limiting Gait Function Decreased Activity Tolerance Decreased Strength Limited Range of Motion Poor Balance Poor Safety Awareness M5 PT-IP Objective Assessments Start: 10/23/18 08:19 Freq: NEEDED Status: Active Protocol: Document 10/23/18 11:03 RS (Rec: 10/23/18 11:52 RS [id number]) Orientation Orientation/Cognition Level of Alertness Alert Orientation Name Age Birthday Month Date Year Day of Week Place Situation Language Function Ability No Deficits Noted Safety Awareness Understands Safety Issues Comments did need to defer to to answer a few background questions Gross Range of Motion Upper Extremity ROM Assessment Within Functional Limits Lower Extremity ROM Assessment Within Functional Limits Strength Upper Extremity Strength Assessment Within Functional Limits Lower Extremity Strength Assessment Left Impaired Comments Strength Comments L hip abduction unable to be tested at all, the rest of the leg wasn't formally tested, but from functional mobility pt's LLE has grossly 3+/5 strength M6 PT-IP Treatment Start: 10/23/18 08:19 Freq: NEEDED Status: Active Protocol: Document 10/26/18 14:55 [facility] (Rec: 10/26/18 15:16 [facility] [id number]) Physical Therapy Treatment Education Education Provided Precautions Safety M7 PT-IP Assessment and Plan Start: 10/23/18 08:19 Freq: NEEDED Status: Active Protocol: Document 10/26/18 14:55 [facility] (Rec: 10/26/18 15:16 [facility] [id number]) PT Summary Assessment and Plan Summary Assessment Summary Pt needs assist for bed mobility and cues for safety. She was able to progress gait distance. She has heavy use of UE on FWW and fatigued quickly with gait. She would benefit from SNF rehab for improved functional mobility and strengthening. Frequency of Treatment Frequency Of Treatment Twice a Day Treatment Plan Physical Therapy Treatment Plan Bed Mobility Training Transfer Training Gait Training Therapeutic Exercise Discharge Planning Recommendations To Nursing Amount of Assist Needed 1 Person Assist Discharge Recommendations PT Discharge Recommendations SNF Rehab
[2018-10-26] MEDS: SODIUM CHLORIDE 0.9% 1,000 ML 100 ML IV (15:05)
[2018-10-26] MEDS: PRAMIPEXOLE 0.125 MG TABLET PO (21:46)
[2018-10-26] MEDS: risperiDONE 1 MG TABLET 1.5 MG PO (21:46)
[2018-10-26] MEDS: DONEPEZIL 5 MG TABLET PO (21:46)
[2018-10-26] MEDS: ALBUTEROL 2.5 MG/3 ML NEB (ADULT) INH (22:01)
[2018-10-27] VITALS (7 sets, daily range): BP systolic 128–145; BP diastolic 66–72; PULSE 57–65; RESP 18–20; TEMP 36.6–36.8; O2SAT 93–97
[2018-10-27] MEDS: ALBUTEROL 2.5 MG/3 ML NEB (ADULT) INH ×2 (01:09→05:57)
[2018-10-27] MEDS: PANTOPRAZOLE 20 MG TABLET PO (05:17)
[2018-10-27 07:44] LABS: BUN Creatinine Ratio 26.3 (6-22); Blood Urea Nitrogen 21 mg/dL (7-17); Calcium 8.5 mg/dL (8.4-10.2); Carbon Dioxide 26 mmol/L (22-32); Chloride 97 mmol/L (98-107); Estimated Glomerular Filt Rate > 60.0 mL/min (>60); Glucose 120 mg/dL (80-110); HEMOLYSIS < 15 (0-50); Potassium 4.3 mmol/L (3.4-5.1); Sodium 130 mmol/L (137-145)
[2018-10-27] MEDS: CREON 12000 UNIT PO ×2 (08:06→12:38)
[2018-10-27] MEDS: ACETAMINOPHEN 325 MG TABLET 650 MG PO (08:54)
[2018-10-27] MEDS: SODIUM CHLORIDE 0.9% FLUSH 10 ML IV (08:54)
[2018-10-27] MEDS: OLMESARTAN 20 MG TABLET PO (08:55)
[2018-10-27] MEDS: guaiFENesin ER 600 MG TAB 1200 MG PO (09:01)
--- NOTE | 2018-10-27 10:08 | OT.IP.TRT ---
Current Diagnoses Unspecified trochanteric fracture of left femur, initial encounter for closed fracture (10/22/18) Nondisplaced fracture of greater trochanter of left femur, initial encounter for closed fracture (10/22/18) Occupational Therapy Treatment Note M2 OT-IP Current Condition Start: 10/23/18 16:35 Freq: Status: Active Protocol: Document 10/23/18 16:36 [facility] (Rec: 10/23/18 16:58 [facility] [id number]) Occupational Therapy Current Condition Current Condition Evaluation Date 10/23/18 Treatment Diagnosis Non-displaced periprothetic fracture involving L proximal femur Diagnosis Onset Date 10/22/18 Post Operative Precautions Other Precautions NO ACTIVE ABDUCTION to Left Hip Weight Bearing Status Weight Bearing Status Weight Bear as Tolerated M3 OT- IP Subjective and Pain Start: 10/23/18 16:35 Freq: Status: Active Protocol: Document 10/27/18 09:58 [facility] (Rec: 10/27/18 10:08 [facility] [id number]) OT- Subjective Occupational Therapy Visit Type Type Treatment Note Visit Start Time 08:54 Visit Stop Time 09:39 Total Visit Minutes 45 Occupational Therapy Visit Comments Patient/Caregiver Goals Pt wanting to go to rehab to get stronger prior to going home. OT Pain Assessment Pain When Pain Assessed At Rest Pain Present Pain Present Denied Pain M4 OT- IP ADL's Start: 10/23/18 16:35 Freq: Status: Active Protocol: Document 10/27/18 09:58 [facility] (Rec: 10/27/18 10:08 [facility] [id number]) OT ADL-Grooming General Evaluation Grooming Ability Standby Assistance Areas Needing Assistance Retrieving/Set-up of Grooming Items Comments OT Grooming Comments Pt able to stand by sink after getting items with SBA with FWW. OT ADL-Oral Care General Eval Oral Care Ability Independent OT ADL-Dressing General Eval Lower Body Dressing Ability Maximum Assistance Areas Needing Assistance Socks Comments OT Dressing Comments Pt still needing assist for socks, as has difficulty to reach and lift LE, in addition would require assist to pull up clothing up over her hips as pt needs to have at least one hand on FWW ore surface for balance while standing. OT ADL-Toileting General Evaluation Toileting Ability Standby Assistance Maximum Assistance Comments OT Toileting Comments Pt able to wipe while sitting , however for completeness of bowel movement needing MAX A for completeness as unable to stand and wipe at the same time due to decreased balance. M5 OT- IP IADL's Start: 10/23/18 16:35 Freq: Status: Active Protocol: Document 10/23/18 16:36 [facility] (Rec: 10/23/18 16:58 [facility] [id number]) OT-Instrumental Activities of Daily Living Home Safety Awareness Home Safety Comments Prior pt able to do all IADl needs. M6 OT- IP Functional Cognition Start: 10/23/18 16:35 Freq: Status: Active Protocol: Document 10/27/18 09:58 [facility] (Rec: 10/27/18 10:08 [facility] [id number]) Cognitive Factors Limiting Selfcare Function Cognitive Ability Level of Alertness Alert Patient Orientation Name Attention Span Ability Capable of Focused Attention Capable of Sustained Attention Unable to Sustain Attention Ability to Follow Commands Able to Follow One Step Commands with Increased Time Able to Follow One Step Commands with Repetition Memory Description Immediate Impaired Short Term Impaired Safety Awareness Underestimates Need for Assistance Problem Solving Ability Unable to Identify Errors Needs Assist to Identify Solutions Cognitive Comments Cognitive Assessment Comments Pt needs MAX vc for new learning. Pt able to recall to scoot forward fo rrecliner and push up with BUE on armrests, however still needing cues to get feet underneath her to stand. However pt not able to appoly the same techniques for getting up from the toilet. M7 OT- IP Mobility and Balance Start: 10/23/18 16:35 Freq: Status: Active Protocol: Document 10/27/18 09:58 [facility] (Rec: 10/27/18 10:08 [facility] [id number]) OT- Bed Mobility Assessment Sit to Supine Sit to Supine Assist Moderate Assistance 1 Person Assistance OT-Transfer Assessment Sit to and From Stand Sit to and from Stand Standby Assistance Moderate Assistance Transfers Transfer Ability Contact Guard Assistance 1 Person Assistance Technique Transfer Destination Bed Chair Toilet Devices Transfer Assistive Devices Gait Belt Front Wheeled Walker Comments Mobility Comments Pt needing MODA to help lower to toilet and raise up to stand and heavy use of grab bars as well. Pt from higher surfaces able to stand with SBA. OT- Balance Assessment Sitting Balance and Reactions Static Sitting Balance Ability Normal Dynamic Sitting Balance Ability Good Standing Balance and Reactions Static Standing Balance Ability Fair Dynamic Standing Balance Ability Poor M8 OT- IP Objective Assessments Start: 10/23/18 16:35 Freq: Status: Active Protocol: Document 10/23/18 16:36 [facility] (Rec: 10/23/18 16:58 [facility] [id number]) OT Gross Range of Motion Upper Extremity Range of Motion Assessment Within Functional Limits OT Strength Comments Strength Comments BUE 4/5 M9 OT- IP Assessment and Plan Start: 10/23/18 16:35 Freq: Status: Active Protocol: Document 10/27/18 09:58 [facility] (Rec: 10/27/18 10:08 [facility] [id number]) OT Summary Assessment and Plan Potential Rehabilitation Potential Good Analytic Complexity at Evaluation Low Summary OT Impairments Strength Balance Functional Cognition Functional Mobility Dressing Toileting Bathing Progress Towards Goals Progressing Toward Goals Slow Progress due to Activity Tolerance Slow Progress due to Cognition Assessment Summary Pt doing better with activity tolerance and getting up from higher surface. Pt would benefit from rehab to continue to go over safety awareness / techniques to improve safety and independence for ADl's and getting up from lower surfaces. In addition pt has had multiple falls in the recent past and rehab would be benficial to work on overall increased balance, strengthening to hopefully help prevent future falls. Currently pt is a high fall risk. Goals Dressing Goal Minimal Assistance Toileting Goal Standby Assistance Bathing Goal Moderate Assistance Toilet Transfer Goal Standby Assistance Shower Transfer Goal Minimal Assistance Patient/Caregiver Education Goal Caregiver Independent Assisting Patient Days to Meet Goals 5 Frequency of Treatment Frequency Of Treatment Once a Day Treatment Plan OT Treatment Plan ADL Training Functional Cognition Training Functional Mobility Patient/Family Education Discharge Planning Other Treatment Recommendations and Next AED and LB dressing. Treatment Focus Discharge Recommendations OT Discharge Recommendations SNF Rehab Home Equipment Needs BSC, WC
--- NOTE | 2018-10-27 11:08 | CM.DPC ---
DCP Cont: Called [facility] in [place]. Spoke to Damien in admissions to follow up with acceptance and clinicals that were faxed. Stated that he had not received clinicals. Went ahead and confirmed fax number, and let him know that he would be faxed information. Confirmed that they do have a bed available, and would call her insurance for authorization. Have attempted to reach out to , no answer on phone, and no phone number for son. Called Cinthya at [facility]. She stated that she can accept patient. Asked her to keep referral, for she has already gotten authorization. At this point, can't get in touch with family. According to notes, they are requesting that patient be in [place], but have not been able to confirm information, and how she will be transported there. Patient is being monitored for hyponatremia as well. P: Will reach out to Damien at [facility] to follow up with information. Will continue to attempt to reach family as well. Mikaela Cooper RN/Pediatric Clinical Nurse Specialist
--- NOTE | 2018-10-27 11:15 | PT.IPTN ---
Current Diagnoses Unspecified trochanteric fracture of left femur, initial encounter for closed fracture (10/22/18) Nondisplaced fracture of greater trochanter of left femur, initial encounter for closed fracture (10/22/18) Physical Therapy Treatment Note M2 PT-IP Current Condition Start: 10/23/18 08:19 Freq: NEEDED Status: Active Protocol: Document 10/23/18 11:03 RS (Rec: 10/23/18 11:52 RS [id number]) Physical Therapy Current Condition Current Condition Evaluation Date 10/23/18 Treatment Diagnosis L trochanteric fracture - impaired mobility Onset Date 10/21/18 Precautions Other Precautions No L hip active abduction Weight Bearing Status Weight Bearing Status Weight Bear as Tolerated M3 PT-IP Subjective Start: 10/23/18 08:19 Freq: NEEDED Status: Active Protocol: Document 10/27/18 11:15 [facility] (Rec: 10/27/18 12:35 [facility] [email or web address]) Subjective Physical Therapy Visit Type Type Treatment Note Visit Start Time 10:45 Visit Stop Time 11:15 Total Visit Minutes 30 Number of SUPERVISOR PAINTING SHIPYARD Visits 4 Physical Therapy Visit Comments Patient Comments Pt states she a little tired after her shower. Therapy Pain Assessment Pain When Pain Assessed During Mobility Pain Present Pain Present Pain Reported M4 PT-IP Mobility and Gait Start: 10/23/18 08:19 Freq: NEEDED Status: Active Protocol: Document 10/27/18 11:15 [facility] (Rec: 10/27/18 12:35 [facility] [id number]) PT-Bed Mobility Assessment Sit to Supine Sit to Supine Minimal Assistance 1 Person Assistance Scooting Scooting to Edge of Bed Standby Assistance PT-Transfer Assessment Sit to and From Stand Sit to and from Stand Contact Guard Assistance Use of Upper Extremities Equipment Transfer Assistive Device Gait Belt Front Wheeled Walker Transfers Transfer Destination Bed Transfer Ability Level of Assist Contact Guard Assistance 1 Person Assistance Use of Upper Extremities Gait Assessment Gait Gait Assistance Required: Contact Guard Assist Distance (Feet) 70 Able to Maintain Weight Bearing Status Yes During Gait Assistive Devices Assistive Device Gait Belt Front Wheeled Walker Gait Deviations General Gait Pattern Antalgic Decreased Stride Length Decreased Feet Clearance Factors Limiting Gait Function Factors Limiting Gait Function Decreased Activity Tolerance Decreased Strength Limited Range of Motion Poor Balance Poor Safety Awareness M5 PT-IP Objective Assessments Start: 10/23/18 08:19 Freq: NEEDED Status: Active Protocol: Document 10/23/18 11:03 RS (Rec: 10/23/18 11:52 RS [id number]) Orientation Orientation/Cognition Level of Alertness Alert Orientation Name Age Birthday Month Date Year Day of Week Place Situation Language Function Ability No Deficits Noted Safety Awareness Understands Safety Issues Comments did need to defer to to answer a few background questions Gross Range of Motion Upper Extremity ROM Assessment Within Functional Limits Lower Extremity ROM Assessment Within Functional Limits Strength Upper Extremity Strength Assessment Within Functional Limits Lower Extremity Strength Assessment Left Impaired Comments Strength Comments L hip abduction unable to be tested at all, the rest of the leg wasn't formally tested, but from functional mobility pt's LLE has grossly 3+/5 strength M6 PT-IP Treatment Start: 10/23/18 08:19 Freq: NEEDED Status: Active Protocol: Document 10/27/18 11:15 [facility] (Rec: 10/27/18 12:35 [facility] [id number]) Physical Therapy Treatment Exercises Exercises Ankle Pumps Gluteal Sets Quad Sets Education Education Provided Precautions Safety M7 PT-IP Assessment and Plan Start: 10/23/18 08:19 Freq: NEEDED Status: Active Protocol: Document 10/27/18 11:15 [facility] (Rec: 10/27/18 12:35 [facility] [id number]) PT Summary Assessment and Plan Summary Assessment Summary PT had increase in fatigue and decrease tolerance to gait. She needs assistance for bed mobility and cues for safe ambulations. She would benefit from SNF rehab for improvement in functional mobility. Frequency of Treatment Frequency Of Treatment Twice a Day Treatment Plan Physical Therapy Treatment Plan Bed Mobility Training Transfer Training Gait Training Therapeutic Exercise Discharge Planning Recommendations To Nursing Amount of Assist Needed 1 Person Assist Discharge Recommendations PT Discharge Recommendations SNF Rehab
--- NOTE | 2018-10-27 12:07 | PC.NURSE ---
Addendum entered by Soraya Dominguez R.N. 10/27/18 14:10: meds - Pt own meds stored in pharmacy were returned to pt/spouse. Original Note: Addendum entered by Soraya Dominguez R.N. 10/27/18 13:51: SODIUM - per discussion with , pt started bolus 500ml NS over 2 hours prior to her tsf to located within [facility]. Original Note: AM NOTE - Alert, up to chair for meals, slowly oob x 1 person, ambul hallway this am with phys therapy, discussed pain, did accept x1 325mg po tylenol this am, I'm doing pretty good, ra 96%, hr 78, fluid restriction.
[2018-10-27] MEDS: SODIUM CHLORIDE 0.9% 1,000 ML 500 ML IV (13:46)
--- NOTE | 2018-10-27 13:54 | P.DS_ITS ---
History of Present Illness Date Patient Seen: 10/22/18 Chief complaint: Fall- hurt L hip Narrative: Written by Franco Swartz: This is an 83-year-old female with a history dementia, hypertension, osteoarthritis status post bilateral total hip arthroplasty who is experienced multiple falls the last several days. The patient fell last night was brought into the ER today for inability to bear on her leg. Patient states she tripped on her slipper getting ready for bed last night and sustained a ground level fall onto a carpeted floor landing on left. She has neck pain that is chronic related to cervical fusion denies new pain and did not strike or sustain loss consciousness. She denies feeling dizzy or lightheaded prior to the fall. Her who is at bedside states he came out of the bathroom to find her floor and helped her to bed. The patient had increased debility today with increased pain on movement and was not able to bear weight. She is taking Aleve at home for discomfort with adequate control, she took 2 prior to presenting to presenting for care. Her baseline functional status is ambulating with a walker. Additionally, she had a cortisone injection of the right knee 1 week ago or according to her . She did not use been treated for cellulitis of the right lower leg with antibiotic. The patient appears to be a valid historian however reports that she is unable to provide a valid history due to her dementia. The additionally reports a chronic intermittently productive cough that has been present for 3-4 weeks without complaints upper respiratory symptoms, chest pain or fevers. The patient has remote history of a Whipple procedure which the states was for a lesion that was not cancer. The patient denies other complaints headache or visual changes, nasal congestion or sore throat. She has no chest and denies shortness of breath though she is not aerobically challenged. She has no complaints of abdominal pain or nausea, heartburn or reflux and has regular bowel movements with her last being yesterday that was normal in consistency. Discharge Providers Date of admission: 10/22/18 19:45 Consults: 10/22/18 19:52 Consult to Physical Therapy Evaluate & Treat Comment: No active abduction left hip, wbat bilat Physician Instructions: Evaluate and Treat 10/22/18 20:05 Consult to Occupational Therapy Evaluate & Treat Comment: Fall, hip fracture, S/P BTHA, dementia Physician Instructions: Evaluate and treat Consult to Physical Therapy Evaluate & Treat Comment: Fall, hip fracture, S/P BTHA, dementia Physician Instructions: Evaluate and Treat 10/22/18 20:06 Consult to Physician Routine Comment: Consulting Provider: Yanet Robles Reason for consultation: Left periprosthetic hip fracture Has provider been notified: Yes 10/22/18 20:07 Consult to Director Of Corporate Strategy Routine Comment: Limited support services, S/P CVA has DPOA 10/22/18 20:08 Consult to Discharge Planning Routine Comment: Will likely need placement 10/22/18 20:40 Consult to Dietitian, Adult Routine Comment: multiple falls, hx OA, BTHA, left hip fracture Reason For Exam: assessed at high risk 10/22/18 21:01 Consult to Respiratory Therapy Evaluate & Treat Comment: Cough and congestion for 3-4 weeks, wheezing Physician Instructions: Evaluate and treat Discharge provider: Whit Chavez DO Discharge Date: 10/27/18 Summary Discharge Diagnosis: 1. Acute periprosthetic left hip fracture, present on admission. Active. 2. Acute on chronic hyponatremia, present on admission. Resolving. 3. Acute bronchitis, present on admission. Resolved. 4. Newly diagnosed diastolic stage I congestive heart failure, chronic and asymptomatic, present on admission. Stable. 5. Hypertension, chronic, present on admission. Stable. 6. Dementia with history of bipolar disorder, chronic, present on admission. Stable. 7. Restless leg syndrome, chronic, present on admission. Stable. 8. Pituitary adenoma, present on admission. Active. 9. Secondary pancreatic insufficiency, chronic, present on admission. Stable. 10. Recent herpetic infection, not present on admission. Resolved. 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 1. Acute periprosthetic left hip fracture, present on admission. Active. -Secondary to trauma from ground level fall. -Left hip and femur x-ray demonstrated stable nondisplaced left periprosthetic hip fracture. -Orthopedic surgery has evaluated patient and recommends mobilization with PT with weight-bearing as tolerated as periprosthetic hip fracture is stable. Follow up with Orthopedics in 2 weeks. -Continued physical therapy and occupational therapy. 2. Acute on chronic hyponatremia, present on admission. Resolving. -Multifactorial and related to: Hypovolemia, psychogenic polydipsia, and recent URI with bronchitis. Less likely hypopituitarism and medications ( risperidone has increased incidence whereas aricept and pramipexole are very low /rare). Ordered urine sodium which is low at 14 and urine osmolality normal at 195 indicative of hypovolemia. -Baseline sodium level 134. Initial sodium level on admission 124. Improved to 130. Repeat BMP in 1 week at [facility]. -Continue 1.5 L fluid restriction. Patient readily admits to significant water intake daily as she is afraid of constipation and may be some component of psychogenic polydipsia due to Risperdal. -Echocardiogram demonstrated diastolic heart failure stage I which is less likely contributing to hyponatremia. -Patient was given 2.5 L of normal saline and improved hyponatremia. 3. Acute bronchitis, present on admission. Resolved. -Patient presented with nonproductive dry cough and ?a bug for a few weeks.? Cough became productive. -Chest x-ray demonstrated evidence of possible reactive airway disease otherwise no focal infiltrate. Repeat chest x-ray interpreted by me demonstrated mild pulmonary vascular congestion and stable interstitial prominence. -Pneumonia workup included: Respiratory viral PCR negative. Strep pneumonia and Legionella urine antigens, pending. -Ordered albuterol nebulizer every 4 hr as needed. -Continued guaifenesin 1200 mg twice daily for increased sputum production until improved then discontinued. -Never started antibiotics as the patient has no infectious signs and cough is ocean import representative of bronchitis with mild pulmonary edema from diastolic CHF. 4. Newly diagnosed diastolic stage I congestive heart failure, chronic and asymptomatic, present on admission. Stable. -Does not represent CHF exacerbation. -Echocardiogram demonstrated preserved ejection fraction with stage I diastolic dysfunction which may be contributing slightly to hyponatremia as above. -Chest x-ray interpreted by me demonstrated mild pulmonary vascular congestion. Received furosemide 20 mg IV x1 to help effective arterial circulating volume and possibly improve sodium without avail but did improve coarsness in lungs. 5. Hypertension, chronic, present on admission. Stable. -Continued Benicar 20 mg daily and monitor pressures. 6. Dementia with history of bipolar disorder, chronic, present on admission. Stable. -Patient is pleasant and cooperative. -Continued Risperdal 1.5 mg and Aricept 5 mg daily at bedtime. Risperidone all and Aricept are less likely contributing to hyponatremia as patient has been on these medications for several years. 7. Restless leg syndrome, chronic, present on admission. Stable. -Continued pramipexole 0.125 mg at bedtime. 8. Pituitary adenoma, present on admission. Active. -History of pituitary adenoma with elevated prolactin levels. -Continued Cabergoline 0.5 mg. 9. Secondary pancreatic insufficiency, chronic, present on admission. Stable. -Status post Whipple procedure. -Continue home dose of Creon 3 times daily with meals. 10. Recent herpetic infection, not present on admission. Resolved. Status at Discharge Functional status at discharge: uses cane/walker Overall status at discharge: patient is not back to baseline Exam Vital Signs (past 8 hours): - 10/27/18 05:58 10/27/18 07:00 10/27/18 08:00 Temperature 98.0 F Pulse Rate 57 L 65 Respiratory Rate 18 20 Blood Pressure 143/66 H Pulse Oximetry 95 96 97 Fraction of Inspired Oxygen 21 Oxygen Delivery Method Room Air Oxygen Flow Rate 0 Narrative Exam Narrative: General: Elderly female lying in bed and in no acute distress, well-developed, well-nourished, appropriately interactive. HEENT: Normocephalic, atraumatic. External ears without defect. Pupils equal, round, and reactive to light and accommodation. Anicteric sclerae, moist conjunctivae, and no lid lag. Neck: Supple with full range of motion. No lymphadenopathy or thyromegaly. Cardiovascular: Regular rate and rhythm without murmurs, rubs, or gallops appreciated. Pulmonary: Clear to auscultation bilaterally with occasional scattered rhonchi. Normal respiratory effort with no use of accessory muscles. Abdomen: Soft, bowel sounds present, nontender, nondistended. No hepatosplenomegaly or masses appreciated. Extremities: No clubbing, cyanosis, or edema. No pain with palpitation of left hip. Skin: Normal temperature, turgor, and texture; no rash, ulcers, or subcutaneous nodules appreciated. Neurological: Cranial nerves grossly intact. Psychiatric: Normal mood and affect. Alert and oriented to person, place, and time. Objective Labs Result Diagrams: 10/26/18 05:32 10/27/18 06:52 Labs: Laboratory Results - last 24 hr 10/24/18 10/27/18 Unknown 06:52 Sodium 130 L Potassium 4.3 Chloride 97 L Carbon Dioxide 26 BUN 21 H Creatinine 0.80 Estimated GFR > 60.0 BUN/Creatinine Ratio 26.3 H Glucose 120 H Calcium 8.5 Anti-Streptolysin O Ab 105 Discharge Plan Discharge Plan Patient Disposition: SNF Transfer to: [facility] Under care of provider: Transportation: Facility vehicle Labs: BMP in 1 week to check sodium Discharge comment: Follow-up with [facility] in 2 weeks. I certify the postop hospital senior living care is medically necessary on a continuing basis for any conditions for which he/ she received care during this hospitalization.: Yes The receiving facility has agreed to accept transfer and provide medical treatment.: Yes Discharge Med Rec/Prescriptions Prescriptions: New polyethylene glycol 3350 17 gram/dose powder 17 g PO DAILY PRN (Reason: Congestion) Qty: 17 RF: 0 Continue cabergoline 0.5 MG tablet 0.5 mg PO SEE INSTRUCTIONS Qty: 8 RF: 0 donepezil [Aricept] 5 MG tablet 5 mg PO HS Qty: 90 RF: 0 pramipexole 0.125 mg Tablet 0.125 mg PO BEDTIME RF: 0 [id number] 12,000-38,000 -60,000 unit capsule,delayed release(DR/ EC) 1,200 units PO TID RF: 0 risperidone [Risperdal] 1 MG tablet 1.5 mg PO HS RF: 0 olmesartan [Benicar] 20 MG tablet 20 mg PO Q DAY RF: 0 Discontinued famciclovir 125 MG tablet 125 mg PO QDAY Qty: 90 RF: 3 Follow up/Referrals: Yanet Robles MD [Physician] - (Follow up in 2 weeks for X-rays ) Discharge Health Status Brief summary of current health status: The patient endured a periprosthetic hip fracture. She has dementia at baseline. She continues to slowly progress in regards to strength with ambulation. Due to dementia, she has poor awareness of her precautions and unable to safely mobilize independently. Continue physical therapy and occupational therapy. 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 She is on a 1.5 L fluid restriction. Multidrug resistant organism: No MDRO Precautions: [place] Provider Discharge Instructions Diet: Low-sodium and Low-cholesterol Liquid consistency: Normal/Thin Food texture: Regular Diet comment: Fluid restriction 1.5 L [facility] Rehab type: Physical therapy and Occupational therapy Discharge Data Attending Provider: Franco Swartz Admit Date/Time: 10/22/18 19:45 Discharges patient from system. Discharge Date/Time: 10/27/18 15:15 Quality VTE Deep Vein Thrombosis/Pulmonary Embolism Present on Admission: No
--- NOTE | 2018-10-27 14:05 | CM.DPC ---
DCP Cont: Was able to speak to patient's , Charli Martinez. He was in patient's room. He stated, I think that [facility] would be better for her, for she may be there a while, and her doctor is there. He stated that it would be ok for her to go there today if possible. Was able to get in touch with Dr. Chavez, hospitalist. She stated that she would do orders as long as labs are stable. Did contact Cinthya in admissions at [facility]. Stated that they could pick her up about 1500 or a little bit after. Updated Soraya, floor nurse. She is aware. Also updated board and community organization worker, as well as charge nurse, Mark. Have discharge orders, summary, awaiting med list. PASSR is complete. When all documents are complete, will fax [facility]. P: Patient should be discharged today to [facility]. Mikaela Cooper RN/[employer] Developer
[2018-10-27 16:15] LABS: Osmolality Urine 348 mOsm/kg (50-1200)
== END 2018-10-27 15:15 | DRG 536 ==
LOC: ED 19:33 → ICU 19:46 → AC 10-26 09:38
PROVIDERS: Internal Medicine; Admitting Provider Nurse Practitioner Adult Health; Emergency Provider Nurse Practitioner Family; Family Provider Family Medicine; Visit Provider Nurse Practitioner Adult Health
DX: S72.115A Nondisplaced fracture of greater trochanter of left femur, initial encounter for closed fracture (principal); M97.02XA Periprosthetic fracture around internal prosthetic left hip joint, initial encounter; E87.1 Hypo-osmolality and hyponatremia; I50.32 Chronic diastolic (congestive) heart failure; K86.89 Other specified diseases of pancreas; Z96.643 Presence of artificial hip joint, bilateral; W01.0XXA Fall on same level from slipping, tripping and stumbling without subsequent striking against object, initial encounter; Y92.003 Bedroom of unspecified non-institutional (private) residence as the place of occurrence of the external cause; Z87.891 Personal history of nicotine dependence; Z91.81 History of falling; F03.90 Unspecified dementia, unspecified severity, without behavioral disturbance, psychotic disturbance, mood disturbance, and anxiety; D35.2 Benign neoplasm of pituitary gland; G25.81 Restless legs syndrome; I11.0 Hypertensive heart disease with heart failure; J20.9 Acute bronchitis, unspecified
CPT/HCPCS: 36415; 71045; 73502; 73552; 80048; 80053; 81001; 83735; 83935; 84100; 84145; 84146; 84300; 85025; 85610; 85730; 86060; 87449; 87633; 87797; 93306; 94640; 94667; 94760; 97116; 97162; 97165; 97530; 97535; 99283; 99284; J1940; J7613

== ENCOUNTER 2019-05-11 16:49 | Inpatient (IN) | payer MEDICARE, SELFPAY ==
[2019-05-11 16:35] VITALS: BP 150/69; PULSE 58; RESP 18; TEMP 36.8; O2SAT 98; BMI 21.4
--- NOTE | 2019-05-11 16:44 | DI.RAD.S_ITS ---
PROCEDURE: XR PELVIS 1-2V INDICATIONS: fall pain TECHNIQUE: 2 view(s) of the pelvis acquired. COMPARISON: None. FINDINGS: Bones: Status post bilateral total hip arthroplasty. Femoral head component well seated in the acetabular cups bilaterally. Chronic appearing osseous changes on the left. Possible acute cortical irregularity over the lateral aspect of the proximal right humeral diaphysis near the greater trochanter. Moderate degenerative changes of the lumbar spine. Overall, the pelvic ring appears intact. No acute hardware failure. No suspicious bony lesions. Soft tissues: Visualized bowel gas pattern is normal. No suspicious soft tissue calcifications. IMPRESSION: Status post bilateral total hip arthroplasty in normal alignment. Possible acute fracture involving the lateral, proximal right femoral diaphysis at the level of the greater trochanter. Dictated by: Chico Blum M.D. on 05/11/2019 at 18:45 Approved by: [place] Blum M.D. on 05/11/2019 at 18:47
--- NOTE | 2019-05-11 16:53 | ED.FALL ---
HPI - Fall <Ethel Grimm DO - Last Filed: 05/12/19 07:27> General Chief Complaint: Extremity Injury, Lower Stated Complaint: GLF, Hip Pain Time Seen by Provider: 05/11/19 16:53 Source: EMS Mode of arrival: EMS Limitations: altered mental status (dementia) History of Present Illness HPI Narrative: Patient is an 84-year-old female with history of dementia. She actually fell about 3 days ago she was initially ambulatory [place] However as she has progressively not been ambulatory having increased pain. She is an extremely poor historian at baseline her is on his way. She is complaining of quite severe right hip pain. Onset (ago): day(s) (3) Related Data Home Medications Medication Instructions Recorded Confirmed cabergoline 0.5 mg PO SEE INSTRUCTIONS #8 tab 11/01/16 05/11/19 [id number] 1,200 units PO TID 10/22/18 05/11/19 olmesartan [Benicar] 20 mg PO Q DAY 10/22/18 05/11/19 pramipexole 0.125 mg PO BEDTIME 10/22/18 05/11/19 risperidone [Risperdal] 1.5 mg PO HS 10/22/18 05/11/19 famciclovir 05/11/19 Allergies Allergy/AdvReac Type Severity Reaction Status Date / Time codeine [CODEINE] Allergy Unknown NAUSEA Verified 10/22/18 17:37 Penicillins [PENICILLINS] Allergy Unknown SWELLING Verified 10/22/18 17:37 TO SITE OF INJECTION Review of Systems <DO Tylor Jacques Last Filed: 05/12/19 07:27> Review of Systems ROS Unobtainable: Unobtainable due to medical condition Exam <Ethel Grimm DO - Last Filed: 05/12/19 07:27> Initial Vital Signs Initial Vital Signs: Vital Signs Temperature 98.2 F 05/11/19 16:35 Pulse Rate 58 L 05/11/19 16:35 Respiratory Rate 18 05/11/19 16:35 Blood Pressure 150/69 H 05/11/19 16:35 Pulse Oximetry 98 05/11/19 16:35 Gen.: Alert elderly female no acute distress HEENT: Atraumatic no sign of injury no abrasions no contusions, EOMI, SILVANO Neck: Supple no meningeal signs Lungs: Clear bilaterally no wheezes rales or rhonchi speaks in full sentences Cardiac: Regular rate and rhythm no murmur Abdomen: Soft mild is suprapubic lower abdominal discomfort. 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 equal bilaterally <Mikey Doss DO - Last Filed: 05/12/19 04:06> Initial Vital Signs Initial Vital Signs: Vital Signs Temperature 98.2 F 05/11/19 16:35 Pulse Rate 58 L 05/11/19 16:35 Respiratory Rate 18 05/11/19 16:35 Blood Pressure 150/69 H 05/11/19 16:35 Pulse Oximetry 98 05/11/19 16:35 PFSH <Ethel Grimm DO - Last Filed: 05/12/19 07:27> Medical History (Updated 05/11/19 @ 23:40 by ASHUTOSH Salinas) Diastolic heart failure (Acute) Bipolar 1 disorder (Acute) Cellulitis of leg without foot, right (Acute) Hypertension (Acute) Knee pain, right (Acute) Pituitary adenoma (Acute) Surgical History History of pancreatic surgery (Acute) History of hip replacement History of hip replacement Family History Mother Dementia Father Suicide Social History household members: spouse Smoking Status: Former smoker alcohol intake: current Family History Mother Dementia Father Suicide Social History household members: spouse Smoking Status: Former smoker alcohol intake: current Course <DO Tylor Jacques Last Filed: 05/12/19 07:27> Orders Ordered: ED Orders 05/11/19 22:32 Consult to Dietitian, Adult Routine 05/11/19 22:33 Consult to Discharge Planning Routine Consult to Occupational Therapy Evaluate & Treat Consult to Physical Therapy Evaluate & Treat 05/11/19 22:34 Consult to Physician Routine 05/11/19 22:49 Consult to Dietitian, Adult Routine 05/11/19 23:45 Magnesium Stat Phosphorous Stat Prolactin Stat TSH [Thyroid Stimulating Hormone] Stat 05/12/19 00:05 Free T4 Free Thyroxine Routine 05/12/19 05:10 Complete Blood Count AUTO DIFF Routine 05/12/19 05:15 Basic Metabolic Panel Routine Acetaminophen (Tylenol) 650 mg PO Q6HR PRN PRN Reason: As Needed for Fever/Mild Pain Last Admin: 05/12/19 04:37 Dose: 650 mg Al Hydrox/Mg Hydrox/Simethicone (Maalox Plus) 30 ml PO Q6HR PRN PRN Reason: Dyspepsia Calcium Carbonate (Tums) 1,000 mg PO Q4HR PRN PRN Reason: Dyspepsia Docusate Sodium (Colace) 100 mg PO BID PRN PRN Reason: Constipation Heparin Sodium (Porcine) (Heparin) 5,000 unit SUBCUT BID [facility] Last Admin: 05/12/19 00:26 Dose: 5,000 unit Morphine Sulfate (Morphine) 1 mg IV Q4HR PRN PRN Reason: Pain, Moderate (4-6) Morphine Sulfate (Morphine) 2 mg IV Q4H PRN PRN Reason: Pain, Severe (7-10) Naloxone HCl (Narcan) 0.2 mg IV Q2MIN PRN PRN Reason: Opiate Reversal Promethazine HCl (Phenadoz) 12.5 mg [place] Q6HR PRN PRN Reason: Nausea And Vomiting Discontinued Medications Sodium Chloride (Normal Saline 0.9%) 1,000 mls @ 125 mls/hr IV CONT [facility] Stop: 05/12/19 06:29 Last Admin: 05/12/19 00:29 Dose: 125 mls/hr Vital Signs - 8 hr 05/12/19 00:21 05/12/19 00:36 05/12/19 04:15 Temperature 97.7 F 97.6 F Pulse Rate 47 L 52 L Respiratory Rate 18 18 Blood Pressure 131/64 127/60 Pulse Oximetry 95 96 98 <Mikey Doss, DO - Last Filed: 05/12/19 04:06> Course Narrative: Sign-out received from daytime provider, Dr. Grimm. I performed an independent history and physical and have no significant additions to the above. Upon receipt of CT scan I consulted with our local orthopedist and elected to pushed images to Minnie to be sugar this is not a surgical candidate. Minnie has reviewed the images in state is just a greater trochanter and not a surgical candidate. She can stay here and have physical therapy and discharge planning. Orders Ordered: ED Orders 05/11/19 22:32 Consult to Dietitian, Adult Routine 05/11/19 22:33 Consult to Discharge Planning Routine Consult to Occupational Therapy Evaluate & Treat Consult to Physical Therapy Evaluate & Treat 05/11/19 22:34 Consult to Physician Routine 05/11/19 22:49 Consult to Dietitian, Adult Routine 05/11/19 23:45 Magnesium Stat Phosphorous Stat Prolactin Stat TSH [Thyroid Stimulating Hormone] Stat 05/12/19 00:05 Free T4 Free Thyroxine Routine 05/12/19 05:10 Complete Blood Count AUTO DIFF Routine 05/12/19 05:15 Basic Metabolic Panel Routine Acetaminophen (Tylenol) 650 mg PO Q6HR PRN PRN Reason: As Needed for Fever/Mild Pain Last Admin: 05/12/19 04:37 Dose: 650 mg Al Hydrox/Mg Hydrox/Simethicone (Maalox Plus) 30 ml PO Q6HR PRN PRN Reason: Dyspepsia Calcium Carbonate (Tums) 1,000 mg PO Q4HR PRN PRN Reason: Dyspepsia Docusate Sodium (Colace) 100 mg PO BID PRN PRN Reason: Constipation Heparin Sodium (Porcine) (Heparin) 5,000 unit SUBCUT BID [facility] Last Admin: 05/12/19 00:26 Dose: 5,000 unit Morphine Sulfate (Morphine) 1 mg IV Q4HR PRN PRN Reason: Pain, Moderate (4-6) Morphine Sulfate (Morphine) 2 mg IV Q4H PRN PRN Reason: Pain, Severe (7-10) Naloxone HCl (Narcan) 0.2 mg IV Q2MIN PRN PRN Reason: Opiate Reversal Promethazine HCl (Phenadoz) 12.5 mg [place] Q6HR PRN PRN Reason: Nausea And Vomiting Discontinued Medications Sodium Chloride (Normal Saline 0.9%) 1,000 mls @ 125 mls/hr IV CONT NIMISHA Stop: 05/12/19 06:29 Last Admin: 05/12/19 00:29 Dose: 125 mls/hr Consultations Consultation #1: consult with Dr. Vaz, not likely surgical. consult with Dr. Olson ([facility] [place]) he has viewed images, not surgical Vital Signs - 8 hr 05/12/19 00:21 05/12/19 00:36 05/12/19 04:15 Temperature 97.7 F 97.6 F Pulse Rate 47 L 52 L Respiratory Rate 18 18 Blood Pressure 131/64 127/60 Pulse Oximetry 95 96 98 MDM - Fall <Ethel Alfa, DO - Last Filed: 05/12/19 07:27> Lab Data Attestation: I reviewed the patient's lab results. Result diagrams: 05/12/19 05:10 05/12/19 05:15 Lab Results 05/11/19 05/11/19 05/11/19 Range/Units 17:00 17:20 17:20 WBC 5.6 (4.5-11.0) X10^3/uL RBC 3.07 L (4.0-5.2) X10^6/uL Hgb 9.8 L (12.0-16.0) g/dL Hct 29.0 L (36-46) % MCV 94.6 (80-100) fL MCH 32.0 (26-34) PG MCHC 33.8 (30-36) % RDW 14.8 (11.6-14.8) % Plt Count 137 L (150-400) X10^3/uL Neut % (Auto) 75.8 H (50-75) % Lymph % (Auto) 12.5 L (25-40) % [place] % (Auto) 10.8 (3-14) % Eos % (Auto) 0.7 L (2-4) % Baso % (Auto) 0.2 (0-2) % Neut # (Auto) 4300 (7548-7006) /uL Lymph # (Auto) 700 L (3359-0918) /uL [place] # (Auto) 600 (0-900) /uL Eos # (Auto) 0 (0-450) /uL Baso # (Auto) 0 (0-100) /uL Sodium 122 L (137-145) mmol/L Potassium 4.6 (3.4-5.1) mmol/L Chloride 87 L (98-107) mmol/L Carbon Dioxide 29 (22-32) mmol/L BUN 32 H (7-17) mg/dL Creatinine 1.10 H (0.52-1.04) mg/dL Estimated GFR 47.3 L (>60) mL/min BUN/Creatinine Ratio 29.1 H (6-22) Glucose 83 (80-110) mg/dL Calcium 8.5 (8.4-10.2) mg/dL Phosphorus (2.8-4.1) mg/dL Magnesium (1.6-2.3) mg/dL Total Bilirubin 1.4 H (0.2-1.3) mg/dL AST 44 H (14-36) IU/L ALT 19 (9-52) IU/L Alkaline Phosphatase 80 (38-126) U/L Total Protein 5.8 L (6.3-8.2) g/dL Albumin 3.2 L (3.5-5.0) g/dL Globulin 2.6 (1.7-4.1) g/dL Albumin/Globulin Ratio 1.2 (1.0-2.8) TSH (0.47-4.68) uIU/mL Free T4 (0.78-2.19) ng/dL Prolactin (3.0-18.6) ng/mL Urine Color Yellow Urine Appearance Clear Urine pH 7.5 (4.5-8.0) Ur Specific [place] 1.010 (1.000-1.035) Urine Protein Negative (Negative) Urine Glucose (UA) Negative (Negative) g/dL Urine Ketones Negative (NEGATIVE) Urine Occult Blood Negative (Negative) Urine Nitrate Negative (Negative) Urine Bilirubin Negative (NEGATIVE) Urine Urobilinogen 0.2 (0.2) E.U./dL Ur Leukocyte Esterase Negative (NEGATIVE) Urine RBC None seen (0-5/HPF) Urine WBC 0-1/hpf (0-5/HPF) Ur Squamous Epith Cells 0-1 /hpf (0-5/HPF) Urine Bacteria None seen (None) Ur Culture Indicated? Cult not indicated 05/11/19 05/11/19 05/12/19 Range/Units 23:45 23:45 00:05 WBC (4.5-11.0) X10^3/uL RBC (4.0-5.2) X10^6/uL Hgb (12.0-16.0) g/dL Hct (36-46) % MCV (80-100) fL MCH (26-34) PG MCHC (30-36) % RDW (11.6-14.8) % Plt Count (150-400) X10^3/uL Neut % (Auto) (50-75) % Lymph % (Auto) (25-40) % [place] % (Auto) (3-14) % Eos % (Auto) (2-4) % Baso % (Auto) (0-2) % Neut # (Auto) (0338-3624) /uL Lymph # (Auto) (3782-1088) /uL [place] # (Auto) (0-900) /uL Eos # (Auto) (0-450) /uL Baso # (Auto) (0-100) /uL Sodium (137-145) mmol/L Potassium (3.4-5.1) mmol/L Chloride (98-107) mmol/L Carbon Dioxide (22-32) mmol/L BUN (7-17) mg/dL Creatinine (0.52-1.04) mg/dL Estimated GFR (>60) mL/min BUN/Creatinine Ratio (6-22) Glucose (80-110) mg/dL Calcium (8.4-10.2) mg/dL Phosphorus 3.4 (2.8-4.1) mg/dL Magnesium 2.1 (1.6-2.3) mg/dL Total Bilirubin (0.2-1.3) mg/dL AST (14-36) IU/L ALT (9-52) IU/L Alkaline Phosphatase (38-126) U/L Total Protein (6.3-8.2) g/dL Albumin (3.5-5.0) g/dL Globulin (1.7-4.1) g/dL Albumin/Globulin Ratio (1.0-2.8) TSH 7.29 H (0.47-4.68) uIU/mL Free T4 1.94 (0.78-2.19) ng/dL Prolactin 324.9 H (3.0-18.6) ng/mL Urine Color Urine Appearance Urine pH (4.5-8.0) Ur Specific [place] (1.000-1.035) Urine Protein (Negative) Urine Glucose (UA) (Negative) g/dL Urine Ketones (NEGATIVE) Urine Occult Blood (Negative) Urine Nitrate (Negative) Urine Bilirubin (NEGATIVE) Urine Urobilinogen (0.2) E.U./dL Ur Leukocyte Esterase (NEGATIVE) Urine RBC (0-5/HPF) Urine WBC (0-5/HPF) Ur Squamous Epith Cells (0-5/HPF) Urine Bacteria (None) Ur Culture Indicated? 05/12/19 05/12/19 Range/Units 05:10 05:15 WBC 4.8 (4.5-11.0) X10^3/uL RBC 2.90 L (4.0-5.2) X10^6/uL Hgb 9.3 L (12.0-16.0) g/dL Hct 27.2 L (36-46) % MCV 93.7 (80-100) fL MCH 32.0 (26-34) PG MCHC 34.1 (30-36) % RDW 14.7 (11.6-14.8) % Plt Count 135 L (150-400) X10^3/uL Neut % (Auto) 67.8 (50-75) % Lymph % (Auto) 15.1 L (25-40) % [place] % (Auto) 14.6 H (3-14) % Eos % (Auto) 2.0 (2-4) % Baso % (Auto) 0.5 (0-2) % Neut # (Auto) 3200 (9093-4722) /uL Lymph # (Auto) 700 L (2531-3382) /uL [place] # (Auto) 700 (0-900) /uL Eos # (Auto) 100 (0-450) /uL Baso # (Auto) 0 (0-100) /uL Sodium 123 L (137-145) mmol/L Potassium 4.4 (3.4-5.1) mmol/L Chloride 89 L (98-107) mmol/L Carbon Dioxide 30 (22-32) mmol/L BUN 25 H (7-17) mg/dL Creatinine 0.90 (0.52-1.04) mg/dL Estimated GFR 59.7 L (>60) mL/min BUN/Creatinine Ratio 27.8 H (6-22) Glucose 88 (80-110) mg/dL Calcium 8.1 L (8.4-10.2) mg/dL Phosphorus (2.8-4.1) mg/dL Magnesium (1.6-2.3) mg/dL Total Bilirubin (0.2-1.3) mg/dL AST (14-36) IU/L ALT (9-52) IU/L Alkaline Phosphatase (38-126) U/L Total Protein (6.3-8.2) g/dL Albumin (3.5-5.0) g/dL Globulin (1.7-4.1) g/dL Albumin/Globulin Ratio (1.0-2.8) TSH (0.47-4.68) uIU/mL Free T4 (0.78-2.19) ng/dL Prolactin (3.0-18.6) ng/mL Urine Color Urine Appearance Urine pH (4.5-8.0) Ur Specific [place] (1.000-1.035) Urine Protein (Negative) Urine Glucose (UA) (Negative) g/dL Urine Ketones (NEGATIVE) Urine Occult Blood (Negative) Urine Nitrate (Negative) Urine Bilirubin (NEGATIVE) Urine Urobilinogen (0.2) E.U./dL Ur Leukocyte Esterase (NEGATIVE) Urine RBC (0-5/HPF) Urine WBC (0-5/HPF) Ur Squamous Epith Cells (0-5/HPF) Urine Bacteria (None) Ur Culture Indicated? ECG Data Attestation: I personally reviewed and interpreted this ECG as follows: Prior ECG tracings: not available for review Interpretation: Normal sinus rhythm rate [address] changes year interval 3 0 to QTC 432 no priors to compare MDM Narrative Medical decision making narrative: Awaiting a CT and x-ray results. Patient signed out to Dr. Doss. <Mikey Doss, - Last Filed: 05/12/19 04:06> Lab Data Lab Results 05/11/19 05/11/19 05/11/19 Range/Units 17:00 17:20 17:20 WBC 5.6 (4.5-11.0) X10^3/uL RBC 3.07 L (4.0-5.2) X10^6/uL Hgb 9.8 L (12.0-16.0) g/dL Hct 29.0 L (36-46) % MCV 94.6 (80-100) fL MCH 32.0 (26-34) PG MCHC 33.8 (30-36) % RDW 14.8 (11.6-14.8) % Plt Count 137 L (150-400) X10^3/uL Neut % (Auto) 75.8 H (50-75) % Lymph % (Auto) 12.5 L (25-40) % [place] % (Auto) 10.8 (3-14) % Eos % (Auto) 0.7 L (2-4) % Baso % (Auto) 0.2 (0-2) % Neut # (Auto) 4300 (5095-5489) /uL Lymph # (Auto) 700 L (9515-4251) /uL [place] # (Auto) 600 (0-900) /uL Eos # (Auto) 0 (0-450) /uL Baso # (Auto) 0 (0-100) /uL Sodium 122 L (137-145) mmol/L Potassium 4.6 (3.4-5.1) mmol/L Chloride 87 L (98-107) mmol/L Carbon Dioxide 29 (22-32) mmol/L BUN 32 H (7-17) mg/dL Creatinine 1.10 H (0.52-1.04) mg/dL Estimated GFR 47.3 L (>60) mL/min BUN/Creatinine Ratio 29.1 H (6-22) Glucose 83 (80-110) mg/dL Calcium 8.5 (8.4-10.2) mg/dL Phosphorus (2.8-4.1) mg/dL Magnesium (1.6-2.3) mg/dL Total Bilirubin 1.4 H (0.2-1.3) mg/dL AST 44 H (14-36) IU/L ALT 19 (9-52) IU/L Alkaline Phosphatase 80 (38-126) U/L Total Protein 5.8 L (6.3-8.2) g/dL Albumin 3.2 L (3.5-5.0) g/dL Globulin 2.6 (1.7-4.1) g/dL Albumin/Globulin Ratio 1.2 (1.0-2.8) TSH (0.47-4.68) uIU/mL Free T4 (0.78-2.19) ng/dL Prolactin (3.0-18.6) ng/mL Urine Color Yellow Urine Appearance Clear Urine pH 7.5 (4.5-8.0) Ur Specific [place] 1.010 (1.000-1.035) Urine Protein Negative (Negative) Urine Glucose (UA) Negative (Negative) g/dL Urine Ketones Negative (NEGATIVE) Urine Occult Blood Negative (Negative) Urine Nitrate Negative (Negative) Urine Bilirubin Negative (NEGATIVE) Urine Urobilinogen 0.2 (0.2) E.U./dL Ur Leukocyte Esterase Negative (NEGATIVE) Urine RBC None seen (0-5/HPF) Urine WBC 0-1/hpf (0-5/HPF) Ur Squamous Epith Cells 0-1 /hpf (0-5/HPF) Urine Bacteria None seen (None) Ur Culture Indicated? Cult not indicated 05/11/19 05/11/19 05/12/19 Range/Units 23:45 23:45 00:05 WBC (4.5-11.0) X10^3/uL RBC (4.0-5.2) X10^6/uL Hgb (12.0-16.0) g/dL Hct (36-46) % MCV (80-100) fL MCH (26-34) PG MCHC (30-36) % RDW (11.6-14.8) % Plt Count (150-400) X10^3/uL Neut % (Auto) (50-75) % Lymph % (Auto) (25-40) % [place] % (Auto) (3-14) % Eos % (Auto) (2-4) % Baso % (Auto) (0-2) % Neut # (Auto) (6793-5592) /uL Lymph # (Auto) (9293-1117) /uL [place] # (Auto) (0-900) /uL Eos # (Auto) (0-450) /uL Baso # (Auto) (0-100) /uL Sodium (137-145) mmol/L Potassium (3.4-5.1) mmol/L Chloride (98-107) mmol/L Carbon Dioxide (22-32) mmol/L BUN (7-17) mg/dL Creatinine (0.52-1.04) mg/dL Estimated GFR (>60) mL/min BUN/Creatinine Ratio (6-22) Glucose (80-110) mg/dL Calcium (8.4-10.2) mg/dL Phosphorus 3.4 (2.8-4.1) mg/dL Magnesium 2.1 (1.6-2.3) mg/dL Total Bilirubin (0.2-1.3) mg/dL AST (14-36) IU/L ALT (9-52) IU/L Alkaline Phosphatase (38-126) U/L Total Protein (6.3-8.2) g/dL Albumin (3.5-5.0) g/dL Globulin (1.7-4.1) g/dL Albumin/Globulin Ratio (1.0-2.8) TSH 7.29 H (0.47-4.68) uIU/mL Free T4 1.94 (0.78-2.19) ng/dL Prolactin 324.9 H (3.0-18.6) ng/mL Urine Color Urine Appearance Urine pH (4.5-8.0) Ur Specific [place] (1.000-1.035) Urine Protein (Negative) Urine Glucose (UA) (Negative) g/dL Urine Ketones (NEGATIVE) Urine Occult Blood (Negative) Urine Nitrate (Negative) Urine Bilirubin (NEGATIVE) Urine Urobilinogen (0.2) E.U./dL Ur Leukocyte Esterase (NEGATIVE) Urine RBC (0-5/HPF) Urine WBC (0-5/HPF) Ur Squamous Epith Cells (0-5/HPF) Urine Bacteria (None) Ur Culture Indicated? 05/12/19 05/12/19 Range/Units 05:10 05:15 WBC 4.8 (4.5-11.0) X10^3/uL RBC 2.90 L (4.0-5.2) X10^6/uL Hgb 9.3 L (12.0-16.0) g/dL Hct 27.2 L (36-46) % MCV 93.7 (80-100) fL MCH 32.0 (26-34) PG MCHC 34.1 (30-36) % RDW 14.7 (11.6-14.8) % Plt Count 135 L (150-400) X10^3/uL Neut % (Auto) 67.8 (50-75) % Lymph % (Auto) 15.1 L (25-40) % [place] % (Auto) 14.6 H (3-14) % Eos % (Auto) 2.0 (2-4) % Baso % (Auto) 0.5 (0-2) % Neut # (Auto) 3200 (1663-8806) /uL Lymph # (Auto) 700 L (6633-5454) /uL [place] # (Auto) 700 (0-900) /uL Eos # (Auto) 100 (0-450) /uL Baso # (Auto) 0 (0-100) /uL Sodium 123 L (137-145) mmol/L Potassium 4.4 (3.4-5.1) mmol/L Chloride 89 L (98-107) mmol/L Carbon Dioxide 30 (22-32) mmol/L BUN 25 H (7-17) mg/dL Creatinine 0.90 (0.52-1.04) mg/dL Estimated GFR 59.7 L (>60) mL/min BUN/Creatinine Ratio 27.8 H (6-22) Glucose 88 (80-110) mg/dL Calcium 8.1 L (8.4-10.2) mg/dL Phosphorus (2.8-4.1) mg/dL Magnesium (1.6-2.3) mg/dL Total Bilirubin (0.2-1.3) mg/dL AST (14-36) IU/L ALT (9-52) IU/L Alkaline Phosphatase (38-126) U/L Total Protein (6.3-8.2) g/dL Albumin (3.5-5.0) g/dL Globulin (1.7-4.1) g/dL Albumin/Globulin Ratio (1.0-2.8) TSH (0.47-4.68) uIU/mL Free T4 (0.78-2.19) ng/dL Prolactin (3.0-18.6) ng/mL Urine Color Urine Appearance Urine pH (4.5-8.0) Ur Specific [place] (1.000-1.035) Urine Protein (Negative) Urine Glucose (UA) (Negative) g/dL Urine Ketones (NEGATIVE) Urine Occult Blood (Negative) Urine Nitrate (Negative) Urine Bilirubin (NEGATIVE) Urine Urobilinogen (0.2) E.U./dL Ur Leukocyte Esterase (NEGATIVE) Urine RBC (0-5/HPF) Urine WBC (0-5/HPF) Ur Squamous Epith Cells (0-5/HPF) Urine Bacteria (None) Ur Culture Indicated? Imaging Data Pelvis CT: Radiologist's impression: [address] [address] [address] Scan Report Signed Patient: Artemio Rico LMR#: [id number] : 5Acct:[id number] Age/Sex: 84 / FDate of Service: 05/11/19 Loc: ED Accession Number: [id number] Procedure: CT pelvis wo con Ordering Provider: Ethel Grimm D.O. PROCEDURE: CT PEL WO CON COMPARISON: [facility], CR, XR PELVIS 1-2V, 05/11/2019, 17:11. INDICATIONS: right hip pain not walking hx of bilteral replacement FINDINGS: Postoperative changes from bilateral total hip arthroplasties. The femoral head component appear to be well-seated within the acetabular components bilaterally. No evidence for hardware fracture or loosening. Moderate beam hardening and streak artifact from metallic hardware of the adjacent structures. Chronic appearing osseous changes overlying the proximal aspect of the left proximal femur. There is age-indeterminate but acute to subacute fractures along the cortex of the proximal right femoral diaphysis in close proximity to the proximal femoral component. No significant surrounding soft tissue edema. Remainder of the osseous structures appear intact. There is grade 1 anterolisthesis of L4 and L5 with significant degenerative spondylitic changes at this level. Limited visualization of the pelvic structures demonstrate likely partially exophytic right hyperdense renal cysts. Right lower pole cyst. A moderate fecal burden. Incompletely visualized fluid filled, to her structures posteriorly in the lower pelvis favored to represent a fluid loop of bowel. IMPRESSION: 1. Status post bilateral total hip arthroplasty with acute to subacute fracture of the right proximal femoral diaphysis laterally and posteriorly near the proximal margin of the femoral component of the surgical hardware. 2. Bilateral hip arthroplasty appear intact with normal alignment of the surgical components. Other chronic findings as above. Dictated by: Chico Blum M.D. on 05/11/2019 at 18:30 Approved by: Chico Blum M.D. on 05/11/2019 at 18:39 Pelvis Xray: Radiologist's impression: Artemio Rico 84 F [address] [address] XRay Report Signed Patient: Artemio Rico LMR#: [id number] : 5Acct:[id number] Age/Sex: 84 / FDate of Service: 05/11/19 Loc: ED Accession Number: [id number] Procedure: XR pelvis 1-2V Ordering Provider: Ethel Grimm D.O. PROCEDURE: XR PELVIS 1-2V INDICATIONS: fall pain TECHNIQUE: 2 view(s) of the pelvis acquired. COMPARISON: None. FINDINGS: Bones: Status post bilateral total hip arthroplasty. Femoral head component well seated in the acetabular cups bilaterally. Chronic appearing osseous changes on the left. Possible acute cortical irregularity over the lateral aspect of the proximal right humeral diaphysis near the greater trochanter. Moderate degenerative changes of the lumbar spine. Overall, the pelvic ring appears intact. No acute hardware failure. No suspicious bony lesions. Soft tissues: Visualized bowel gas pattern is normal. No suspicious soft tissue calcifications. IMPRESSION: Status post bilateral total hip arthroplasty in normal alignment. Possible acute fracture involving the lateral, proximal right femoral diaphysis at the level of the greater trochanter. Dictated by: Chico Blum M.D. on 05/11/2019 at 18:45 Approved by: [place] Blum M.D. on 05/11/2019 at 18:47 Discharge Plan Departure Patient Disposition: Admitted As Inpatient Clinical Impression: Closed trochanteric fracture of femur Qualifiers: Encounter type: initial encounter Laterality: right Qualified Code(s): S72.101A - Unspecified trochanteric fracture of right femur, initial encounter for closed fracture Discharge Date/Time: 05/11/19 22:23 Interventions: ED Discharge Assessment Last Done: 05/11/19 22:22 Admit Date/Time: 05/11/19 21:20 Admit Provider: Franco Swartz
--- NOTE | 2019-05-11 16:58 | ED_ITS ---
HPI - Fall <Ethel Grimm DO - Last Filed: 05/12/19 07:27> General Chief Complaint: Extremity Injury, Lower Stated Complaint: GLF, Hip Pain Time Seen by Provider: 05/11/19 16:53 Source: EMS Mode of arrival: EMS Limitations: altered mental status (dementia) History of Present Illness HPI Narrative: Patient is an 84-year-old female with history of dementia. She actually fell about 3 days ago she was initially ambulatory [place] However as she has progressively not been ambulatory having increased pain. She is an extremely poor historian at baseline her is on his way. She is complaining of quite severe right hip pain. Onset (ago): day(s) (3) Related Data Home Medications Medication Instructions Recorded Confirmed cabergoline 0.5 mg PO SEE INSTRUCTIONS #8 tab 11/01/16 05/11/19 hiopiq-vljovgee-xawoefp 1,200 units PO TID 10/22/18 05/11/19 olmesartan [Benicar] 20 mg PO Q DAY 10/22/18 05/11/19 pramipexole 0.125 mg PO BEDTIME 10/22/18 05/11/19 risperidone [Risperdal] 1.5 mg PO HS 10/22/18 05/11/19 famciclovir 05/11/19 Allergies Allergy/AdvReac Type Severity Reaction Status Date / Time codeine [CODEINE] Allergy Unknown NAUSEA Verified 10/22/18 17:37 Penicillins [PENICILLINS] Allergy Unknown SWELLING Verified 10/22/18 17:37 TO SITE OF INJECTION Review of Systems <DO Tylor Jacques Last Filed: 05/12/19 07:27> Review of Systems ROS Unobtainable: Unobtainable due to medical condition Exam <Ethel Grimm DO - Last Filed: 05/12/19 07:27> Initial Vital Signs Initial Vital Signs: Vital Signs Temperature 98.2 F 05/11/19 16:35 Pulse Rate 58 L 05/11/19 16:35 Respiratory Rate 18 05/11/19 16:35 Blood Pressure 150/69 H 05/11/19 16:35 Pulse Oximetry 98 05/11/19 16:35 Gen.: Alert elderly female no acute distress HEENT: Atraumatic no sign of injury no abrasions no contusions, EOMI, SILVANO Neck: Supple no meningeal signs Lungs: Clear bilaterally no wheezes rales or rhonchi speaks in full sentences Cardiac: Regular rate and rhythm no murmur Abdomen: Soft mild is suprapubic lower abdominal discomfort. Extremities: Internally rotated shortened peripheral pulse intact extreme tende rness to palpation Neurologic: Alert embossing machine tender strength equal bilaterally <Mikey Doss DO - Last Filed: 05/12/19 04:06> Initial Vital Signs Initial Vital Signs: Vital Signs Temperature 98.2 F 05/11/19 16:35 Pulse Rate 58 L 05/11/19 16:35 Respiratory Rate 18 05/11/19 16:35 Blood Pressure 150/69 H 05/11/19 16:35 Pulse Oximetry 98 05/11/19 16:35 PFSH <Ethel Grimm DO - Last Filed: 05/12/19 07:27> Medical History (Updated 05/11/19 @ 23:40 by ASHUTOSH Salinas) Diastolic heart failure (Acute) Bipolar 1 disorder (Acute) Cellulitis of leg without foot, right (Acute) Hypertension (Acute) Knee pain, right (Acute) Pituitary adenoma (Acute) Surgical History History of pancreatic surgery (Acute) History of hip replacement History of hip replacement Family History Mother Dementia Father Suicide Social History household members: spouse Smoking Status: Former smoker alcohol intake: current Family History Mother Dementia Father Suicide Social History household members: spouse Smoking Status: Former smoker alcohol intake: current Course <DO Tylor Jacqeus Last Filed: 05/12/19 07:27> Orders Ordered: ED Orders 05/11/19 22:32 Consult to Dietitian, Adult Routine 05/11/19 22:33 Consult to Discharge Planning Routine Consult to Occupational Therapy Evaluate & Treat Consult to Physical Therapy Evaluate & Treat 05/11/19 22:34 Consult to Physician Routine 05/11/19 22:49 Consult to Dietitian, Adult Routine 05/11/19 23:45 Magnesium Stat Phosphorous Stat Prolactin Stat TSH [Thyroid Stimulating Hormone] Stat 05/12/19 00:05 Free T4 Free Thyroxine Routine 05/12/19 05:10 Complete Blood Count AUTO DIFF Routine 05/12/19 05:15 Basic Metabolic Panel Routine Acetaminophen (Tylenol) 650 mg PO Q6HR PRN PRN Reason: As Needed for Fever/Mild Pain Last Admin: 05/12/19 04:37 Dose: 650 mg Al Hydrox/Mg Hydrox/Simethicone (Maalox Plus) 30 ml PO Q6HR PRN PRN Reason: Dyspepsia Calcium Carbonate (Tums) 1,000 mg PO Q4HR PRN PRN Reason: Dyspepsia Docusate Sodium (Colace) 100 mg PO BID PRN PRN Reason: Constipation Heparin Sodium (Porcine) (Heparin) 5,000 unit SUBCUT BID [facility] Last Admin: 05/12/19 00:26 Dose: 5,000 unit Morphine Sulfate (Morphine) 1 mg IV Q4HR PRN PRN Reason: Pain, Moderate (4-6) Morphine Sulfate (Morphine) 2 mg IV Q4H PRN PRN Reason: Pain, Severe (7-10) Naloxone HCl (Narcan) 0.2 mg IV Q2MIN PRN PRN Reason: Opiate Reversal Promethazine HCl (Phenadoz) 12.5 mg OK Q6HR PRN PRN Reason: Nausea And Vomiting Discontinued Medications Sodium Chloride (Normal Saline 0.9%) 1,000 mls @ 125 mls/hr IV CONT [facility] Stop: 05/12/19 06:29 Last Admin: 05/12/19 00:29 Dose: 125 mls/hr Vital Signs - 8 hr 05/12/19 00:21 05/12/19 00:36 05/12/19 04:15 Temperature 97.7 F 97.6 F Pulse Rate 47 L 52 L Respiratory Rate 18 18 Blood Pressure 131/64 127/60 Pulse Oximetry 95 96 98 <Mikey Doss, DO - Last Filed: 05/12/19 04:06> Course Narrative: Sign-out received from daytime provider, Dr. Grimm. I performed an independent history and physical and have no significant additions to the above. Upon receipt of CT scan I consulted with our local orthopedist and elected to pushed images to [facility] to be sugar this is not a surgical candidate. Minnie has reviewed the images in state is just a greater tro chanter and not a surgical candidate. She can stay here and have physical therapy and discharge planning. Orders Ordered: ED Orders 05/11/19 22:32 Consult to Dietitian, Adult Routine 05/11/19 22:33 Consult to Discharge Planning Routine Consult to Occupational Therapy Evaluate & Treat Consult to Physical Therapy Evaluate & Treat 05/11/19 22:34 Consult to Physician Routine 05/11/19 22:49 Consult to Dietitian, Adult Routine 05/11/19 23:45 Magnesium Stat Phosphorous Stat Prolactin Stat TSH [Thyroid Stimulating Hormone] Stat 05/12/19 00:05 Free T4 Free Thyroxine Routine 05/12/19 05:10 Complete Blood Count AUTO DIFF Routine 05/12/19 05:15 Basic Metabolic Panel Routine Acetaminophen (Tylenol) 650 mg PO Q6HR PRN PRN Reason: As Needed for Fever/Mild Pain Last Admin: 05/12/19 04:37 Dose: 650 mg Al Hydrox/Mg Hydrox/Simethicone (Maalox Plus) 30 ml PO Q6HR PRN PRN Reason: Dyspepsia Calcium Carbonate (Tums) 1,000 mg PO Q4HR PRN PRN Reason: Dyspepsia Docusate Sodium (Colace) 100 mg PO BID PRN PRN Reason: Constipation Heparin Sodium (Porcine) (Heparin) 5,000 unit SUBCUT BID [facility] Last Admin: 05/12/19 00:26 Dose: 5,000 unit Morphine Sulfate (Morphine) 1 mg IV Q4HR PRN PRN Reason: Pain, Moderate (4-6) Morphine Sulfate (Morphine) 2 mg IV Q4H PRN PRN Reason: Pain, Severe (7-10) Naloxone HCl (Narcan) 0.2 mg IV Q2MIN PRN PRN Reason: Opiate Reversal Promethazine HCl (Phenadoz) 12.5 mg OK Q6HR PRN PRN Reason: Nausea And Vomiting Discontinued Medications Sodium Chloride (Normal Saline 0.9%) 1,000 mls @ 125 mls/hr IV CONT NIMISHA Stop: 05/12/19 06:29 Last Admin: 05/12/19 00:29 Dose: 125 mls/hr Consultations Consultation #1: consult with Dr. Vaz, not likely surgical. consult with [place]. Olson [place] [place] he has viewed images, not surgical Vital Signs - 8 hr 05/12/19 00:21 05/12/19 00:36 05/12/19 04:15 Temperature 97.7 F 97.6 F Pulse Rate 47 L 52 L Respiratory Rate 18 18 Blood Pressure 131/64 127/60 Pulse Oximetry 95 96 98 MDM - Fall <Ethel Alfa, - Last Filed: 05/12/19 07:27> Lab Data Attestation: I reviewed the patient's lab results. Result diagrams: 05/12/19 05:10 05/12/19 05:15 Lab Results 05/11/19 05/11/19 05/11/19 Range/Units 17:00 17:20 17:20 WBC 5.6 (4.5-11.0) X10^3/uL RBC 3.07 L (4.0-5.2) X10^6/uL Hgb 9.8 L (12.0-16.0) g/dL Hct 29.0 L (36-46) % MCV 94.6 (80-100) fL MCH 32.0 (26-34) PG MCHC 33.8 (30-36) % RDW 14.8 (11.6-14.8) % Plt Count 137 L (150-400) X10^3/uL Neut % (Auto) 75.8 H (50-75) % Lymph % (Auto) 12.5 L (25-40) % [place] % (Auto) 10.8 (3-14) % Eos % (Auto) 0.7 L (2-4) % Baso % (Auto) 0.2 (0-2) % Neut # (Auto) 4300 (1136-4279) /uL Lymph # (Auto) 700 L (6696-0677) /uL [place] # (Auto) 600 (0-900) /uL Eos # (Auto) 0 (0-450) /uL Baso # (Auto) 0 (0-100) /uL Sodium 122 L (137-145) mmol/L Potassium 4.6 (3.4-5.1) mmol/L Chloride 87 L (98-107) mmol/L Carbon Dioxide 29 (22-32) mmol/L BUN 32 H (7-17) mg/dL Creatinine 1.10 H (0.52-1.04) mg/dL Estimated GFR 47.3 L (>60) mL/min BUN/Creatinine Ratio 29.1 H (6-22) Glucose 83 (80-110) mg/dL Calcium 8.5 (8.4-10.2) mg/dL Phosphorus (2.8-4.1) mg/dL Magnesium (1.6-2.3) mg/dL Total Bilirubin 1.4 H (0.2-1.3) mg/dL AST 44 H (14-36) IU/L ALT 19 (9-52) IU/L Alkaline Phosphatase 80 (38-126) U/L Total Protein 5.8 L (6.3-8.2) g/dL Albumin 3.2 L (3.5-5.0) g/dL Globulin 2.6 (1.7-4.1) g/dL Albumin/Globulin Ratio 1.2 (1.0-2.8) TSH (0.47-4.68) uIU/mL Free T4 (0.78-2.19) ng/dL Prolactin (3.0-18.6) ng/mL Urine Color Yellow Urine Appearance Clear Urine pH 7.5 (4.5-8.0) Ur Specific [place] 1.010 (1.000-1.035) Urine Protein Negative (Negative) Urine Glucose (UA) Negative (Negative) g/dL Urine Ketones Negative (NEGATIVE) Urine Occult Blood Negative (Negative) Urine Nitrate Negative (Negative) Urine Bilirubin Negative (NEGATIVE) Urine Urobilinogen 0.2 (0.2) E.U./dL Ur Leukocyte Esterase Negative (NEGATIVE) Urine RBC None seen (0-5/HPF) Urine WBC 0-1/hpf (0-5/HPF) Ur Squamous Epith Cells 0-1 /hpf (0-5/HPF) Urine Bacteria None seen (None) Ur Culture Indicated? Cult not indicated 05/11/19 05/11/19 05/12/19 Range/Units 23:45 23:45 00:05 WBC (4.5-11.0) X10^3/uL RBC (4.0-5.2) X10^6/uL Hgb (12.0-16.0) g/dL Hct (36-46) % MCV (80-100) fL MCH (26-34) PG MCHC (30-36) % RDW (11.6-14.8) % Plt Count (150-400) X10^3/uL Neut % (Auto) (50-75) % Lymph % (Auto) (25-40) % [place] % (Auto) (3-14) % Eos % (Auto) (2-4) % Baso % (Auto) (0-2) % Neut # (Auto) (4698-8868) /uL Lymph # (Auto) (7755-3961) /uL [place] # (Auto) (0-900) /uL Eos # (Auto) (0-450) /uL Baso # (Auto) (0-100) /uL Sodium (137-145) mmol/L Potassium (3.4-5.1) mmol/L Chloride (98-107) mmol/L Carbon Dioxide (22-32) mmol/L BUN (7-17) mg/dL Creatinine (0.52-1.04) mg/dL Estimated GFR (>60) mL/min BUN/Creatinine Ratio (6-22) Glucose (80-110) mg/dL Calcium (8.4-10.2) mg/dL Phosphorus 3.4 (2.8-4.1) mg/dL Magnesium 2.1 (1.6-2.3) mg/dL Total Bilirubin (0.2-1.3) mg/dL AST (14-36) IU/L ALT (9-52) IU/L Alkaline Phosphatase (38-126) U/L Total Protein (6.3-8.2) g/dL Albumin (3.5-5.0) g/dL Globulin (1.7-4.1) g/dL Albumin/Globulin Ratio (1.0-2.8) TSH 7.29 H (0.47-4.68) uIU/mL Free T4 1.94 (0.78-2.19) ng/dL Prolactin 324.9 H (3.0-18.6) ng/mL Urine Color Urine Appearance Urine pH (4.5-8.0) Ur Specific [place] (1.000-1.035) Urine Protein (Negative) Urine Glucose (UA) (Negative) g/dL Urine Ketones (NEGATIVE) Urine Occult Blood (Negative) Urine Nitrate (Negative) Urine Bilirubin (NEGATIVE) Urine Urobilinogen (0.2) E.U./dL Ur Leukocyte Esterase (NEGATIVE) Urine RBC (0-5/HPF) Urine WBC (0-5/HPF) Ur Squamous Epith Cells (0-5/HPF) Urine Bacteria (None) Ur Culture Indicated? 05/12/19 05/12/19 Range/Units 05:10 05:15 WBC 4.8 (4.5-11.0) X10^3/uL RBC 2.90 L (4.0-5.2) X10^6/uL Hgb 9.3 L (12.0-16.0) g/dL Hct 27.2 L (36-46) % MCV 93.7 (80-100) fL MCH 32.0 (26-34) PG MCHC 34.1 (30-36) % RDW 14.7 (11.6-14.8) % Plt Count 135 L (150-400) X10^3/uL Neut % (Auto) 67.8 (50-75) % Lymph % (Auto) 15.1 L (25-40) % [place] % (Auto) 14.6 H (3-14) % Eos % (Auto) 2.0 (2-4) % Baso % (Auto) 0.5 (0-2) % Neut # (Auto) 3200 (2088-6876) /uL Lymph # (Auto) 700 L (4654-3621) /uL [place] # (Auto) 700 (0-900) /uL Eos # (Auto) 100 (0-450) /uL Baso # (Auto) 0 (0-100) /uL Sodium 123 L (137-145) mmol/L Potassium 4.4 (3.4-5.1) mmol/L Chloride 89 L (98-107) mmol/L Carbon Dioxide 30 (22-32) mmol/L BUN 25 H (7-17) mg/dL Creatinine 0.90 (0.52-1.04) mg/dL Estimated GFR 59.7 L (>60) mL/min BUN/Creatinine Ratio 27.8 H (6-22) Glucose 88 (80-110) mg/dL Calcium 8.1 L (8.4-10.2) mg/dL Phosphorus (2.8-4.1) mg/dL Magnesium (1.6-2.3) mg/dL Total Bilirubin (0.2-1.3) mg/dL AST (14-36) IU/L ALT (9-52) IU/L Alkaline Phosphatase (38-126) U/L Total Protein (6.3-8.2) g/dL Albumin (3.5-5.0) g/dL Globulin (1.7-4.1) g/dL Albumin/Globulin Ratio (1.0-2.8) TSH (0.47-4.68) uIU/mL Free T4 (0.78-2.19) ng/dL Prolactin (3.0-18.6) ng/mL Urine Color Urine Appearance Urine pH (4.5-8.0) Ur Specific [place] (1.000-1.035) Urine Protein (Negative) Urine Glucose (UA) (Negative) g/dL Urine Ketones (NEGATIVE) Urine Occult Blood (Negative) Urine Nitrate (Negative) Urine Bilirubin (NEGATIVE) Urine Urobilinogen (0.2) E.U./dL Ur Leukocyte Esterase (NEGATIVE) Urine RBC (0-5/HPF) Urine WBC (0-5/HPF) Ur Squamous Epith Cells (0-5/HPF) Urine Bacteria (None) Ur Culture Indicated? ECG Data Attestation: I personally reviewed and interpreted this ECG as follows: Prior ECG tracings: not available for review Interpretation: Normal sinus rhythm rate [address] changes year interval 3 0 to QTC 432 no priors to compare MDM Narrative Medical decision making narrative: Awaiting a CT and x-ray results. Patient signed out to Dr. Doss. <Mikey Doss DO - Last Filed: 05/12/19 04:06> Lab Data Lab Results 05/11/19 05/11/19 05/11/19 Range/Units 17:00 17:20 17:20 WBC 5.6 (4.5-11.0) X10^3/uL RBC 3.07 L (4.0-5.2) X10^6/uL Hgb 9.8 L (12.0-16.0) g/dL Hct 29.0 L (36-46) % MCV 94.6 (80-100) fL MCH 32.0 (26-34) PG MCHC 33.8 (30-36) % RDW 14.8 (11.6-14.8) % Plt Count 137 L (150-400) X10^3/uL Neut % (Auto) 75.8 H (50-75) % Lymph % (Auto) 12.5 L (25-40) % [place] % (Auto) 10.8 (3-14) % Eos % (Auto) 0.7 L (2-4) % Baso % (Auto) 0.2 (0-2) % Neut # (Auto) 4300 (4091-1822) /uL Lymph # (Auto) 700 L (8318-0618) /uL [place] # (Auto) 600 (0-900) /uL Eos # (Auto) 0 (0-450) /uL Baso # (Auto) 0 (0-100) /uL Sodium 122 L (137-145) mmol/L Potassium 4.6 (3.4-5.1) mmol/L Chloride 87 L (98-107) mmol/L Carbon Dioxide 29 (22-32) mmol/L BUN 32 H (7-17) mg/dL Creatinine 1.10 H (0.52-1.04) mg/dL Estimated GFR 47.3 L (>60) mL/min BUN/Creatinine Ratio 29.1 H (6-22) Glucose 83 (80-110) mg/dL Calcium 8.5 (8.4-10.2) mg/dL Phosphorus (2.8-4.1) mg/dL Magnesium (1.6-2.3) mg/dL Total Bilirubin 1.4 H (0.2-1.3) mg/dL AST 44 H (14-36) IU/L ALT 19 (9-52) IU/L Alkaline Phosphatase 80 (38-126) U/L Total Protein 5.8 L (6.3-8.2) g/dL Albumin 3.2 L (3.5-5.0) g/dL Globulin 2.6 (1.7-4.1) g/dL Albumin/Globulin Ratio 1.2 (1.0-2.8) TSH (0.47-4.68) uIU/mL Free T4 (0.78-2.19) ng/dL Prolactin (3.0-18.6) ng/mL Urine Color Yellow Urine Appearance Clear Urine pH 7.5 (4.5-8.0) Ur Specific [place] 1.010 (1.000-1.035) Urine Protein Negative (Negative) Urine Glucose (UA) Negative (Negative) g/dL Urine Ketones Negative (NEGATIVE) Urine Occult Blood Negative (Negative) Urine Nitrate Negative (Negative) Urine Bilirubin Negative (NEGATIVE) Urine Urobilinogen 0.2 (0.2) E.U./dL Ur Leukocyte Esterase Negative (NEGATIVE) Urine RBC None seen (0-5/HPF) Urine WBC 0-1/hpf (0-5/HPF) Ur Squamous Epith Cells 0-1 /hpf (0-5/HPF) Urine Bacteria None seen (None) Ur Culture Indicated? Cult not indicated 05/11/19 05/11/19 05/12/19 Range/Units 23:45 23:45 00:05 WBC (4.5-11.0) X10^3/uL RBC (4.0-5.2) X10^6/uL Hgb (12.0-16.0) g/dL Hct (36-46) % MCV (80-100) fL MCH (26-34) PG MCHC (30-36) % RDW (11.6-14.8) % Plt Count (150-400) X10^3/uL Neut % (Auto) (50-75) % Lymph % (Auto) (25-40) % [place] % (Auto) (3-14) % Eos % (Auto) (2-4) % Baso % (Auto) (0-2) % Neut # (Auto) (9567-3133) /uL Lymph # (Auto) (3442-4018) /uL [place] # (Auto) (0-900) /uL Eos # (Auto) (0-450) /uL Baso # (Auto) (0-100) /uL Sodium (137-145) mmol/L Potassium (3.4-5.1) mmol/L Chloride (98-107) mmol/L Carbon Dioxide (22-32) mmol/L BUN (7-17) mg/dL Creatinine (0.52-1.04) mg/dL Estimated GFR (>60) mL/min BUN/Creatinine Ratio (6-22) Glucose (80-110) mg/dL Calcium (8.4-10.2) mg/dL Phosphorus 3.4 (2.8-4.1) mg/dL Magnesium 2.1 (1.6-2.3) mg/dL Total Bilirubin (0.2-1.3) mg/dL AST (14-36) IU/L ALT (9-52) IU/L Alkaline Phosphatase (38-126) U/L Total Protein (6.3-8.2) g/dL Albumin (3.5-5.0) g/dL Globulin (1.7-4.1) g/dL Albumin/Globulin Ratio (1.0-2.8) TSH 7.29 H (0.47-4.68) uIU/mL Free T4 1.94 (0.78-2.19) ng/dL Prolactin 324.9 H (3.0-18.6) ng/mL Urine Color Urine Appearance Urine pH (4.5-8.0) Ur Specific [place] (1.000-1.035) Urine Protein (Negative) Urine Glucose (UA) (Negative) g/dL Urine Ketones (NEGATIVE) Urine Occult Blood (Negative) Urine Nitrate (Negative) Urine Bilirubin (NEGATIVE) Urine Urobilinogen (0.2) E.U./dL Ur Leukocyte Esterase (NEGATIVE) Urine RBC (0-5/HPF) Urine WBC (0-5/HPF) Ur Squamous Epith Cells (0-5/HPF) Urine Bacteria (None) Ur Culture Indicated? 05/12/19 05/12/19 Range/Units 05:10 05:15 WBC 4.8 (4.5-11.0) X10^3/uL RBC 2.90 L (4.0-5.2) X10^6/uL Hgb 9.3 L (12.0-16.0) g/dL Hct 27.2 L (36-46) % MCV 93.7 (80-100) fL MCH 32.0 (26-34) PG MCHC 34.1 (30-36) % RDW 14.7 (11.6-14.8) % Plt Count 135 L (150-400) X10^3/uL Neut % (Auto) 67.8 (50-75) % Lymph % (Auto) 15.1 L (25-40) % [place] % (Auto) 14.6 H (3-14) % Eos % (Auto) 2.0 (2-4) % Baso % (Auto) 0.5 (0-2) % Neut # (Auto) 3200 (8051-7129) /uL Lymph # (Auto) 700 L (8953-1170) /uL [place] # (Auto) 700 (0-900) /uL Eos # (Auto) 100 (0-450) /uL Baso # (Auto) 0 (0-100) /uL Sodium 123 L (137-145) mmol/L Potassium 4.4 (3.4-5.1) mmol/L Chloride 89 L (98-107) mmol/L Carbon Dioxide 30 (22-32) mmol/L BUN 25 H (7-17) mg/dL Creatinine 0.90 (0.52-1.04) mg/dL Estimated GFR 59.7 L (>60) mL/min BUN/Creatinine Ratio 27.8 H (6-22) Glucose 88 (80-110) mg/dL Calcium 8.1 L (8.4-10.2) mg/dL Phosphorus (2.8-4.1) mg/dL Magnesium (1.6-2.3) mg/dL Total Bilirubin (0.2-1.3) mg/dL AST (14-36) IU/L ALT (9-52) IU/L Alkaline Phosphatase (38-126) U/L Total Protein (6.3-8.2) g/dL Albumin (3.5-5.0) g/dL Globulin (1.7-4.1) g/dL Albumin/Globulin Ratio (1.0-2.8) TSH (0.47-4.68) uIU/mL Free T4 (0.78-2.19) ng/dL Prolactin (3.0-18.6) ng/mL Urine Color Urine Appearance Urine pH (4.5-8.0) Ur Specific [place] (1.000-1.035) Urine Protein (Negative) Urine Glucose (UA) (Negative) g/dL Urine Ketones (NEGATIVE) Urine Occult Blood (Negative) Urine Nitrate (Negative) Urine Bilirubin (NEGATIVE) Urine Urobilinogen (0.2) E.U./dL Ur Leukocyte Esterase (NEGATIVE) Urine RBC (0-5/HPF) Urine WBC (0-5/HPF) Ur Squamous Epith Cells (0-5/HPF) Urine Bacteria (None) Ur Culture Indicated? Imaging Data Pelvis CT: Radiologist's impression: [address] [address] [address] Scan Report Signed Patient: Artemio Rico LMR#: [id number] : 5Acct:[id number] Age/Sex: 84 / FDate of Service: 05/11/19 Loc: ED Accession Number: [id number] Procedure: CT pelvis wo con Ordering Provider: Ethel Grimm D.O. PROCEDURE: CT PEL WO CON COMPARISON: [facility], CR, XR PELVIS 1-2V, 05/11/2019, 17:11. INDICATIONS: right hip pain not walking hx of bilteral replacement FINDINGS: Postoperative changes from bilateral total hip arthroplasties. The femoral head component appear to be well-seated within the acetabular components bilaterally. No evidence for hardware fracture or loosening. Moderate beam hardening and streak artifact from metallic hardware of the adjacent structures. Chronic appearing osseous changes overlying the proximal aspect of the left proximal femur. There is age-indeterminate but acute to subacute fractures along the cortex of the proximal right femoral diaphysis in close proximity to the proximal femoral component. No significant surrounding soft tissue edema. Remainder of the osseous structures appear intact. There is grade 1 anterolisthesis of L4 and L5 with significant degenerative spondylitic changes at this level. Limited visualization of the pelvic structures demonstrate likely partially exophytic right hyperdense renal cysts. Right lower pole cyst. A moderate fecal burden. Incompletely visualized fluid filled, to her structures posteriorly in the lower pelvis favored to represent a fluid loop of bowel. IMPRESSION: 1. Status post bilateral total hip arthroplasty with acute to subacute fracture of the right proximal femoral diaphysis laterally and posteriorly near the proximal margin of the femoral component of the surgical hardware. 2. Bilateral hip arthroplasty appear intact with normal alignment of the surgical components. Other chronic findings as above. Dictated by: [place] Blum M.D. on 05/11/2019 at 18:30 Approved by: [place] Blum M.D. on 05/11/2019 at 18:39 Pelvis Xray: Radiologist's impression: Artemio Rico 84 F [address] [address] XRay Report Signed Patient: Artemio Rico LMR#: [id number] : 5Acct:[id number] Age/Sex: 84 / FDate of Service: 05/11/19 Loc: ED Accession Number: [id number] Procedure: XR pelvis 1-2V Ordering Provider: Ethel Grimm D.O. PROCEDURE: XR PELVIS 1-2V INDICATIONS: fall pain TECHNIQUE: 2 view(s) of the pelvis acquired. COMPARISON: None. FINDINGS: Bones: Status post bilateral total hip arthroplasty. Femoral head component well seated in the acetabular cups bilaterally. Chronic appearing osseous changes on the left. Possible acute cortical irregularity over the lateral aspect of the proximal right humeral diaphysis near the greater trochanter. Moderate degenerative changes of the lumbar spine. Overall, the pelvic ring appears intact. No acute hardware failure. No suspicious bony lesions. Soft tissues: Visualized bowel gas pattern is normal. No suspicious soft tissue calcifications. IMPRESSION: Status post bilateral total hip arthroplasty in normal alignment. Possible acute fracture involving the lateral, proximal right femoral diaphysis at the level of the gre ater trochanter. Dictated by: Chico Blum M.D. on 05/11/2019 at 18:45 Approved by: [place] Blum M.D. on 05/11/2019 at 18:47 Discharge Plan Departure Patient Disposition: Admitted As Inpatient Clinical Impression: Closed trochanteric fracture of femur Qualifiers: Encounter type: initial encounter Laterality: right Qualified Code(s): S72.101A - Unspecified trochanteric fracture of right femur, initial encounter for closed fracture Discharge Date/Time: 05/11/19 22:23 Interventions: ED Discharge Assessment Last Done: 05/11/19 22:22 Admit Date/Time: 05/11/19 21:20 Admit Provider: Franco Swartz
[2019-05-11 17:03] LABS: Bacteria Urine None Seen; RBC Urine None Seen (0-5/HPF)
[2019-05-11 17:08] LABS: Appearance Urine UA CLEAR; Bilirubin Urine UA NEGATIVE (NEGATIVE); Color Urine UA YELLOW; Glucose Urine UA NEGATIVE (Negative); Ketones Urine UA NEGATIVE (NEGATIVE); Leukocyte Esterase Urine UA NEGATIVE (NEGATIVE); Nitrite Urine UA NEGATIVE (Negative); Occult Blood Urine UA NEGATIVE (Negative); Protein Urine UA NEGATIVE (Negative); Urobilinogen Urine UA 0.2 E.U./dL (0.2); pH Urine UA 7.5 (4.5-8.0)
[2019-05-11 17:22] LABS: Squamous Epithelial Cell Urine 0-1 /HPF (0-5/HPF); WBC Urine 0-1/HPF (0-5/HPF)
[2019-05-11 17:23] LABS: Culture Indicated Urine Cult Not Indicated
[2019-05-11 17:37] LABS: Add Manual Diff / Slide Review NO; Basophils Absolute Auto 0 /uL (0-100); Basophils Percent Auto 0.2 % (0-2); Eosinophils Absolute Auto 0 /uL (0-450); Eosinophils Percent Auto 0.7 % (2-4); Hemoglobin 9.8 g/dL (12.0-16.0); Lymphocytes Absolute Auto 700 /uL (1100-4500); Lymphocytes Percent Auto 12.5 % (25-40); Mean Corpuscular HGB Conc 33.8 % (30-36); Mean Corpuscular Volume 94.6 fL (80-100); Monocytes Absolute Auto 600 /uL (0-900); Monocytes Percent Auto 10.8 % (3-14); Neutrophils Absolute Auto 4300 /uL (1500-7000); Neutrophils Percent Auto 75.8 % (50-75); Platelet Count 137 X10^3/uL (150-400); Red Blood Cell Count 3.07 X10^6/uL (4.0-5.2); Red Cell Distribution Width 14.8 % (11.6-14.8); White Blood Cell Count 5.6 X10^3/uL (4.5-11.0)
--- NOTE | 2019-05-11 17:37 | DI.CT.S_ITS ---
PROCEDURE: CT PEL WO CON COMPARISON: [facility], CR, XR PELVIS 1-2V, 05/11/2019, 17:11. INDICATIONS: right hip pain not walking hx of bilteral replacement FINDINGS: Postoperative changes from bilateral total hip arthroplasties. The femoral head component appear to be well-seated within the acetabular components bilaterally. No evidence for hardware fracture or loosening. Moderate beam hardening and streak artifact from metallic hardware of the adjacent structures. Chronic appearing osseous changes overlying the proximal aspect of the left proximal femur. There is age-indeterminate but acute to subacute fractures along the cortex of the proximal right femoral diaphysis in close proximity to the proximal femoral component. No significant surrounding soft tissue edema. Remainder of the osseous structures appear intact. There is grade 1 anterolisthesis of L4 and L5 with significant degenerative spondylitic changes at this level. Limited visualization of the pelvic structures demonstrate likely partially exophytic right hyperdense renal cysts. Right lower pole cyst. A moderate fecal burden. Incompletely visualized fluid filled, to her structures posteriorly in the lower pelvis favored to represent a fluid loop of bowel. IMPRESSION: 1. Status post bilateral total hip arthroplasty with acute to subacute fracture of the right proximal femoral diaphysis laterally and posteriorly near the proximal margin of the femoral component of the surgical hardware. 2. Bilateral hip arthroplasty appear intact with normal alignment of the surgical components. Other chronic findings as above. Dictated by: Chico Blum M.D. on 05/11/2019 at 18:30 Approved by: Cihco Blum M.D. on 05/11/2019 at 18:39
[2019-05-11 17:42] LABS: Alanine Aminotransferase 19 IU/L (9-52); Albumin 3.2 g/dL (3.5-5.0); Albumin Globulin Ratio 1.2 (1.0-2.8); Alkaline Phosphatase 80 U/L (38-126); Aspartate Aminotransferase 44 IU/L (14-36); BUN Creatinine Ratio 29.1 (6-22); Bilirubin Total 1.4 mg/dL (0.2-1.3); Blood Urea Nitrogen 32 mg/dL (7-17); Calcium 8.5 mg/dL (8.4-10.2); Carbon Dioxide 29 mmol/L (22-32); Chloride 87 mmol/L (98-107); Estimated Glomerular Filt Rate 47.3 mL/min (>60); Globulin 2.6 g/dL (1.7-4.1); Glucose 83 mg/dL (80-110); HEMOLYSIS < 15 (0-50); Potassium 4.6 mmol/L (3.4-5.1); Sodium 122 mmol/L (137-145); Total Protein 5.8 g/dL (6.3-8.2)
[2019-05-11 19:51] VITALS: BP 149/62; PULSE 55; RESP 15; O2SAT 98
[2019-05-11 21:01] VITALS: BP 139/57; PULSE 51; RESP 16; O2SAT 95
[2019-05-11 22:17] VITALS: BP 133/53; PULSE 50; RESP 16; O2SAT 98
--- NOTE | 2019-05-11 22:23 | P.HP_ITS ---
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 The patient is a poor historian and her is not available for additional history. Per the emergency room provider, patient fell 3 days ago and was evaluated on the fife with imaging which found no acute fracture. The patient had worsening debility becoming unable to ambulate and worsening pain. She has a history of bilateral total hip arthroplasties which were done about 25 years ago in [place] at [facility]. She had a similar fall and periprosthetic fracture of her left hip prompting admission in October at which time she was also found to be hyponatremic. The patient denies recent cold or illness, fevers or chills. She denies headaches or dizziness he reports no visual changes or difficulty chewing or swallowing. She denies chest pain or palpitations reports no shortness of breath cough or wheezing. She denies abdominal pain, nausea or vomiting. She reports having 2 BMs earlier today. Denies complaints of dysuria, frequency or urgency. At baseline the patient is ambulatory with a walker. Upon arrival in the ER the patient is found to be afebrile with a temperature of 98.2?, bradycardic with heart rate of 58, hypertensive the blood pressure 150/69 and respirations of 18 saturating 98% on room air. Patient underwent imaging with x-ray and a CT of the pelvis which found 100 acute/subacute periprosthetic greater trochanteric femur fracture. The CT exam further notes that there is normal alignment of the surgical hardware. Dr. Vaz, orthopedist on-call was consulted and reviewed the imaging and felt the fracture was not a surgical issue. University washed was also consulted regarding periprosthetic fracture who concurred. On laboratory analysis the patient is found have a white count of 5.6, hemoglobin of 9.8 and hematocrit of 29 and platelets of 137. She does have an elevated PT at 14.1 an INR of 1.2 and a PTT of 28 not on anticoagulation. On chemistries she has a low sodium of 122, potassium of 4.6, a BUN of 32 and creatinine 1.1 with an EGFR of 47.3 and a BUN creatinine ratio of 29.1. She has a total bilirubin 1.4, AST of 44, ALT of 19 and alkaline phosphatase of 80. EKG was obtained which reveals sinus Kashif at 59 with a first-degree AV block. Patient History Medical History (Updated 05/11/19 @ 23:40 by ASHUTOSH Salinas) Diastolic heart failure (Acute) Bipolar 1 disorder (Acute) Cellulitis of leg without foot, right (Acute) Hypertension (Acute) Knee pain, right (Acute) Pituitary adenoma (Acute) Surgical History History of pancreatic surgery (Acute) History of hip replacement History of hip replacement Family History Mother Dementia Father Suicide Social History household members: spouse Smoking Status: Former smoker alcohol intake: current Family & Social History Family History Mother Dementia Father Suicide Social History: household members spouse Safety & Behavioral: Feels Safe in Current Yes Environment Been Physically Hurt or No Threatened By a Person Tobacco & Substance use: Smoking Status Former smoker alcohol intake current alcohol intake frequency a few times a month Substance Use Type does not use Comment: The patient resides in a single family home on [address] with her Charli who is her primary caregiver and whom she has been for 24 years. The patient states this is her 2nd marriage. She states both her parents are , her father from suicide and her mother had d ementia. She has a sister who is 6 years under than herself whom she describes in poor health but is unsure of her medical history. Smoking: Patient is a former smoker, smoking less than 1 pack per week starting at age 18 and quitting approximately 30 years ago. Alcohol: Patient endorses occasional glass a wine. Substance use: The patient denies using recreational pharmaceuticals, herbal or cannabis products. Advanced directive: Direct discussion with the patient she states her wish to be DO NOT RESUSCITATE. This is validated and consistent with the previous medical records. Patient's Charli is her surrogate decision maker. Meds Home Medications Medication Instructions Recorded Confirmed Type cabergoline 0.5 mg PO SEE INSTRUCTIONS #8 tab 11/01/16 05/11/19 History [id number]-[id number] 1,200 units PO TID 10/22/18 05/11/19 History olmesartan [Benicar] 20 mg PO Q DAY 10/22/18 05/11/19 History pramipexole 0.125 mg PO BEDTIME 10/22/18 05/11/19 History risperidone [Risperdal] 1.5 mg PO HS 10/22/18 05/11/19 History famciclovir 05/11/19 History Allergies Allergy/AdvReac Type Severity Reaction Status Date / Time codeine [CODEINE] Allergy Unknown NAUSEA Verified 10/22/18 17:37 Penicillins [PENICILLINS] Allergy Unknown SWELLING Verified 10/22/18 17:37 TO SITE OF INJECTION Review of Systems Review of Systems All systems reviewed & are unremarkable except as noted in HPI and below Exam Vital Signs (past 8 hours): - 05/11/19 16:35 05/11/19 19:51 05/11/19 21:01 Temperature 98.2 F Pulse Rate 58 L 55 L 51 L Respiratory Rate 18 15 16 Blood Pressure 150/69 H Blood Pressure [Right Arm] 149/62 H 139/57 L Pulse Oximetry 98 98 95 05/11/19 22:17 Temperature Pulse Rate 50 L Respiratory Rate 16 Blood Pressure Blood Pressure [Right Arm] 133/53 L Pulse Oximetry 98 Oxygen Delivery Method Room Air Narrative Exam Narrative: GENERAL APPEARANCE: well developed, well nourished, resting quietly, delayed responses to questions. HEAD: Normocephalic, atraumatic, no scalp contusions or lacerations. EYES: pupils equal, round, reactive to light and accommodation, arcus senilis, sclera non-icteric, extraocular movement intact without nystagmus. EARS: normal external structures, no ear pain NOSE: no rhinorrhea ORAL CAVITY: mucosa dry without lesions or exudate, palate normal, own dentition, tongue in midline. THROAT: Posterior pharynx without erythema NECK/THYROID: neck supple, no jugular venous distention, no carotid bruit, no thyromegaly, trachea midline. LYMPH NODES: no cervical or supraclavicular lymphadenopathy. SKIN: warm and dry, no suspicious lesions, no rashes, good turgor. HEART: regular bradycardic rhythm, S1-S2 without murmur, no rubs or gallops, brisk capillary refill, trace bilateral lower extremity edema LUNGS: clear to auscultation bilaterally, no coarseness crackles or wheezing, no cough present CHEST: Symmetrical movement, no accessory muscle use, no pain to AP and lateral compression. ABDOMEN: Soft, no distention, tympany to percussion, no epigastric or abdominal tenderness on palpation, no organomegaly, active bowel tones. EXTREMITIES: Equal leg length, pain with movement right leg, both feet rotated to left, pain on palpation anterior lateral and posterior right hip, no ecchymosis, no joint effusions. NEUROLOGIC: Awake and alert, oriented person place date and situation, delayed cognitive processing, slow response, difficulty with recall short-term and long- term events, cranial nerves II-XII grossly intact , moves bilateral feet, sensation intact to light touch. PSYCH: Flat affect, cooperative. Objective Labs Result Diagrams: 05/11/19 17:20 05/11/19 17:20 Labs: Laboratory Results - last 24 hr 05/11/19 05/11/19 05/11/19 17:00 17:20 17:20 WBC 5.6 RBC 3.07 L Hgb 9.8 L Hct 29.0 L MCV 94.6 MCH 32.0 MCHC 33.8 RDW 14.8 Plt Count 137 L Neut % (Auto) 75.8 H Lymph % (Auto) 12.5 L [place] % (Auto) 10.8 Eos % (Auto) 0.7 L Baso % (Auto) 0.2 Neut # (Auto) 4300 Lymph # (Auto) 700 L [place] # (Auto) 600 Eos # (Auto) 0 Baso # (Auto) 0 Sodium 122 L Potassium 4.6 Chloride 87 L Carbon Dioxide 29 BUN 32 H Creatinine 1.10 H Estimated GFR 47.3 L BUN/Creatinine Ratio 29.1 H Glucose 83 Calcium 8.5 Total Bilirubin 1.4 H AST 44 H ALT 19 Alkaline Phosphatase 80 Total Protein 5.8 L Albumin 3.2 L Globulin 2.6 Albumin/Globulin Ratio 1.2 Urine Color Yellow Urine Appearance Clear Urine pH 7.5 Ur Specific [place] 1.010 Urine Protein Negative Urine Glucose (UA) Negative Urine Ketones Negative Urine Occult Blood Negative Urine Nitrate Negative Urine Bilirubin Negative Urine Urobilinogen 0.2 Ur Leukocyte Esterase Negative Urine RBC None seen Urine WBC 0-1/hpf Ur Squamous Epith Cells 0-1 /hpf Urine Bacteria None seen Ur Culture Indicated? Cult not indicated Assessment & Plan Assessment & Plan narrative: This is an 84-year-old female patient who sustained a ground level, nonsyncopal fall several days ago with sudden onset right hip pain and has been nonambulatory since. 1. Left hip fracture, acute -patient with unwitnessed ground level fall landing on right hip with immediate pain and inability to ambulate but no other complaints of injury. -imaging demonstrates right periprosthetic trochanteric fracture that is nondisplaced -baseline level functioning is been ambulatory with walker -Dr. Vaz to consult, patient previously evaluated by Dr. Robles for left hip fracture. -PT and OT to evaluate and treat -Tylenol 650 mg orally or morphine 1-2 mg IV as needed for pain 2. Acute on chronic hyponatremia, present on admission. -Baseline sodium level 134, sodium level on admission is at a low christopher of 122 and a BUN of 32 and creatinine 1.1 elevated over baseline of 0.8. Glucose is 83. -etiology is unclear whether dehydration or excessive fluid intake, the patient appears clinically dehydrated, and will obtain a urine sodium, serum osmolality, TSH. -the patient will receive 1 L of normal saline and will re-evaluate sodium and renal function 3. Recurrent falls, active -patient denies dizziness, palpitations, orthostasis, however reliability of the patient's story is in question and the patient's is not available to supplement data. -patient denies chest pain or palpitation but will be monitored for arrhythmia -patient denies weakness or orthostasis, will obtain screening labs including magnesium and phosphorus 4. Grade 1 diastolic heart failure, chronic, stable. -identified on prior admission in October, echocardiogram: Normal LV size, wall thickness, wall motion and LV systolic function. EF is 55-60%. Stage I diastolic diastolic dysfunction. -no current complaints of chest pain shortness of breath or cough, patient appears dehydrated, not on diuretics. -breath sounds are clear bilaterally, no heart murmur appreciated, no peripheral edema. -EKG reviewed by myself finds sinus bradycardia with ventricular rate of 59 with a first-degree AV block, no ectopy, no ST or T-wave changes, no Q-waves noted -will monitor her heart rhythm on telemetry. 5. Hypertension, present on admission, active -elevated blood pressure upon admission at 150/69. -no complaints of chest pain shortness of breath. -will continue patient's Benicar 20 mg daily and monitor pressures 6. Normocytic normochromic anemia, chronic, active -baseline hemoglobin is 13.2 and on prior hospitalization for similar fracture was 11 and today on admission is 9.8. -patient without evidence of bleeding or bruising, liver function is bilirubin 1.4, AST of 44, ALT of 19 and alkaline phosphatase of 80. -the patient without identifiable right hematoma or ecchymosis. Renal function is adequate with a baseline creatinine of 0.8 increased to 1.1 today and does not appear to be associated with current medications.. -will follow CBC and treat as indicated. 7. Dementia with history of bipolar type 1 disorder, chronic, stable. -Patient is pleasant and cooperative. -Continue Risperdal 1.5 mg and Aricept 5 mg daily at bedtime. Not believed to be associated with hyponatremia and has been on medications for years. 8. Restless leg syndrome, chronic, stable. -Continue pramipexole 0.125 mg at bedtime. 9. Pituitary adenoma, present on admission. Active. -History of pituitary adenoma with historically variable elevated prolactin levels, -Will recheck prolactin and TSH -continue current home medication of Cabergoline 0.5 mg. 10. Secondary pancreatic insufficiency, chronic, stable. -Status post Whipple procedure. -Continue home dose of Creon 3 times daily with meals The patient is sustained a right periprosthetic greater trochanteric femur fracture related to a mechanical ground level fall and significant hyponatremia. Patient has been deemed nonsurgical at this time will admit the patient is inpatient for PT and OT, pain management and treatment of hypo natremia. The patient's expected length of stay is greater than 2 midnights. Scores GCS Rae coma scale eye opening: Spontaneous [place] coma scale verbal response: Orientated Rae coma scale motor response: Obey commands [place] coma scale total score: 15
[2019-05-11 22:39] VITALS: BMI 21.4
[2019-05-11 22:58] VITALS: BP 147/69; PULSE 48; RESP 20; TEMP 36.4; O2SAT 100
[2019-05-12] VITALS (9 sets, daily range): BP systolic 123–131; BP diastolic 60–68; PULSE 47–52; RESP 18–20; TEMP 36.3–37; O2SAT 95–98
[2019-05-12 00:05] LABS: Magnesium 2.1 mg/dL (1.6-2.3); Phosphorous 3.4 mg/dL (2.8-4.1)
[2019-05-12] MEDS: HEPARIN 5,000 UNIT/ML VIAL 5000 UNIT SUBCUT ×3 (00:26→21:08)
[2019-05-12 00:28] LABS: Prolactin 324.9 ng/mL (3.0-18.6)
[2019-05-12] MEDS: SODIUM CHLORIDE 0.9% 1,000 ML 125 ML IV (00:29)
[2019-05-12 00:41] LABS: Thyroid Stimulating Hormone 7.29 uIU/mL (0.47-4.68)
[2019-05-12 01:37] LABS: Free T4, Direct Thyroxine 1.94 ng/dL (0.78-2.19)
[2019-05-12] MEDS: ACETAMINOPHEN 325 MG TABLET 650 MG PO ×2 (04:37→21:11)
[2019-05-12 05:23] LABS: Add Manual Diff / Slide Review NO; Basophils Absolute Auto 0 /uL (0-100); Basophils Percent Auto 0.5 % (0-2); Eosinophils Absolute Auto 100 /uL (0-450); Hematocrit 27.2 % (36-46); Hemoglobin 9.3 g/dL (12.0-16.0); Lymphocytes Absolute Auto 700 /uL (1100-4500); Lymphocytes Percent Auto 15.1 % (25-40); Mean Corpuscular HGB Conc 34.1 % (30-36); Mean Corpuscular Volume 93.7 fL (80-100); Monocytes Absolute Auto 700 /uL (0-900); Monocytes Percent Auto 14.6 % (3-14); Neutrophils Absolute Auto 3200 /uL (1500-7000); Neutrophils Percent Auto 67.8 % (50-75); Platelet Count 135 X10^3/uL (150-400); Red Cell Distribution Width 14.7 % (11.6-14.8); White Blood Cell Count 4.8 X10^3/uL (4.5-11.0)
[2019-05-12 05:39] LABS: BUN Creatinine Ratio 27.8 (6-22); Blood Urea Nitrogen 25 mg/dL (7-17); Calcium 8.1 mg/dL (8.4-10.2); Carbon Dioxide 30 mmol/L (22-32); Chloride 89 mmol/L (98-107); Estimated Glomerular Filt Rate 59.7 mL/min (>60); Glucose 88 mg/dL (80-110); HEMOLYSIS < 15 (0-50); Potassium 4.4 mmol/L (3.4-5.1); Sodium 123 mmol/L (137-145)
--- NOTE | 2019-05-12 08:53 | CM.DANOTE ---
Addendum entered by Mikaela Cooper R.N. 05/12/19 15:35: Checked and verified patient's insurance. Has Medicare as primary, not [employer]. Updated Amy, and she is aware that patient will need to be here for three midnights. She will qualify for rehab by 05/14, on Tuesday. Addendum entered by Mikaela Cooper R.N. 05/12/19 09:28: Correction: Patient has [facility]. Went ahead and spoke to Amy at [facility], she will review. Authorization can take up to 24-48 hours, for her insurance. Original Note: DCP: Case received, EMR reviewed and met with patient. Introduced self and role. , Charli, was at bedside as well. Was able to obtain some baseline history regarding living situation and health from , as well as patient. DCP assessment completed with information currently available. Patient is an 84 year old female who admitted yesterday evening via air and ambulance to the care of the hospitalist team. PCP: Dr. Dale. Payer: confirmed: Medicare. Patient came to the hospital from [place] secondary to hip pain from a ground level fall at home. She had fallen approximately three days ago, was initially ambulating, and recently, was unable to ambulate. Patient normally ambulates with a FWW. Confirmed this with and patient. She has had a history of hip surgery from falls. She currently holds diagnosis of possible acute fracture of lateral proximal greater trochanter. stated, it's a hair line fracture of her hip. He stated, she will need rehab, she has been to [facility] before for her hips. Patient has history of dementia, but alert and oriented. Lives on [place] with her , Charli, who is surrogate decision maker. At baseline she uses FWW. Patient does not drive, but is able to help with meals. They have no immediate family in the area. P: DCP to continue to follow. Will consult with Steffen in [place] regarding inpatient status, and she should be working with P.T. According to notes, patient is not a surgical candidate. Mikaela Cooper RN/[employer]
--- NOTE | 2019-05-12 10:53 | PM.CN ---
History of Present Illness Date Patient Seen: 05/12/19 Time Patient Seen: 10:30 Chief complaint: GLF, Hip Pain Reason for consult: Right hip pain Narrative: 84-year-old female who sustained a ground level fall a few days ago injuring the right hip. Due to continued pain and discomfort patient was transferred to [facility] Emergency room where x-rays and CT scan showed a very minimally displaced greater trochanter fracture. Patient sustained a similar injury on the left side earlier this year. Patient mainly ambulates with a wheelchair or a walker. An overall is not very ambulatory. Patient is status post bilateral total hips which were done in the . Patient does not recall who did her surgeries. Patient was admitted for pain control as well as difficulty with ambulation. [facility] Medical History Diastolic heart failure (Acute) Bipolar 1 disorder (Acute) Cellulitis of leg without foot, right (Acute) Hypertension (Acute) Knee pain, right (Acute) Pituitary adenoma (Acute) Surgical History History of pancreatic surgery (Acute) History of hip replacement History of hip replacement Family History Mother Dementia Father Suicide Social History household members: spouse Smoking Status: Former smoker alcohol intake: current Family History Mother Dementia Father Suicide Social History household members: spouse Smoking Status: Former smoker alcohol intake: current Meds Home Medications Medication Instructions Recorded Confirmed Type cabergoline 0.5 mg PO SEE INSTRUCTIONS #8 tab 11/01/16 05/11/19 History mcnukq-opaxnliz-[id number] 1,200 units PO TID 10/22/18 05/11/19 History olmesartan [Benicar] 20 mg PO Q DAY 10/22/18 05/11/19 History pramipexole 0.125 mg PO BEDTIME 10/22/18 05/11/19 History risperidone [Risperdal] 1.5 mg PO HS 10/22/18 05/11/19 History famciclovir 05/11/19 History Allergies Allergy/AdvReac Type Severity Reaction Status Date / Time codeine [CODEINE] Allergy Unknown NAUSEA Verified 10/22/18 17:37 Penicillins [PENICILLINS] Allergy Unknown SWELLING Verified 10/22/18 17:37 TO SITE OF INJECTION Review of Systems Review of Systems All systems reviewed & are unremarkable except as noted in HPI and below Exam Vital Signs (past 8 hours): - 05/12/19 04:15 05/12/19 08:00 Temperature 97.6 F 97.3 F L Pulse Rate 52 L 48 L Respiratory Rate 18 20 Blood Pressure 127/60 123/68 Pulse Oximetry 98 98 Oxygen Delivery Method Room Air Oxygen Flow Rate 0 Narrative Exam Narrative: On Physical exam patient is alert and oriented. Does not seem to be in any apparent distress. Patient is not a very good historian in regards to either hip. States that she is relatively pain-free while she is sitting up in bed. No sign of any shortening or rotation to either leg. Able to dorsiflex and plantar flex the toes and ankles bilaterally. Possible pedal pulses brisk cap refill. Nontender to palpation to bilateral calves. No significant pain with passive range of motion of the hips but pain with any type of active range of motion to the right side. Objective Labs Result Diagrams: 05/12/19 05:10 05/12/19 05:15 Labs: Laboratory Results - last 24 hr 05/11/19 05/11/19 05/11/19 17:00 17:20 17:20 WBC 5.6 RBC 3.07 L Hgb 9.8 L Hct 29.0 L MCV 94.6 MCH 32.0 MCHC 33.8 RDW 14.8 Plt Count 137 L Neut % (Auto) 75.8 H Lymph % (Auto) 12.5 L [place] % (Auto) 10.8 Eos % (Auto) 0.7 L Baso % (Auto) 0.2 Neut # (Auto) 4300 Lymph # (Auto) 700 L [place] # (Auto) 600 Eos # (Auto) 0 Baso # (Auto) 0 Sodium 122 L Potassium 4.6 Chloride 87 L Carbon Dioxide 29 BUN 32 H Creatinine 1.10 H Estimated GFR 47.3 L BUN/Creatinine Ratio 29.1 H Glucose 83 Calcium 8.5 Phosphorus Magnesium Total Bilirubin 1.4 H AST 44 H ALT 19 Alkaline Phosphatase 80 Total Protein 5.8 L Albumin 3.2 L Globulin 2.6 Albumin/Globulin Ratio 1.2 TSH Free T4 Prolactin Urine Color Yellow Urine Appearance Clear Urine pH 7.5 Ur Specific [place] 1.010 Urine Protein Negative Urine Glucose (UA) Negative Urine Ketones Negative Urine Occult Blood Negative Urine Nitrate Negative Urine Bilirubin Negative Urine Urobilinogen 0.2 Ur Leukocyte Esterase Negative Urine RBC None seen Urine WBC 0-1/hpf Ur Squamous Epith Cells 0-1 /hpf Urine Bacteria None seen Ur Culture Indicated? Cult not indicated 05/11/19 05/11/19 05/12/19 23:45 23:45 00:05 WBC RBC Hgb Hct MCV MCH MCHC RDW Plt Count Neut % (Auto) Lymph % (Auto) [place] % (Auto) Eos % (Auto) Baso % (Auto) Neut # (Auto) Lymph # (Auto) [place] # (Auto) Eos # (Auto) Baso # (Auto) Sodium Potassium Chloride Carbon Dioxide BUN Creatinine Estimated GFR BUN/Creatinine Ratio Glucose Calcium Phosphorus 3.4 Magnesium 2.1 Total Bilirubin AST ALT Alkaline Phosphatase Total Protein Albumin Globulin Albumin/Globulin Ratio TSH 7.29 H Free T4 1.94 Prolactin 324.9 H Urine Color Urine Appearance Urine pH Ur Specific [place] Urine Protein Urine Glucose (UA) Urine Ketones Urine Occult Blood Urine Nitrate Urine Bilirubin Urine Urobilinogen Ur Leukocyte Esterase Urine RBC Urine WBC Ur Squamous Epith Cells Urine Bacteria Ur Culture Indicated? 05/12/19 05/12/19 05:10 05:15 WBC 4.8 RBC 2.90 L Hgb 9.3 L Hct 27.2 L MCV 93.7 MCH 32.0 MCHC 34.1 RDW 14.7 Plt Count 135 L Neut % (Auto) 67.8 Lymph % (Auto) 15.1 L [place] % (Auto) 14.6 H Eos % (Auto) 2.0 Baso % (Auto) 0.5 Neut # (Auto) 3200 Lymph # (Auto) 700 L [place] # (Auto) 700 Eos # (Auto) 100 Baso # (Auto) 0 Sodium 123 L Potassium 4.4 Chloride 89 L Carbon Dioxide 30 BUN 25 H Creatinine 0.90 Estimated GFR 59.7 L BUN/Creatinine Ratio 27.8 H Glucose 88 Calcium 8.1 L Phosphorus Magnesium Total Bilirubin AST ALT Alkaline Phosphatase Total Protein Albumin Globulin Albumin/Globulin Ratio TSH Free T4 Prolactin Urine Color Urine Appearance Urine pH Ur Specific [place] Urine Protein Urine Glucose (UA) Urine Ketones Urine Occult Blood Urine Nitrate Urine Bilirubin Urine Urobilinogen Ur Leukocyte Esterase Urine RBC Urine WBC Ur Squamous Epith Cells Urine Bacteria Ur Culture Indicated? Assessment & Plan Assessment & Plan narrative: Patient status post ground level fall with a minimally displaced greater trochanteric fracture with no sign of any obvious implant loosening. Patient sustained a very similar injury on the left side which was treated non operatively. This injury on the right is also something that will be treated non operatively. Patient can be weight bearing as tolerated to bilateral lower extremities. At this point, do not see any need for any surgical intervention.
--- NOTE | 2019-05-12 11:22 | PT.IIE ---
Current Diagnoses Displaced fracture of greater trochanter of right femur, initial encounter for closed fracture (05/11/19) Surgical History (Last Reviewed 05/12/19 @ 10:56 by Eliot Vaz MD) History of pancreatic surgery (Acute) History of hip replacement History of hip replacement Medical History (Last Reviewed 05/12/19 @ 10:56 by Eliot Vaz MD) Diastolic heart failure (Acute) Bipolar 1 disorder (Acute) Cellulitis of leg without foot, right (Acute) Hypertension (Acute) Knee pain, right (Acute) Pituitary adenoma (Acute) Physical Therapy Inpatient Evaluation/Re-Eval M1 PT/OT-IP Prior Functional Status Start: 05/12/19 14:00 Freq: NEEDED Status: Active Protocol: Document 05/12/19 11:22 AB (Rec: 05/12/19 14:11 AB [id number]) Medical Review Prior Functional Status Medical History Reviewed Yes Communication able to make needs known Mobility and Gait pt stated that she is modified independent with all mobilities and ambulation using FWW Social History Household Members spouse Living Arrangements House Number of Floors (Floors) One Floor Number of Stairs To Enter/Railing? pt lives in [place] no steps to enter Home Environment Standard Height Toilet Walk in Shower Built-In Shower Seat Home Equipment Hand Held Shower Grab Bars Near Toilet Grab Bars In Shower Employment Status Retired M2 PT-IP Current Condition Start: 05/12/19 14:00 Freq: NEEDED Status: Active Protocol: Document 05/12/19 11:22 AB (Rec: 05/12/19 14:11 AB [id number]) Physical Therapy Current Condition Current Condition Evaluation Date 05/12/19 Treatment Diagnosis R periprosthetic intertrochanteric fx; difficulty in walking Onset Date 05/11/19 Weight Bearing Status Weight Bearing Status Weight Bear as Tolerated M3 PT-IP Subjective Start: 05/12/19 14:00 Freq: NEEDED Status: Active Protocol: Document 05/12/19 11:22 AB (Rec: 05/12/19 14:11 AB [id number]) Subjective Physical Therapy Visit Type Type Initial Evaluation Visit Start Time 11:22 Visit Stop Time 12:08 Total Visit Minutes 46 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 0 Physical Therapy Visit Comments Patient Comments pt agreed to get up Therapy Pain Assessment Pain When Pain Assessed At Rest Pain Present Pain Present Pain Reported Location Left Hip Intensity 9 Scale Used Numeric (1 - 10) Pain Behaviors Calling Out Guarding Holding Area Pain Management Techniques Apply Cold Re-positioning Timing of Activity with Medications M4 PT-IP Mobility and Gait Start: 05/12/19 14:00 Freq: NEEDED Status: Active Protocol: Document 05/12/19 11:22 AB (Rec: 05/12/19 14:11 AB [id number]) PT-Bed Mobility Assessment Supine to Sit Supine to Sit Maximum Assistance 1 Person Assistance 2 Person Assistance Head of Bed Elevated Bedrails Scooting Scooting to Edge of Bed Dependent PT-Transfer Assessment Sit to and From Stand Sit to and from Stand Maximum Assistance 2 Person Assistance Use of Upper Extremities Equipment Transfer Assistive Device Gait Belt Front Wheeled Walker Orthotic/Prosthetic Devices or Brace: No Transfers Transfer Destination Chair Transfer Technique Stand Pivot Transfer Ability Level of Assist Maximum Assistance 2 Person Assistance Use of Upper Extremities Comments Mobility Comments pt completed sit to stand max A x 2 and max cues. pt with increase guarding during standing requiring assist to weight shift and move RLE during transfers. positioned pt on the chair. call light and table set within reach. PT-Balance Assessment Sitting Balance and Reactions Static Sitting Balance Ability Good Dynamic Sitting Balance Ability Fair Standing Balance and Reactions Static Standing Balance Ability Poor Dynamic Standing Balance Ability Poor Device Used FWW M5 PT-IP Objective Assessments Start: 05/12/19 14:00 Freq: NEEDED Status: Active Protocol: Document 05/12/19 11:22 AB (Rec: 05/12/19 14:11 AB [id number]) Orientation Orientation/Cognition Level of Alertness Confusional State Orientation Name Situation Safety Awareness Decreased Safety Awareness Memory Description Short Term Impaired Chcf Impaired Gross Range of Motion Lower Extremity ROM Assessment Right Impaired Impairments increase RLE guarding during PROM Strength Lower Extremity Strength Assessment Right Impaired Hip 2-/5 Knee 2+/5 Sensation Assessment Sensation Gross Sensation WNL M6 PT-IP Treatment Start: 05/12/19 14:00 Freq: NEEDED Status: Active Protocol: Document 05/12/19 11:22 AB (Rec: 05/12/19 14:11 AB [id number]) Physical Therapy Treatment Exercises Exercises Heel Slides Education Education Provided Weight Bearing Status Safety M7 PT-IP Assessment and Plan Start: 05/12/19 14:00 Freq: NEEDED Status: Active Protocol: Document 05/12/19 11:22 AB (Rec: 05/12/19 14:11 AB [id number]) PT Summary Assessment and Plan Potential Rehabilitation Potential Fair Status of Condition at Evaluation Evolving Summary Impairments Pain ROM Strength Balance Coordination Sensation Tone Cognition Bed Mobility Transfers Gait Activity Tolerance Assessment Summary pt with increaes pain affecting mobility. increase muscle guarding during mobility and requiring max A x 2 for mobility. pt will require SNF rehab to improve strength and mobility. Goals Bed Mobility Goal Standby Assistance Transfer Goal Standby Assistance Front Wheeled Walker Gait Goal Standby Assistance Front Wheel Walker Gait Distance 100 Days to Meet Goals 10 Frequency of Treatment Frequency Of Treatment Twice a Day Treatment Plan Physical Therapy Treatment Plan Bed Mobility Training Transfer Training Gait Training Therapeutic Exercise Balance Retraining Post Op Education Discharge Planning Hot or Cold Pack Neuromuscular Re-ed Coordination Retraining Manual Therapy Recommendations To Nursing Amount of Assist Needed Mechanical Lift Discharge Recommendations PT Discharge Recommendations SNF Rehab
--- NOTE | 2019-05-12 11:30 | PM.PN.1 ---
Subjective Date Patient Seen: 05/12/19 Interval history: Chart reviewed patient seen and examined. The patient is an 84-year-old female who suffered a ground level fall last evening resulting in a right periprosthetic fracture. According to her the patient was in the kitchen late at night and lost her balance and fell. She denies any lightheadedness or dizziness prior to her fall. She had a similar episode in October of this year. She has been evaluated by Orthopedic surgery who concur that non operative management is the best approach. She will receive PT OT and pain control. Plans are underway for her to be transferred to half-way according to her they prefer the dog 0 if at all possible. The patient continues to have significant pain with minimal movement of her right lower extremity. Exam Vital Signs (past 8 hours): - 05/12/19 04:15 05/12/19 08:00 Temperature 97.6 F 97.3 F L Pulse Rate 52 L 48 L Respiratory Rate 18 20 Blood Pressure 127/60 123/68 Pulse Oximetry 98 98 Oxygen Delivery Method Room Air Oxygen Flow Rate 0 Narrative Exam Narrative: Pleasant female resting comfortably in no obvious distress Lungs: Clear to auscultation Cardiac exam: Regular rate rhythm normal S1-S2 Abdomen: Soft and nontender Extremities no edema Objective Labs Result Diagrams: 05/12/19 05:10 05/12/19 05:15 Labs: Laboratory Results - last 24 hr 05/11/19 05/11/19 05/11/19 17:00 17:20 17:20 WBC 5.6 RBC 3.07 L Hgb 9.8 L Hct 29.0 L MCV 94.6 MCH 32.0 MCHC 33.8 RDW 14.8 Plt Count 137 L Neut % (Auto) 75.8 H Lymph % (Auto) 12.5 L [place] % (Auto) 10.8 Eos % (Auto) 0.7 L Baso % (Auto) 0.2 Neut # (Auto) 4300 Lymph # (Auto) 700 L [place] # (Auto) 600 Eos # (Auto) 0 Baso # (Auto) 0 Sodium 122 L Potassium 4.6 Chloride 87 L Carbon Dioxide 29 BUN 32 H Creatinine 1.10 H Estimated GFR 47.3 L BUN/Creatinine Ratio 29.1 H Glucose 83 Calcium 8.5 Phosphorus Magnesium Total Bilirubin 1.4 H AST 44 H ALT 19 Alkaline Phosphatase 80 Total Protein 5.8 L Albumin 3.2 L Globulin 2.6 Albumin/Globulin Ratio 1.2 TSH Free T4 Prolactin Urine Color Yellow Urine Appearance Clear Urine pH 7.5 Ur Specific [place] 1.010 Urine Protein Negative Urine Glucose (UA) Negative Urine Ketones Negative Urine Occult Blood Negative Urine Nitrate Negative Urine Bilirubin Negative Urine Urobilinogen 0.2 Ur Leukocyte Esterase Negative Urine RBC None seen Urine WBC 0-1/hpf Ur Squamous Epith Cells 0-1 /hpf Urine Bacteria None seen Ur Culture Indicated? Cult not indicated 05/11/19 05/11/19 05/12/19 23:45 23:45 00:05 WBC RBC Hgb Hct MCV MCH MCHC RDW Plt Count Neut % (Auto) Lymph % (Auto) [place] % (Auto) Eos % (Auto) Baso % (Auto) Neut # (Auto) Lymph # (Auto) [place] # (Auto) Eos # (Auto) Baso # (Auto) Sodium Potassium Chloride Carbon Dioxide BUN Creatinine Estimated GFR BUN/Creatinine Ratio Glucose Calcium Phosphorus 3.4 Magnesium 2.1 Total Bilirubin AST ALT Alkaline Phosphatase Total Protein Albumin Globulin Albumin/Globulin Ratio TSH 7.29 H Free T4 1.94 Prolactin 324.9 H Urine Color Urine Appearance Urine pH Ur Specific [place] Urine Protein Urine Glucose (UA) Urine Ketones Urine Occult Blood Urine Nitrate Urine Bilirubin Urine Urobilinogen Ur Leukocyte Esterase Urine RBC Urine WBC Ur Squamous Epith Cells Urine Bacteria Ur Culture Indicated? 05/12/19 05/12/19 05:10 05:15 WBC 4.8 RBC 2.90 L Hgb 9.3 L Hct 27.2 L MCV 93.7 MCH 32.0 MCHC 34.1 RDW 14.7 Plt Count 135 L Neut % (Auto) 67.8 Lymph % (Auto) 15.1 L [place] % (Auto) 14.6 H Eos % (Auto) 2.0 Baso % (Auto) 0.5 Neut # (Auto) 3200 Lymph # (Auto) 700 L [place] # (Auto) 700 Eos # (Auto) 100 Baso # (Auto) 0 Sodium 123 L Potassium 4.4 Chloride 89 L Carbon Dioxide 30 BUN 25 H Creatinine 0.90 Estimated GFR 59.7 L BUN/Creatinine Ratio 27.8 H Glucose 88 Calcium 8.1 L Phosphorus Magnesium Total Bilirubin AST ALT Alkaline Phosphatase Total Protein Albumin Globulin Albumin/Globulin Ratio TSH Free T4 Prolactin Urine Color Urine Appearance Urine pH Ur Specific [place] Urine Protein Urine Glucose (UA) Urine Ketones Urine Occult Blood Urine Nitrate Urine Bilirubin Urine Urobilinogen Ur Leukocyte Esterase Urine RBC Urine WBC Ur Squamous Epith Cells Urine Bacteria Ur Culture Indicated? Assessment & Plan Assessment & Plan narrative: -Tylenol 650 mg orally or morphine 1-2 mg IV as needed for pain 2. Acute on chronic hyponatremia, present on admission. -Baseline sodium level 134, sodium level on admission is at a low christopher of 122 and a BUN of 32 and creatinine 1.1 elevated over baseline of 0.8. Glucose is 83. -etiology is unclear whether dehydration or excessive fluid intake, the patient appears clinically dehydrated, and will obtain a urine sodium, serum osmolality, TSH. -the patient will receive 1 L of normal saline and will re-evaluate sodium and renal function. Will place the patient on a free water restriction, and await his serum osmolality, will start low-dose thyroid as well. 3. Recurrent falls, active -patient denies dizziness, palpitations, orthostasis, however reliability of the patient's story is in question and the patient's is not available to supplement data. -patient denies chest pain or palpitation but will be monitored for arrhythmia -patient denies weakness or orthostasis, will obtain screening labs including magnesium and phosphorus 4. Grade 1 diastolic heart failure, chronic, stable. -identified on prior admission in October, echocardiogram: Normal LV size, wall thickness, wall motion and LV systolic function. EF is 55-60%. Stage I diastolic diastolic dysfunction. -no current complaints of chest pain shortness of breath or cough, patient appears dehydrated, not on diuretics. -breath sounds are clear bilaterally, no heart murmur appreciated, no peripheral edema. -EKG reviewed by myself finds sinus bradycardia with ventricular rate of 59 with a first-degree AV block, no ectopy, no ST or T-wave changes, no Q-waves noted -will monitor her heart rhythm on telemetry. 5. Hypertension, present on admission, active -elevated blood pressure upon admission at 150/69. -no complaints of chest pain shortness of breath. -will continue patient's Benicar 20 mg daily and monitor pressures 6. Normocytic normochromic anemia, chronic, active -baseline hemoglobin is 13.2 and on prior hospitalization for similar fracture was 11 and today on admission is 9.8. -patient without evidence of bleeding or bruising, liver function is bilirubin 1.4, AST of 44, ALT of 19 and alkaline phosphatase of 80. -the patient without identifiable right hematoma or ecchymosis. Renal function is adequate with a baseline creatinine of 0.8 increased to 1.1 today and does not appear to be associated with current medications.. -will follow CBC and treat as indicated. 7. Dementia with history of bipolar type 1 disorder, chronic, stable. -Patient is pleasant and cooperative. -Continue Risperdal 1.5 mg and Aricept 5 mg daily at bedtime. Not believed to be associated with hyponatremia and has been on medications for years. 8. Restless leg syndrome, chronic, stable. 9. Pituitary adenoma, present on admission. Active. -History of pituitary adenoma with historically variable elevated prolactin levels, -Will recheck prolactin and TSH -continue current home medication of Cabergoline 0.5 mg. 10. Secondary pancreatic insufficiency, chronic, stable. -Status post Whipple procedure. -Continue home dose of Creon 3 times daily with meals
--- NOTE | 2019-05-12 11:34 | P.PN_ITS ---
Subjective Date Patient Seen: 05/12/19 Interval history: Chart reviewed patient seen and examined. The patient is an 84-year-old female who suffered a ground level fall last evening resulting in a right periprosthetic fracture. According to her the patient was in the kitchen late at night and lost her balance and fell. She denies any lightheadedness or dizziness prior to her fall. She had a similar episode in October of this year. She has been evaluated by Orthopedic surgery who concur that non operative management is the best approach. She will receive PT OT and pain control. Plans are underway for her to be transferred to halfway according to her they prefer the dog 0 if at all possible. The patient continues to have significant pain with minimal movement of her right lower extremity. Exam Vital Signs (past 8 hours): - 05/12/19 04:15 05/12/19 08:00 Temperature 97.6 F 97.3 F L Pulse Rate 52 L 48 L Respiratory Rate 18 20 Blood Pressure 127/60 123/68 Pulse Oximetry 98 98 Oxygen Delivery Method Room Air Oxygen Flow Rate 0 Narrative Exam Narrative: Pleasant female resting comfortably in no obvious distress Lungs: Clear to auscultation Cardiac exam: Regular rate rhythm normal S1-S2 Abdomen: Soft and nontender Extremities no edema Objective Labs Result Diagrams: 05/12/19 05:10 05/12/19 05:15 Labs: Laboratory Results - last 24 hr 05/11/19 05/11/19 05/11/19 17:00 17:20 17:20 WBC 5.6 RBC 3.07 L Hgb 9.8 L Hct 29.0 L MCV 94.6 MCH 32.0 MCHC 33.8 RDW 14.8 Plt Count 137 L Neut % (Auto) 75.8 H Lymph % (Auto) 12.5 L [place] % (Auto) 10.8 Eos % (Auto) 0.7 L Baso % (Auto) 0.2 Neut # (Auto) 4300 Lymph # (Auto) 700 L [place] # (Auto) 600 Eos # (Auto) 0 Baso # (Auto) 0 Sodium 122 L Potassium 4.6 Chloride 87 L Carbon Dioxide 29 BUN 32 H Creatinine 1.10 H Estimated GFR 47.3 L BUN/Creatinine Ratio 29.1 H Glucose 83 Calcium 8.5 Phosphorus Magnesium Total Bilirubin 1.4 H AST 44 H ALT 19 Alkaline Phosphatase 80 Total Protein 5.8 L Albumin 3.2 L Globulin 2.6 Albumin/Globulin Ratio 1.2 TSH Free T4 Prolactin Urine Color Yellow Urine Appearance Clear Urine pH 7.5 Ur Specific [place] 1.010 Urine Protein Negative Urine Glucose (UA) Negative Urine Ketones Negative Urine Occult Blood Negative Urine Nitrate Negative Urine Bilirubin Negative Urine Urobilinogen 0.2 Ur Leukocyte Esterase Negative Urine RBC None seen Urine WBC 0-1/hpf Ur Squamous Epith Cells 0-1 /hpf Urine Bacteria None seen Ur Culture Indicated? Cult not indicated 05/11/19 05/11/19 05/12/19 23:45 23:45 00:05 WBC RBC Hgb Hct MCV MCH MCHC RDW Plt Count Neut % (Auto) Lymph % (Auto) [place] % (Auto) Eos % (Auto) Baso % (Auto) Neut # (Auto) Lymph # (Auto) [place] # (Auto) Eos # (Auto) Baso # (Auto) Sodium Potassium Chloride Carbon Dioxide BUN Creatinine Estimated GFR BUN/Creatinine Ratio Glucose Calcium Phosphorus 3.4 Magnesium 2.1 Total Bilirubin AST ALT Alkaline Phosphatase Total Protein Albumin Globulin Albumin/Globulin Ratio TSH 7.29 H Free T4 1.94 Prolactin 324.9 H Urine Color Urine Appearance Urine pH Ur Specific [place] Urine Protein Urine Glucose (UA) Urine Ketones Urine Occult Blood Urine Nitrate Urine Bilirubin Urine Urobilinogen Ur Leukocyte Esterase Urine RBC Urine WBC Ur Squamous Epith Cells Urine Bacteria Ur Culture Indicated? 05/12/19 05/12/19 05:10 05:15 WBC 4.8 RBC 2.90 L Hgb 9.3 L Hct 27.2 L MCV 93.7 MCH 32.0 MCHC 34.1 RDW 14.7 Plt Count 135 L Neut % (Auto) 67.8 Lymph % (Auto) 15.1 L [place] % (Auto) 14.6 H Eos % (Auto) 2.0 Baso % (Auto) 0.5 Neut # (Auto) 3200 Lymph # (Auto) 700 L [place] # (Auto) 700 Eos # (Auto) 100 Baso # (Auto) 0 Sodium 123 L Potassium 4.4 Chloride 89 L Carbon Dioxide 30 BUN 25 H Creatinine 0.90 Estimated GFR 59.7 L BUN/Creatinine Ratio 27.8 H Glucose 88 Calcium 8.1 L Phosphorus Magnesium Total Bilirubin AST ALT Alkaline Phosphatase Total Protein Albumin Globulin Albumin/Globulin Ratio TSH Free T4 Prolactin Urine Color Urine Appearance Urine pH Ur Specific [place] Urine Protein Urine Glucose (UA) Urine Ketones Urine Occult Blood Urine Nitrate Urine Bilirubin Urine Urobilinogen Ur Leukocyte Esterase Urine RBC Urine WBC Ur Squamous Epith Cells Urine Bacteria Ur Culture Indicated? Assessment & Plan Assessment & Plan narrative: -Tylenol 650 mg orally or morphine 1-2 mg IV as needed for pain 2. Acute on chronic hyponatremia, present on admission. -Baseline sodium level 134, sodium level on admission is at a low christopher of 122 a nd a BUN of 32 and creatinine 1.1 elevated over baseline of 0.8. Glucose is 83. -etiology is unclear whether dehydration or excessive fluid intake, the patient appears clinically dehydrated, and will obtain a urine sodium, serum osmolality, TSH. -the patient will receive 1 L of normal saline and will re-evaluate sodium and renal function. Will place the patient on a free water restriction, and await his serum osmolality, will start low-dose thyroid as well. 3. Recurrent falls, active -patient denies dizziness, palpitations, orthostasis, however reliability of the patient's story is in question and the patient's is not available to supplement data. -patient denies chest pain or palpitation but will be monitored for arrhythmia -patient denies weakness or orthostasis, will obtain screening labs including magnesium and phosphorus 4. Grade 1 diastolic heart failure, chronic, stable. -identified on prior admission in October, echocardiogram: Normal LV size, wall thickness, wall motion and LV systolic function. EF is 55-60%. Stage I diastolic diastolic dysfunction. -no current complaints of chest pain shortness of breath or cough, patient appears dehydrated, not on diuretics. -breath sounds are clear bilaterally, no heart murmur appreciated, no peripheral edema. -EKG reviewed by myself finds sinus bradycardia with ventricular rate of 59 with a first-degree AV block, no ectopy, no ST or T-wave changes, no Q-waves noted -will monitor her heart rhythm on telemetry. 5. Hypertension, present on admission, active -elevated blood pressure upon admission at 150/69. -no complaints of chest pain shortness of breath. -will continue patient's Benicar 20 mg daily and monitor pressures 6. Normocytic normochromic anemia, chronic, active -baseline hemoglobin is 13.2 and on prior hospitalization for similar fracture was 11 and today on admission is 9.8. -patient without evidence of bleeding or bruising, liver function is bilirubin 1.4, AST of 44, ALT of 19 and alkaline phosphatase of 80. -the patient without identifiable right hematoma or ecchymosis. Renal function is adequate with a baseline creatinine of 0.8 increased to 1.1 today and does not appear to be associated with current medications.. -will follow CBC and treat as indicated. 7. Dementia with history of bipolar type 1 disorder, chronic, stable. -Patient is pleasant and cooperative. -Continue Risperdal 1.5 mg and Aricept 5 mg daily at bedtime. Not believed to be associated with hyponatremia and has been on medications for years. 8. Restless leg syndrome, chronic, stable. 9. Pituitary adenoma, present on admission. Active. -History of pituitary adenoma with historically variable elevated prolactin levels, -Will recheck prolactin and TSH -continue current home medication of Cabergoline 0.5 mg. 10. Secondary pancreatic insufficiency, chronic, stable. -Status post Whipple procedure. -Continue home dose of Creon 3 times daily with meals
[2019-05-12 11:43] LABS: Sodium Urine Random 27 mmol/L (30-90)
[2019-05-12] MEDS: MORPHINE 2 MG/ML INJ IV ×2 (11:51→21:26)
[2019-05-12] MEDS: LIPASE/PROTEASE/AMYLASE 5/17/24 CAP PO ×2 (13:07→17:00)
--- NOTE | 2019-05-12 15:15 | PT.IPTN ---
Current Diagnoses Displaced fracture of greater trochanter of right femur, initial encounter for closed fracture (05/11/19) Physical Therapy Treatment Note M2 PT-IP Current Condition Start: 05/12/19 14:00 Freq: NEEDED Status: Active Protocol: Document 05/12/19 11:22 AB (Rec: 05/12/19 14:11 AB [id number]) Physical Therapy Current Condition Current Condition Evaluation Date 05/12/19 Treatment Diagnosis R periprosthetic intertrochanteric fx; difficulty in walking Onset Date 05/11/19 Weight Bearing Status Weight Bearing Status Weight Bear as Tolerated M3 PT-IP Subjective Start: 05/12/19 14:00 Freq: NEEDED Status: Active Protocol: Document 05/12/19 15:15 AB (Rec: 05/12/19 16:03 AB [id number]) Subjective Physical Therapy Visit Type Type Treatment Note Visit Start Time 15:15 Visit Stop Time 15:56 Total Visit Minutes 35 Number of PRACTICE BILLING ASSOCIATE Visits 0 Physical Therapy Visit Comments Patient Comments pt agreeable to do PT Therapy Pain Assessment Pain When Pain Assessed During Mobility Pain Present Pain Present Pain Reported Location Left Hip Scale Used pain scale not stated Pain Behaviors Calling Out Guarding Pain Management Techniques Re-positioning Timing of Activity with Medications M4 PT-IP Mobility and Gait Start: 05/12/19 14:00 Freq: NEEDED Status: Active Protocol: Document 05/12/19 15:15 AB (Rec: 05/12/19 16:03 AB [id number]) PT-Transfer Assessment Sit to and From Stand Sit to and from Stand Maximum Assistance 2 Person Assistance Use of Upper Extremities Equipment Transfer Assistive Device Gait Belt Front Wheeled Walker Orthotic/Prosthetic Devices or Brace: No Transfers Transfer Destination Bedside Commode Transfer Technique Stand Pivot Transfer Ability Level of Assist Maximum Assistance 1 Person Assistance Use of Upper Extremities Comments Mobility Comments pt completed sit to stand from chair max A x 2 and max cues. pt screaming and guarding with c/o R hip pain. pt requires assist with weight shifting and cues to focus on movement and not on pain. pt requires assist to move RLE for transfer to bedside commode using FWW max A x 2 and max cues. pt wanted to sit on the commode for a few minutes. call light placed next to pt. checked on pt after ~ 10 min and pt does not want to get out of the commode. educated pt and agreed to get back on the chair. pt completed sit to stand from the commode max A x 2 and max cues. pt required max A x 1-2 to maintain standing using FWW for support while NAC assisted with hygiene care. pt completed stand step pivot transfer using FWW max A x 2 and max cues. positioned pt on chair. call light and table placed within reach. M5 PT-IP Objective Assessments Start: 05/12/19 14:00 Freq: NEEDED Status: Active Protocol: Document 05/12/19 11:22 AB (Rec: 05/12/19 14:11 AB [id number]) Orientation Orientation/Cognition Level of Alertness Confusional State Orientation Name Situation Safety Awareness Decreased Safety Awareness Memory Description Short Term Impaired Mcc Impaired Gross Range of Motion Lower Extremity ROM Assessment Right Impaired Impairments increase RLE guarding during PROM Strength Lower Extremity Strength Assessment Right Impaired Hip 2-/5 Knee 2+/5 Sensation Assessment Sensation Gross Sensation WNL M6 PT-IP Treatment Start: 05/12/19 14:00 Freq: NEEDED Status: Active Protocol: Document 05/12/19 11:22 AB (Rec: 05/12/19 14:11 AB [id number]) Physical Therapy Treatment Exercises Exercises Heel Slides Education Education Provided Weight Bearing Status Safety M7 PT-IP Assessment and Plan Start: 05/12/19 14:00 Freq: NEEDED Status: Active Protocol: Document 05/12/19 15:15 AB (Rec: 05/12/19 16:03 AB [id number]) PT Summary Assessment and Plan Potential Rehabilitation Potential Fair Summary Impairments Pain ROM Strength Balance Coordination Sensation Tone Cognition Bed Mobility Transfers Gait Activity Tolerance Progress Towards Goals Slow Progress due to Pain Assessment Summary pt continues to require max A x 2 with transfers using FWW and unable to tolerate much due to pain. pt will need SNF rehab to improve mobility. Goals Bed Mobility Goal Standby Assistance Transfer Goal Standby Assistance Front Wheeled Walker Gait Goal Standby Assistance Front Wheel Walker Gait Distance 100 Days to Meet Goals 10 Treatment Plan Physical Therapy Treatment Plan Bed Mobility Training Transfer Training Gait Training Therapeutic Exercise Balance Retraining Post Op Education Discharge Planning Hot or Cold Pack Neuromuscular Re-ed Coordination Retraining Manual Therapy Recommendations To Nursing Amount of Assist Needed Mechanical Lift Discharge Recommendations PT Discharge Recommendations SNF Rehab
[2019-05-12] MEDS: risperiDONE 1 MG TABLET 1.5 MG PO (21:07)
[2019-05-12] MEDS: DOCUSATE 100 MG CAPSULE PO (21:08)
[2019-05-12] MEDS: valACYclovir 500 MG TABLET PO (21:08)
[2019-05-12] MEDS: DONEPEZIL 5 MG TABLET PO (21:08)
[2019-05-13 03:29] VITALS: BP 141/70; PULSE 47; RESP 18; TEMP 36.5; O2SAT 97
[2019-05-13 05:48] LABS: Add Manual Diff / Slide Review NO; Basophils Absolute Auto 0 /uL (0-100); Basophils Percent Auto 0.3 % (0-2); Eosinophils Absolute Auto 100 /uL (0-450); Eosinophils Percent Auto 1.4 % (2-4); Hematocrit 27.5 % (36-46); Hemoglobin 9.5 g/dL (12.0-16.0); Lymphocytes Absolute Auto 700 /uL (1100-4500); Lymphocytes Percent Auto 15.5 % (25-40); Mean Corpuscular HGB Conc 34.5 % (30-36); Mean Corpuscular Hemoglobin 32.3 PG (26-34); Mean Corpuscular Volume 93.5 fL (80-100); Monocytes Absolute Auto 600 /uL (0-900); Monocytes Percent Auto 13.3 % (3-14); Neutrophils Absolute Auto 3200 /uL (1500-7000); Neutrophils Percent Auto 69.5 % (50-75); Platelet Count 143 X10^3/uL (150-400); Red Blood Cell Count 2.94 X10^6/uL (4.0-5.2); Red Cell Distribution Width 14.7 % (11.6-14.8); White Blood Cell Count 4.6 X10^3/uL (4.5-11.0)
[2019-05-13 06:03] LABS: BUN Creatinine Ratio 28.8 (6-22); Blood Urea Nitrogen 23 mg/dL (7-17); Calcium 8.6 mg/dL (8.4-10.2); Carbon Dioxide 31 mmol/L (22-32); Chloride 88 mmol/L (98-107); Estimated Glomerular Filt Rate > 60.0 mL/min (>60); Glucose 90 mg/dL (80-110); HEMOLYSIS < 15 (0-50); Sodium 124 mmol/L (137-145)
[2019-05-13 08:00] VITALS: BP 150/66; PULSE 49; RESP 18; TEMP 36.3; O2SAT 99
[2019-05-13] MEDS: valACYclovir 500 MG TABLET PO ×2 (08:36→20:16)
[2019-05-13] MEDS: HEPARIN 5,000 UNIT/ML VIAL 5000 UNIT SUBCUT ×2 (08:36→20:14)
[2019-05-13] MEDS: ACETAMINOPHEN 325 MG TABLET 650 MG PO ×3 (08:36→20:16)
[2019-05-13] MEDS: DOCUSATE 100 MG CAPSULE PO (08:36)
[2019-05-13] MEDS: LIPASE/PROTEASE/AMYLASE 5/17/24 CAP PO ×3 (08:38→17:05)
--- NOTE | 2019-05-13 09:28 | PM.PNPO.1 ---
Subjective Date Patient Seen: 05/13/19 Interval history: 84-year-old female who recently sustained a fall resulting in a greater trochanteric fracture of the right proximal humerus. Patient is status post bilateral total hips. Exam Vital Signs (past 8 hours): - 05/13/19 03:29 05/13/19 08:00 Temperature 97.7 F 97.4 F L Pulse Rate 47 L 49 L Respiratory Rate 18 18 Blood Pressure 141/70 H 150/66 H Pulse Oximetry 97 99 Oxygen Delivery Method Room Air Oxygen Flow Rate 0 Narrative Exam Narrative: Patient exam findings are relatively unchanged from yesterday. Comfortable when she is sitting in bed but has pain with any attempt to try to ambulate or weight bear. Discomfort with transfers. No sign of any neurovascular compromise. Objective Labs Result Diagrams: 05/13/19 05:20 05/13/19 05:20 Labs: Laboratory Results - last 24 hr 05/11/19 05/13/19 05/13/19 11:05 05:20 05:20 WBC 4.6 RBC 2.94 L Hgb 9.5 L Hct 27.5 L MCV 93.5 MCH 32.3 MCHC 34.5 RDW 14.7 Plt Count 143 L Neut % (Auto) 69.5 Lymph % (Auto) 15.5 L [place] % (Auto) 13.3 Eos % (Auto) 1.4 L Baso % (Auto) 0.3 Neut # (Auto) 3200 Lymph # (Auto) 700 L [place] # (Auto) 600 Eos # (Auto) 100 Baso # (Auto) 0 Sodium 124 L Potassium 5.0 Chloride 88 L Carbon Dioxide 31 BUN 23 H Creatinine 0.80 Estimated GFR > 60.0 BUN/Creatinine Ratio 28.8 H Glucose 90 Calcium 8.6 Ur Random Sodium 27 L Assessment & Plan Post-op Postoperative Postoperative plan narrative: Patient is status post fall with a minimally displaced greater trochanteric fracture. Patient sustained a similar injury on the left side back in October. That was treated non operatively and I would recommend the same be done for the injury on the right. Patient will most likely need to be transferred to a retirement facility for a period of time to work on her gait and ambulation. Time Spent With Patient less than 15 minutes
--- NOTE | 2019-05-13 10:00 | PT.IPTN ---
Current Diagnoses Displaced fracture of greater trochanter of right femur, initial encounter for closed fracture (05/11/19) Physical Therapy Treatment Note M2 PT-IP Current Condition Start: 05/12/19 14:00 Freq: NEEDED Status: Active Protocol: Document 05/12/19 11:22 AB (Rec: 05/12/19 14:11 AB [id number]) Physical Therapy Current Condition Current Condition Evaluation Date 05/12/19 Treatment Diagnosis R periprosthetic intertrochanteric fx; difficulty in walking Onset Date 05/11/19 Weight Bearing Status Weight Bearing Status Weight Bear as Tolerated M3 PT-IP Subjective Start: 05/12/19 14:00 Freq: NEEDED Status: Active Protocol: Document 05/13/19 09:35 CLB (Rec: 05/13/19 11:01 CLB [id number]) Subjective Physical Therapy Visit Type Type Treatment Note Visit Start Time 09:35 Visit Stop Time 10:00 Total Visit Minutes 25 Number of RECEIVER/LABORER Visits 1 Physical Therapy Visit Comments Patient Comments pt agreeable to do PT and needing to use BSC for BM. Therapy Pain Assessment Pain When Pain Assessed During Mobility Pain Present Pain Present Pain Reported Location Left Hip Scale Used pain scale not stated Pain Behaviors Calling Out Guarding Pain Management Techniques Re-positioning Timing of Activity with Medications M4 PT-IP Mobility and Gait Start: 05/12/19 14:00 Freq: NEEDED Status: Active Protocol: Document 05/13/19 09:35 CLB (Rec: 05/13/19 11:01 CLB [id number]) PT-Bed Mobility Assessment Supine to Sit Supine to Sit Maximum Assistance 1 Person Assistance 2 Person Assistance Head of Bed Elevated Bedrails Scooting Scooting to Edge of Bed Minimal Assistance PT-Transfer Assessment Sit to and From Stand Sit to and from Stand Moderate Assistance 2 Person Assistance Use of Upper Extremities Equipment Transfer Assistive Device Gait Belt Front Wheeled Walker Transfers Transfer Destination Chair Bedside Commode Transfer Technique Stand Pivot Transfer Ability Level of Assist Moderate Assistance Maximum Assistance 2 Person Assistance Use of Upper Extremities Comments Mobility Comments Pt required Max A x2 to EOB then was able to assist pt with draw sheet to EOB. Pt is ben gaurded and moves very slowly. Pt call out from pain and sometimes calls out but pt states it is due to frustration not pain. Pt requires verbal and tactile cues for hand placement with stand-sit onto BSC and chair. M5 PT-IP Objective Assessments Start: 05/12/19 14:00 Freq: NEEDED Status: Active Protocol: Document 05/12/19 11:22 AB (Rec: 05/12/19 14:11 AB [id number]) Orientation Orientation/Cognition Level of Alertness Confusional State Orientation Name Situation Safety Awareness Decreased Safety Awareness Memory Description Short Term Impaired Ticket Attendant Impaired Gross Range of Motion Lower Extremity ROM Assessment Right Impaired Impairments increase RLE guarding during PROM Strength Lower Extremity Strength Assessment Right Impaired Hip 2-/5 Knee 2+/5 Sensation Assessment Sensation Gross Sensation WNL M6 PT-IP Treatment Start: 05/12/19 14:00 Freq: NEEDED Status: Active Protocol: Document 05/13/19 09:35 CLB (Rec: 05/13/19 11:01 CLB [id number]) Physical Therapy Treatment Exercises Exercises Heel Slides Education Education Provided Weight Bearing Status Safety M7 PT-IP Assessment and Plan Start: 05/12/19 14:00 Freq: NEEDED Status: Active Protocol: Document 05/13/19 09:35 CLB (Rec: 05/13/19 11:01 CLB [id number]) PT Summary Assessment and Plan Summary Impairments Pain ROM Strength Balance Coordination Sensation Tone Cognition Bed Mobility Transfers Gait Activity Tolerance Progress Towards Goals Slow Progress due to Pain Assessment Summary Pt unable to ambulate at this time due to pain and inability to advance RLE. Pt requires Max A x2 to EOB and Mod A x1 to full stand. Pt required Mod A to transfer to BSC. Once pt was done on BSC pt did not feel she could ambulate due to pain. BSC was moved and chair was placed behind pt so she could sit in chair. Pt will need SNF rehab to improve mobility. Goals Bed Mobility Goal Standby Assistance Transfer Goal Standby Assistance Front Wheeled Walker Gait Goal Standby Assistance Front Wheel Walker Gait Distance 100 Days to Meet Goals 10 Frequency of Treatment Frequency Of Treatment Twice a Day Treatment Plan Physical Therapy Treatment Plan Bed Mobility Training Transfer Training Gait Training Therapeutic Exercise Balance Retraining Post Op Education Discharge Planning Hot or Cold Pack Neuromuscular Re-ed Coordination Retraining Manual Therapy Recommendations To Nursing Amount of Assist Needed Mechanical Lift Discharge Recommendations PT Discharge Recommendations SNF Rehab
--- NOTE | 2019-05-13 11:13 | PM.PN.1 ---
Subjective Date Patient Seen: 05/13/19 Interval history: The patient is an 84-year-old female who suffered a right periprosthetic fracture following a ground level fall. She has made significant improvement over the past day. She was able to get up with 1 person standby assist. She is sitting in a chair for her pain is rated at 2/10. In addition the patient had a bowel movement last evening. She is tolerating therapy without difficulty. Arrangements are made for her to go to [facility] tomorrow for ongoing rehabilitation. Exam Vital Signs (past 8 hours): - 05/13/19 03:29 05/13/19 08:00 Temperature 97.7 F 97.4 F L Pulse Rate 47 L 49 L Respiratory Rate 18 18 Blood Pressure 141/70 H 150/66 H Pulse Oximetry 97 99 Oxygen Delivery Method Room Air Oxygen Flow Rate 0 Narrative Exam Narrative: Pleasant female sitting up to a chair in no obvious distress Lungs: Clear to auscultate Cardiac exam: Regular rate and rhythm normal S1-S2 Abdomen: Soft and nontender Extremities: No edema Objective Labs Result Diagrams: 05/13/19 05:20 05/13/19 05:20 Labs: Laboratory Results - last 24 hr 05/11/19 05/13/19 05/13/19 11:05 05:20 05:20 WBC 4.6 RBC 2.94 L Hgb 9.5 L Hct 27.5 L MCV 93.5 MCH 32.3 MCHC 34.5 RDW 14.7 Plt Count 143 L Neut % (Auto) 69.5 Lymph % (Auto) 15.5 L [place] % (Auto) 13.3 Eos % (Auto) 1.4 L Baso % (Auto) 0.3 Neut # (Auto) 3200 Lymph # (Auto) 700 L [place] # (Auto) 600 Eos # (Auto) 100 Baso # (Auto) 0 Sodium 124 L Potassium 5.0 Chloride 88 L Carbon Dioxide 31 BUN 23 H Creatinine 0.80 Estimated GFR > 60.0 BUN/Creatinine Ratio 28.8 H Glucose 90 Calcium 8.6 Ur Random Sodium 27 L Assessment & Plan Assessment & Plan narrative: 1. Right periprosthetic fracture. Patient is here for non operative management. Essentially it is pain control PT and OT. Patient is tolerating this well. Will remove her Sánchez catheter today and continue therapy with plans for transfer to [facility] tomorrow Acute on chronic hyponatremia, present on admission. -Baseline sodium level 134, sodium level on admission is at a low christopher of 122 and a BUN of 32 and creatinine 1.1 elevated over baseline of 0.8. Glucose is 83. -etiology is unclear whether dehydration or excessive fluid intake, the patient appears clinically dehydrated, and will obtain a urine sodium, serum osmolality, TSH. -the patient will receive 1 L of normal saline and will re-evaluate sodium and renal function. Will place the patient on a free water restriction, and await his serum osmolality, will start low-dose thyroid as well. 3. Recurrent falls, active -patient denies dizziness, palpitations, orthostasis, however reliability of the patient's story is in question and the patient's is not available to supplement data. -patient denies chest pain or palpitation but will be monitored for arrhythmia -patient denies weakness or orthostasis, will obtain screening labs including magnesium and phosphorus 4. Grade 1 diastolic heart failure, chronic, stable. -identified on prior admission in October, echocardiogram: Normal LV size, wall thickness, wall motion and LV systolic function. EF is 55-60%. Stage I diastolic diastolic dysfunction. -no current complaints of chest pain shortness of breath or cough, patient appears dehydrated, not on diuretics. -breath sounds are clear bilaterally, no heart murmur appreciated, no peripheral edema. -EKG reviewed by myself finds sinus bradycardia with ventricular rate of 59 with a first-degree AV block, no ectopy, no ST or T-wave changes, no Q-waves noted -will monitor her heart rhythm on telemetry. 5. Hypertension, present on admission, active -elevated blood pressure upon admission at 150/69. -no complaints of chest pain shortness of breath. -will continue patient's Benicar 20 mg daily and monitor pressures 6. Normocytic normochromic anemia, chronic, active -baseline hemoglobin is 13.2 and on prior hospitalization for similar fracture was 11 and today on admission is 9.8. -patient without evidence of bleeding or bruising, liver function is bilirubin 1.4, AST of 44, ALT of 19 and alkaline phosphatase of 80. -the patient without identifiable right hematoma or ecchymosis. Renal function is adequate with a baseline creatinine of 0.8 increased to 1.1 today and does not appear to be associated with current medications.. -will follow CBC and treat as indicated. 7. Dementia with history of bipolar type 1 disorder, chronic, stable. -Patient is pleasant and cooperative. -Continue Risperdal 1.5 mg and Aricept 5 mg daily at bedtime. Not believed to be associated with hyponatremia and has been on medications for years. 8. Restless leg syndrome, chronic, stable. 9. Pituitary adenoma, present on admission. Active. -History of pituitary adenoma with historically variable elevated prolactin levels, -Will recheck prolactin and TSH -continue current home medication of Cabergoline 0.5 mg. 10. Secondary pancreatic insufficiency, chronic, stable. -Status post Whipple procedure. -Continue home dose of Creon 3 times daily with meals
[2019-05-13 12:00] VITALS: BP 140/62; PULSE 50; RESP 18; TEMP 36.7; O2SAT 98
--- NOTE | 2019-05-13 12:41 | PT.IPTN ---
Current Diagnoses Displaced fracture of greater trochanter of right femur, initial encounter for closed fracture (05/11/19) Physical Therapy Treatment Note M2 PT-IP Current Condition Start: 05/12/19 14:00 Freq: NEEDED Status: Active Protocol: Document 05/12/19 11:22 AB (Rec: 05/12/19 14:11 AB [id number]) Physical Therapy Current Condition Current Condition Evaluation Date 05/12/19 Treatment Diagnosis R periprosthetic intertrochanteric fx; difficulty in walking Onset Date 05/11/19 Weight Bearing Status Weight Bearing Status Weight Bear as Tolerated M3 PT-IP Subjective Start: 05/12/19 14:00 Freq: NEEDED Status: Active Protocol: Document 05/13/19 12:20 CLB (Rec: 05/13/19 13:20 CLB [id number]) Subjective Physical Therapy Visit Type Type Treatment Note Visit Start Time 12:20 Visit Stop Time 12:41 Total Visit Minutes 21 Number of BULK MAIL CLERK Visits 2 Physical Therapy Visit Comments Patient Comments Pt wanting to get back to bed after using BSC. Therapy Pain Assessment Pain When Pain Assessed During Mobility Pain Present Pain Present Pain Reported M4 PT-IP Mobility and Gait Start: 05/12/19 14:00 Freq: NEEDED Status: Active Protocol: Document 05/13/19 12:20 CLB (Rec: 05/13/19 13:20 CLB [id number]) PT-Bed Mobility Assessment Sit to Supine Sit to Supine Moderate Assistance 1 Person Assistance PT-Transfer Assessment Sit to and From Stand Sit to and from Stand Moderate Assistance 2 Person Assistance Use of Upper Extremities Equipment Transfer Assistive Device Gait Belt Front Wheeled Walker Orthotic/Prosthetic Devices or Brace: No Transfers Transfer Destination Bed Bedside Commode Transfer Technique Stand Step Pivot Transfer Ability Level of Assist Moderate Assistance 2 Person Assistance Use of Upper Extremities Comments Mobility Comments Pt required cues for hand placement for safety and cues for posture. Pt required Mod A x1 to stand as RN performed pericare. Pt was able to take small steps from chair to BSC then to bed. M5 PT-IP Objective Assessments Start: 05/12/19 14:00 Freq: NEEDED Status: Active Protocol: Document 05/12/19 11:22 AB (Rec: 05/12/19 14:11 AB [id number]) Orientation Orientation/Cognition Level of Alertness Confusional State Orientation Name Situation Safety Awareness Decreased Safety Awareness Memory Description Short Term Impaired Fci Impaired Gross Range of Motion Lower Extremity ROM Assessment Right Impaired Impairments increase RLE guarding during PROM Strength Lower Extremity Strength Assessment Right Impaired Hip 2-/5 Knee 2+/5 Sensation Assessment Sensation Gross Sensation WNL M6 PT-IP Treatment Start: 05/12/19 14:00 Freq: NEEDED Status: Active Protocol: Document 05/13/19 12:20 CLB (Rec: 05/13/19 13:20 CLB [id number]) Physical Therapy Treatment Exercises Exercises Heel Slides Education Education Provided Weight Bearing Status Safety M7 PT-IP Assessment and Plan Start: 05/12/19 14:00 Freq: NEEDED Status: Active Protocol: Document 05/13/19 12:20 CLB (Rec: 05/13/19 13:20 CLB [id number]) PT Summary Assessment and Plan Summary Impairments Pain ROM Strength Balance Coordination Sensation Tone Cognition Bed Mobility Transfers Gait Activity Tolerance Progress Towards Goals Slow Progress due to Pain Assessment Summary Pt improving with step pivot transfer able to take small side steps during transfers with ability to advance RLE. Goals Bed Mobility Goal Standby Assistance Transfer Goal Standby Assistance Front Wheeled Walker Gait Goal Standby Assistance Front Wheel Walker Gait Distance 100 Days to Meet Goals 10 Frequency of Treatment Frequency Of Treatment Twice a Day Treatment Plan Physical Therapy Treatment Plan Bed Mobility Training Transfer Training Gait Training Therapeutic Exercise Balance Retraining Post Op Education Discharge Planning Hot or Cold Pack Neuromuscular Re-ed Coordination Retraining Manual Therapy Recommendations To Nursing Amount of Assist Needed 2 Person Assist Discharge Recommendations PT Discharge Recommendations SNF Rehab
[2019-05-13 15:40] VITALS: BP 125/62; PULSE 51; RESP 17; TEMP 36.5; O2SAT 97
--- NOTE | 2019-05-13 19:20 | PC.NURSE ---
Addendum entered by Alisha Lee R.N. 05/13/19 23:34: Resting quietly in bed without signs of distress or discomfort. Pt has reported this evening anticipates discharge to half-way facility in a.m. Spouse has returned home for the evening. Original Note: Pt up frequently with assistance to void small amounts. Post void residual 31 cc's. Pt able to transfer with assistance by staff x 1. Pedal pulses present with doppler BL. BL calf scd's in place. Spouse present and attentive to pt's needs. Pt demonstrates some forgetfulness, but accepts explanations readily.
[2019-05-13 20:00] VITALS: BP 158/71; PULSE 53; RESP 16; TEMP 36.6; O2SAT 96
[2019-05-13] MEDS: DONEPEZIL 5 MG TABLET PO (20:13)
[2019-05-13] MEDS: risperiDONE 1 MG TABLET 1.5 MG PO (20:15)
[2019-05-13 23:45] VITALS: BP 143/78; PULSE 52; RESP 14; TEMP 36.4; O2SAT 98
[2019-05-14] MEDS: MORPHINE 2 MG/ML INJ 1 MG IV
--- NOTE | 2019-05-14 00:39 | PC.NURSE ---
Addendum entered by Della Cedillo R.N. 05/14/19 06:06: Grimacing and groaning when getting up to BSC. States pain with movement is 4/10 but when back in bed settles down to 1-2/10. Discussed whether she is needing something stronger than Tylenol for pain but patient declines. Addendum entered by Della Cedillo R.N. 05/14/19 03:31: Complains of 2/10 pain; requested/medicated with Tylenol. Original Note: Patient is alert and oriented. Breath sounds CTA with diminished breath sounds in right LL; RA sat 98%. HRR but bradycardic at 52 bpm with BP of 143/78. Denies nausea. BT present and abdomen is soft; passing flatus. Has urinary frequency which she states is chronic and has had some dribbling/incontinence during hospitalization according to patient. Getting out of bed with 1 assist and pivoting to BSC. Having 3/10 right hip pain so medicated with Morphine per MD order (discussed with ASHUTOSH Swartz, as noted to be for pain 4-6 and patient requesting Tylenol but INTAKE CLINICIAN stated to give Morphine). Is on 1500cc/day fluid restriction. Wearing bilateral SCD's. Has non pitting right foot/ankle edema. Fall risk score is high and bed alarm is activated.
[2019-05-14 03:23] VITALS: BP 172/82; PULSE 57; RESP 16; TEMP 36.5; O2SAT 97
[2019-05-14] MEDS: ACETAMINOPHEN 325 MG TABLET 650 MG PO ×2 (03:26→09:27)
[2019-05-14 05:46] LABS: Blood Urea Nitrogen 20 mg/dL (7-17); Calcium 8.4 mg/dL (8.4-10.2); Carbon Dioxide 32 mmol/L (22-32); Chloride 89 mmol/L (98-107); Estimated Glomerular Filt Rate > 60.0 mL/min (>60); Glucose 101 mg/dL (80-110); HEMOLYSIS < 15 (0-50); Potassium 4.6 mmol/L (3.4-5.1); Sodium 125 mmol/L (137-145)
--- NOTE | 2019-05-14 07:32 | PM.DS.1 ---
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 The patient is a poor historian and her is not available for additional history. Per the emergency room provider, [place] 3 [place] acute fracture. The patient had worsening debility becoming unable to ambulate and worsening pain. She has a history of bilateral total hip arthroplasties which were done about 25 years ago in [place] at [facility]. She had a similar fall and periprosthetic fracture of her left hip prompting admission in October at which time she was also found to be hyponatremic. The patient denies recent cold or illness, fevers or chills. She denies headaches or dizziness he reports no visual changes or difficulty chewing or swallowing. She denies chest pain or palpitations reports no shortness of breath cough or wheezing. She denies abdominal pain, nausea or vomiting. She reports having 2 BMs earlier today. Denies complaints of dysuria, frequency or urgency. At baseline the patient is ambulatory with a walker. Upon arrival in the ER the patient is found to be afebrile with a temperature of 98.2?, bradycardic with heart rate of 58, hypertensive the blood pressure 150/69 and respirations of 18 saturating 98% on room air. Patient underwent imaging with x-ray and a CT of the pelvis which found 100 acute/subacute periprosthetic greater trochanteric femur fracture. The CT exam further notes that there is normal alignment of the surgical hardware. Dr. Vaz, orthopedist on-call was consulted and reviewed the imaging and felt the fracture was not a surgical issue. [facility] was also consulted regarding periprosthetic fracture who concurred. On laboratory analysis the patient is found have a white count of 5.6, hemoglobin of 9.8 and hematocrit of 29 and platelets of 137. She does have an elevated PT at 14.1 an INR of 1.2 and a PTT of 28 not on anticoagulation. On chemistries she has a low sodium of 122, potassium of 4.6, a BUN of 32 and creatinine 1.1 with an EGFR of 47.3 and a BUN creatinine ratio of 29.1. She has a total bilirubin 1.4, AST of 44, ALT of 19 and alkaline phosphatase of 80. EKG was obtained which reveals sinus Kashif at 59 with a first-degree AV block. Discharge Providers Date of admission: 05/11/19 21:20 Discharge Date: 05/14/19 Consults: 05/11/19 22:32 Consult to Dietitian, Adult Routine Comment: Reason For Exam: hyponatremia 05/11/19 22:33 Consult to Discharge Planning Routine Comment: Consult to Occupational Therapy Evaluate & Treat Comment: Right periprosthetic trochanteric femur fracture Physician Instructions: Evaluate and treat Consult to Physical Therapy Evaluate & Treat Comment: Right periprosthetic trochanteric femur fracture Physician Instructions: Evaluate and Treat 05/11/19 22:34 Consult to Physician Routine Comment: Consulting Provider: Eliot Vaz Reason for consultation: Right periprosthetic trochanteric femur fracture Has provider been notified: Yes 05/11/19 22:49 Consult to Dietitian, Adult Routine Comment: Reason For Exam: under weight Discharge provider: Russell Faust MD Summary Discharge Diagnosis: 1. Right hip periprosthetic fracture 2. Recurrent falls 3. 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 Hypertension 5. Grade 1 diastolic dysfunction on previous echo without clinical signs of CHF 6. Chronic normal state ache normochromic anemia 7. Restless leg syndrome 8. Dementia, likely mild or early stage 9. History of bipolar type 1 disorder 10. History of pituitary adenoma 11. Abnormal elevated TSH with normal free T4, likely subclinical 12. Secondary pancreatic insufficiency, chronic, status post [place] [facility] Course: Patient presented after ground level fall and noted to have a minimally displaced greater trochanteric periprosthetic fracture of the right hip. She has history of previous periprosthetic fracture on the contralateral hip back in October 2018. For this visit Dr. Stephen Vaz was consulted for orthopedic surgery and recommended non operative treatment. Patient has been getting PT in hospital. She Has pain controlled with Tylenol. Goal is to have her ambulate with walker. Patient has chronic hyponatremia with serum sodium 122 on admission, typically runs in the 125 range. This is thought secondary to excessive water intake as she drinks a lot of water to try to avoid constipation. In hospital we have fluid restricted her to 1500 mL per day and permitted use of salt with her meals. Her serum sodium is improved to 125 on 05/14/2019 which is her baseline. Patient has chronic hypertension. Her blood pressures have been running mainly in normal range in hospital while withholding her Benicar 20 mg daily. I am discharging her off of her routine hypertensive as she will have her BP monitored at correction facility. She can be restarted at same or lower dose of Benicar if blood pressures are significantly elevated. Patient had elevated TSH 7.29 with a normal free T4 of 1.94. This is likely subclinical and no thyroid replacement was initiated. it can be recheck it in several months as outpatient. Patient has been cooperative with her care and ready for discharge to correction for rehab services. She has noted history of dementia although this appears mild in degree. Status at Discharge Cognitive/behavioral status at discharge: at baseline, oriented Functional status at discharge: uses cane/walker Overall status at discharge: patient is not back to baseline Time Spent with Patient Greater than 30 minutes Exam Vital Signs (past 8 hours): - 05/13/19 23:45 05/14/19 03:23 Temperature 97.5 F L 97.7 F Pulse Rate 52 L 57 L Respiratory Rate 14 16 Blood Pressure 143/78 H 172/82 H Pulse Oximetry 98 97 Oxygen Delivery Method Room Air Oxygen Flow Rate 0 Objective Labs Result Diagrams: 05/13/19 05:20 05/14/19 05:25 Labs: Laboratory Results - last 24 hr 05/14/19 05:25 Sodium 125 L Potassium 4.6 Chloride 89 L Carbon Dioxide 32 BUN 20 H Creatinine 0.80 Estimated GFR > 60.0 BUN/Creatinine Ratio 25.0 H Glucose 101 Calcium 8.4 Discharge Plan Discharge Plan Patient Disposition: SNF Transfer to: [facility] Transportation: Facility vehicle Consult as needed: Dental, Hearing, Mental health, Podiatry and Vision I certify the postop hospital correction care is medically necessary on a continuing basis for any conditions for which he/ she received care during this hospitalization.: Yes The receiving facility has agreed to accept transfer and provide medical treatment.: Yes Discharge Med Rec/Prescriptions Prescriptions: New acetaminophen 325 mg Tablet 650 mg PO Q4HR PRN (Reason: Pain, Mild (1-3)) Qty: 60 RF: 0 donepezil 5 mg Tablet 5 mg PO BEDTIME Qty: 30 RF: 0 Continued cabergoline 0.5 MG tablet 0.5 mg PO SEE INSTRUCTIONS Qty: 8 RF: 0 pramipexole 0.125 mg Tablet 0.125 mg PO BEDTIME RF: 0 [id number] 12,000-38,000 -60,000 unit capsule,delayed release(DR/EC) 1,200 units PO TID RF: 0 risperidone [Risperdal] 1 MG tablet 1.5 mg PO HS RF: 0 Discontinued olmesartan [Benicar] 20 MG tablet 20 mg PO Q DAY RF: 0 famciclovir 125 mg tablet RF: 0 Discharge Health Status Brief summary of current health status: rt periprosthetic hip fx, treated nonoperatively Multidrug resistant organism: No MDRO Precautions: [place] Provider Discharge Instructions Diet: Regular Liquid consistency: Normal/Thin Food texture: Regular Diet comment: fluid restrict 1500 ml per day Discharge Data Attending Provider: Franco Swartz Admit Date/Time: 05/11/19 21:20
--- NOTE | 2019-05-14 07:35 | P.DS_ITS ---
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 The patient is a poor historian and her is not available for additional history. Per the emergency room provider, patient [place] 3 [place] acute fracture. The patient had worsening debility becoming unable to ambulate and worsening pain. She has a history of bilateral total hip arthroplasties which were done about 25 years ago in [place] at [facility]. She had a similar fall and periprosthetic fracture of her left hip prompting admission in October at which time she was also found to be hyponatremic. The patient denies recent cold or illness, fevers or chills. She denies headaches or dizziness he reports no visual changes or difficulty chewing or swallowing. She denies chest pain or palpitations reports no shortness of breath cough or wheezing. She denies abdominal pain, nausea or vomiting. She reports having 2 BMs earlier today. Denies complaints of dysuria, frequency or urgency. At baseline the patient is ambulatory with a walker. Upon arrival in the ER the patient is found to be afebrile with a temperature of 98.2?, bradycardic with heart rate of 58, hypertensive the blood pressure 150/69 and respirations of 18 saturating 98% on room air. Patient underwent imaging with x-ray and a CT of the pelvis which found 100 acute/subacute periprosthetic greater trochanteric femur fracture. The CT exam further notes that there is normal alignment of the surgical hardware. Dr. Vaz, orthopedist on-call was consulted and reviewed the imaging and felt the fracture was not a surgical issue. [facility] was also consulted regarding periprosthetic fracture who concurred. On laboratory analysis the patient is found have a white count of 5.6, hemoglobin of 9.8 and hematocrit of 29 and platelets of 137. She does have an elevated PT at 14.1 an INR of 1.2 and a PTT of 28 not on anticoagulation. On chemistries she has a low sodium of 122, potassium of 4.6, a BUN of 32 and creatinine 1.1 with an EGFR of 47.3 and a BUN creatinine ratio of 29.1. She has a total bilirubin 1.4, AST of 44, ALT of 19 and alkaline phosphatase of 80. EKG was obtained which reveals sinus Kashif at 59 with a first-degree AV block. Discharge Providers Date of admission: 05/11/19 21:20 Discharge Date: 05/14/19 Consults: 05/11/19 22:32 Consult to Dietitian, Adult Routine Comment: Reason For Exam: hyponatremia 05/11/19 22:33 Consult to Discharge Planning Routine Comment: Consult to Occupational Therapy Evaluate & Treat Comment: Right periprosthetic trochanteric femur fracture Physician Instructions: Evaluate and treat Consult to Physical Therapy Evaluate & Treat Comment: Right periprosthetic trochanteric femur fracture Physician Instructions: Evaluate and Treat 05/11/19 22:34 Consult to Physician Routine Comment: Consulting Provider: Eliot Vaz Reason for consultation: Right periprosthetic trochanteric femur fracture Has provider been notified: Yes 05/11/19 22:49 Consult to Dietitian, Adult Routine Comment: Reason For Exam: under weight Discharge provider: Russell Faust MD Summary Discharge Diagnosis: 1. Right hip periprosthetic fracture 2. Recurrent falls 3. 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 Hypertension 5. Grade 1 diastolic dysfunction on previous echo without clinical signs of CHF 6. Chronic normal state ache normochromic anemia 7. Restless leg syndrome 8. Dementia, likely mild or early stage 9. History of bipolar type 1 disorder 10. History of pituitary adenoma 11. Abnormal elevated TSH with normal free T4, likely subclinical 12. Secondary pancreatic insufficiency, chronic, status post [place] [facility] Course: Patient presented after ground level fall and noted to have a minimally displaced greater trochanteric periprosthetic fracture of the right hip. She has history of previous periprosthetic fracture on the contralateral hip back in October 2018. For this visit Dr. Stephen Vaz was consulted for o rthopedic surgery and recommended non operative treatment. Patient has been getting PT in hospital. She Has pain controlled with Tylenol. Goal is to have her ambulate with walker. Patient has chronic hyponatremia with serum sodium 122 on admission, typically runs in the 125 range. This is thought secondary to excessive water intake as she drinks a lot of water to try to avoid constipation. In hospital we have fluid restricted her to 1500 mL per day and permitted use of salt with her meals. Her serum sodium is improved to 125 on 05/14/2019 which is her baseline. Patient has chronic hypertension. Her blood pressures have been running mainly in normal range in hospital while withholding her Benicar 20 mg daily. I am discharging her off of her routine hypertensive as she will have her BP monitored at group home facility. She can be restarted at same or lower dose of Benicar if blood pressures are significantly elevated. Patient had elevated TSH 7.29 with a normal free T4 of 1.94. This is likely subclinical and no thyroid replacement was initiated. it can be recheck it in several months as outpatient. Patient has been cooperative with her care and ready for discharge to group home for rehab services. She has noted history of dementia although this appears mild in degree. Status at Discharge Cognitive/behavioral status at discharge: at baseline, oriented Functional status at discharge: uses cane/walker Overall status at discharge: patient is not back to baseline Time Spent with Patient Greater than 30 minutes Exam Vital Signs (past 8 hours): - 05/13/19 23:45 05/14/19 03:23 Temperature 97.5 F L 97.7 F Pulse Rate 52 L 57 L Respiratory Rate 14 16 Blood Pressure 143/78 H 172/82 H Pulse Oximetry 98 97 Oxygen Delivery Method Room Air Oxygen Flow Rate 0 Objective Labs Result Diagrams: 05/13/19 05:20 05/14/19 05:25 Labs: Laboratory Results - last 24 hr 05/14/19 05:25 Sodium 125 L Potassium 4.6 Chloride 89 L Carbon Dioxide 32 BUN 20 H Creatinine 0.80 Estimated GFR > 60.0 BUN/Creatinine Ratio 25.0 H Glucose 101 Calcium 8.4 Discharge Plan Discharge Plan Patient Disposition: SNF Transfer to: [facility] Transportation: Facility vehicle Consult as needed: Dental, Hearing, Mental health, Podiatry and Vision I certify the postop hospital group home care is medically necessary on a continuing basis for any conditions for which he/ she received care during this hospitalization.: Yes The receiving facility has agreed to accept transfer and provide medical treatment.: Yes Discharge Med Rec/Prescriptions Prescriptions: New acetaminophen 325 mg Tablet 650 mg PO Q4HR PRN (Reason: Pain, Mild (1-3)) Qty: 60 RF: 0 donepezil 5 mg Tablet 5 mg PO BEDTIME Qty: 30 RF: 0 Continued cabergoline 0.5 MG tablet 0.5 mg PO SEE INSTRUCTIONS Qty: 8 RF: 0 pramipexole 0.125 mg Tablet 0.125 mg PO BEDTIME RF: 0 [id number] 12,000-38,000 -60,000 unit capsule,delayed release(DR/EC) 1,200 units PO TID RF: 0 risperidone [Risperdal] 1 MG tablet 1.5 mg PO HS RF: 0 Discontinued olmesartan [Benicar] 20 MG tablet 20 mg PO Q DAY RF: 0 famciclovir 125 mg tablet RF: 0 Discharge Health Status Brief summary of current health status: rt periprosthetic hip fx, treated nonoperatively Multidrug resistant organism: No MDRO Precautions: [place] Provider Discharge Instructions Diet: Regular Liquid consistency: Normal/Thin Food texture: Regular Diet comment: fluid restrict 1500 ml per day Discharge Data Attending Provider: Franco Swartz Admit Date/Time: 05/11/19 21:20
[2019-05-14 08:10] VITALS: BP 156/97; PULSE 60; RESP 18; TEMP 36.4; O2SAT 99
[2019-05-14] MEDS: HEPARIN 5,000 UNIT/ML VIAL 5000 UNIT SUBCUT (09:19)
[2019-05-14] MEDS: SODIUM CHLORIDE 0.9% FLUSH 10 ML IV ×2 (09:19)
[2019-05-14] MEDS: valACYclovir 500 MG TABLET PO (09:20)
[2019-05-14] MEDS: CABERGOLINE 0.5 MG 1 EACH PO (09:20)
[2019-05-14] MEDS: LIPASE/PROTEASE/AMYLASE 5/17/24 CAP PO (09:20)
--- NOTE | 2019-05-14 10:30 | PT.IPTN ---
Current Diagnoses Displaced fracture of greater trochanter of right femur, initial encounter for closed fracture (05/11/19) Physical Therapy Treatment Note M2 PT-IP Current Condition Start: 05/12/19 14:00 Freq: NEEDED Status: Active Protocol: Document 05/12/19 11:22 AB (Rec: 05/12/19 14:11 AB [id number]) Physical Therapy Current Condition Current Condition Evaluation Date 05/12/19 Treatment Diagnosis R periprosthetic intertrochanteric fx; difficulty in walking Onset Date 05/11/19 Weight Bearing Status Weight Bearing Status Weight Bear as Tolerated M3 PT-IP Subjective Start: 05/12/19 14:00 Freq: NEEDED Status: Active Protocol: Document 05/14/19 11:59 RS (Rec: 05/14/19 12:03 RS [id number]) Subjective Physical Therapy Visit Type Type Discharge Summary Visit Start Time 10:00 Visit Stop Time 10:30 Total Visit Minutes 30 Therapy Pain Assessment Pain When Pain Assessed During Mobility Pain Present Pain Present Pain Reported M4 PT-IP Mobility and Gait Start: 05/12/19 14:00 Freq: NEEDED Status: Active Protocol: Document 05/14/19 11:59 RS (Rec: 05/14/19 12:03 RS [id number]) PT-Bed Mobility Assessment Supine to Sit Supine to Sit Moderate Assistance 1 Person Assistance Sit to Supine Sit to Supine Moderate Assistance 1 Person Assistance PT-Transfer Assessment Sit to and From Stand Sit to and from Stand Moderate Assistance 1 Person Assistance Use of Upper Extremities Equipment Transfer Assistive Device Gait Belt Front Wheeled Walker Transfer Ability Level of Assist Moderate Assistance 1 Person Assistance Use of Upper Extremities Comments Mobility Comments Pt now only mod A x 1 for transfers, able to tolerate more weight throught RLE, still would need 2P assist for toileting. Gait Assessment Comments Gait Comments not assessed Stair Climbing Assessment Comments Stair Climbing Comments not assessed PT-Balance Assessment Sitting Balance and Reactions Static Sitting Balance Ability Good Dynamic Sitting Balance Ability Fair Standing Balance and Reactions Static Standing Balance Ability Poor Dynamic Standing Balance Ability Poor Device Used FWW M5 PT-IP Objective Assessments Start: 05/12/19 14:00 Freq: NEEDED Status: Active Protocol: Document 05/12/19 11:22 AB (Rec: 05/12/19 14:11 AB [id number]) Orientation Orientation/Cognition Level of Alertness Confusional State Orientation Name Situation Safety Awareness Decreased Safety Awareness Memory Description Short Term Impaired Senior Living Impaired Gross Range of Motion Lower Extremity ROM Assessment Right Impaired Impairments increase RLE guarding during PROM Strength Lower Extremity Strength Assessment Right Impaired Hip 2-/5 Knee 2+/5 Sensation Assessment Sensation Gross Sensation WNL M6 PT-IP Treatment Start: 05/12/19 14:00 Freq: NEEDED Status: Active Protocol: Document 05/13/19 12:20 CLB (Rec: 05/13/19 13:20 CLB [id number]) Physical Therapy Treatment Exercises Exercises Heel Slides Education Education Provided Weight Bearing Status Safety M7 PT-IP Assessment and Plan Start: 05/12/19 14:00 Freq: NEEDED Status: Active Protocol: Document 05/14/19 11:59 RS (Rec: 05/14/19 12:03 RS [id number]) PT Summary Assessment and Plan Potential Rehabilitation Potential Good Status of Condition at Evaluation Evolving Summary Progress Towards Goals Slow Progress due to Pain Assessment Summary Pt is now requiring only 1P mod A for bed mobility and transfers, but still not ready for true walking yet. Pt remains significantly below reported functional baseline but still has potential for further functional improvement . Continue to recommend SNF rehab once medically ready. Pt to d/c to [facility] later today, acute PT will sign off. Frequency of Treatment Frequency Of Treatment Discharge Recommendations To Nursing Amount of Assist Needed 1 Person Assist 2 Person Assist Discharge Recommendations PT Discharge Recommendations SNF Rehab
[2019-05-14 11:15] VITALS: BP 139/81; PULSE 55; RESP 18; TEMP 36.4; O2SAT 99
--- NOTE | 2019-05-14 11:33 | PC.NURSE ---
Plan for patient to be transferred to [facility] at 1300 today. Report given to Arianna at [facility]. Patient resting in bed comfortably at this time. Continue with plan of care.
--- NOTE | 2019-05-14 11:43 | CM.DPC ---
DCP: continued. Case received, EMR reviewed, discussed in Team Rounds. Pt with a d/c to [facility]. Spoke with Alis/ this morning and she was working on obtaining the authorization for snf setting from [facility]. She now confirms this is in place. w/c van transport is set up for 1300. Orders and reviewed and faxed to [facility]; placed also to snf packet. PASRR is completed, faxed, given to CMsp to scan to EMR, original placed to snf packet. Checked in with pt. She was aware of her plan and said she felt comfortable going today. She said her has spent the night iwth a family member rather than returning to [place]. He does not have a cell but he was aware the plan was for [facility] (confirmed same with ELVIN Espinal). [facility]: today: 1300
[2019-05-14 18:15] LABS: Osmolality, Serum 265 mosm/kg (260-310)
== END 2019-05-14 12:40 | DRG 543 ==
LOC: ED 21:20 → AC 21:21
PROVIDERS: Emergency Medicine; Internal Medicine; Admitting Provider Nurse Practitioner Adult Health; Emergency Provider Emergency Medicine; Family Provider Family Medicine; Visit Provider Nurse Practitioner Adult Health
DX: M80.051A Age-related osteoporosis with current pathological fracture, right femur, initial encounter for fracture (principal); E87.1 Hypo-osmolality and hyponatremia; I50.32 Chronic diastolic (congestive) heart failure; F31.89 Other bipolar disorder; M97.01XA Periprosthetic fracture around internal prosthetic right hip joint, initial encounter; I11.0 Hypertensive heart disease with heart failure; F03.90 Unspecified dementia, unspecified severity, without behavioral disturbance, psychotic disturbance, mood disturbance, and anxiety; K86.89 Other specified diseases of pancreas; Z87.891 Personal history of nicotine dependence; R29.6 Repeated falls; D35.2 Benign neoplasm of pituitary gland; W18.30XA Fall on same level, unspecified, initial encounter; E03.9 Hypothyroidism, unspecified; D64.9 Anemia, unspecified
CPT/HCPCS: 36415; 51701; 72170; 72192; 80048; 80053; 81001; 83735; 83930; 84100; 84146; 84300; 84439; 84443; 85025; 93005; 97162; 97166; 97530; 97535; 99283; 99284; A9270; J1644; J2270

== ENCOUNTER 2019-06-18 15:47 | Emergency (ER) | payer MEDICARE, SELFPAY ==
[2019-06-18 15:52] VITALS: BP 143/74; PULSE 63; RESP 18; TEMP 36.7; O2SAT 98
--- NOTE | 2019-06-18 15:59 | DI.US.S_ITS ---
PROCEDURE: US PERIPH VENOUS LOW EXTREM RT INDICATIONS: RT LEG SWELLING TECHNIQUE: Real-time imaging, as well as color and pulse Doppler interrogation, were performed of the lower extremity deep veins from the inguinal ligament to the popliteal fossa. COMPARISON: None. FINDINGS: The common femoral, femoral and popliteal veins are normally compressible, and free of intraluminal thrombus. Color and pulse Doppler demonstrate normal phasic intraluminal flow. There is normal augmentation response to distal compression maneuver. IMPRESSION: No visualized deep venous thrombosis. Mild lower extremity soft tissue edema is present. Dictated by: Nika Davila M.D. on 06/18/2019 at 17:49 Approved by: Nika Davila M.D. on 06/18/2019 at 17:50
--- NOTE | 2019-06-18 16:05 | PC.NURSE ---
spoke w/ who states that pt has had no recent falls. Last fall was March which resulted in fractured hip.
--- NOTE | 2019-06-18 17:01 | DI.RAD.S_ITS ---
PROCEDURE: XR HIP W PEL IF DONE RT 2V INDICATIONS: Hip/groin pain w/ambulation. TECHNIQUE: Single view of the pelvis and 2 views of the right hip were acquired. COMPARISON: [facility], CR, XR PELVIS 1-2V, 05/11/2019, 17:11. [facility], CT, CT PEL WO CON, 05/11/2019, 17:40. [facility] [place] [facility], CR, XR PELVIS WITH LATERAL HIP LEFT, 03/21/2019, 15:59. [facility], CR, XR HIP W PEL IF DONE LT 2V, 10/22/2018, 17:54. FINDINGS: Bones: There are bilateral hip prostheses redemonstrated. There is a subacute periprosthetic fracture redemonstrated within the proximal right femur lateral to the femoral component. There is also slightly increased lucency along the proximal aspect of the femoral component suggestive of loosening. An old left periprosthetic fracture is redemonstrated along the proximal left femur. No definite new acute fractures or dislocations. The right femoral head appears centered within the acetabular cup. The visualized pelvic ring appears intact. There is moderate degenerative disc disease in the lower lumbar spine. Soft tissues: No suspicious soft tissue calcifications or masses. IMPRESSION: 1. Subacute periprosthetic fracture redemonstrated along the lateral aspect of the proximal right femur. Increased periprosthetic lucency is also noted in the proximal right femur suggestive of loosening. Dictated by: Steffen Barney M.D. on 06/18/2019 at 18:35 Approved by: Steffen Barney M.D. on 06/18/2019 at 18:40
--- NOTE | 2019-06-18 18:03 | ED.EXTPRO ---
HPI - Extremity Problem General Chief complaint: Extremity Problem,Nontraumatic Stated complaint: R calf is swollen was told to come in for US Time Seen by Provider: 06/18/19 17:11 Related Data Home Medications Medication Instructions Recorded Confirmed cabergoline 0.5 mg PO SUTUTH #8 tab 11/01/16 06/18/19 risperidone [Risperdal] 1.5 mg PO BEDTIME 10/22/18 06/18/19 [place] 3-6-9 Fatty Acids 1 cap PO DAILY 06/18/19 06/18/19 alendronate 70 mg PO QWEEK 06/18/19 06/18/19 famciclovir 125 mg PO DAILY 06/18/19 06/18/19 multivitamin with minerals 1 tab PO DAILY 06/18/19 06/18/19 olmesartan 20 mg PO DAILY 06/18/19 06/18/19 Previous Rx's Medication Instructions Recorded acetaminophen 650 mg PO Q4HR PRN #60 tab 05/14/19 donepezil 5 mg PO BEDTIME #30 tab 05/14/19 Allergies Allergy/AdvReac Type Severity Reaction Status Date / Time codeine [CODEINE] Allergy Unknown NAUSEA Verified 06/18/19 15:57 Penicillins [PENICILLINS] Allergy Unknown SWELLING Verified 06/18/19 15:57 TO SITE OF INJECTION [facility] Social History household members: spouse Smoking Status: Former smoker alcohol intake: current Exam Initial Vital Signs Initial Vital Signs: Vital Signs Temperature 98.1 F 06/18/19 15:52 Pulse Rate 63 06/18/19 15:52 Respiratory Rate 18 06/18/19 15:52 Blood Pressure 143/74 H 06/18/19 15:52 Pulse Oximetry 98 06/18/19 15:52 Course Orders Ordered: ED Orders 06/18/19 15:59 US periph venous low extrem rt Stat 06/18/19 17:01 XR hip w pel if done RT 2V Stat Vital Signs Vital signs: Vital Signs - 8 hr 06/18/19 15:52 Temperature 98.1 F Pulse Rate 63 Respiratory Rate 18 Blood Pressure 143/74 H Pulse Oximetry 98 Discharge Plan Departure Prescriptions: No Action cabergoline 0.5 MG tablet 0.5 mg PO SUTUTH Qty: 8 RF: 0 risperidone [Risperdal] 1 MG tablet 1.5 mg PO BEDTIME RF: 0 acetaminophen 325 mg Tablet 650 mg PO Q4HR PRN (Reason: Pain, Mild (1-3)) Qty: 60 RF: 0 donepezil 5 mg Tablet 5 mg PO BEDTIME Qty: 30 RF: 0 alendronate 70 mg tablet 70 mg PO QWEEK RF: 0 famciclovir 125 mg tablet 125 mg PO DAILY RF: 0 multivitamin with minerals Tablet 1 tab PO DAILY RF: 0 olmesartan 20 mg Tablet 20 mg PO DAILY RF: 0 [place] 3-6-9 Fatty Acids 1 cap PO DAILY RF: 0
[2019-06-18 18:15] VITALS: BP 169/88; PULSE 53; RESP 18; O2SAT 97
[2019-06-18 18:43] LABS: Add Manual Diff / Slide Review NO; Basophils Absolute Auto 100 /uL (0-100); Basophils Percent Auto 0.9 % (0-2); Eosinophils Absolute Auto 100 /uL (0-450); Hematocrit 29.8 % (36-46); Hemoglobin 10.1 g/dL (12.0-16.0); Lymphocytes Absolute Auto 1300 /uL (1100-4500); Lymphocytes Percent Auto 19.6 % (25-40); Mean Corpuscular HGB Conc 33.9 % (30-36); Mean Corpuscular Hemoglobin 33.3 PG (26-34); Mean Corpuscular Volume 98.2 fL (80-100); Monocytes Absolute Auto 800 /uL (0-900); Monocytes Percent Auto 11.6 % (3-14); Neutrophils Absolute Auto 4400 /uL (1500-7000); Neutrophils Percent Auto 65.9 % (50-75); Platelet Count 165 X10^3/uL (150-400); Red Blood Cell Count 3.03 X10^6/uL (4.0-5.2); Red Cell Distribution Width 15.3 % (11.6-14.8); White Blood Cell Count 6.7 X10^3/uL (4.5-11.0)
[2019-06-18 18:49] LABS: INR 1.1 (0.9-1.3); Prothrombin Time 12.2 SECONDS (10.1-12.7)
[2019-06-18 18:51] LABS: PTT Partial Thromboplastin Tim 30 SECONDS (26.4-36.2)
[2019-06-18 18:54] LABS: Alanine Aminotransferase 14 IU/L (9-52); Albumin 3.7 g/dL (3.5-5.0); Albumin Globulin Ratio 1.3 (1.0-2.8); Alkaline Phosphatase 123 U/L (38-126); Aspartate Aminotransferase 27 IU/L (14-36); BUN Creatinine Ratio 25.6 (6-22); Bilirubin Total 1.1 mg/dL (0.2-1.3); Blood Urea Nitrogen 23 mg/dL (7-17); Calcium 8.8 mg/dL (8.4-10.2); Carbon Dioxide 29 mmol/L (22-32); Chloride 92 mmol/L (98-107); Estimated Glomerular Filt Rate 59.7 mL/min (>60); Globulin 2.9 g/dL (1.7-4.1); Glucose 85 mg/dL (80-110); HEMOLYSIS < 15 (0-50); Potassium 4.4 mmol/L (3.4-5.1); Sodium 131 mmol/L (137-145); Total Protein 6.6 g/dL (6.3-8.2)
[2019-06-18 19:00] VITALS: BP 172/70; PULSE 83; RESP 19; O2SAT 98
--- NOTE | 2019-06-18 19:39 | PC.NURSE ---
Loose saira wrap placed from knee to ankle on right leg per COAT EXAMINER.
[2019-06-18 19:41] VITALS: BP 172/95; PULSE 57; RESP 17; O2SAT 99
--- NOTE | 2019-06-18 22:13 | ED_ITS ---
HPI - Extremity Problem <ASHUTOSH Peoples - Last Filed: 06/18/19 22:41> General Chief complaint: Extremity Problem,Nontraumatic Stated complaint: R calf is swollen was told to come in for US Time Seen by Provider: 06/18/19 17:11 Source: patient and family Mode of arrival: ambulatory Limitations: no limitations History of Present Illness HPI Narrative: This is a 84-year-old female with dementia, nonsmoker, who presents with spouse with right lower leg bruise and swelling. According to the spouse, patient has been having edema to her right lower leg for last 4 years from a toe infection. However, they noticed purplish bruise on her right lateral and posterior calf and patient is not able to recall an injury or fall prior to this. Patient was referred from Dr. Dale at [facility] for an evaluation and further imaging test. She denies on anticoagulants at this time. She reports has been taking Aleve at home about every 4 days. Patient is ambulatory with a walker. Patient had acute/subacute fracture involving lateral, posterior and proximal right femoral diaphysis is at the level of the greater trochanter was admitted to the hospital about 5 weeks ago. Related Data Home Medications Medication Instructions Recorded Confirmed cabergoline 0.5 mg PO SUTUTH #8 tab 11/01/16 06/18/19 risperidone [Risperdal] 1.5 mg PO BEDTIME 10/22/18 06/18/19 [place] 3-6-9 Fatty Acids 1 cap PO DAILY 06/18/19 06/18/19 alendronate 70 mg PO QWEEK 06/18/19 06/18/19 famciclovir 125 mg PO DAILY 06/18/19 06/18/19 multivitamin with minerals 1 tab PO DAILY 06/18/19 06/18/19 olmesartan 20 mg PO DAILY 06/18/19 06/18/19 Previous Rx's Medication Instructions Recorded acetaminophen 650 mg PO Q4HR PRN #60 tab 05/14/19 donepezil 5 mg PO BEDTIME #30 tab 05/14/19 Allergies Allergy/AdvReac Type Severity Reaction Status Date / Time codeine [CODEINE] Allergy Unknown NAUSEA Verified 06/18/19 15:57 Penicillins [PENICILLINS] Allergy Unknown SWELLING Verified 06/18/19 15:57 TO SITE OF INJECTION Review of Systems <ASHUTOSH Peoples - Last Filed: 06/18/19 22:41> Review of Systems Narrative: General: Denies fever, chills, fatigue, malaise, sweats. HEENT: Denies sinus pain, ear pain, sore throat, difficulty swallowing, dizziness. Respiratory: Denies dyspnea, cough, wheezing, hemoptysis, sputum. Cardiovascular: Denies chest pain, palpitations, orthopnea, edema. Gastrointestinal: Denies nausea, vomiting, abdominal pain, diarrhea, constipation, melena. : Denies dysuria, frequency, incontinence, hematuria, urinary retention. Musculoskeletal: He HPI Skin: Denies rash, skin lesions, or other. Neurologic: Denies weakness, headache, numbness, change in speech, confusion, seizures, incoordination. Psychiatric: No concerning psychosocial issues. 12-point review of systems is negative except for those stated above. PFSH <ASHUTOSH Peoples - Last Filed: 06/18/19 22:41> Medical History Bipolar 1 disorder (Acute) Cellulitis of leg without foot, right (Acute) Diastolic heart failure (Acute) Hypertension (Acute) Knee pain, right (Acute) Pituitary adenoma (Acute) Surgical History History of hip replacement History of hip replacement History of pancreatic surgery (Acute) Family History Mother Dementia Father Suicide Social History household members: spouse Smoking Status: Former smoker alcohol intake: current Family History Mother Dementia Father Suicide Social History household members: spouse Smoking Status: Former smoker alcohol intake: current Exam <ASHUTOSH Peoples - Last Filed: 06/18/19 22:41> Narrative Exam Narrative: General appearance: well developed, well nourished, in no acute distress. Head: normocephalic, atraumatic, no scalp lesions, non-tender. Eye: pupil equal, round. EOMI. Nose: nares patent. Oral: mucosa moist. Neck/Thyroid: neck supple, full range of motion, no visible masses. Skin: Ecchymosis in lateral and posterior right lower leg, no suspicious rashes, lesions over other visible areas. Warm and dry. Heart: no clubbing, no cyanosis, no edema. Lungs: Breathing even and unlabored. No stridor. No accessory muscles used. Chest: normal shape and expansion. Abdomen: non-obese, non-distended. Neurologic: alert and oriented. 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 Psych: good eye contact, normal affect. Initial Vital Signs Initial Vital Signs: Vital Signs Temperature 98.1 F 06/18/19 15:52 Pulse Rate 63 06/18/19 15:52 Respiratory Rate 18 06/18/19 15:52 Blood Pressure 143/74 H 06/18/19 15:52 Pulse Oximetry 98 06/18/19 15:52 Extrem Right lower extremity: lower leg Details: tenderness, non-pitting edema and ecchymosis (Lateral and posterior calf); no deformity and no unusual warmth <Irina Poole DO - Last Filed: 06/19/19 05:39> Initial Vital Signs Initial Vital Signs: Vital Signs Temperature 98.1 F 06/18/19 15:52 Pulse Rate 63 06/18/19 15:52 Respiratory Rate 18 06/18/19 15:52 Blood Pressure 143/74 H 06/18/19 15:52 Pulse Oximetry 98 06/18/19 15:52 Course <Steven ASHUTOSH [place] - Last Filed: 06/18/19 22:41> Orders Ordered: ED Orders 06/18/19 15:59 US periph venous low extrem rt Stat 06/18/19 17:01 XR hip w pel if done RT 2V Stat 06/18/19 18:30 Complete Blood Count AUTO DIFF Stat Comprehensive Metabolic Panel Stat Partial Thromboplastin Time Stat Prothrombin Time INR Stat Vital Signs Vital signs: Vital Signs - 8 hr 06/18/19 15:52 06/18/19 18:15 06/18/19 19:00 Temperature 98.1 F Pulse Rate 63 53 L 83 Respiratory Rate Blood Pressure 143/74 H Blood Pressure [Left Arm] 169/88 H 172/70 H Pulse Oximetry 98 97 98 06/18/19 19:41 Temperature Pulse Rate 57 L Respiratory Rate 17 Blood Pressure 172/95 H Blood Pressure [Left Arm] Pulse Oximetry 99 <Irina Poole DO - Last Filed: 06/19/19 05:39> Orders Ordered: ED Orders 06/18/19 15:59 US periph venous low extrem rt Stat 06/18/19 17:01 XR hip w pel if done RT 2V Stat 06/18/19 18:30 Complete Blood Count AUTO DIFF Stat Comprehensive Metabolic Panel Stat Partial Thromboplastin Time Stat Prothrombin Time INR Stat Vital Signs Vital signs: Vital Signs - 8 hr 06/18/19 15:52 06/18/19 18:15 06/18/19 19:00 Temperature 98.1 F Pulse Rate 63 53 L 83 Respiratory Rate 18 18 19 Blood Pressure 143/74 H Blood Pressure [Left Arm] 169/88 H 172/70 H Pulse Oximetry 98 97 98 06/18/19 19:41 Temperature Pulse Rate 57 L Respiratory Rate 17 Blood Pressure 172/95 H Blood Pressure [Left Arm] Pulse Oximetry 99 MDM - Extremity (Nontraumatic) <ASHUTOSH Peoples - Last Filed: 06/18/19 22:41> Differential Diagnosis Differential diagnosis: Likely cellulitis, lower extremity edema, deep vein thrombosis of lower extremity and other (Contusion of right lower leg, fracture of right hip) Medical Records Attestation: I reviewed the patient's medical records. Lab Data Attestation: I reviewed the patient's lab results. Result diagrams: 06/18/19 18:30 06/18/19 18:30 Labs: Lab Results 06/18/19 06/18/19 06/18/19 Range/Units 18:30 18:30 18:30 WBC 6.7 (4.5-11.0) X10^3/uL RBC 3.03 L (4.0-5.2) X10^6/uL Hgb 10.1 L (12.0-16.0) g/dL Hct 29.8 L (36-46) % MCV 98.2 (80-100) fL MCH 33.3 (26-34) PG MCHC 33.9 (30-36) % RDW 15.3 H (11.6-14.8) % Plt Count 165 (150-400) X10^3/uL Neut % (Auto) 65.9 (50-75) % Lymph % (Auto) 19.6 L (25-40) % [place] % (Auto) 11.6 (3-14) % Eos % (Auto) 2.0 (2-4) % Baso % (Auto) 0.9 (0-2) % Neut # (Auto) 4400 (1760-5322) /uL Lymph # (Auto) 1300 (5022-0823) /uL [place] # (Auto) 800 (0-900) /uL Eos # (Auto) 100 (0-450) /uL Baso # (Auto) 100 (0-100) /uL PT 12.2 (10.1-12.7) SECONDS INR 1.1 (0.9-1.3) APTT 30 D (26.4-36.2) SECONDS Sodium 131 L (137-145) mmol/L Potassium 4.4 (3.4-5.1) mmol/L Chloride 92 L (98-107) mmol/L Carbon Dioxide 29 (22-32) mmol/L BUN 23 H (7-17) mg/dL Creatinine 0.90 (0.52-1.04) mg/dL Estimated GFR 59.7 L (>60) mL/min BUN/Creatinine Ratio 25.6 H (6-22) Glucose 85 (80-110) mg/dL Calcium 8.8 (8.4-10.2) mg/dL Total Bilirubin 1.1 (0.2-1.3) mg/dL AST 27 (14-36) IU/L ALT 14 (9-52) IU/L Alkaline Phosphatase 123 (38-126) U/L B-Natriuretic Peptide Cancelled Total Protein 6.6 (6.3-8.2) g/dL Albumin 3.7 (3.5-5.0) g/dL Globulin 2.9 (1.7-4.1) g/dL Albumin/Globulin Ratio 1.3 (1.0-2.8) Imaging Data US-venous LE, R: Radiologist's impression: [address] [address] Ultrasound Report Signed Patient: Artemio Rico LMR#: [id number] : 5Acct:[id number] Age/Sex: 84 / FDate of Service: 06/18/19 Loc: ED Accession Number: [id number] Procedure: US periph venous low extrem rt Ordering Provider: Ethel Grimm D.O. PROCEDURE: PERIP VENOUS LOW EXTREM RT INDICATIONS: RT LEG SWELLING TECHNIQUE: Real-time imaging, as well as color and pulse Doppler interrogation, were performed of the lower extremity deep veins from the inguinal ligament to the popliteal fossa. COMPARISON: None. FINDINGS: The common femoral, femoral and popliteal veins are normally compressible, and free of intraluminal thrombus. Color and pulse Doppler demonstrate normal phasic intraluminal flow. There is normal augmentation response to distal compression maneuver. IMPRESSION: No visualized deep venous thrombosis. Mild lower extremity soft tissue edema is present. Dictated by: Nika Davila M.D. on 06/18/2019 at 17:49 Approved by: Nika Davila M.D. on 06/18/2019 at 17:50 XR-Hip R side: Radiologist's impression: [place] [address] XRay Report Signed Patient: Artemio Rico LMR#: [id number] : 5Acct:[id number] Age/Sex: 84 / FDate of Service: 06/18/19 Loc: ED Accession Number: [id number] Procedure: XR hip w pel if done RT 2V Ordering Provider: Ethel Grimm D.O. PROCEDURE: XR HIP W PEL IF DONE RT 2V INDICATIONS: Hip/groin pain w/ambulation. TECHNIQUE: Single view of the pelvis and 2 views of the right hip were acquired. COMPARISON: [facility], CR, XR PELVIS 1-2V, 05/11/2019, 17:11. [facility], CT, CT PEL WO CON, 05/11/2019, 17:40. [facility], CR, XR PELVIS WITH LATERAL HIP LEFT, 03/21/2019, 15:59. [facility], CR, XR HIP W PEL IF DONE LT 2V, 10/22/2018, 17:54. FINDINGS: Bones: There are bilateral hip prostheses redemonstrated. There is a subacute periprosthetic fracture redemonstrated within the proximal right femur lateral to the femoral component. There is also slightly increased lucency along the proximal aspect of the femoral component suggestive of loosening. An old left periprosthetic fracture is redemonstrated along the proximal left femur. No definite new acute fractures or dislocations. The right femoral head appears centered within the acetabular cup. The visualized pelvic ring appears intact. There is moderate degenerative disc disease in the lower lumbar spine. Soft tissues: No suspicious soft tissue calcifications or masses. IMPRESSION: 1. Subacute periprosthetic fracture redemonstrated along the lateral aspect of the proximal right femur. Increased periprosthetic lucency is also noted in the proximal right femur suggestive of loosening. Dictated by: Steffen Barney M.D. on 06/18/2019 at 18:35 Approved by: Steffen Barney M.D. on 06/18/2019 at 18:40 MDM Narrative Medical decision making narrative: This patient presents to ED with her spouse from [facility] after she was referred from her primary care physician, Dr. Dale for further evaluation and imaging test for right lower leg edema and bruise. Patient and her spouse states she has been having right lower leg edema for last 4 years, however, the bruising is something new. She is not currently taking antiplatelets or anticoagulants. Patient is using a cane for ambulation. Was here about 5 weeks ago and admitted to hospital after sustaining acute/subacute fracture of the right proximal femoral dive physicist laterally and posteriorly near the proximal margin of the femoral component of the surgical hardware and patient was treated with non surgically. She also has history of bilateral hip arthroplasty. Ultrasound test was obtained on affected leg and there was no DVT but mild lower extremity soft tissue edema was noted. We repeated right hip x-ray today and there is a subacute periprosthetic fracture on previously noted area. Also noted increased periprosthetic lucency in the proximal right femur suggestive of loosening. No leukocytosis per blood test her H&H was some a decreased but not much different from her baseline. Coag test were unremarkable. Her sodium/chloride were mildly decreased but actually higher than her normal baseline. Appears to be she may be mildly dehydrated with increased BUN. Dr. Yanet Robles, orthopedist, was consulted over the phone and was informed that patient is not meeting criteria for surgical intervention. She had reviewed x-ray test at home and it appears to be the fracture is about a month old and is trying to heal at this time. Patient and spouse were rushing to get to very terminal to get back home in time. Findings were shared with them. Adama wrap was offered and applied to right lower extremity. Patient was advised to elevate affected leg to help with swelling. Patient advised to follow with her primary care physician in 2-3 days and advised to take Tylenol and/or Motrin as needed for discomfort. No further questions were expressed and they both agree with treatment plan. <Irina Poole, DO - Last Filed: 06/19/19 05:39> Lab Data Labs: Lab Results 06/18/19 06/18/19 06/18/19 Range/Units 18:30 18:30 18:30 WBC 6.7 (4.5-11.0) X10^3/uL RBC 3.03 L (4.0-5.2) X10^6/uL Hgb 10.1 L (12.0-16.0) g/dL Hct 29.8 L (36-46) % MCV 98.2 (80-100) fL MCH 33.3 (26-34) PG MCHC 33.9 (30-36) % RDW 15.3 H (11.6-14.8) % Plt Count 165 (150-400) X10^3/uL Neut % (Auto) 65.9 (50-75) % Lymph % (Auto) 19.6 L (25-40) % [place] % (Auto) 11.6 (3-14) % Eos % (Auto) 2.0 (2-4) % Baso % (Auto) 0.9 (0-2) % Neut # (Auto) 4400 (0699-5281) /uL Lymph # (Auto) 1300 (3655-4951) /uL [place] # (Auto) 800 (0-900) /uL Eos # (Auto) 100 (0-450) /uL Baso # (Auto) 100 (0-100) /uL PT 12.2 (10.1-12.7) SECONDS INR 1.1 (0.9-1.3) APTT 30 D (26.4-36.2) SECONDS Sodium 131 L (137-145) mmol/L Potassium 4.4 (3.4-5.1) mmol/L Chloride 92 L (98-107) mmol/L Carbon Dioxide 29 (22-32) mmol/L BUN 23 H (7-17) mg/dL Creatinine 0.90 (0.52-1.04) mg/dL Estimated GFR 59.7 L (>60) mL/min BUN/Creatinine Ratio 25.6 H (6-22) Glucose 85 (80-110) mg/dL Calcium 8.8 (8.4-10.2) mg/dL Total Bilirubin 1.1 (0.2-1.3) mg/dL AST 27 (14-36) IU/L ALT 14 (9-52) IU/L Alkaline Phosphatase 123 (38-126) U/L B-Natriuretic Peptide Cancelled Total Protein 6.6 (6.3-8.2) g/dL Albumin 3.7 (3.5-5.0) g/dL Globulin 2.9 (1.7-4.1) g/dL Albumin/Globulin Ratio 1.3 (1.0-2.8) Discharge Plan Departure Patient Disposition: Home Clinical Impression: Contusion Qualifiers: Encounter type: initial encounter Contusion area: lower leg Laterality: right Qualified Code(s): S80.11XA - Contusion of right lower leg, initial encounter Discharge Date/Time: 06/18/19 19:43 Instructions: DI for Contusion Activity Restrictions/Additional Instructions: You have been diagnosed with [bruise and swelling to your right lower leg. According to ultrasound test, you do not have blood clot on her right lower leg. X-ray test shows old fracture that is about 1 month old which is trying to heal. Orthopedist, Dr. Robles was consulted and at this time the surgery is not needed. Your blood test for infection and blood clotting factors are unremarkable. We applied Adama wrap for swelling in ED. You can always we wrap and remove Adama wrap as needed for swelling]. What to do: *Take your medications as directed. You can take [id number] Tylenol and ibuprofen as needed for pain and inflammation/swelling. Please elevate your affected leg during rest for swelling. *Follow up with your primary care provider in 2-3 days, call for an appointment. Let them know you were seen in the ED and that we asked you to be seen in follow up. *Return to ED if you have any new, worsening, or concerning symptoms, such as [worsening pain, swelling, tingling/numbness/weakness to your lower leg, weakness, chest pain, breathing difficulty, unable to tolerate fluids, or any acute concerns]. Prescriptions: No Action cabergoline 0.5 MG tablet 0.5 mg PO SUTUTH Qty: 8 RF: 0 risperidone [Risperdal] 1 MG tablet 1.5 mg PO BEDTIME RF: 0 acetaminophen 325 mg Tablet 650 mg PO Q4HR PRN (Reason: Pain, Mild (1-3)) Qty: 60 RF: 0 donepezil 5 mg Tablet 5 mg PO BEDTIME Qty: 30 RF: 0 alendronate 70 mg tablet 70 mg PO QWEEK RF: 0 famciclovir 125 mg tablet 125 mg PO DAILY RF: 0 multivitamin with minerals Tablet 1 tab PO DAILY RF: 0 olmesartan 20 mg Tablet 20 mg PO DAILY RF: 0 [place] 3-6-9 Fatty Acids 1 cap PO DAILY RF: 0 Referrals: Aaron Dale MD [Family Provider] -
== END 2019-06-18 19:43 | disposition home or self-care (01) ==
PROVIDERS: Emergency Provider Nurse Practitioner Family; Family Provider Family Medicine
DX: S80.11XA Contusion of right lower leg, initial encounter (principal)
CPT/HCPCS: 36415; 73502; 80053; 85025; 85610; 85730; 93971; 99283; 99284